=== PATIENT | male | born 1940 | race Caucasian/White ===

== ENCOUNTER 2019-12-30 11:25 | Outpatient (CLI) | payer MEDICARE, SELFPAY ==
--- NOTE | ~2019-12-30 | CT_ITS ---
EXAMINATION: CT abdomen pelvis wo con EXAM DATE: 12/30/2019 12:03 INDICATION: Kidney stone history, hematuria. TECHNIQUE: Spiral CT of the abdomen and pelvis was performed without contrast. Axial, coronal and sag ittal images were reviewed. The dose-length product (DLP) for this examination was 462.93 mGy-cm. T he exposure was tailored according to patient size (auto mA exposure control), and iterative reconstr uction (ASIR) was used as additional dose reduction technique. Comparison is made to prior examinatio n from 11/17/2019. FINDINGS: Interval development of large left renal subcapsular hematoma measuring up to about 3 cm in thickness. There is moderate bilateral caliectasis, hydronephrosis. There are 3 stones which are darron pected to be within the left ureter, 2 in the distal most aspect measuring 3 and 1 mm, another measur ing 2 mm 5 cm proximal to the UVJ. There is lobular fluid density cystic lesion inferior to the left renal pelvis measuring about 3 x 5 cm likely cyst projecting off lower pole of the left kidney. There is nonobstructing 7 mm stone in the dependent aspect of the left renal pelvis. Additional punctate r ight calyceal and 3 mm left calyceal stones. Patient has likely had prostatectomy. Small left inguina l fat-containing hernia. The bladder is unremarkable. The liver, spleen, adrenal glands and pancrea s are unremarkable. Gallbladder is unremarkable. No biliary obstruction. There is no retroperitone al or pelvic lymphadenopathy. There is mild to moderate scattered arteriosclerotic disease. The appendix is normal. The stomach and small bowel are unremarkable. There is mild scattered coloni c diverticulosis. There is no adjacent inflammatory change to suggest diverticulitis. No free intra peritoneal gas. The main, central pulmonary arteries are dilated which can indicate elevated pulmon jaclyn arterial pressure, pulmonary arterial hypertension. Dense coronary artery calcification. Small am ount of left ventricular endocardial fat may indicate prior infarction. Left basilar subsegmental at electasis with elevated left hemidiaphragm. There are no osteoblastic or osteolytic lesions identifi ed. There is chronic bilateral L5 spondylolysis with grade 2 anterolisthesis L5 on S1. There is mode rate to severe lumbar disc disease L2-S1. There are no osteoblastic or osteolytic lesions identified. IMPRESSION: 1. Interval development of 3 small left ureteral stones, T2 at the UVJ and one proximal to this, up to 3 mm in size. 2. Interval development of large left perinephric subcapsular hematoma. 3. Persistent moderate bilateral caliectasis, hydronephrosis. 4. The lateral nephrolithiasis. 5. Scattered colonic diverticulosis. 6. Left basilar segmental atelectasis. 7. 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 8. Pulmonary arterial hypertension. Reviewed, dictated and finalized at location B. 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
== END 2019-12-30 11:26 | disposition home or self-care (01) ==
PROVIDERS: PCP Family Medicine; Visit Provider Urology
DX: N20.2 Calculus of kidney with calculus of ureter (principal); K57.30 Diverticulosis of large intestine without perforation or abscess without bleeding; R91.8 Other nonspecific abnormal finding of lung field; I70.0 Atherosclerosis of aorta
CPT/HCPCS: 74176

== ENCOUNTER 2019-12-31 01:13 | Day surgery (SDC) | payer MEDICARE, SELFPAY ==
[2019-12-30 16:07] VITALS: BMI 31.0
[2019-12-31] VITALS (7 sets, daily range): BP systolic 117–149; BP diastolic 58–88; PULSE 74–88; RESP 11–18; TEMP 36.9–37.1; O2SAT 95–100; BMI 31.3
--- NOTE | ~2019-12-31 | XR_ITS ---
EXAMINATION: XR stent kub - surgery DATE: 12/31/2019 15:04 INDICATION: Left renal balloon dilation and ureteral stent placement. TECHNIQUE: 5 fluoroscopic spot images of the abdomen and pelvis were obtained during procedure perfor med by Dr. Maher. Radiologist was not present for the imaging or procedure. The amount of fluoroscop y time used during this procedure was 0.4 minutes. COMPARISON: None. FINDINGS: Images demonstrate cannulation of the left ureter and placement of a left internal ureteral stent wit h proximal loop formed at the expected location of the interpolar region of the left kidney. Surgical clips in the bilateral pelvis suggesting prior pelvic lymph node dissections. IMPRESSION: 1. Fluoroscopy utilized during left internal ureteral stent placement. See procedure note for further detail. 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 Fluoroscopy utilized during left internal ureteral stent placement. See proc edure note for further detail.
--- NOTE | 2019-12-31 07:23 | WPDHPUPDATE1 ---
History and Physical Update Update Date/Time: 12/31/19 07:23 History and Physical has been reviewed, including an updated exam of the patient. There are NO changes in the patient's condition. Risks, benefits, and alternatives have been discussed and questions answered. Patient agrees to proceed with procedure.
--- NOTE | 2019-12-31 13:09 | ECG_ITS ---
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
--- NOTE | 2019-12-31 13:31 | WPDANESEPPF ---
Anes - Initial Pre Proc Eval Procedure: Operation Date: 12/31/19 14:45 Proposed Procedures p Cystoscopy, Left Ureteroscopy, Left Stone Extraction, Left Stent Placement - Melchor Maher MD Date/Time: 12/31/19 13:31 Surgeon: Melchor Maher MD Pre Op Diagnosis: Left Ureteral Stones Patient Data Age: 79 Gender: M Height: 1.75 m Weight: 95.25 kg Allergies Allergy/AdvReac Type Severity Reaction Status Date / Time ciprofloxacin AdvReac Unknown Insomnia Verified 12/30/19 16:08 Home Medications Medication Instructions Recorded Confirmed Type albuterol sulfate 90 mcg/actuation 1 puff INHALATION Q4H PRN 09/09/19 12/30/19 History aerosol inhaler cholecalciferol (vitamin D3) 50 2,000 unit PO DAILY 09/09/19 12/30/19 History mcg (2,000 unit) capsule diltiazem HCl 360 mg capsule,24 360 mg PO DAILY 09/09/19 12/30/19 History hr,extended release loratadine 10 mg tablet 10 mg PO DAILY 09/09/19 12/30/19 History lorazepam 0.5 mg tablet 0.5 mg PO TID PRN 09/09/19 12/30/19 History losartan 100 mg tablet 100 mg PO DAILY 09/09/19 12/30/19 History mometasone 1 inhalation INHALATION HS each 09/09/19 12/30/19 History montelukast 10 mg tablet 10 mg PO DAILY 09/09/19 12/30/19 History multivitamin 1 tablet PO DAILY 09/09/19 12/30/19 History aspirin 81 mg tablet,delayed 81 mg PO DAILY 11/17/19 12/30/19 History release Patient hx anesthesia problems: none Family hx anesthesia problems: none PMFSH Past Medical History Medical History (Updated 12/31/19 @ 13:33 by Yevgeniy Figueroa MD) Bilateral renal cysts CKD (chronic kidney disease) stage 3, GFR 30-59 ml/min Essential (primary) hypertension H/O prostate cancer Malignant neoplasm of bladder, unspecified Mild persistent asthma without complication Osteoarthritis of shoulders, bilateral Prostate cancer Rotator cuff tear Urinary incontinence Surgical History Surgical History H/O prostatectomy History of bladder surgery History of bunionectomy Social History Social History (Updated 11/17/19 @ 09:30 by Federica Parish) Smoking packs per day: 2.5 Smoking cigarettes per day: 50.0 Years smoked: 35 Smoking pack-years: 87.50 Smoking status: Former smoker Tobacco type: cigarettes Second hand tobacco smoke exposure: No Smoking end date: 11/04/85 Alcohol intake: current Substance use: never Substance use type: does not use Gender identity (if verbalized by the patient): Male Anes - Eval Final PreProcedure Day of Procedure 12/31/19 13:31 Patient weight: obese Heart: regular rate and rhythm Lungs: clear to auscultation and normal air movement Airway: Mallampati scale class II Neurological: alert and oriented Last oral intake: >/= 8 hours ASA classification: III Emergent: no Anesthetic plan: proceed Anesthesia type and monitoring: general LMA Informed Consent: The patient's anesthetic plan and its attendant risks and benefits were discussed with the patient/family/POA. Questions were solicited and answers provided to the satisfaction of the patient/family/POA.
[2019-12-31] MEDS: LACTATED RINGERS 1,000 ML 30 ML IV CONT (13:56)
[2019-12-31] MEDS: ceFAZolin 2 GM/D5W 50 ML 2 GM/50 ML BAG IVPB (14:23)
[2019-12-31] MEDS: LIDOCAINE HCL 2% GEL UROJET 10 ML PKG MUCOUS MEM (14:38)
--- NOTE | 2019-12-31 15:34 | PM.PROC ---
Procedure Note - Detailed Date of procedure: 12/31/19 Pre-op diagnosis: Left Ureteral Stones Post-op diagnosis: other (Left hydronephrosis due to ureteral obstruction) Procedure performed: 1. Cystoscopy, left urteroscopy and left ureteral stent placement. 2. Bladder biopsy. Description of procedure: Patient is brought to the operative suite where he has prepped and draped in routine sterile fashion while in a dorsal lithotomy position. First to the dilated urethra to 24 F with Kobe sounds in order to be able to place a 20 F rigid cystoscope. I then see that he has some unusual tissue overlying his left ureteral orifice that could be either inflammatory/scarring, recurrent bladder or recurrenct local prostate cancer. I advanced a 0.035 in glidewire into the left renal pelvis and dilated the distal ureter with a 10 cm ureteral balloon at 15 atmospheres for 4 minutes. Left ureteroscopy was undertaken both with a semi rigid ureteral scope and a flexible ureteral scope. There are no ureteral stones but a large left renal pelvic stone measuring about 1 cm. The findings of left distal ureteral calculi on recent imaging studies must be from some calcifications in this tissue around his left ureteral orifice. I placed a left double-J ureteral stent and obtained biopsies of this tissue with cold cup forceps. I left an 18 F urethral catheter and for brief period of time postoperatively. Anesthesia: GETA Surgeon: Melchor Maher MD Estimated blood loss (mL): 10 Drains: Yes (6F left ureteral stent) Packing: No Pathology: yes Complications: No immediate complications Condition: stable Disposition: PACU
--- NOTE | 2020-01-05 16:46 | PM.HPGS ---
History of Present Illness History of Present Illness Consent: Risks, benefits, and alternatives have been discussed and questions answered. Patient agrees to proceed with procedure. Chief complaint: Left Ureteral Stones Narrative: Omer Winter is a 79 year old male, well known to me with history of both prostate and bladder cancer, recently evaluated for ongoing painless hematuria. CT-abd/pelvis reveals 2-3 small, obstructing left distal ureteral calculi and a left perinephric hematoma. Review of Systems Cardiovascular: Cardiovascular: Denies chest pain, Denies lightheadedness, Denies palpitations and Denies dyspnea Respiratory: Respiratory: Denies dyspnea Gastrointestinal: Gastrointestinal: Denies diarrhea, Denies nausea and Denies vomiting Genitourinary: Genitourinary: Denies hematuria and Denies dysuria Endocrine: Endocrine: Denies palpitations PMFSH Past Medical History Medical History Bilateral renal cysts CKD (chronic kidney disease) stage 3, GFR 30-59 ml/min Essential (primary) hypertension H/O prostate cancer Malignant neoplasm of bladder, unspecified Mild persistent asthma without complication Osteoarthritis of shoulders, bilateral Prostate cancer Rotator cuff tear Urinary incontinence Surgical History Surgical History H/O prostatectomy History of bladder surgery History of bunionectomy Family History Family History Mother Hypertension Father Family history of malignant neoplasm of brain Social History Social History Smoking packs per day: 2.5 Smoking cigarettes per day: 50.0 Years smoked: 35 Smoking pack-years: 87.50 Smoking status: Former smoker Tobacco type: cigarettes Second hand tobacco smoke exposure: No Smoking end date: 11/04/85 Alcohol intake: current Substance use: never Substance use type: does not use Gender identity (if verbalized by the patient): Male Meds Home Medications and Allergies Home Medications Medication Instructions Recorded Confirmed Type albuterol sulfate 90 mcg/actuation 1 puff INHALATION Q4H PRN 09/09/19 12/31/19 History aerosol inhaler cholecalciferol (vitamin D3) 50 2,000 unit PO DAILY 09/09/19 12/31/19 History mcg (2,000 unit) capsule diltiazem HCl 360 mg capsule,24 360 mg PO DAILY 09/09/19 12/31/19 History hr,extended release loratadine 10 mg tablet 10 mg PO DAILY 09/09/19 12/31/19 History lorazepam 0.5 mg tablet 0.5 mg PO TID PRN 09/09/19 12/31/19 History losartan 100 mg tablet 100 mg PO DAILY 09/09/19 12/31/19 History mometasone 1 inhalation INHALATION HS each 09/09/19 12/31/19 History montelukast 10 mg tablet 10 mg PO DAILY 09/09/19 12/30/19 History multivitamin 1 tablet PO DAILY 09/09/19 12/31/19 History aspirin 81 mg tablet,delayed 81 mg PO DAILY 11/17/19 12/31/19 History release Allergies Allergy/AdvReac Type Severity Reaction Status Date / Time ciprofloxacin AdvReac Unknown Insomnia Verified 12/31/19 13:44 Exam Const: General: healthy appearing, comfortable, no acute distress and well developed; No confusion Nutritional Appearance: well nourished Orientation/consciousness: patient oriented x3 and No confusion HENMT: Head: normocephalic and atraumatic Ears: external ears normal Face and sinus: normal facial exam Mouth: Yes lip normal Teeth and gingiva: dentition normal Eyes: General: appearance normal, both eyes and all related structures Alignment and Position: alignment normal Eyelids: eyelids normal Cornea: corneas normal Pupils: Equal, round and reactive pupils present EOM: EOMs intact bilaterally Neck: Neck: normal visual inspection, full ROM and no JVD Chest: Chest palpation & inspection: normal inspection of the chest Resp: Effort & Inspection: normal re
== END 2019-12-31 16:55 | disposition home or self-care (01) ==
PROVIDERS: PCP Family Medicine; Visit Provider Urology
PROC: (CPT 52352; principal; 2019-12-31 14:45)
DX: C67.6 Malignant neoplasm of ureteric orifice (principal); N13.1 Hydronephrosis with ureteral stricture, not elsewhere classified; N20.0 Calculus of kidney; I12.9 Hypertensive chronic kidney disease with stage 1 through stage 4 chronic kidney disease, or unspecified chronic kidney disease; N18.3 Chronic kidney disease, stage 3 (moderate); J45.30 Mild persistent asthma, uncomplicated; Z85.46 Personal history of malignant neoplasm of prostate; Z79.82 Long term (current) use of aspirin; Z87.891 Personal history of nicotine dependence; E66.9 Obesity, unspecified; Z68.31 Body mass index [BMI] 31.0-31.9, adult
CPT/HCPCS: 52332; 52204; 88305; 88342; 93005; A9270; C1726; C1758; C1769; C1887; C2617; J0690; J1100; J2250; J2405; J2704; J3010; J7120; Q9966

== ENCOUNTER 2020-01-07 05:02 | Emergency (ER) | payer MEDICARE, SELFPAY ==
[2020-01-07 05:15] VITALS: BP 186/89; PULSE 100; RESP 19; TEMP 36.7; O2SAT 98
--- NOTE | 2020-01-07 06:46 | ED.MALEGU ---
HPI - Male Genitourinary General Chief complaint: Urogenital-Male Stated complaint: BLADDER SPASMS Time Seen by Provider: 01/07/20 06:10 Source: patient Mode of arrival: ambulatory Limitations: no limitations History of Present Illness HPI Narrative: Patient is a 79-year-old male who presents to the emergency department with complaint of bladder spasms and urinary retention. Patient has history of prostate and bladder cancer as well as kidney stones. Patient underwent cystoscopy, left ureteroscopy, and left ureteral stent placement on 12/31/2019 for kidney stone. Patient also had a bladder biopsy at that time. Patient was discharged home with a Strickland catheter that was removed in the office 3 days ago. Patient was last able to urinate at approximately 6 or 7 PM last night. Patient was unable to urinate this morning and having severe bladder spasms. Patient tried taking antispasmodic this morning without relief. Staff placed Strickland catheter on arrival to the emergency department and patient has put out over 600 mL of urine. Patient denies any fever and reports his symptoms have completely resolved at this time. MD Complaint: other (Bladder spasm, urinary retention) Onset (ago): hour(s) Duration: constant Relieving factors: none Related Data Home Medications Medication Instructions Recorded Confirmed albuterol sulfate 90 mcg/actuation 1 puff INHALATION Q4H PRN 09/09/19 12/31/19 aerosol inhaler cholecalciferol (vitamin D3) 50 2,000 unit PO DAILY 09/09/19 12/31/19 mcg (2,000 unit) capsule diltiazem HCl 360 mg capsule,24 360 mg PO DAILY 09/09/19 12/31/19 hr,extended release loratadine 10 mg tablet 10 mg PO DAILY 09/09/19 12/31/19 lorazepam 0.5 mg tablet 0.5 mg PO TID PRN 09/09/19 12/31/19 losartan 100 mg tablet 100 mg PO DAILY 09/09/19 12/31/19 mometasone 1 inhalation INHALATION HS each 09/09/19 12/31/19 montelukast 10 mg tablet 10 mg PO DAILY 09/09/19 12/30/19 multivitamin 1 tablet PO DAILY 09/09/19 12/31/19 aspirin 81 mg tablet,delayed 81 mg PO DAILY 11/17/19 12/31/19 release Allergies Allergy/AdvReac Type Severity Reaction Status Date / Time ciprofloxacin AdvReac Unknown Insomnia Verified 01/07/20 05:03 Review of Systems Review of Systems: All systems reviewed & are unremarkable except as noted in HPI and below Constitutional: Constitutional: Denies fever(s) Genitourinary: Genitourinary: Reports other (Urinary retention, bladder spasms) [facility] Social History Social History Smoking packs per day: 2.5 Smoking cigarettes per day: 50.0 Years smoked: 35 Smoking pack-years: 87.50 Smoking status: Former smoker Tobacco type: cigarettes Second hand tobacco smoke exposure: No Smoking end date: 11/04/85 Alcohol intake: current Substance use: never Substance use type: does not use Gender identity (if verbalized by the patient): Male Exam Const: General: cooperative, no acute distress and alert Nutritional Appearance: obese Orientation/consciousness: patient oriented x3 Limitations: no limitations HENMT: Mouth: Yes lip normal and Yes moist mucous membranes Resp: Effort & Inspection: normal respiratory effort Auscultation: clear to auscultation bilaterally Cardio: Rate: regular rate Rhythm: regular rhythm GI: GI Palp: Yes Soft to palpation and No Tenderness to palpation present (GI) Auscultation: normal bowel sounds Skin: General skin exam: normal color Neuro: General: patient oriented x3 Cognition (Neuro): normal cognition Speech: normal speech Extrem: General: normal to inspection, full ROM and no clubbing, cyanosis or edema Psych: Mental Status: mental status grossly normal Affect: normal affect Attitude: cooperative Course Course Emergency Course: Patient and familiar with Strickland catheter care as patient has had catheters at home in the past. Patient advised to follow-up with his urologist for Strickland catheter
[2020-01-07 06:52] VITALS: BP 137/83; PULSE 87; RESP 14; TEMP 36.5; O2SAT 98
[2020-01-07 07:06] VITALS: BP 149/62; PULSE 84; RESP 17; TEMP 36.5; O2SAT 95
== END 2020-01-07 07:00 | disposition home or self-care (01) ==
PROVIDERS: Emergency Provider Emergency Medicine; PCP Family Medicine
DX: R33.9 Retention of urine, unspecified (principal); C67.9 Malignant neoplasm of bladder, unspecified; Z87.891 Personal history of nicotine dependence; Z85.46 Personal history of malignant neoplasm of prostate; Z96.0 Presence of urogenital implants
CPT/HCPCS: 51702; 99283

== ENCOUNTER 2020-01-12 14:26 | Outpatient (CLI) | payer MEDICARE, SELFPAY ==
--- NOTE | ~2020-01-12 | US_ITS ---
EXAMINATION: US venous doppler LE EXAM DATE: 01/12/2020 15:30 INDICATION: Right foot swelling. TECHNIQUE: Multiple grayscale, color flow and Doppler images of the lower extremity deep venous syste ms bilaterally were obtained and reviewed. Comparison is made to prior examination from 01/08/2019. FINDINGS: RIGHT SIDE Common femoral: -------- Normal. Profunda femoral: ------- Normal. Femoral: Normal. Popliteal: Normal. Posterior tibial: --------- Normal. Peroneal: Normal. Gastrocnemius: Not visualized. Soleus: Not visualized. Greater saphenous: -----Thrombosed from ankle to mid calf. Lesser saphenous: ------ Not visualized. There is a Peterson's cyst measuring 4.8 x 1.5 x 2.9 cm LEFT SIDE Common femoral: -------- Normal. Profunda femoral: ------- Normal. Femoral: Normal. Popliteal: Normal. Posterior tibial: --------- Normal. Peroneal: Normal. Gastrocnemius: Not visualized. Soleus: Not visualized. Greater saphenous: ----- Normal. Lesser saphenous: ------ Not visualized. IMPRESSION: 1. Right greater saphenous superficial venous thrombosis. 2. No DVT bilaterally. 3. Moderate right Peterson's cyst. Reviewed, dictated and finalized at location A.
== END 2020-01-12 14:27 | disposition home or self-care (01) ==
PROVIDERS: PCP Family Medicine; Visit Provider Physician Assistant
DX: I82.409 Acute embolism and thrombosis of unspecified deep veins of unspecified lower extremity (principal); R60.9 Edema, unspecified; M71.21 Synovial cyst of popliteal space [Baker], right knee
CPT/HCPCS: 93970

== ENCOUNTER 2020-01-21 01:33 | Day surgery (SDC) | payer MEDICARE, SELFPAY ==
[2020-01-13 14:32] VITALS: BMI 29.9
--- NOTE | 2020-01-15 11:10 | PM.HPGS ---
History of Present Illness History of Present Illness Consent: Risks, benefits, and alternatives have been discussed and questions answered. Patient agrees to proceed with procedure. Chief complaint: bladder tumors Narrative: Omer Winter is a 79 year old male well known to our practice with both a history of prostate cancer and bladder cancer. He is status post radical prostatectomy at [facility] in 2001. He has also had a history of urothelial carcinoma status post 1st bladder tumor resection in April 2014. He is not known to have a recurrence of either until recently when he developed left hydronephrosis. A CT scan was initially read as obstruction due to distal ureteral calculi but under further endoscopic evaluation he was found to have obstruction due to soft tissue at the ureteral orifice. Biopsy revealed urothelial carcinoma and he now presents for formal resection of that area. Review of Systems Cardiovascular: Cardiovascular: Denies chest pain, Denies lightheadedness, Denies palpitations and Denies dyspnea Respiratory: Respiratory: Denies dyspnea Gastrointestinal: Gastrointestinal: Denies diarrhea, Denies nausea and Denies vomiting Genitourinary: Genitourinary: Denies hematuria and Denies dysuria Endocrine: Endocrine: Denies palpitations [facility] Social History Social History Smoking packs per day: 2.5 Smoking cigarettes per day: 50.0 Years smoked: 35 Smoking pack-years: 87.50 Smoking status: Former smoker Tobacco type: cigarettes Second hand tobacco smoke exposure: No Smoking end date: 11/04/85 Alcohol intake: current Substance use: never Substance use type: does not use Gender identity (if verbalized by the patient): Male Meds Home Medications and Allergies Home Medications Medication Instructions Recorded Confirmed Type albuterol sulfate 90 mcg/actuation 1 puff INHALATION Q4H PRN 09/09/19 01/13/20 History aerosol inhaler cholecalciferol (vitamin D3) 50 2,000 unit PO DAILY 09/09/19 01/13/20 History mcg (2,000 unit) capsule diltiazem HCl 360 mg capsule,24 360 mg PO DAILY 09/09/19 01/13/20 History hr,extended release loratadine 10 mg tablet 10 mg PO DAILY 09/09/19 01/13/20 History lorazepam 0.5 mg tablet 0.5 mg PO TID PRN 09/09/19 01/13/20 History losartan 100 mg tablet 100 mg PO DAILY 09/09/19 01/13/20 History mometasone 1 inhalation INHALATION HS each 09/09/19 01/13/20 History montelukast 10 mg tablet 10 mg PO DAILY 09/09/19 01/13/20 History multivitamin 1 tablet PO DAILY 09/09/19 01/13/20 History aspirin 81 mg tablet,delayed 81 mg PO DAILY 11/17/19 01/13/20 History release Allergies Allergy/AdvReac Type Severity Reaction Status Date / Time ciprofloxacin AdvReac Unknown Insomnia Verified 01/13/20 14:31 Exam Const: General: no acute distress Resp: Effort & Inspection: normal respiratory effort GI: Inspection: non-distended GI Palp: No abdominal tenderness and No Guarding due to palpation present (GI) Auscultation: normal bowel sounds Assessment and Plan Assessment and plan (1) Cancer of overlapping sites of bladder: Code(s): C67.8 - Malignant neoplasm of overlapping sites of bladder Status: Acute Assessment and Plan: TURBT of recurrent urothelial cancer overlying the left ureteral orifice. The patient has an indwelling stent currently is aware he will need to keep it postoperatively for a brief period of time. Risks, benefits and alternative treatment options were discussed.
[2020-01-21] VITALS (7 sets, daily range): BP systolic 108–165; BP diastolic 69–86; PULSE 62–77; RESP 12–18; TEMP 36.4–36.7; O2SAT 97–100
--- NOTE | 2020-01-21 06:49 | WPDHPUPDATE1 ---
History and Physical Update Update Date/Time: 01/21/20 06:49 History and Physical has been reviewed, including an updated exam of the patient. There are NO changes in the patient's condition. Risks, benefits, and alternatives have been discussed and questions answered. Patient agrees to proceed with procedure.
--- NOTE | 2020-01-21 06:50 | WPDHPUPDATE1 ---
History and Physical Update Update Date/Time: 01/21/20 06:50 History and Physical has been reviewed, including an updated exam of the patient. There are NO changes in the patient's condition. Risks, benefits, and alternatives have been discussed and questions answered. Patient agrees to proceed with procedure.
[2020-01-21] MEDS: LACTATED RINGERS 1,000 ML 30 ML IV CONT ×2 (13:10→13:15)
--- NOTE | 2020-01-21 13:45 | WPDANESEPPF ---
Anes - Initial Pre Proc Eval Procedure: Operation Date: 01/21/20 14:30 Proposed Procedures p Trans Urethral Resection Bladder Tumor - Melchor Maher MD Date/Time: 01/21/20 13:45 Surgeon: Melchor Maher MD Pre Op Diagnosis: bladder tumors Patient Data Age: 79 Gender: M Height: 5 ft 9 in Weight: 92.2 kg Last Vital Signs Temp 36.4 C 01/21/20 13:07 Pulse 77 01/21/20 13:07 Resp 18 01/21/20 13:07 BP 158/79 H 01/21/20 13:07 Pulse Ox 97 01/21/20 13:07 Allergies Allergy/AdvReac Type Severity Reaction Status Date / Time ciprofloxacin AdvReac Unknown Insomnia Verified 01/21/20 13:31 Home Medications Medication Instructions Recorded Confirmed Type albuterol sulfate 90 mcg/actuation 1 puff INHALATION Q4H PRN 09/09/19 01/21/20 History aerosol inhaler cholecalciferol (vitamin D3) 50 2,000 unit PO DAILY 09/09/19 01/21/20 History mcg (2,000 unit) capsule diltiazem HCl 360 mg capsule,24 360 mg PO DAILY 09/09/19 01/21/20 History hr,extended release loratadine 10 mg tablet 10 mg PO DAILY 09/09/19 01/21/20 History lorazepam 0.5 mg tablet 0.5 mg PO TID PRN 09/09/19 01/21/20 History losartan 100 mg tablet 100 mg PO DAILY 09/09/19 01/21/20 History mometasone 1 inhalation INHALATION HS each 09/09/19 01/21/20 History montelukast 10 mg tablet 10 mg PO DAILY 09/09/19 01/21/20 History multivitamin 1 tablet PO DAILY 09/09/19 01/21/20 History aspirin 81 mg tablet,delayed 81 mg PO DAILY 11/17/19 01/21/20 History release Patient hx anesthesia problems: none Family hx anesthesia problems: none PMFSH Past Medical History Medical History Bilateral renal cysts CKD (chronic kidney disease) stage 3, GFR 30-59 ml/min Essential (primary) hypertension H/O prostate cancer Malignant neoplasm of bladder, unspecified Mild persistent asthma without complication Osteoarthritis of shoulders, bilateral Prostate cancer Rotator cuff tear Urinary incontinence Surgical History Surgical History H/O prostatectomy History of bladder surgery History of bunionectomy Family History Family History Mother Hypertension Father Family history of malignant neoplasm of brain Social History Social History Smoking packs per day: 2.5 Smoking cigarettes per day: 50.0 Years smoked: 35 Smoking pack-years: 87.50 Smoking status: Former smoker Tobacco type: cigarettes Second hand tobacco smoke exposure: No Smoking end date: 11/04/85 Alcohol intake: current Substance use: never Substance use type: does not use Gender identity (if verbalized by the patient): Male Anes - Eval Final PreProcedure Day of Procedure 01/21/20 13:45 Patient weight: obese Heart: regular rate and rhythm Lungs: clear to auscultation Airway: Mallampati scale class II Neurological: alert and oriented Last oral intake: >/= 8 hours ASA classification: III Emergent: no Anesthetic plan: proceed Anesthesia type and monitoring: general LMA and standard monitoring Informed Consent: The patient's anesthetic plan and its attendant risks and benefits were discussed with the patient/family/POA. Questions were solicited and answers provided to the satisfaction of the patient/family/POA.
[2020-01-21] MEDS: ceFAZolin 2 GM/D5W 50 ML 2 GM/50 ML BAG IVPB (14:18)
[2020-01-21] MEDS: LIDOCAINE HCL 2% GEL UROJET 10 ML PKG MUCOUS MEM (14:25)
--- NOTE | 2020-01-21 14:57 | PM.PROC ---
Procedure Note - Detailed Date of procedure: 01/21/20 Pre-op diagnosis: bladder tumors Post-op diagnosis: same Procedure performed: 1. Cysto./urethral dilatation. 2. TURBT (medium, 4-5cm). Description of procedure: The patient was brought to the operative suite where he is prepped and draped in a routine sterile fashion while in the dorsal lithotomy position. This is done after the uneventful administration of a general LMA anesthetic. 2% Xylocaine jelly is introduced intraurethrally and allowed to stand for an appropriate period of time. I 1st dilated the urethra from 18-26 F with Kobe sounds. A 24F resectoscope sheath was placed in the bladder and the bladder is circumferentially inspected carefully. His neoplasm is little difficult to discern grossly but likely represents an area of desmoplastic tissue around the left ureteral orifice. Other than that (which I biopsied recently) his bladder a bladder is endoscopically normal. I aggressively resected the area around his left ureteral orifice extending to the bladder neck. I resected to the point where there was clearly normal bladder mucosa circumferentially. The base and periphery of this resected side is cauterized with a loop electrode. I opted to leave the left ureteral stent in place. The bladder is emptied and the resectoscope was removed. The patient is taken to the recovery room having tolerated this procedure well. Implants: None Anesthesia: GLMA Surgeon: Melchor Maher MD Estimated blood loss (mL): 0 Drains: Yes (18F Strickland) Packing: No Pathology: yes Complications: No immediate complications Condition: stable Disposition: PACU
== END 2020-01-21 16:32 | disposition home or self-care (01) ==
PROVIDERS: PCP Family Medicine; Visit Provider Urology
PROC: 0TBB8ZZ Excision of Bladder, Via Natural or Artificial Opening Endoscopic (ICD-10-PCS; CPT 52235; principal; 2020-01-21 14:30)
DX: C67.8 Malignant neoplasm of overlapping sites of bladder (principal); I12.9 Hypertensive chronic kidney disease with stage 1 through stage 4 chronic kidney disease, or unspecified chronic kidney disease; N18.3 Chronic kidney disease, stage 3 (moderate); J45.30 Mild persistent asthma, uncomplicated; Q61.3 Polycystic kidney, unspecified; Z85.46 Personal history of malignant neoplasm of prostate; Z79.82 Long term (current) use of aspirin; Z87.891 Personal history of nicotine dependence; E66.9 Obesity, unspecified; Z68.30 Body mass index [BMI] 30.0-30.9, adult
CPT/HCPCS: 52235; 88305; 88307; A9270; J0690; J1100; J2405; J2704; J3010; J7120

== ENCOUNTER 2020-03-29 00:03 | Outpatient (CLI) | payer MEDICARE, SELFPAY ==
[2020-03-29 17:31] LABS: SARS-CoV-2 RNA PCR Negative
== END 2020-03-29 00:04 | disposition home or self-care (01) ==
LOC: ANHCOVIDDT 00:03
PROVIDERS: PCP Family Medicine; Visit Provider Urology
DX: Z01.812 Encounter for preprocedural laboratory examination (principal); Z20.828 Contact with and (suspected) exposure to other viral communicable diseases
CPT/HCPCS: 87635; C9803; U0003

== ENCOUNTER 2020-03-31 01:19 | Day surgery (SDC) | payer MEDICARE, SELFPAY ==
[2020-03-18 13:10] VITALS: BMI 31.0
--- NOTE | 2020-03-29 18:48 | PM.HPGS ---
History of Present Illness History of Present Illness Consent: Risks, benefits, and alternatives have been discussed and questions answered. Patient agrees to proceed with procedure. Chief complaint: Bladder Tumor Narrative: Omer Winter is a 80 year old male with a history of both known prostate and bladder cancer. In mid-january TURBT indentified high-grade, T1 (lamina propria invasion) urothelial ca. Presents now for re-resection of bladder tumor in area around right ureteral orifice Review of Systems Cardiovascular: Cardiovascular: Denies chest pain, Denies lightheadedness, Denies palpitations and Denies dyspnea Respiratory: Respiratory: Denies dyspnea Gastrointestinal: Gastrointestinal: Denies diarrhea, Denies nausea and Denies vomiting Genitourinary: Genitourinary: Denies hematuria and Denies dysuria Endocrine: Endocrine: Denies palpitations PMFSH Past Medical History Medical History Bilateral renal cysts CKD (chronic kidney disease) stage 3, GFR 30-59 ml/min Essential (primary) hypertension H/O prostate cancer Malignant neoplasm of bladder, unspecified Mild persistent asthma without complication Osteoarthritis of shoulders, bilateral Prostate cancer Rotator cuff tear Urinary incontinence Surgical History Surgical History H/O prostatectomy History of bladder surgery History of bunionectomy Family History Family History Mother Hypertension Father Family history of malignant neoplasm of brain Social History Social History Smoking packs per day: 2.5 Smoking cigarettes per day: 50.0 Years smoked: 35 Smoking pack-years: 87.50 Smoking status: Former smoker Tobacco type: cigarettes Second hand tobacco smoke exposure: No Smoking end date: 11/04/85 Alcohol intake: current Substance use: never Substance use type: does not use Gender identity (if verbalized by the patient): Male Meds Home Medications and Allergies Home Medications Medication Instructions Recorded Confirmed Type albuterol sulfate 90 mcg/actuation 1 puff INHALATION Q4H PRN 09/09/19 03/18/20 History aerosol inhaler cholecalciferol (vitamin D3) 50 2,000 unit PO DAILY 09/09/19 03/18/20 History mcg (2,000 unit) capsule diltiazem HCl 360 mg capsule,24 360 mg PO DAILY 09/09/19 03/18/20 History hr,extended release loratadine 10 mg tablet 10 mg PO DAILY 09/09/19 03/18/20 History losartan 100 mg tablet 100 mg PO DAILY 09/09/19 03/18/20 History mometasone 1 inhalation INHALATION HS each 09/09/19 03/18/20 History montelukast 10 mg tablet 10 mg PO DAILY 09/09/19 03/18/20 History multivitamin 1 tablet PO DAILY 09/09/19 03/18/20 History aspirin 81 mg tablet,delayed 81 mg PO DAILY 11/17/19 03/18/20 History release lorazepam 0.5 mg tablet 0.5 mg PO TID PRN #30 tablet 01/25/20 03/18/20 Rx zlidhxkw-whegh-pcfho-CF borate 1 tablet PO DAILY 03/18/20 03/18/20 History [[facility]] Allergies Allergy/AdvReac Type Severity Reaction Status Date / Time ciprofloxacin AdvReac Unknown Insomnia Verified 03/18/20 12:53 Exam Const: General: no acute distress Resp: Effort & Inspection: normal respiratory effort GI: Inspection: non-distended GI Palp: No abdominal tenderness and No Guarding due to palpation present (GI) Auscultation: normal bowel sounds Assessment and Plan Assessment and plan (1) Cancer of overlapping sites of bladder: Code(s): C67.8 - Malignant neoplasm of overlapping sites of bladder Status: Acute Assessment and Plan: Repeat resection bladder tumor
[2020-03-31] VITALS (7 sets, daily range): BP systolic 140–161; BP diastolic 63–100; PULSE 66–86; RESP 10–20; TEMP 36.8–37.1; O2SAT 94–96
[2020-03-31] MEDS: LACTATED RINGERS 1,000 ML 30 ML IV CONT (06:30)
--- NOTE | 2020-03-31 06:47 | WPDANESEPPF ---
Anes - Initial Pre Proc Eval Procedure: Operation Date: 03/31/20 07:30 Proposed Procedures p Re-Resection Bladder Tumor Base - Melchor Maher MD Date/Time: 03/31/20 06:47 Surgeon: Melchor Maher MD Pre Op Diagnosis: Bladder Tumor Patient Data Age: 80 Gender: M Height: 1.75 m Weight: 94.5 kg Last Vital Signs Temp 36.8 C 03/31/20 06:15 Pulse 71 03/31/20 06:15 Resp 20 03/31/20 06:15 BP 152/100 H 03/31/20 06:15 Pulse Ox 96 03/31/20 06:15 Allergies Allergy/AdvReac Type Severity Reaction Status Date / Time ciprofloxacin AdvReac Unknown Insomnia Verified 03/31/20 06:30 Home Medications Medication Instructions Recorded Confirmed Type albuterol sulfate 90 mcg/actuation 1 puff INHALATION Q4H PRN 09/09/19 03/31/20 History aerosol inhaler cholecalciferol (vitamin D3) 50 2,000 unit PO DAILY 09/09/19 03/31/20 History mcg (2,000 unit) capsule diltiazem HCl 360 mg capsule,24 360 mg PO DAILY 09/09/19 03/31/20 History hr,extended release loratadine 10 mg tablet 10 mg PO DAILY 09/09/19 03/31/20 History losartan 100 mg tablet 100 mg PO DAILY 09/09/19 03/31/20 History mometasone 1 inhalation INHALATION HS each 09/09/19 03/31/20 History montelukast 10 mg tablet 10 mg PO DAILY 09/09/19 03/31/20 History multivitamin 1 tablet PO DAILY 09/09/19 03/31/20 History aspirin 81 mg tablet,delayed 81 mg PO DAILY 11/17/19 03/31/20 History release lorazepam 0.5 mg tablet 0.5 mg PO TID PRN #30 tablet 01/25/20 03/31/20 Rx byoarrbd-lodhg-mwfho-CF borate 1 tablet PO DAILY 03/18/20 03/31/20 History [[facility]] ECG: Date of Service: 12/31/19 Procedure(s): CA 12 lead EKG Accession Number(s): [id number] cc: ~ Measurements Intervals Thompson Rate: 88 P: 27 ID: 180 QRS: 50 QRSD: 150 T: 42 QT: 369 QTc: 448 Interpretive Statements SINUS RHYTHM ATRIAL PREMATURE COMPLEX RIGHT BUNDLE BRANCH BLOCK MINIMAL Q WAVES- DIFFUSE LEADS ABNORMAL ECG Electronically Signed On 12-31-2019 13:50:49 RN UROLOGY by Todd Melgoza D.O. Patient hx anesthesia problems: none Family hx anesthesia problems: none PMFSH Past Medical History Medical History Bilateral renal cysts CKD (chronic kidney disease) stage 3, GFR 30-59 ml/min Essential (primary) hypertension H/O prostate cancer Malignant neoplasm of bladder, unspecified Mild persistent asthma without complication Osteoarthritis of shoulders, bilateral Prostate cancer Rotator cuff tear Urinary incontinence Surgical History Surgical History H/O prostatectomy History of bladder surgery History of bunionectomy Family History Family History Mother Hypertension Father Family history of malignant neoplasm of brain Social History Social History Smoking packs per day: 2.5 Smoking cigarettes per day: 50.0 Years smoked: 35 Smoking pack-years: 87.50 Smoking status: Former smoker Tobacco type: cigarettes Second hand tobacco smoke exposure: No Smoking end date: 11/04/85 Alcohol intake: current Substance use: never Substance use type: does not use Gender identity (if verbalized by the patient): Male Anes - Eval Final PreProcedure Day of Procedure 03/31/20 06:47 Patient weight: obese Heart: regular rate and rhythm Lungs: clear to auscultation and normal air movement Airway: Mallampati scale class II Neurological: alert and oriented Last oral intake: >/= 8 hours ASA classification: III Emergent: no Anesthetic jo
--- NOTE | 2020-03-31 06:55 | WPDHPUPDATE1 ---
History and Physical Update Update Date/Time: 03/31/20 06:55 History and Physical has been reviewed, including an updated exam of the patient. There are NO changes in the patient's condition. Risks, benefits, and alternatives have been discussed and questions answered. Patient agrees to proceed with procedure.
[2020-03-31] MEDS: ceFAZolin 2 GM/D5W 50 ML 2 GM/50 ML BAG IVPB (07:34)
--- NOTE | 2020-03-31 08:29 | PM.PROC ---
Procedure Note - Detailed Date of procedure: 03/31/20 Pre-op diagnosis: Bladder Tumor Post-op diagnosis: same Procedure performed: 1. Cysto./urethral dilatation. 2. TURBT (small, 2cm). 3. Left ureteral stent removal. Description of procedure: The patient was brought to the operative suite where he is prepped and draped in a routine sterile fashion while in the dorsal lithotomy position. This is done after the uneventful administration of systemic sedation. 2% Xylocaine jelly is introduced intraurethrally and allowed to stand for an appropriate period of time. I 1st had to dilate his urethra from 18-28 F with Kobe sounds. A 24F resectoscope sheath was placed in the bladder and the bladder is circumferentially inspected carefully. He has an area of desmoplastic reaction without gregg neoplasm just medial to the left ureteral orifice. The remainder of the bladder mucosa is normal without hyperemia or gregg neoplasm.. This area is resected in its entirety with an attempt made to include detrusor muscle for pathological evaluation of invasion. The base and periphery of this resected side is cauterized with a loop electrode. I then opted to remove the left ureteral stent. The bladder is emptied and the resectoscope was removed. The patient is taken to the recovery room having tolerated this procedure well. Anesthesia: GLMA Surgeon: Melchor Maher MD Estimated blood loss (mL): 0 Drains: Yes (18F Strickland) Packing: No Pathology: yes Complications: No immediate complications Condition: stable Disposition: PACU
--- NOTE | 2020-03-31 08:38 | SUR.PHASEI ---
0837 - dr. bobby at bedside talking with pt
== END 2020-03-31 09:47 | disposition home or self-care (01) ==
PROVIDERS: PCP Family Medicine; Visit Provider Urology
PROC: 0TBB8ZZ Excision of Bladder, Via Natural or Artificial Opening Endoscopic (ICD-10-PCS; CPT 52234; principal; 2020-03-31 07:30)
DX: C67.1 Malignant neoplasm of dome of bladder (principal); I12.9 Hypertensive chronic kidney disease with stage 1 through stage 4 chronic kidney disease, or unspecified chronic kidney disease; N18.3 Chronic kidney disease, stage 3 (moderate); Z85.46 Personal history of malignant neoplasm of prostate; Z79.82 Long term (current) use of aspirin; Z87.891 Personal history of nicotine dependence; E66.9 Obesity, unspecified; Z68.30 Body mass index [BMI] 30.0-30.9, adult
CPT/HCPCS: 52234; 88108; 88305; 88307; A9270; J0690; J2405; J2704; J3010; J7120

== ENCOUNTER 2020-04-08 07:22 | Outpatient (CLI) | payer MEDICARE, SELFPAY ==
--- NOTE | ~2020-04-08 | CT_ITS ---
EXAMINATION: CT abdomen pelvis wo/w con DATE: 04/08/2020 08:32 INDICATION: Malignant neoplasm of posterior wall of the urinary bladder TECHNIQUE: Computed tomography (CT) of the abdomen and pelvis was performed without and subsequently with 130 cc Omnipaque 350 intravenous contrast. Automated exposure control and iterative reconstructi on technique were employed. Exam dose: 2645.97 mGy-cm total exam DLP. COMPARISON: 12/30/2019 CT abdomen pelvis FINDINGS: Mild discoid scarring, right lower lobe. There is more prominent chronic discoid atelectasi s or scarring in the left lower lobe. Mild discoid atelectasis or scarring at the base of the lingula . Extensive coronary artery calcification. Heart size is within normal limits. No pericardial effusion. No pleural effusion. Elevated left diaphragm. No hepatic space-occupying mass lesion or bile duct dilatation. The gallbladder is present. No perich olecystic fluid or stranding. No bile duct or pancreatic duct dilatation. No pancreatic mass lesion o r calcification. Splenic size is normal. Normal morphology of the adrenal glands. There is considerably diminished subcapsular fluid collection of the kidney. There is prominent asymm etric perinephric stranding. Numerous bilateral renal cysts, the largest on the right measuring up to 11 cm, the largest on the le ft up to 6 cm. Again noted is a cystic collection caudal to the left renal pelvis. 5 mm nonobstructing upper pole left renal calculus Nonobstructing lower pole left renal approximately 10 mm calculus with attenuation of 1425 Hounsfield units. Moderate right hydronephrosis. No right ureteral dilatation. There is moderately severe left hydroureteronephrosis and pelviectasis, with moderate left hydrourete r. Unfortunately there is streak artifact obscuring the very distal left ureter, which interferes wit h evaluation of the cause of the distal left ureteral obstruction. The urinary bladder is relatively evacuated. There is extensive calcification at the lower aspect of the urinary bladder and prostate bed. There is extensive calcification of the abdominal aorta as well as iliac and femoral artery calcifica tions. No abdominal aortic aneurysm. No intraperitoneal or retroperitoneal or pelvic mass lesion or l ymphadenopathy. Diverticulosis of the left colon; no CT evidence of diverticulitis. No bowel obstruction. Normal appe ndix. No intraperitoneal free air. Small fat-containing left inguinal hernia. Diffuse idiopathic skeletal hyperostosis of the thoracic spine. There is severe degenerative disc disease of the lumbosacral spine, most pronounced at L5-S1. There i s associated mild retrolisthesis at L2-3. 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 IMPRESSION: Bilateral hydronephrosis, left greater than right Left ureterectasis; distal left ureteral obstruction of uncertain etiology; streak artifact from surg ical clips prevent optimal evaluation of the distal left ureter. Left nephrolithiasis Bilateral renal cysts Considerably diminished subcapsular fluid collection of left kidney since 12/30/2019 Diverticulosis of the colon; no CT evidence of diverticulitis Reviewed, dictated and finalized at [facility]. Reviewed, dictated and finalized at [facility]. IMPRESSION: Bilateral hydronephrosis, left greater than right Left ureterectasis; distal left ureteral obstruction of uncertain etiology; str eak artifact from surgical clips prevent optimal evaluation of the distal left ureter. Left nephrolithiasis Bilateral renal cysts Considerably diminished subcapsular fluid collection of left kidney since 2019 Diverticulosis of
--- NOTE | ~2020-04-08 | NM_ITS ---
EXAMINATION: NM bone scan whole body DATE: 04/08/2020 11:28 INDICATION: Malignant neoplasm of posterior wall of urinary bladder. TECHNIQUE: 23.1 mCi Tc-99m HDP was administered intravenously. Delayed whole-body scintigrams were o btained. COMPARISON: CT abdomen and pelvis 04/08/2020 FINDINGS: There is bilateral hydronephrosis. There is joint-centered increased activity in the should ers, elbows, hands, knees, and feet without radiographic comparison, likely osteoarthritis. IMPRESSION: 1. No evidence of metastatic disease. 2. Bilateral hydronephrosis. Reviewed, dictated and finalized at [facility].
--- NOTE | ~2020-04-08 | CT_ITS ---
EXAMINATION:CT chest w con DATE: 04/08/2020 08:31 INDICATION: Malignant neoplasm of posterior wall of urinary bladder. TECHNIQUE: Computed tomography (CT) of the chest was performed with 130 mL Omnipaque 350 intravenous contrast. Automated exposure control and iterative reconstruction technique were employed. The dose-l ength product (DLP) was 2645.97 mGy-cm. COMPARISON: CT abdomen and pelvis 12/30/2019 FINDINGS: There is mild emphysema. There is chronic elevation of left hemidiaphragm. There is mild at electasis bilaterally. No pleural effusion. The heart size is normal. There are coronary artery calci fications. The central pulmonary arteries are enlarged, consistent with pulmonary arterial hypertensi on. There are bridging endplate osteophytes at multiple levels in the spine, consistent with diffuse idiopathic skeletal hyperostosis (DISH). IMPRESSION: 1. No evidence of metastatic disease. 2. Mild emphysema. Reviewed, dictated and finalized at [facility].
[2020-04-08 07:52] LABS: Estimated Glomerular Filt Rate 58
== END 2020-04-08 07:23 | disposition home or self-care (01) ==
LOC: ANHIMG 07:23
PROVIDERS: PCP Family Medicine; Visit Provider Urology
DX: C67.4 Malignant neoplasm of posterior wall of bladder (principal); N13.30 Unspecified hydronephrosis; J43.9 Emphysema, unspecified; N13.4 Hydroureter; N20.0 Calculus of kidney; N28.1 Cyst of kidney, acquired; K57.90 Diverticulosis of intestine, part unspecified, without perforation or abscess without bleeding
CPT/HCPCS: 36415; 71260; 74178; 78306; A9561; Q9967

== ENCOUNTER 2020-04-14 13:46 | Outpatient (CLI) | payer MEDICARE, SELFPAY ==
--- NOTE | ~2020-04-14 | US_ITS ---
EXAMINATION: US renal BI DATE: 04/14/2020 14:18 INDICATION: Abnormal kidney function tests. TECHNIQUE: Multiple ultrasound grayscale images of the kidneys were obtained. COMPARISON: CT abdomen and pelvis 12/09/2019 FINDINGS: The right kidney measures 16.9 x 2.3 x 10.2 cm. The left kidney measures 14.8 x 6.6 x 10.8 cm. The ki dneys demonstrate normal parenchymal echogenicity. There are cysts in the kidneys measuring up to 11. 9 cm on the right. There is mild to moderate bilateral hydronephrosis. The bladder is decompressed. IMPRESSION: 1. Mild to moderate bilateral hydronephrosis. Reviewed, dictated and finalized at [facility].
== END 2020-04-14 13:47 | disposition home or self-care (01) ==
PROVIDERS: PCP Family Medicine; Visit Provider Internal Medicine Nephrology
DX: R94.4 Abnormal results of kidney function studies (principal)
CPT/HCPCS: 76775

== ENCOUNTER 2020-04-21 15:39 | Outpatient (CLI) | payer MEDICARE, SELFPAY ==
[2020-04-21 16:46] LABS: Add Urine Microscopic? YES; Appearance Urine Cloudy (Clear); Bacteria Urine 1+ /hpf; Bilirubin Urine Negative (Negative); Blood Urine Negative (Negative); Color Urine Yellow (Yellow); Glucose Urine UA Negative (Negative); Ketones Urine Negative (Negative); Leukocyte Esterase Ur 3+ LEU/UL (Negative); Nitrate Urine Negative (Negative); Protein Urine 1+ mg/dL (Negative); RBC Urine >75 /hpf (0-2); Specific Grav Ur 1.012 (1.001-1.035); Urobilinogen Urine Negative mg/dL (<2.0); WBC Urine >75 /hpf
== END 2020-04-21 15:40 | disposition home or self-care (01) ==
LOC: ANHLAB 15:41
PROVIDERS: PCP Family Medicine; Visit Provider Family Medicine
DX: N39.0 Urinary tract infection, site not specified (principal)
CPT/HCPCS: 81001; 87077; 87086; 87088; 87186

== ENCOUNTER 2020-05-03 00:28 | Outpatient (CLI) | payer MEDICARE, SELFPAY ==
[2020-05-03 19:45] LABS: SARS-CoV-2 RNA PCR Negative
== END 2020-05-03 00:29 | disposition home or self-care (01) ==
LOC: ANHCOVIDDT 00:28
PROVIDERS: PCP Family Medicine; Visit Provider Urology
DX: Z01.818 Encounter for other preprocedural examination (principal); Z11.59 Encounter for screening for other viral diseases
CPT/HCPCS: 87635; C9803; U0003

== ENCOUNTER 2020-05-05 04:08 | Day surgery (SDC) | payer MEDICARE, SELFPAY ==
[2020-05-02 14:11] VITALS: BMI 29.7
--- NOTE | ~2020-05-05 | XR_ITS ---
EXAMINATION: XR retrograde pyelo w/stent LT DATE: 05/05/2020 14:12 INDICATION: Bilateral internal ureteral stent placement TECHNIQUE: Fluoroscopic images from a bilateral internal ureteral stent placement are submitted for renea gonzáles. 25 seconds of fluoroscopy time. 28 images. FINDINGS: There are bilateral double-J internal ureteral stent projecting in expected position, with proximal C ope loop at the level of the renal pelvis and distal loop in the pelvis within the bladder lumen. IMPRESSION: 1. Bilateral internal ureteral stent placement. Please refer to real-time procedural findings for d etails. Reviewed, dictated and finalized at location A. IMPRESSION: 1. Bilateral internal ureteral stent placement. Please refer to real-time pro cedural findings for details.
--- NOTE | 2020-05-05 07:00 | WPDHPUPDATE1 ---
History and Physical Update Update Date/Time: 05/05/20 07:00 History and Physical has been reviewed, including an updated exam of the patient. There are NO changes in the patient's condition. Risks, benefits, and alternatives have been discussed and questions answered. Patient agrees to proceed with procedure.
[2020-05-05] MEDS: LACTATED RINGERS 1,000 ML 30 ML IV CONT (11:05)
[2020-05-05 11:14] VITALS: BP 133/88; PULSE 77; RESP 20; TEMP 36.7; O2SAT 98
--- NOTE | 2020-05-05 11:15 | WPDANESEPPF ---
Anes - Initial Pre Proc Eval Procedure: Operation Date: 05/05/20 12:30 Proposed Procedures p Cystoscopy, Bilateral Ureteral Stent Placement - Melchor Maher MD Date/Time: 05/05/20 11:15 Surgeon: Melchor Maher MD Pre Op Diagnosis: bilateral bladder CA Patient Data Age: 80 Gender: M Height: 5 ft 9 in Weight: 91 kg Allergies Allergy/AdvReac Type Severity Reaction Status Date / Time ciprofloxacin AdvReac Unknown Insomnia Verified 05/05/20 10:58 Home Medications Medication Instructions Recorded Confirmed Type albuterol sulfate 90 mcg/actuation 1 puff INHALATION Q4H PRN 09/09/19 05/05/20 History aerosol inhaler cholecalciferol (vitamin D3) 50 2,000 unit PO DAILY 09/09/19 05/05/20 History mcg (2,000 unit) capsule diltiazem HCl 360 mg capsule,24 360 mg PO DAILY 09/09/19 05/05/20 History hr,extended release loratadine 10 mg tablet 10 mg PO DAILY 09/09/19 05/05/20 History losartan 100 mg tablet 100 mg PO DAILY 09/09/19 05/05/20 History mometasone 1 inhalation INHALATION HS each 09/09/19 05/05/20 History montelukast 10 mg tablet 10 mg PO DAILY 09/09/19 05/05/20 History multivitamin 1 tablet PO DAILY 09/09/19 05/05/20 History aspirin 81 mg tablet,delayed 81 mg PO DAILY 11/17/19 05/05/20 History release lorazepam 0.5 mg tablet 0.5 mg PO TID PRN #30 tablet 01/25/20 05/05/20 Rx [facility] 1 tablet PO DAILY 03/18/20 05/05/20 History Patient hx anesthesia problems: none Family hx anesthesia problems: none PMFSH Social History Social History Smoking packs per day: 1.5 Smoking cigarettes per day: 30.0 Years smoked: 35 Smoking pack-years: 52.50 Smoking status: Former smoker Tobacco type: cigarettes Second hand tobacco smoke exposure: No Smoking end date: 02/06/90 Additional smoking assessment comments: QUIT Alcohol intake: never Substance use: never Substance use type: does not use Gender identity (if verbalized by the patient): Male Spiritual care concerns: No Anes - Eval Final PreProcedure Day of Procedure 05/05/20 11:15 Patient weight: obese Heart: regular rate and rhythm Lungs: clear to auscultation Airway: Mallampati scale class II Neurological: alert and oriented Last oral intake: >/= 8 hours ASA classification: III Emergent: no Anesthetic plan: proceed Anesthesia type and monitoring: general GIVS and standard monitoring Informed Consent: The patient's anesthetic plan and its attendant risks and benefits were discussed with the patient/family/POA. Questions were solicited and answers provided to the satisfaction of the patient/family/POA.
[2020-05-05] MEDS: ceFAZolin 2 GM/D5W 50 ML 2 GM/50 ML BAG IVPB (13:20)
[2020-05-05] MEDS: LIDOCAINE HCL 2% GEL UROJET 10 ML PKG MUCOUS MEM (13:27)
[2020-05-05 14:08] VITALS: BP 97/63; PULSE 69; RESP 20; O2SAT 96
--- NOTE | 2020-05-05 14:14 | PM.PROC ---
Procedure Note - Detailed Date of procedure: 05/05/20 Pre-op diagnosis: bilateral bladder CA Post-op diagnosis: same Procedure performed: 1. TURBT (small, 3cm). 2. Left RPG. 3. Bilateral ureteal stent placement Description of procedure: patient is brought to the operative suite where he has prepped and draped in routine sterile fashion while in a dorsal lithotomy position. 2% xylocaine jelly was introduced intraurethrally and systemic sedation is administered per the anesthesia department. Cystoscopy is undertaken with a 22 F rigid cystoscope. I found the right ureteral orifice with ease and placed a 4.8 F double-J ureteral stent with the proximal coil in the renal pelvis and distal coil in the bladder. Had to do a small resection of his neoplasm overlying left ureteral orifice in order to identify it. I then performed a left retrograde pyelogram to per confirmed proper positioning of a 6 F stent on the left. Scopes and wires removed the patient was taken recovery in good condition Anesthesia: MAC Surgeon: Melchor Maher MD Estimated blood loss (mL): 0 Drains: Yes (Right ureter: 4.8F stent / Left ureter: 6F stent) Packing: No Pathology: yes (Bladder tumor) Complications: No immediate complications Condition: stable Disposition: PACU
[2020-05-05 14:30] VITALS: BP 118/62; PULSE 61; RESP 16
[2020-05-05 15:00] VITALS: BP 128/82; PULSE 61; RESP 14
== END 2020-05-05 15:15 | disposition home or self-care (01) ==
PROVIDERS: PCP Family Medicine; Visit Provider Urology
PROC: 0T7D8ZZ Dilation of Urethra, Via Natural or Artificial Opening Endoscopic (ICD-10-PCS; CPT 52281; principal; 2020-05-05 12:30)
DX: C67.0 Malignant neoplasm of trigone of bladder (principal); Z79.82 Long term (current) use of aspirin; Z87.891 Personal history of nicotine dependence; E66.9 Obesity, unspecified; Z68.29 Body mass index [BMI] 29.0-29.9, adult
CPT/HCPCS: 52235; 74420; 87635; 88305; 88342; A9270; C1769; C1887; C2617; C9803; J0690; J2405; J2704; J3010; J7120; U0003

== ENCOUNTER 2020-05-06 00:07 | Outpatient (CLI) | payer MEDICARE, SELFPAY ==
[2020-05-07 00:18] LABS: SARS-CoV-2 RNA PCR Negative
== END 2020-05-06 00:08 | disposition home or self-care (01) ==
LOC: ANHCOVIDDT 00:07
PROVIDERS: PCP Family Medicine; Visit Provider Surgery
DX: Z01.818 Encounter for other preprocedural examination (principal); Z11.59 Encounter for screening for other viral diseases
CPT/HCPCS: 87635; C9803; U0003

== ENCOUNTER 2020-05-09 02:18 | Day surgery (SDC) | payer MEDICARE, SELFPAY ==
[2020-05-03 13:43] VITALS: BMI 29.7
--- NOTE | ~2020-05-09 | XR_ITS ---
EXAMINATION: XR chest port-a-cath/central DATE: 05/09/2020 10:55 INDICATION: Port catheter insertion TECHNIQUE: frontal view of the chest was obtained. COMPARISON: Chest CT dated 04/08/[address] abdomen and pelvis dated 05/18/2014 FINDINGS: Right internal jugular central venous port catheter with distal tip at the caudal superior vena cava. Unchanged elevation of the left hemidiaphragm with mild left basilar atelectasis/scarring. There is also an unchanged band of discoid atelectasis/scarring in the right lower lobe. No new airspace opaci ties, pulmonary edema, pleural effusion or pneumothorax. The cardiomediastinal silhouette is normal. There are bridging osteophytes at multiple levels in the spine, consistent with diffuse idiopathic sk eletal hyperostosis (DISH). IMPRESSION: 1. No pneumothorax or other acute cardiopulmonary disease post right internal jugular central venous catheter placement which is in expected position. 2. Chronic elevation of the left hemidiaphragm with chronic atelectasis/scarring along the left lung base and in the right lower lobe. Reviewed, dictated and finalized at location A. IMPRESSION: 1. No pneumothorax or other acute cardiopulmonary disease post right internal j ugular central venous catheter placement which is in expected position. 2. Chronic elevation of the left hemidiaphragm with chronic atelectasis/scarrin g along the left lung base and in the right lower lobe.
--- NOTE | ~2020-05-09 | XR_ITS ---
EXAMINATION: XR fl guide central line place DATE: 05/09/2020 10:14 INDICATION: Port placement. TECHNIQUE: 2 intraoperative fluoroscopic views of the chest were obtained. I was not present. Fluoros copy exposure time was 26 seconds. COMPARISON: Chest CT 04/08/2020 FINDINGS: There is a right internal jugular port with tip in right atrium. No pneumothorax. IMPRESSION: 1. Port tip in right atrium. Reviewed, dictated and finalized at location A.
--- NOTE | 2020-05-09 07:48 | PM.HPGS ---
History of Present Illness History of Present Illness Consent: Risks, benefits, and alternatives of placement of a Port-A-Cath have been discussed and questions answered. Patient agrees to proceed with procedure. Chief complaint: bladder CA Narrative: Omer Winter is a 80 year old male has previously had both prostate and bladder cancer. Recently a new area of bladder cancer was found with switches muscular invasive. Because of this the patient will be undergoing chemotherapy and possibly subsequently surgery. I have been asked to place a Port-A-Cath for using chemotherapy. See plan below. Review of Systems Constitutional: Constitutional: Reports no additional constitutional complaints, Reports fatigue and Denies malaise Eyes: Eyes: Denies change in vision and Denies loss of vision ENT: Reports Normal hearing present, Denies change in voice, Denies dizziness, Denies hoarseness and Denies sore throat Cardiovascular: Cardiovascular: Denies chest pain, Denies leg edema and Denies dyspnea Respiratory: Respiratory: Denies cough, Denies dyspnea and Denies wheezing Gastrointestinal: Gastrointestinal: Denies hematochezia, Denies change in bowel habits and Denies heartburn Genitourinary: Genitourinary: Reports hematuria, Denies urinary frequency and Denies urinary incontinence Comments: Recent cystoscope and biopsy showing muscular invasive bladder cancer. Also had kidney stones with some hydronephrosis on the left. History of previous prostatectomy for prostate cancer History of previous noninvasive bladder cancer 2013. Neurologic: Reports Normal hearing present, Denies confusion, Denies dizziness, Denies loss of vision, Denies memory loss and Denies seizure-like activity Psychiatric: Psychiatric: Denies confusion, Denies depression and Denies memory loss Endocrine: Endocrine: Denies cold intolerance and Reports fatigue Hematologic/Lymphatic: Hematologic/Lymphatic: Denies easy bleeding and Denies easy bruising Allergic/Immunologic: Allergic/Immunologic: Denies wheezing PMFSH Social History Social History Smoking packs per day: 1.5 Smoking cigarettes per day: 30.0 Years smoked: 35 Smoking pack-years: 52.50 Smoking status: Former smoker Tobacco type: cigarettes Second hand tobacco smoke exposure: No Smoking end date: 02/06/90 Additional smoking assessment comments: QUIT Alcohol intake: never Substance use: never Substance use type: does not use Gender identity (if verbalized by the patient): Male Spiritual care concerns: No Meds Home Medications and Allergies Home Medications Medication Instructions Recorded Confirmed Type albuterol sulfate 90 mcg/actuation 1 puff INHALATION Q4H PRN 09/09/19 05/05/20 History aerosol inhaler cholecalciferol (vitamin D3) 50 2,000 unit PO DAILY 09/09/19 05/05/20 History mcg (2,000 unit) capsule diltiazem HCl 360 mg capsule,24 360 mg PO DAILY 09/09/19 05/05/20 History hr,extended release loratadine 10 mg tablet 10 mg PO DAILY 09/09/19 05/05/20 History losartan 100 mg tablet 100 mg PO DAILY 09/09/19 05/05/20 History mometasone 1 inhalation INHALATION HS each 09/09/19 05/05/20 History montelukast 10 mg tablet 10 mg PO DAILY 09/09/19 05/05/20 History multivitamin 1 tablet PO DAILY 09/09/19 05/05/20 History aspirin 81 mg tablet,delayed 81 mg PO DAILY 11/17/19 05/05/20 History release lorazepam 0.5 mg tablet 0.5 mg PO TID PRN #30 tablet 01/25/20 05/05/20 Rx [facility] 1 tablet PO DAILY 03/18/20 05/05/20 History cephalexin 500 mg PO Q8H #9 cap 05/05/20 Rx hydrocodone-acetaminophen 1 - 2 tablet PO Q6H PRN #20 tablet 05/05/20 Rx triamcinolone acetonide 1 applic TOPICAL BID PRN #15 gm 05/05/20 Rx Allergies Allergy/AdvReac Type Severity Reaction Status Date / Time ciprofloxacin AdvReac Unknown Insomnia Verified 05/05/20 10:58 Exam Const: General: cooperative
[2020-05-09] MEDS: LACTATED RINGERS 1,000 ML 30 ML IV CONT (08:20)
[2020-05-09 08:36] LABS: INR 1.1; Prothrombin Time 13.5 Seconds (11.1-14.7)
[2020-05-09 08:37] LABS: Partial Thromboplastin Time 34.1 SECONDS (22.3-36.8)
--- NOTE | 2020-05-09 09:04 | WPDANESEPPF ---
Anes - Initial Pre Proc Eval Procedure: Operation Date: 05/09/20 09:00 Proposed Procedures p Insertion Port A Cath - Ady Parish MD Date/Time: 05/09/20 09:04 Surgeon: Ady Parish MD Pre Op Diagnosis: bladder CA Patient Data Age: 80 Gender: M Height: 5 ft 9 in Weight: 91.17 kg Allergies Allergy/AdvReac Type Severity Reaction Status Date / Time ciprofloxacin AdvReac Unknown Insomnia Verified 05/05/20 10:58 Home Medications Medication Instructions Recorded Confirmed Type albuterol sulfate 90 mcg/actuation 1 puff INHALATION Q4H PRN 09/09/19 05/05/20 History aerosol inhaler cholecalciferol (vitamin D3) 50 2,000 unit PO DAILY 09/09/19 05/05/20 History mcg (2,000 unit) capsule diltiazem HCl 360 mg capsule,24 360 mg PO DAILY 09/09/19 05/05/20 History hr,extended release loratadine 10 mg tablet 10 mg PO DAILY 09/09/19 05/05/20 History losartan 100 mg tablet 100 mg PO DAILY 09/09/19 05/05/20 History mometasone 1 inhalation INHALATION HS each 09/09/19 05/05/20 History montelukast 10 mg tablet 10 mg PO DAILY 09/09/19 05/05/20 History multivitamin 1 tablet PO DAILY 09/09/19 05/05/20 History aspirin 81 mg tablet,delayed 81 mg PO DAILY 11/17/19 05/05/20 History release lorazepam 0.5 mg tablet 0.5 mg PO TID PRN #30 tablet 01/25/20 05/05/20 Rx [facility] 1 tablet PO DAILY 03/18/20 05/05/20 History cephalexin 500 mg PO Q8H #9 cap 05/05/20 Rx hydrocodone-acetaminophen 1 - 2 tablet PO Q6H PRN #20 tablet 05/05/20 Rx triamcinolone acetonide 1 applic TOPICAL BID PRN #15 gm 05/05/20 Rx Laboratory Tests 05/09/20 08:03 PT 13.5 Seconds Seconds (11.1-14.7) INR 1.1 APTT 34.1 SECONDS SECONDS (22.3-36.8) Patient hx anesthesia problems: none Family hx anesthesia problems: none PMFSH Past Medical History Medical History Bilateral renal cysts CKD (chronic kidney disease) stage 3, GFR 30-59 ml/min (Unknown) Essential (primary) hypertension H/O prostate cancer (Unknown) Malignant neoplasm of bladder, unspecified Mild persistent asthma without complication Osteoarthritis of shoulders, bilateral Prostate cancer Rotator cuff tear Urinary incontinence Surgical History Surgical History H/O prostatectomy History of bladder surgery History of bunionectomy Family History Family History Mother Hypertension Father Family history of malignant neoplasm of brain Social History Social History Smoking packs per day: 1.5 Smoking cigarettes per day: 30.0 Years smoked: 35 Smoking pack-years: 52.50 Smoking status: Former smoker Tobacco type: cigarettes Second hand tobacco smoke exposure: No Smoking end date: 02/06/90 Additional smoking assessment comments: QUIT Alcohol intake: never Substance use: never Substance use type: does not use Gender identity (if verbalized by the patient): Male Spiritual care concerns: No Anes - Eval Final PreProcedure Day of Procedure 05/09/20 09:04 Patient weight: overweight Heart: regular rate and rhythm Lungs: decreased breath sounds Airway: Mallampati scale class II Neurological: alert and oriented Last oral intake: >/= 8 hours ASA classification: III Emergent: no Anesthetic plan: proceed Anesthesia type and monitoring: general GIVS and standard monitoring Informed Consent: The patient's anesthetic plan and its attendant risks and benefits were discussed with the patient/family/POA. Questions were solicited and answers provided to the satisfaction of the patient/family/POA.
[2020-05-09 09:14] VITALS: BP 123/71; PULSE 86; RESP 14; TEMP 36.7; O2SAT 98
[2020-05-09] MEDS: ceFAZolin 2 GM/D5W 50 ML 2 GM/50 ML BAG IVPB (09:27)
[2020-05-09] MEDS: BUPIVACAINE/EPINEPHRINE 0.5% 30 ML VIAL INFILTRATE (09:52)
[2020-05-09] MEDS: HEPARIN SODIUM 5,000 UNITS/ML VIAL 5000 UNITS IRRIGATION (09:52)
--- NOTE | 2020-05-09 10:29 | PM.PROC ---
Procedure Note - Detailed Date of procedure: 05/09/20 Pre-op diagnosis: bladder CA Post-op diagnosis: same Procedure performed: placement of Port-A-Cath Description of procedure: Patient was seen and marked in the pre-op area prior to coming to the OR. Patient was brought to the operating room. He was placed supine on the operating table and general IV sedation was induced. The nurse in store representative provided oxygen and IV sedation. Patient's head was carefully turned to the left side while in the supine position and the patient's entire neck and anterior chest on both sides was prepped and draped in the usual sterile fashion. Following this the appropriate time-out was completed confirming procedure and patient. We confirmed that all the needed equipment was present in the room. Following this the ultrasound probe was draped into the field and using the probe we carefully identified the carotid artery and jugular vein on the right neck. I marked the skin directly over the Rt. internal jugular vein. Following this, using the continuous ultrasound guidance, a Cook needle was placed through the skin into this vein. I then was able to draw back good dark blood. Once this was completed a guidewire using a J-tip was advanced through the needle and then the needle and the guidewire cover were withdrawn. C-arm fluoroscopy was used to confirm that the guidewire was nicely in the venous system. Once this was confirmed with the C - arm I preceded on by making the pocket for the port on the patient's anterior right chest approximately 3 centimeters below the clavicle overlying the chest wall. Local anesthetic was infiltrated into the skin where there was a transverse incision marked out. Incision was made and we made a pocket inferior to the incision with just a little dissection superior. The Smart port was tried in the pocket and seemed to fit well. Following this the catheter which had been placed on a tunneling device was tunneled from the port site on the anterior right chest up to the right neck where a small incision had been made with an #11 blade knife. Then the catheter was pulled through so that we would have 15 centimeters to put into the central venous system once the dilation took place. Following this we placed the dilator and sheath over the guidewire in the jugular vein and carefully dilated the tract into the central venous system. The guidewire and dilator were then removed, carefully covering the end of the sheath to prevent air embolus. The end of the catheter which had been cut off straight across and the tip checked was then inserted into the sheath and into the neck. I then carefully pulled the 2 arms of the tear-away sheath away as the podiatric assistant held the catheter in position with a DeBakey forceps. Following this we checked the position of the catheter with C-arm fluoroscopy confirming that the tip seemed to be in the distal superior vena cava near the junction with the right atrium. I felt that it was in good position and so the rest of the catheter was pulled down toward the feet into the port site. We then measured to the appropriate position to cut the catheter to attach it to the port stem. Then the connector sealing device for the catheter port was placed onto the catheter and then the catheter cut to the appropriate length and inserted onto the stem of the port. Then the connector was advanced onto the stem over the catheter sealing it to the port. A single 3- 0 Prolene suture was also used during this to suture the connector to the port and to the underlying musculature. Following this at one other site the port was sutured to the underlying musculature with the 3-0 Proline. Both prior to connecting the catheter to the port and then using a straight Grande needle following this connection, the port was aspirated of good dark blood and flushed with heparinized saline to keep the catheter from having any air in it and to confirm that it was st
[2020-05-09 10:39] VITALS: BP 113/51; PULSE 72; RESP 16; O2SAT 93
[2020-05-09 11:10] VITALS: BP 106/54; PULSE 63; O2SAT 93
[2020-05-09 11:40] VITALS: BP 111/55; PULSE 62
== END 2020-05-09 12:05 | disposition home or self-care (01) ==
PROVIDERS: PCP Family Medicine; Visit Provider Surgery
PROC: (CPT 36561; principal; 2020-05-09 09:00)
DX: C67.9 Malignant neoplasm of bladder, unspecified (principal); I12.9 Hypertensive chronic kidney disease with stage 1 through stage 4 chronic kidney disease, or unspecified chronic kidney disease; N18.3 Chronic kidney disease, stage 3 (moderate); J45.30 Mild persistent asthma, uncomplicated; Z87.891 Personal history of nicotine dependence; Z85.46 Personal history of malignant neoplasm of prostate; Z79.82 Long term (current) use of aspirin
CPT/HCPCS: 36561; 36415; 77001; 85610; 85730; 87635; C1788; C9803; J0690; J1100; J1644; J2405; J2704; J3010; J7030; J7120; U0003

== ENCOUNTER 2020-07-13 15:05 | Outpatient (CLI) | payer MEDICARE, SELFPAY ==
--- NOTE | ~2020-07-13 | US_ITS ---
EXAMINATION: US venous doppler [facility] DATE: 07/13/2020 15:44 INDICATION: Left lower limb swelling TECHNIQUE: Pierson scale images without and with compression and Doppler images of the left lower extrem ity veins were obtained. COMPARISON: 01/12/2020 FINDINGS: The left common femoral vein, femoral vein, popliteal vein, peroneal trunk, posterior tibia l veins, and greater saphenous vein are thrombosed. The profunda femoral vein is patent. IMPRESSION: 1. Extensive deep venous thrombosis of the left lower limb as described above. Reviewed, dictated and finalized at location B.
== END 2020-07-13 15:06 | disposition home or self-care (01) ==
LOC: ANHIMG 15:08
PROVIDERS: PCP Family Medicine; Visit Provider Internal Medicine Hematology & Oncology
DX: M79.89 Other specified soft tissue disorders (principal); I82.4Z2 Acute embolism and thrombosis of unspecified deep veins of left distal lower extremity
CPT/HCPCS: 93971

== ENCOUNTER 2020-08-23 11:45 | Outpatient (CLI) | payer MEDICARE, SELFPAY ==
[2020-08-23 13:04] LABS: INR 1.1; Partial Thromboplastin Time 32.9 SECONDS (22.3-36.8); Prothrombin Time 13.8 Seconds (11.1-14.7)
--- NOTE | 2020-08-23 14:18 | PCWOUND ---
wocn note Had patient lay flat, sit up and stand to determine best urostomy placement site to the right abdomen. placed a black marker X at site and covered with a transparent dressing. did basic ostomy education with patient and provided a take home folder of information. plan is to follow patient after surgery.
== END 2020-08-23 11:46 | disposition home or self-care (01) ==
PROVIDERS: PCP Family Medicine; Visit Provider Urology
DX: C67.9 Malignant neoplasm of bladder, unspecified (principal)
CPT/HCPCS: 36415; 85610; 85730; 86850; 86900; 86901; 87077; 87086; 87088; 87186

== ENCOUNTER 2020-08-29 08:57 | Outpatient (CLI) | payer MEDICARE, SELFPAY ==
--- NOTE | ~2020-08-29 | CT_ITS ---
EXAMINATION: CT abdomen pelvis w con DATE: 08/29/2020 09:34 INDICATION: Malignant neoplasm of the urinary bladder TECHNIQUE: Computed tomography (CT) of the abdomen and pelvis was performed with 100 mL Omnipaque-350 intravenous contrast. Automated exposure control and iterative reconstruction technique were employe d. The dose-length product was 975.16 mGy-cm. COMPARISON: 04/08/2020 FINDINGS: Elevation of the left hemidiaphragm with compressive atelectasis in the basilar left lower lobe. Humberto tional mild discoid atelectasis in the lingula and right lower lobe. Heart size is normal. Atheroscle rotic coronary artery calcifications and likely coronary artery stenting. Distal tip of a central myles ous catheter extends through the superior vena cava with distal tip at the superior cavoatrial juncti on. Aortic valve calcification. No pericardial or pleural effusion. Enlargement of the central pulmon jaclyn arteries consistent with pulmonary arterial hypertension. Liver, gallbladder, pancreas and spleen are normal. There are few subcentimeter bilateral adrenal nodules which can be seen dating back to 2 014 consistent with adenomas. Normal appendix and small bowel. There are few scattered clonic diverti cula without adjacent inflammatory change to suggest diverticulitis. Unchanged subtle stranding at th e margins of an epiploic appendage at the distal descending colon consistent with sequela chronic epi ploic appendagitis. No free intraperitoneal gas or fluid. No pathologically enlarged abdominal or pel indra lymphadenopathy. Small fat-containing left inguinal hernia. There is calcified atherosclerosis of the aorta and many of the other arteries. Severe lumbar spondylosis. 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 Bilateral renal parenchymal and parapelvic cysts the largest on the right measuring 10.8 cm and the l argest on the left a parapelvic cyst measuring 8.1 cm. There are couple nonobstructing left renal sto bhavin measuring 4 mm the upper pole and 8 mm at the lower pole. Bilateral internal nephroureteral stent s with loops formed in the bilateral renal pelvises sees and in the bladder. No stones along the uret ers or hydronephrosis. Again seen is asymmetric left perinephric stranding with small amount of fluid the periphery of the left kidney. At the upper pole of the left kidney there is a region of greater than simple fluid attenuation which has relatively well-defined margins where it arises from the kidn ey and with more ill-defined margins where it extends along the superior pararenal fascia suggesting an approximately 2.5 cm indeterminate renal lesion and likely adjacent complex fluid. This at the sit e of a prior 4.1 cm cyst without a corresponding enhancing nodule which suggests a current ruptured, partially decompressed proteinaceous/hemorrhagic cyst with adjacent small amount of hemorrhage. No si gnificant interval change in approximately 4.8 x 3.5 cm multilobulated fluid collection in the perire nal fat along the inferomedial margin of the lower pole of the left kidney most likely a lymphangioma . High attenuation prostatomegaly calcification is at the margins of a central likely prostatectomy d efect. Bladder is unremarkable but partially decompressed which somewhat limits evaluation. Surgical clips along the posterior margin of the bladder and along the bilateral external iliac chains which g iven the provided history suggest prior partial cystectomy and bilateral pelvic lymph node dissection s. IMPRESSION: 1. Approximately 2.5 cm intermediate attenuation lesion at the upper pole of the left kidney at the s ite of a prior larger cyst likely representing a partially collapsed proteinaceous/hemorrhagic cyst w ith small amount of associated perinephric fluid/hemorrhage. Solid neoplasm cannot be excluded althou gh no evident enhancing lesions evident at this location on the re
[2020-08-29 09:27] LABS: Estimated Glomerular Filt Rate 42
== END 2020-08-29 08:58 | disposition home or self-care (01) ==
PROVIDERS: PCP Family Medicine; Visit Provider Internal Medicine Hematology & Oncology
DX: C67.9 Malignant neoplasm of bladder, unspecified (principal); N20.0 Calculus of kidney
CPT/HCPCS: 74177; Q9967

== ENCOUNTER 2020-08-30 01:26 | Outpatient (CLI) | payer MEDICARE, SELFPAY ==
[2020-08-30 19:05] LABS: SARS-CoV-2 RNA PCR Negative
== END 2020-08-30 01:27 | disposition home or self-care (01) ==
LOC: ANHCOVIDDT 01:26
PROVIDERS: PCP Family Medicine; Visit Provider Urology
DX: Z01.812 Encounter for preprocedural laboratory examination (principal); Z20.828 Contact with and (suspected) exposure to other viral communicable diseases
CPT/HCPCS: 87635; C9803; U0003

== ENCOUNTER 2020-09-01 19:13 | Inpatient (IN) | payer MEDICARE, SELFPAY ==
[2020-08-23 12:38] VITALS: BP 122/71; PULSE 99; RESP 16; TEMP 36.7; O2SAT 99; BMI 30.7
--- NOTE | 2020-08-25 07:22 | PM.IMHP ---
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 He also has a history of prostate cancer treated at the [facility] and 2001 with radical prostatectomy followed by adjuvant pelvic radiation. Initially presented to our practice in 2013 with gross hematuria. Upper tract imaging at that time was normal but cystoscopy showed a urothelial carcinoma the bladder. Underwent complete resection at that time but has since had multiple recurrences. In December 2019 he developed left ureteral obstruction which was initially felt to be due to the small stones in the distal ureter. With endoscopic evaluation, however, became apparent that he had a partially calcified neoplasm obstructing left ureteral orifice. Resection at that time revealed evidence of muscle invasion a persistent on re-resection. After discussion of options he has elected for a radical cystectomy with ileal conduit urinary diversion. He is where the risk including, but not limited to, adverse cardiopulmonary events, rectal injury possible colostomy, intraoperative bleeding, need to convert to a open procedure. We have also discussed the possibility that, given his past surgical history, his bladder may be unresectable. Review of Systems Cardiovascular: Cardiovascular: Denies chest pain, Denies lightheadedness, Denies palpitations and Denies dyspnea Respiratory: Respiratory: Denies dyspnea Gastrointestinal: Gastrointestinal: Denies diarrhea, Denies nausea and Denies vomiting Genitourinary: Genitourinary: Denies hematuria and Denies dysuria Endocrine: Endocrine: Denies palpitations [facility], [facility] Past Medical History Medical History Bilateral renal cysts CKD (chronic kidney disease) stage 3, GFR 30-59 ml/min (Unknown) Essential (primary) hypertension H/O prostate cancer (Unknown) Malignant neoplasm of bladder, unspecified Mild persistent asthma without complication Osteoarthritis of shoulders, bilateral Prostate cancer Rotator cuff tear Urinary incontinence Urothelial cancer Surgical History Surgical History H/O prostatectomy History of bladder surgery History of bunionectomy Family History Family History Mother Hypertension Father Family history of malignant neoplasm of brain Social History Social History Smoking packs per day: 1.5 Smoking cigarettes per day: 30.0 Years smoked: 35 Smoking pack-years: 52.50 Smoking status: Former smoker Tobacco type: cigarettes Second hand tobacco smoke exposure: No Smoking end date: 11/04/89 Additional smoking assessment comments: QUIT Alcohol intake: never Substance use: never Substance use type: does not use Gender identity (if verbalized by the patient): Male Spiritual care concerns: No Meds Home Medications and Allergies Home Medications Medication Instructions Recorded Confirmed Type albuterol sulfate 90 mcg/actuation 1 puff INHALATION Q4H PRN 09/09/19 08/23/20 History aerosol inhaler cholecalciferol (vitamin D3) 50 2,000 unit PO DAILY 09/09/19 08/23/20 History mcg (2,000 unit) capsule diltiazem HCl 360 mg capsule,24 360 mg PO DAILY 09/09/19 08/23/20 History hr,extended release loratadine 10 mg tablet 10 mg PO DAILY 09/09/19 08/23/20 History losartan 100 mg tablet 100 mg PO DAILY 09/09/19 08/23/20 History mometasone 1 inhalation INHALATION HS each 09/09/19 08/23/20 History montelukast 10 mg tablet 10 mg PO DAILY 09/09/19 08/23/20 History multivitamin 1 tablet PO DAILY 09/09/19 08/23/20 History aspirin 81 mg tablet,delayed 81 mg PO DAILY 11/17
--- NOTE | 2020-08-25 07:43 | PM.PROC ---
Procedure Note - Detailed Date of procedure: 09/01/20 Pre-op diagnosis: Bladder CA, Prostate CA Procedure performed: Robotic-assisted radical cystectomy with ileal-loop urinary diversion Description of procedure: The patient was brought to the operative suite, where he was prepped and draped in routine sterile fashion while in a dorsal lithotomy, deep Trendelenburg position. A supraumbilical 10 mm trocar was placed after insufflation of the abdomen with a Veress needle. Three robotic ports were then placed under direct vision. Two of these were placed in the right lower quadrant - 10 cm and 20 cm lateral to, and in line with, the umbilicus. A third robotic trocar was placed 10 cm to the left of the umbilicus, and 20 cm to the left of the umbilicus, a 12 mm standard laparoscopic trocar was placed to be used as an television production assistant port. Lastly, a 5 mm trocar was placed in the left upper quadrant midway between the umbilicus and the left robotic trocar. Given the patient's history of pelvic radiation at 1st turned attention to confirmation creation of an ileal conduit would be feasible. Left ureter was identified by reflecting the descending colon medially after incising the white line of Toldt. doctors very friable however. With simple initiation gentle dissection over the iliac vessels the ureter is transected with gentle traction on a vessel. General proximal dissection is undertaken so still the distance satisfactory for transfer behind the sigmoid colon into the right lower quadrant. Dissection is carried down to the ureterovesical junction. Patient is a prior radical prostatectomy and pelvic radiation. Dissection in the pelvis is difficult and I essentially cannot obtain a plane posterior to the bladder. The bladder was dropped by incising lateral to the medial umbilical ligaments. Dissection was carried out anterior bladder to the pubic symphysis. Again dissection around the penis is extremely difficult because of prior radiation. Dissecting the bladder neck posteriorly there is particular induration and is this point that we encourage a rectal injury. Consultations undertaken with Dr. Jhony Quezada who was available to address this rectal injury and perform a Natalee pouch and diverting colostomy. Given the extent of radiation changes in the pelvis and a prior lymphadenectomy I opted not to pursue attention lymphadenectomy. This point I transferred the left ureter into the right hemipelvis by passing it posterior to the sigmoid, through the sigmoid mesocolon. A segment of ileum approximately 15 cm in length was chosen 15 cm proximal to the ileocecal junction. Using the robotic ELLE stapler small bowel was transected at 2 point so as to create the 15 cm ileal conduit. Small bowel anastomosis was undertaken in a [id number] fashion using 2 loads of the ELLE stapler lengthwise followed by closure of the enterotomy with a 3rd ELLE stapling device. Mesentery a small bowels closed with interrupted for all soap. Proximal end of the ileal conduit was oversewn with 2 0 chromic sutures to prevent stone formation. Ureteral ileal anastomosis or undertaken across 90 cm single-J ureteral stent using a combination of interrupted and running 4 0 Vicryl. The left ureteral stent is somewhat difficult to advance but does go a distance of 5-10 cm. I secured it with 2 2 0 chromics. Right ureteral stent feels is advanced this to approximately the level of the kidney in his likewise secured with a single 2 0 chromic. Brennon created a stoma in the right lower quadrant by incising the external oblique fascia in a cruciate formation. Ileum was secured to the external oblique fascia so as to prevent parastomal hernia formation. It has not matured in a zuni like fashion, and patient of interrupted 3 O and 4 0 Vicryl. Blood loss during this portion of procedure was 100-[address] Curry dictate his diverting colostomy procedure separately. Patient was taken recovery room in good conditio
--- NOTE | 2020-08-30 10:59 | WPDANESEPPF ---
Anes - Initial Pre Proc Eval Procedure: Operation Date: 09/01/20 07:30 Proposed Procedures p Robotic Assisted Radical Cystectomy, Bilateral Pelvic Lymphadenectomy, Ileal Conduit Diversion - Melchor Maher MD Date/Time: 08/30/20 10:59 Surgeon: Melchor Maher MD Pre Op Diagnosis: Bladder CA, Prostate CA Patient Data Age: 80 Gender: M Height: 5 ft 9 in Weight: 94.3 kg Last Vital Signs Temp 98.0 F 08/23/20 12:38 Pulse 99 08/23/20 12:38 Resp 16 08/23/20 12:38 BP 122/71 08/23/20 12:38 Pulse Ox 99 08/23/20 12:38 Allergies Allergy/AdvReac Type Severity Reaction Status Date / Time ciprofloxacin AdvReac Unknown Insomnia Verified 08/23/20 12:01 Home Medications Medication Instructions Recorded Confirmed Type albuterol sulfate 90 mcg/actuation 1 puff INHALATION Q4H PRN 09/09/19 08/23/20 History aerosol inhaler cholecalciferol (vitamin D3) 50 2,000 unit PO DAILY 09/09/19 08/23/20 History mcg (2,000 unit) capsule diltiazem HCl 360 mg capsule,24 360 mg PO DAILY 09/09/19 08/23/20 History hr,extended release loratadine 10 mg tablet 10 mg PO DAILY 09/09/19 08/23/20 History losartan 100 mg tablet 100 mg PO DAILY 09/09/19 08/23/20 History mometasone 1 inhalation INHALATION HS each 09/09/19 08/23/20 History montelukast 10 mg tablet 10 mg PO DAILY 09/09/19 08/23/20 History multivitamin 1 tablet PO DAILY 09/09/19 08/23/20 History aspirin 81 mg tablet,delayed 81 mg PO DAILY 11/17/19 08/23/20 History release [employer] [facility] 1 tablet PO DAILY 03/18/20 08/23/20 History diphenhydramine HCl [Benadryl] 25 mg PO PRN PRN 05/11/20 08/23/20 History ferrous sulfate 325 mg PO DAILY 07/01/20 08/23/20 History apixaban [Eliquis] 5 mg PO BID 07/15/20 08/23/20 History lorazepam 0.5 mg tablet 0.5 mg PO TID PRN #30 tablet 08/05/20 08/23/20 Rx acetaminophen [Tylenol Arthritis] 650 mg PO Q8H PRN 08/23/20 08/23/20 History Patient hx anesthesia problems: none Family hx anesthesia problems: none PMFSH Past Medical History Medical History Bilateral renal cysts CKD (chronic kidney disease) stage 3, GFR 30-59 ml/min (Unknown) Essential (primary) hypertension H/O prostate cancer (Unknown) Malignant neoplasm of bladder, unspecified Mild persistent asthma without complication Osteoarthritis of shoulders, bilateral Prostate cancer Rotator cuff tear Urinary incontinence Urothelial cancer Surgical History Surgical History H/O prostatectomy History of bladder surgery History of bunionectomy Family History Family History Mother Hypertension Father Family history of malignant neoplasm of brain Social History Social History Smoking packs per day: 1.5 Smoking cigarettes per day: 30.0 Years smoked: 35 Smoking pack-years: 52.50 Smoking status: Former smoker Tobacco type: cigarettes Second hand tobacco smoke exposure: No Smoking end date: 11/04/89 Additional smoking assessment comments: QUIT Alcohol intake: never Substance use: never Substance use type: does not use Living arrangements: other Gender identity (if verbalized by the patient): Male Spiritual care concerns: No Anes - Eval Final PreProcedure Day of Procedure 08/30/20 10:59 Patient weight: overweight Heart: regular rate and rhythm Lungs: clear to auscultation Airway: Mallampati scale class III Neurological: alert and oriented Last oral intake: >/= 8 hours ASA classification: III Emergent: no Anesthetic plan: proceed Anesthesia type and monitoring: general (full upper caps; anterior; glidescope) ETT and standard monitoring Informed Consent: The patient's anesthetic plan and its attendant risks and benefits were discussed with the patient/family/POA. Questions were solicited and
[2020-09-01] VITALS (13 sets, daily range): BP systolic 93–146; BP diastolic 56–93; PULSE 76–115; RESP 12–20; TEMP 35.4–36.1; O2SAT 93–100; BMI 31.3
--- NOTE | ~2020-09-01 | XR_ITS ---
EXAMINATION: XR chest 1V portable DATE: 09/11/2020 08:53 INDICATION: Crackles in right lung lower lobe status post laparotomy. TECHNIQUE: A single frontal view of the chest was obtained. COMPARISON: Chest 2 views 09/08/2020, CT abdomen and pelvis 09/10/2020 FINDINGS: Again seen is mild elevation of left hemidiaphragm. There is mild atelectasis at left lung base. No pleural effusion or pneumothorax. The heart size is normal. There is a right internal jugula r port with tip at superior cavoatrial junction. IMPRESSION: 1. Mild atelectasis at left lung base. Reviewed, dictated and finalized at location A. ER ENGINEER
--- NOTE | ~2020-09-01 | XR_ITS ---
XR abdomen NG/feed tube insert INDICATION: Evaluate NG tube position. TECHNIQUE: Limited KUB perform for evaluating NG tube . COMPARISON: 09/01/2020 FINDINGS: NG tube tip in the stomach. There are dilated small bowel loops throughout the abdomen, con sistent which may represent postoperative ileus or obstruction..Port catheter tip near the cavoatrial junction. Left basilar atelectasis. IMPRESSION: 1: NG tube tip in the stomach. Reviewed, dictated and finalized at location A. LIANCE ANALYST
--- NOTE | ~2020-09-01 | XR_ITS ---
EXAMINATION: XR abdomen/kub 1V INDICATION: Small bowel obstruction TECHNIQUE: Supine view of the abdomen is obtained. COMPARISON: 09/05/2020 FINDINGS: There are persistently dilated small bowel loops in the midabdomen which do not demonstrate significant interval change. Surgical drain is noted in the pelvis. Smaller catheters coursing off t he right lateral margin of the radiograph likely related to the ileal conduit. IMPRESSION: 1. Unchanged dilated small bowel consistent with ileus versus obstruction. Reviewed, dictated and finalized at location A. OSSER
--- NOTE | ~2020-09-01 | XR_ITS ---
EXAMINATION: XR abdomen/kub 1V INDICATION: Small bowel obstruction TECHNIQUE: Supine view of the abdomen is obtained. COMPARISON: 09/06/2020 FINDINGS: There are persistently dilated loops of small bowel in the midabdomen without significant c hange. A drainage catheter previously identified in the pelvis is no longer evident. Small caliber ca theters coursing off the right lateral margin of the radiograph likely relate to an ileal conduit. IMPRESSION: 1. Unchanged dilated small bowel consistent with ileus versus obstruction. 2. Pelvic drain removal. Reviewed, dictated and finalized at location A. P SUPERVISOR YARD
--- NOTE | ~2020-09-01 | XR_ITS ---
XR abdomen NG/feed tube rechec INDICATION: Evaluate NG tube position. TECHNIQUE: Limited KUB perform for evaluating NG tube . COMPARISON: 09/04/2020 FINDINGS: NG tube tip advanced in the stomach. Visualized bowel gas pattern is nonspecific. IMPRESSION: 1: NG tube tip in the stomach. Reviewed, dictated and finalized at location A. CAL TECHNOLOGIST BLOOD BANK
--- NOTE | ~2020-09-01 | XR_ITS ---
EXAMINATION: XR chest 2V EXAM DATE: 09/08/2020 10:04 INDICATION: shortness of breath, crackles on examination . TECHNIQUE: Frontal and lateral projections of the chest obtained and reviewed. Comparison is made to prior examination from 05/09/2020. FINDINGS: Significantly distended stomach with fluid and gas, adjacent compressive atelectasis. Fany ent does have low lung volume. No pneumothorax or pleural effusion. There is a right-sided portacathe ter. The cardiomediastinal silhouette is prominent but magnified on this AP technique. There are bony degenerative changes. IMPRESSION: 1. Low in volume, with gas-filled distended stomach. 2. Adjacent atelectasis. Reviewed, dictated and finalized at location B. LE WASHER
--- NOTE | ~2020-09-01 | XR_ITS ---
EXAMINATION: XR abdomen/kub 1V INDICATION: Small bowel obstruction TECHNIQUE: Supine views of the abdomen were obtained on three radiographs. COMPARISON: 09/04/2020 FINDINGS: The nasogastric tube has been removed. There is a partially imaged Port-A-Cath ending with its tip in the right atrium. Multiple dilated small bowel loops are present in the mid abdomen. A isadora gical drain coils in the pelvis. There are midline surgical dalton. Pelvic surgical clips are noted. Bilateral nephrolithiasis is present. IMPRESSION: 1. Dilated small bowel, consistent with ileus versus obstruction. Reviewed, dictated and finalized at location A. INSTRUCTOR
--- NOTE | ~2020-09-01 | CT_ITS ---
EXAMINATION: CTA chest PE protocol DATE: 09/09/2020 01:58 INDICATION: Shortness of breath TECHNIQUE: Computed tomography angiography (CTA) of the chest was performed with 100 mL Omnipaque-350 intravenous contrast timed to evaluate the pulmonary arteries. Coronal maximum intensity projection 3D-reconstructions were created by the technologist. The dose-length product (DLP) was 732.07 mGy-cm. Automated exposure control and iterative reconstruction technique were employed. COMPARISON: 04/08/2020 FINDINGS: The pulmonary arteries are well-opacified. There are central emboli in the right main pulmo nary artery extending into the lower lobe pulmonary arterial branches. There is straightening of the interventricular septum. There are airspace opacities of the lower lobes. No pleural effusion or pneu mothorax is identified. There are no pathologically enlarged thoracic lymph nodes. A right internal j ugular Port-A-Cath ends with its tip in the proximal right atrium. The stomach is distended and conta ins enteric contrast material from yesterday's small bowel follow-through. There is moderate thoracic spondylosis. Subcutaneous gas is noted in the right chest wall related to recent surgery. Cysts of t he right kidney measure up to 6.2 cm. IMPRESSION: 1. Central pulmonary emboli in the right main pulmonary artery extending to the lower lobe with some suggestion of right heart strain. These findings were communicated to [facility] at 0218 hours on 09/09/2020 by the [employer] Radiologist. 2. Airspace opacities of the lung bases, consistent with atelectasis versus pneumonia. Reviewed, dictated and finalized at location A. ERIZER OPERATOR IMPRESSION: 1. Central pulmonary emboli in the right main pulmonary artery extending to the lower lobe with some suggestion of right heart strain. These findings were com municated to [facility] at 0218 hours on 09/09/2020 by the [employer] Radiologis t. 2. Airspace opacities of the lung bases, consistent with atelectasis versus pne umonia.
--- NOTE | ~2020-09-01 | XR_ITS ---
XR abdomen/kub 1V 09/01/2020 17:36 Indication: Cystectomy. Procedure: KUB Comparison: CT dated 08/29/2020 Findings: There are surgical changes consistent with recent cystectomy with laparotomy staple line as well as drainage catheters overlying the pelvis. There is soft tissue gas lower pelvis inguinal loca tions consistent with recent surgery. There are catheters overlying the right abdomen, likely uretera l stents. Nonobstructive bowel gas pattern. Impression: 1: Postoperative changes consistent with recent cystectomy with ureteral diversion. Reviewed, dictated and finalized at location A. Impression: 1: Postoperative changes consistent with recent cystectomy with ureteral divers ion.
--- NOTE | ~2020-09-01 | XR_ITS ---
EXAMINATION: XR sm bowel follow through WS DATE: 09/08/2020 14:29 INDICATION: Abdominal distention and nausea, recent cystectomy and ileal conduit formation as well as diverting sigmoid colostomy. TECHNIQUE: Coin Purse Framer radiograph(s) of the abdomen was/were obtained. Water-soluble oral contrast was admi nistered, and sequential radiographs of the abdomen were obtained. Fluoroscopy was not performed. COMPARISON: None. FINDINGS: Coin Purse Framer image demonstrates multiple persistently dilated loops of small bowel in the midabdom en. There is progressive opacification of dilated small bowel after contrast administration. Transit time from the stomach to colostomy was approximately four hours. No free intraperitoneal gas is ident ified. There is soft tissue gas of the lower pelvis, consistent with recent surgery. IMPRESSION: 1. Dilated bowel with slow transit time, consistent with ileus. Reviewed, dictated and finalized at location A. SAND MOLDER
--- NOTE | ~2020-09-01 | CT_ITS ---
EXAMINATION: CT abdomen pelvis wo con DATE: 09/10/2020 12:36 INDICATION: Generalized abdominal pain. TECHNIQUE: Computed tomography (CT) of the abdomen and pelvis was performed without intravenous contr ast. Automated exposure control and iterative reconstruction technique were employed. The dose-length product was 1478.91 mGy-cm. COMPARISON: CT abdomen and pelvis 08/29/2020 FINDINGS: The visualized portions of the lung bases demonstrate mild atelectasis. There is elevation of left hemidiaphragm. No pleural effusion. The heart size is normal. There are coronary artery calci fications. No pericardial effusion. There is enlargement of the main pulmonary artery, consistent wit h pulmonary arterial hypertension. There is a central line tip in right atrium. The liver is normal. The gallbladder is distended, likely secondary to fasting. There is contrast in the gallbladder. The spleen, pancreas, and adrenal glands are normal. There are cysts in the kidneys measuring up to 10.5 cm on the right. There is contrast in the ureters. There is mild bilateral hydronephrosis and hydrour eter. There is a 3 mm stone in right kidney. There are 10 mm and 5 mm stones in left kidney. There is volume loss of left kidney lower pole. There is an ileal conduit. There is a stent in distal right u reter that exits the ileal conduit. There is a second stent in the ileal conduit. There is a 2 mm den sity at the attachment of the left ureter to the ileal conduit. There is gas in the abdominal wall. T he stomach is distended. There are multiple dilated loops of small bowel. There is an end-colostomy o n the left. There is diverticulosis of the colon without evidence of diverticulitis. The appendix is not visualized. There is subcutaneous gas in the anterior pelvis and perineum. There is a small volum e of high attenuation fluid in the perirectal region, consistent with hematoma. There are no patholog ically enlarged lymph nodes. There are chronic bilateral L5 pars defects with 12 mm anterolisthesis o f L5 on S1. There is severe lumbar spondylosis. There are bridging endplate osteophytes at multiple l evels in the thoracic spine, consistent with diffuse idiopathic skeletal hyperostosis (DISH). Anterio r skin dalton are noted. IMPRESSION: 1. Mild bilateral hydronephrosis and hydroureter. The right-sided stent extends to the mid ureter. Th e left-sided stent is retracted into the ileal conduit. A 2 mm density at the attachment of the left ureter to the ileal conduit may be surgical change, but stone cannot be excluded. 2. Nonobstructive bilateral kidney stones. 3. Dilated small bowel, likely adynamic ileus. 4. Subcutaneous gas in the anterior abdomen and pelvis and perineum. 5. Small volume of perirectal hematoma. Reviewed, dictated and finalized at location A. STRIAL/ORGANIZATIONAL PSYCHOLOGIST IMPRESSION: 1. Mild bilateral hydronephrosis and hydroureter. The right-sided stent extends to the mid ureter. The left-sided stent is retracted into the ileal conduit. A 2 mm density at the attachment of the left ureter to the ileal conduit may be surgical change, but stone cannot be excluded. 2. Nonobstructive bilateral kidney stones. 3. Dilated small bowel, likely adynamic ileus. 4. Subcutaneous gas in the anterior abdomen and pelvis and perineum. 5. Small volume of perirectal hematoma.
--- NOTE | ~2020-09-01 | US_ITS ---
EXAMINATION: US venous doppler [facility] DATE: 09/08/2020 16:54 INDICATION: Lower limb edema. TECHNIQUE: Grayscale ultrasound images without and with compression and Doppler ultrasound images of the bilateral lower extremity veins were obtained. COMPARISON: Ultrasound 07/13/2020 FINDINGS: The visualized portions of right common femoral vein, profunda (deep) femoral vein, femoral vein, pop liteal vein, peroneal veins, posterior tibial veins, and greater saphenous vein outflow are patent. T here is a large right-sided Peterson's cyst with loose body. The visualized portions of left common femoral vein, profunda femoral vein, popliteal vein, peroneal veins, and posterior tibial veins are patent. There is thrombus in left femoral vein. IMPRESSION: 1. Deep vein thrombosis involving left femoral vein with interval improvement in distribution. 2. Large right-sided Peterson's cyst with loose body. Reviewed, dictated and finalized at location A. USION ANALYST
--- NOTE | 2020-09-01 06:39 | WPDHPUPDATE1 ---
History and Physical Update Update Date/Time: 09/01/20 06:39 History and Physical has been reviewed, including an updated exam of the patient. There are NO changes in the patient's condition. Risks, benefits, and alternatives have been discussed and questions answered. Patient agrees to proceed with procedure.
[2020-09-01] MEDS: LACTATED RINGERS 1,000 ML 30 ML IV CONT ×2 (06:45→17:17)
[2020-09-01] MEDS: ALVIMOPAN 12 MG CAPSULE PO (06:57)
[2020-09-01] MEDS: ACETAMINOPHEN 500 MG TABLET 1000 MG PO (07:25)
[2020-09-01] MEDS: GABAPENTIN 300 MG CAPSULE PO (07:25)
[2020-09-01] MEDS: HEPARIN SODIUM 5,000 UNITS/ML VIAL 5000 UNITS SUB-Q ×2 (07:25→20:19)
[2020-09-01] MEDS: ERTAPENEM 1 GM/NS 50 ML 1 GM/50 ML BAG IVPB (07:34)
--- NOTE | 2020-09-01 11:16 | SUR.OPER ---
Dr Quezada called for consult to OR [id number].
--- NOTE | 2020-09-01 11:18 | SUR.OPER ---
Dr Quezada in OR for consult [id number].
--- NOTE | 2020-09-01 15:31 | SUR.OPER ---
1504 Dr Quezada Robot to Open Procedure.
[2020-09-01] MEDS: metroNIDAZOLE 1000MG/ISO 200ML 1,000 MG/200 ML BAG 100 MG IVPB (15:44)
--- NOTE | 2020-09-01 16:11 | SUR.OPER ---
Dr Maher in OR.
--- NOTE | 2020-09-01 16:49 | P.OP_ITS ---
Procedure Note - Detailed Date of procedure: 09/01/20 Pre-op diagnosis: Bladder CA, Prostate CA Post-op diagnosis: other ( bladder cancer with noted distal sigmoid perforation) Procedure performed: attempted robotic repair of distal sigmoid perforation, conversion to open Natalee's procedure Description of procedure: The patient underwent robotic assisted radical cystectomy with creation of ileal conduit by Dr. Maher. During this procedure, it was noted that the patient had a perforation of his distal sigmoid colon. Given this, I was consulted for assistance. Upon evaluation, I did try to primarily close this perforation. It was initially noted to be approximately 6 by 2-1/2 a cm. I was able to close this robotically with a 3 0 V lock suture. Upon finishing this area, the patient was noted to have a more proximal area of near transection. This area had a transection of approximately 75%. Given this, decision was made to convert to open and do a Natalee's procedure. Please see Dr. Maher' operative report as he did complete his portion of the case robotically before I opened. I made a lower midline incision and this was carried down into the peritoneal cavity. Upon getting to the area of perforation, it was noted that the tissue was very friable and indurated. The distal sigmoid was noted to be almost completely transected. Given this, I completed the transection by sharply transecting the posterior wall. I then freed up the proximal sigmoid in anticipation of the colostomy. I then closed the upper rectum with a running 1 PDS suture. I did leave a drain the area of the rectal stump coming out through the left lower quadrant. I then excised 1 of the port sites in the left lower quadrant for the colostomy site. This was carried down through the subcutaneous tissue to the area of the fascia. The fascia was then opened and the rectus was split in the direction of its fibers. I then opened the posterior fascia. Was able to get 2 fingerbreadths through the fascial openings. I then was able to bring out the sigmoid colon. I then closed the midline incision with a looped PDS suture. The skin was closed with skin dalton. I then matured the colostomy in the left lower quadrant with i nterrupted 3 0 Vicryl suture. Anesthesia: GETA Surgeon: aSbina Quezada MD Estimated blood loss (mL): 50 Drains: Yes Packing: No Pathology: yes Complications: Other complications Condition: stable Disposition: PACU Findings: distal sigmoid perforation
--- NOTE | 2020-09-01 17:29 | SUR.OPER ---
PACU RADIOLOGY NOTIFIED OF POST OP KUB IN PACU. UROSTOMY/# 7 STENTS NO DRAINAGE AND DR MARTINEZ ASSESSED SITE IN PRE OP AND AWARE.
[2020-09-01 18:01] LABS: Hematocrit 39.9 % (42.0-52.0); Hemoglobin 12.5 g/dL (14.0-18.0)
[2020-09-01 18:13] LABS: Anion Gap 12 mmol/L (8-16); Blood Urea Nitrogen 20 mg/dL (9-20); Calcium 8.8 mg/dL (8.4-10.2); Carbon Dioxide 20 mmol/L (22-30); Chloride 105 mmol/L (98-107); Estimated CRCL calculation 32 ml/min; Estimated Glomerular Filt Rate 34; Glucose 204 mg/dL (75-110); Potassium 4.9 mmol/L (3.4-5.0); Sodium 137 mmol/L (137-145)
--- NOTE | 2020-09-01 18:50 | SUR.PHASEI ---
1735 XRAYS BEING DONE 1740 DR MARTINEZ HERE SEEING PT 1820 DR MARTINEZ HERE TO SEE PT
--- NOTE | 2020-09-01 19:25 | ADMGEN ---
This patient, Omer Winter, was admitted to Medical Room 344-01. Patient/family oriented to hospital policies and general routines including ID bracelet, bed and alarms, visiting hours, pain management, procedures, bathroom and other care routines, personal items, smoking policy, room service/diet, and visiting hours. Information on how to activate the Rapid Response Team has been discussed. Patient/Family are encouraged to report perceived risks to care and to ask questions if they do not understand what they are told or what they should do.
[2020-09-01] MEDS: LACTATED RINGERS 1,000 ML 150 ML IV CONT (20:18)
[2020-09-01 20:27] LABS: Glucose Point of Care 213 (65-105)
[2020-09-02 00:12] VITALS: BP 146/70; PULSE 99; RESP 16; TEMP 36.2; O2SAT 96
[2020-09-02] MEDS: HYDROmorphone HCL INJ (*CRX) 1 MG/ML SYR 0.2 MG IV PUSH (00:28)
[2020-09-02 02:35] LABS: Glucose Point of Care 260 (65-105)
[2020-09-02] MEDS: HYDROmorphone HCL INJ (*CRX) 1 MG/ML SYR IV PUSH ×6 (03:00→20:53)
[2020-09-02] MEDS: LACTATED RINGERS 1,000 ML 150 ML IV CONT ×3 (03:08→16:57)
[2020-09-02 04:42] VITALS: BP 108/71; PULSE 110; RESP 17; TEMP 36.4; O2SAT 96
[2020-09-02 05:52] LABS: Hematocrit 34.3 % (42.0-52.0); Immature Granulocyte Absolute 0.01 K/mm3 (0.00-0.031); Immature Granulocyte Percent A 0.1 % (0-0.5); Lymphocytes Absolute Auto 0.77 K/mm3 (0.9-3.2); Mean Corpuscular HGB Conc 32.1 g/dl (32-36); Mean Corpuscular Hemoglobin 29.3 pg (26-34); Mean Corpuscular Volume 91.5 fl (80-100); Mean Platelet Volume 9.9 fl (7.4-10.4); Monocytes Percent Auto 11.5 % (2.6-8.5); Neutrophils Absolute Auto 6.8 K/mm3 (1.3-6.7); Neutrophils Percent Auto 79.4 % (45.5-73.1); Platelet Count Result 206 k/mm3 (150-375); Red Blood Count 3.75 M/mm3 (4.6-6.20); Red Cell Distribution Width 16.1 % (11.5-14.5); White Blood Count 8.6 K/mm3 (4.5-10.0)
[2020-09-02 05:58] LABS: Anion Gap 10 mmol/L (8-16); Blood Urea Nitrogen 24 mg/dL (9-20); Calcium 8.8 mg/dL (8.4-10.2); Carbon Dioxide 23 mmol/L (22-30); Chloride 103 mmol/L (98-107); Estimated CRCL calculation 30 ml/min; Estimated Glomerular Filt Rate 31; Glucose 225 mg/dL (75-110); Potassium 5.1 mmol/L (3.4-5.0); Sodium 136 mmol/L (137-145)
[2020-09-02 06:21] VITALS: RESP 20; O2SAT 96
--- NOTE | 2020-09-02 07:06 | WPDUROPN2 ---
Progress Note: A&P Assessment and Plan (1) Rectum injury: Code(s): S36.60XA - Unspecified injury of rectum, initial encounter Status: Acute (2) Bladder cancer: Onset Date: ~03/2020 Code(s): C67.9 - Malignant neoplasm of bladder, unspecified Status: Acute Time Spent With Patient Time: S/P robotic radical prostatectomy/ileal-conduit diversion and diverting colostomy 09/01/2020. Uneventful POD #1 - comfortable/good urine output. NG drainage clear. Continue ice chips for now. Dietary mgmt. per Dr. Quezada. Long discussion with pt. this morning about findings at surgery. Subjective Subjective Date/Time Seen: 09/02/20 07:06 Awake, alert - mild abdominal discomfort. Review of Systems Cardiovascular: Cardiovascular: Denies chest pain, Denies lightheadedness, Denies palpitations and Denies dyspnea Respiratory: Respiratory: Denies dyspnea Gastrointestinal: Gastrointestinal: Reports bloating, Denies diarrhea, Denies nausea and Denies vomiting Genitourinary: Genitourinary: Denies hematuria and Denies dysuria Endocrine: Endocrine: Denies palpitations Exam Const: General: no acute distress HENMT: Head: normal to inspection Ears: hearing grossly normal bilaterally Eyes: General: appearance normal, both eyes and all related structures Cornea: corneas normal Pupils: Equal, round and reactive pupils present EOM: EOMs intact bilaterally Chest: Chest palpation & inspection: normal inspection of the chest Resp: Effort & Inspection: normal respiratory effort Auscultation: clear to auscultation bilaterally GI: Inspection: normal to inspection (ileostomy RLQ / colostomy LLQ - pink/viable), non-distended and incision (dressed/dry) GI Palp: No abdominal tenderness and No Guarding due to palpation present (GI) Auscultation: Hypoactive bowel sounds present : Male General Exam: Yes other (serous oozing from urethra) Skin: General skin exam: normal color Neuro: General: patient oriented x3 Extrem: General: normal to inspection and no pedal edema Objective Data Vital Signs Vital Signs: Vital Signs - 24 hr 09/01/20 17:17 09/01/20 17:30 09/01/20 17:45 Temperature 97.0 F L Pulse Rate 76 77 76 Respiratory Rate 13 18 17 Blood Pressure 101/63 117/65 117/68 Pulse Oximetry 96 95 98 09/01/20 18:00 09/01/20 18:15 09/01/20 18:30 Temperature Pulse Rate 77 79 79 Respiratory Rate 16 16 15 Blood Pressure 106/75 109/69 93/67 L Pulse Oximetry 96 93 95 09/01/20 18:45 09/01/20 19:00 09/01/20 19:13 Temperature Pulse Rate 77 79 78 Respiratory Rate 16 19 12 Blood Pressure 96/63 L 106/84 112/56 L Pulse Oximetry 93 93 98 09/01/20 19:28 09/01/20 19:58 09/01/20 20:58 Temperature 96.6 F L 95.8 F L 96.5 F L Pulse Rate 79 78 83 Respiratory Rate 13 12 14 Blood Pressure 131/64 119/63 146/93 H Pulse Oximetry 100 100 100 09/02/20 00:12 09/02/20 04:42 09/02/20 06:21 Temperature 97.2 F L 97.6 F Pulse Rate 99 110 H Respiratory Rate 16 17 20 Blood Pressure 146/70 H 108/71 Pulse Oximetry 96 96 96 Intake/Output Intake/Output: Intake & Output 08/30/20 08/31/20 09/01/20 09/02/20 23:59 23:59 23:59 23:59 Intake Total 1100 1050 Output Total 225 1015 Balance 875 35 Meds/Results Medications: Active Medications Generic Name Dose Route Start Last Admin Trade Name Freq PRN Reason Stop Dose Admin Alvimopan 12 mg 09/02/20 09:00 Alvimopan 12 Mg Capsule PO Q12HR [facility] Heparin Sodium (Porcine) 5,000 units 09/01/20 21:00 09/01/20 20:19 Heparin Sodium 5,000 Units/Ml Vial SUB-Q 5,000 units Q12HR SARA Administration Hydromorphone HCl 1 mg 09/02/20 02:48 09/02/20 03:00 Hydromorphone Hcl Inj (*Crx) 1 Mg/Ml Syr IV PUSH 1 mg Q3H PRN Administration Severe pain rated 7-10 Lactated Ringer's 1,000 mls @ 150 mls/hr 09/01/20 19:13 09/02/20 03:08 Lr - Lactated Ringers Iv IV CONT 150 mls/hr .Q6H40M SARA Administration Ertap
[2020-09-02] MEDS: ALVIMOPAN 12 MG CAPSULE PO ×2 (08:02→20:46)
[2020-09-02] MEDS: HEPARIN SODIUM 5,000 UNITS/ML VIAL 5000 UNITS SUB-Q ×2 (08:02→20:45)
[2020-09-02] MEDS: PHENOL/SOD PHENO SPRAY CHERRY (*BKC) 1 SPRAY MUCOUS MEM (08:03)
[2020-09-02] MEDS: ERTAPENEM 1 GM/NS 50 ML 1 GM/50 ML BAG IVPB (08:08)
[2020-09-02 09:42] VITALS: O2SAT 93
--- NOTE | 2020-09-02 11:17 | PM.PNGS ---
Progress Note: A&P Assessment and Plan (1) Rectum injury: Code(s): S36.60XA - Unspecified injury of rectum, initial encounter Status: Acute Assessment and Plan: s/p Hartmans', await ostomy fxn, cont NG and ice chips for now, OOB/IS, ostomy care, PT/OT (2) Bladder cancer: Onset Date: ~03/2020 Code(s): C67.9 - Malignant neoplasm of bladder, unspecified Status: Acute Assessment and Plan: mgmt per urology Subjective Subjective Date/Time Seen: 09/02/20 11:17 feels pretty good, some soreness Review of Systems Constitutional: Constitutional: Denies chills, Reports fatigue, Denies fever(s), Reports lethargy, Denies malaise and Reports weakness Cardiovascular: Cardiovascular: Reports no additional cardiovascular complaints Respiratory: Respiratory: Reports no additional respiratory complaints Gastrointestinal: Gastrointestinal: Reports abdominal pain, Reports bloating, Reports GI cramping, Denies diarrhea, Denies nausea and Denies vomiting Exam Const: General: cooperative, comfortable and no acute distress Resp: Auscultation: diminished lung sounds Cardio: Rate: regular rate Rhythm: regular rhythm GI: Inspection: normal to inspection GI Palp: Yes Soft to palpation, Yes Tenderness to palpation present (GI), No Guarding due to palpation present (GI) and No Rigid due to palpation Other: soft, mod dist, lex TTP, ostomy c sweat, FANTASMA c dk sang output Objective Data Vital Signs Vital Signs: Vital Signs - 24 hr 09/01/20 17:17 09/01/20 17:30 09/01/20 17:45 Temperature 36.1 C L Pulse Rate 76 77 76 Respiratory Rate 13 18 17 Blood Pressure 101/63 117/65 117/68 Pulse Oximetry 96 95 98 09/01/20 18:00 09/01/20 18:15 09/01/20 18:30 Temperature Pulse Rate 77 79 79 Respiratory Rate 16 16 15 Blood Pressure 106/75 109/69 93/67 L Pulse Oximetry 96 93 95 09/01/20 18:45 09/01/20 19:00 09/01/20 19:13 Temperature Pulse Rate 77 79 78 Respiratory Rate 16 19 12 Blood Pressure 96/63 L 106/84 112/56 L Pulse Oximetry 93 93 98 09/01/20 19:28 09/01/20 19:58 09/01/20 20:58 Temperature 35.9 C L 35.4 C L 35.8 C L Pulse Rate 79 78 83 Respiratory Rate 13 12 14 Blood Pressure 131/64 119/63 146/93 H Pulse Oximetry 100 100 100 09/02/20 00:12 09/02/20 04:42 09/02/20 06:21 Temperature 36.2 C L 36.4 C Pulse Rate 99 110 H Respiratory Rate 16 17 20 Blood Pressure 146/70 H 108/71 Pulse Oximetry 96 96 96 09/02/20 09:42 Temperature Pulse Rate Respiratory Rate Blood Pressure Pulse Oximetry 93 Intake/Output Intake/Output: Intake & Output 08/30/20 08/31/20 09/01/20 09/02/20 23:59 23:59 23:59 23:59 Intake Total 1100 2200 Output Total 225 1075 Balance 875 1125 Meds/Results Medications: Active Medications Generic Name Dose Route Start Last Admin Trade Name Freq PRN Reason Stop Dose Admin Alvimopan 12 mg 09/02/20 09:00 09/02/20 08:02 Alvimopan 12 Mg Capsule PO 12 mg Q12HR [facility] Administration Benzocaine 1 lozenge 09/02/20 07:41 Benzocaine/Menthol (*Bkc) 18 Ea Lozenge PO PRN PRN Sore Throat Heparin Sodium (Porcine) 5,000 units 09/01/20 21:00 09/02/20 08:02 Heparin Sodium 5,000 Units/Ml Vial SUB-Q 5,000 units Q12HR [facility] Administration Hydromorphone HCl 1 mg 09/02/20 02:48 09/02/20 11:13 Hydromorphone Hcl Inj (*Crx) 1 Mg/Ml Syr IV PUSH 1 mg Q3H PRN Administration Severe pain rated 7-10 Lactated Ringer's 1,000 mls @ 150 mls/hr 09/01/20 19:13 09/02/20 09:53 Lr - Lactated Ringers Iv IV CONT 150 mls/hr .Q6H40M [facility] Administration Ertapenem 1 gm in 50 mls @ 100 mls/hr 09/02/20 09:00 09/02/20 08:38 Invanz 1 Gm/Ns 50 Ml IVPB Infused Q24H [facility] Infusion Acetaminophen 1,000 mg in 100 mls @ 400 mls/hr 09/02/20 06:00 09/02/20 07:51 Ofirmev 1,000 Mg Ivpb IVPB 09/05/20 06:01 Infused Q6HR [facility] Infusion Ondansetron HCl 4 mg 09/01/20 19:13 Ondansetron Inj 4 Mg/2 Ml Vial
[2020-09-02 12:24] LABS: Glucose Point of Care 181 (65-105)
[2020-09-02 14:00] VITALS: BP 99/69; PULSE 110; RESP 16; TEMP 36.7; O2SAT 95
--- NOTE | 2020-09-02 14:28 | WPDANESPN ---
Anes - Prog Note Post-Op Date/Time: 09/02/20 14:28 Cardiovascular status: normal Respiratory status: normal Airway patency: baseline Mental status: baseline Post-Op hydration status: normal Vital Signs: Last Vital Signs Temp 97.6 F 09/02/20 04:42 Pulse 110 H 09/02/20 04:42 Resp 20 09/02/20 06:21 BP 108/71 09/02/20 04:42 Pulse Ox 93 09/02/20 09:42 Pain Score (VAS): 10 I/O: Intake & Output 09/01/20 09/02/20 09/02/20 23:59 07:59 15:59 Intake Total 1100 1150 1150 Output Total 225 1015 620 Balance 875 135 530 Laboratory Tests 09/02/20 05:26 09/02/20 05:26 09/01/20 09/01/20 09/01/20 17:55 17:55 20:23 WBC RBC Hgb 12.5 L Hct 39.9 L MCV MCH MCHC RDW Plt Count MPV Immature Gran % (Auto) Neut % (Auto) Lymph % (Auto) Nolan % (Auto) Eos % (Auto) Baso % (Auto) Lymph # (Auto) Nolan # (Auto) Eos # (Auto) Baso # (Auto) Abs Immat Gran (auto) Absolute Neuts (auto) Absolute Nucleated RBC Nucleated RBC % Sodium 137 Potassium 4.9 Chloride 105 Carbon Dioxide 20 L Anion Gap 12 BUN 20 D Creatinine 1.90 H Estim Creat Clear Calc 32 Estimated GFR 34 L Glucose 204 H POC Capillary Glucose 213 H Calcium 8.8 09/02/20 09/02/20 09/02/20 02:33 05:26 05:26 WBC 8.6 RBC 3.75 L Hgb 11.0 L Hct 34.3 L MCV 91.5 MCH 29.3 MCHC 32.1 RDW 16.1 H Plt Count 206 MPV 9.9 Immature Gran % (Auto) 0.1 Neut % (Auto) 79.4 H Lymph % (Auto) 9.0 L Nolan % (Auto) 11.5 H Eos % (Auto) 0.0 Baso % (Auto) 0.0 L Lymph # (Auto) 0.77 L Nolan # (Auto) 1.0 H Eos # (Auto) 0.0 Baso # (Auto) 0.0 Abs Immat Gran (auto) 0.01 Absolute Neuts (auto) 6.8 H Absolute Nucleated RBC 0.0 Nucleated RBC % 0.0 Sodium 136 L Potassium 5.1 H Chloride 103 Carbon Dioxide 23 Anion Gap 10 BUN 24 H Creatinine 2.10 H Estim Creat Clear Calc 30 Estimated GFR 31 L Glucose 225 H POC Capillary Glucose 260 H Calcium 8.8 09/02/20 12:19 WBC RBC Hgb Hct MCV MCH MCHC RDW Plt Count MPV Immature Gran % (Auto) Neut % (Auto) Lymph % (Auto) Nolan % (Auto) Eos % (Auto) Baso % (Auto) Lymph # (Auto) Nolan # (Auto) Eos # (Auto) Baso # (Auto) Abs Immat Gran (auto) Absolute Neuts (auto) Absolute Nucleated RBC Nucleated RBC % Sodium Potassium Chloride Carbon Dioxide Anion Gap BUN Creatinine Estim Creat Clear Calc Estimated GFR Glucose POC Capillary Glucose 181 H Calcium Post-procedural complaints: none Patient Feedback: Patient satisfied with anesthetic care.
--- NOTE | 2020-09-02 14:44 | PCPTNOTE ---
Hold bed mobility and transfer this date per RN and wound care. Michaela Rocha, DPT
[2020-09-02 18:37] LABS: Glucose Point of Care 166 (65-105)
[2020-09-02 20:35] VITALS: BP 135/74; PULSE 105; RESP 17; TEMP 36.4; O2SAT 95
[2020-09-03] MEDS: LACTATED RINGERS 1,000 ML 150 ML IV CONT ×3 (00:10→17:02)
[2020-09-03 00:16] LABS: Glucose Point of Care 144 (65-105)
[2020-09-03 05:47] LABS: Basophils Percent Auto 0.1 % (0.2-1.2); Hematocrit 30.4 % (42.0-52.0); Hemoglobin 9.8 g/dL (14.0-18.0); Immature Granulocyte Absolute 0.04 K/mm3 (0.00-0.031); Immature Granulocyte Percent A 0.4 % (0-0.5); Lymphocytes Absolute Auto 1.42 K/mm3 (0.9-3.2); Lymphocytes Percent Auto 14.1 % (18.3-44.2); Mean Corpuscular HGB Conc 32.2 g/dl (32-36); Mean Corpuscular Hemoglobin 29.8 pg (26-34); Mean Corpuscular Volume 92.4 fl (80-100); Mean Platelet Volume 10.5 fl (7.4-10.4); Monocytes Absolute Auto 1.1 K/mm3 (0.1-0.6); Monocytes Percent Auto 11.3 % (2.6-8.5); Neutrophils Absolute Auto 7.5 K/mm3 (1.3-6.7); Neutrophils Percent Auto 74.1 % (45.5-73.1); Platelet Count Result 169 k/mm3 (150-375); Red Blood Count 3.29 M/mm3 (4.6-6.20); Red Cell Distribution Width 16.2 % (11.5-14.5); White Blood Count 10.1 K/mm3 (4.5-10.0)
[2020-09-03 05:54] VITALS: BP 153/86; PULSE 106; RESP 18; TEMP 36.6; O2SAT 96
[2020-09-03 06:02] LABS: Anion Gap 5 mmol/L (8-16); Blood Urea Nitrogen 33 mg/dL (9-20); Calcium 8.8 mg/dL (8.4-10.2); Carbon Dioxide 30 mmol/L (22-30); Chloride 102 mmol/L (98-107); Estimated CRCL calculation 30 ml/min; Estimated Glomerular Filt Rate 31; Glucose 137 mg/dL (75-110); Potassium 4.2 mmol/L (3.4-5.0); Sodium 137 mmol/L (137-145)
[2020-09-03] MEDS: HYDROmorphone HCL INJ (*CRX) 1 MG/ML SYR IV PUSH ×4 (06:13→21:30)
[2020-09-03 06:16] LABS: Glucose Point of Care 135 (65-105)
[2020-09-03 08:00] VITALS: PULSE 106; RESP 18; O2SAT 93
--- NOTE | 2020-09-03 08:04 | PM.PNGS ---
Progress Note: A&P Assessment and Plan (1) Malignant neoplasm of bladder, unspecified: Code(s): C67.9 - Malignant neoplasm of bladder, unspecified Status: Chronic Assessment and Plan: Status post radical cystectomy with ileal conduit 09/01/2020 (2) Rectum injury: Code(s): S36.60XA - Unspecified injury of rectum, initial encounter Status: Acute Assessment and Plan: No stoma output as yet. Will start dressing changes to abdominal incision today. Continue NG tube another day. Recheck labs tomorrow. Up to chair today. (3) CKD (chronic kidney disease) stage 3, GFR 30-59 ml/min: Onset Date: Unknown Code(s): N18.3 - Chronic kidney disease, stage 3 (moderate) Status: Chronic Subjective Subjective Date/Time Seen: 09/03/20 08:04 Post Op day: 2 Patient reports: no new complaints, pain is less, no flatus, no bowel movement and afebrile Review of Systems Review of Systems: All systems reviewed & are unremarkable except as noted in HPI and below Constitutional: Constitutional: Denies chills, Denies fever(s), Denies headache(s) and Reports weakness Cardiovascular: Cardiovascular: Denies chest pain and Denies dyspnea Respiratory: Respiratory: Denies cough and Denies dyspnea Gastrointestinal: Gastrointestinal: Reports as per HPI, Denies belching, Denies bloating, Denies nausea and Denies vomiting Neurologic: Denies confusion and Denies headache(s) Exam Const: General: comfortable and no acute distress; No confusion Orientation/consciousness: patient oriented x3 and No confusion GI: Inspection: non-distended and incision (Dressing dry and intact) GI Palp: Yes Soft to palpation, Yes Tenderness to palpation present (GI), No Guarding due to palpation present (GI) and No Rebound tenderness present Auscultation: absent bowel sounds Neuro: General: patient oriented x3, no focal motor deficits and No confusion Extrem: General: no calf tenderness and no edema Psych: Affect: normal affect Insight: Good insight present (Psych) Judgement: Good judgement present (Psych) Objective Data Vital Signs Vital Signs: Vital Signs - 24 hr 09/02/20 09:42 09/02/20 14:00 09/02/20 20:35 Temperature 36.7 C 36.4 C Pulse Rate 110 H 105 H Respiratory Rate 16 17 Blood Pressure 99/69 L 135/74 Pulse Oximetry 93 95 95 09/03/20 05:54 Temperature 36.6 C Pulse Rate 106 H Respiratory Rate 18 Blood Pressure 153/86 H Pulse Oximetry 96 Intake/Output Intake/Output: Intake & Output 08/31/20 09/01/20 09/02/20 09/03/20 23:59 23:59 23:59 23:59 Intake Total 1100 4400 1200 Output Total 225 3110 2105 Balance 875 1290 -905 Meds/Results Medications: Active Medications Generic Name Dose Route Start Last Admin Trade Name Freq PRN Reason Stop Dose Admin Alvimopan 12 mg 09/02/20 09:00 09/02/20 20:46 Alvimopan 12 Mg Capsule PO 12 mg Q12HR [facility] Administration Benzocaine 1 lozenge 09/02/20 07:41 Benzocaine/Menthol (*Bkc) 18 Ea Lozenge PO PRN PRN Sore Throat Heparin Sodium (Porcine) 5,000 units 09/01/20 21:00 09/02/20 20:45 Heparin Sodium 5,000 Units/Ml Vial SUB-Q 5,000 units Q12HR [facility] Administration Hydromorphone HCl 1 mg 09/02/20 02:48 09/03/20 06:13 Hydromorphone Hcl Inj (*Crx) 1 Mg/Ml Syr IV PUSH 1 mg Q3H PRN Administration Severe pain rated 7-10 Lactated Ringer's 1,000 mls @ 100 mls/hr 09/01/20 19:13 09/03/20 06:17 Lr - Lactated Ringers Iv IV CONT 150 mls/hr .Q10H [facility] Administration Ertapenem 1 gm in 50 mls @ 100 mls/hr 09/02/20 09:00 09/02/20 08:38 Invanz 1 Gm/Ns 50 Ml IVPB Infused Q24H [facility] Infusion Acetaminophen 1,000 mg in 100 mls @ 400 mls/hr 09/02/20 06:00 09/03/20 07:07 Ofirmev 1,000 Mg Ivpb IVPB 09/05/20 06:01 Infused Q6HR [facility] Infusion Ondansetron HCl 4 mg 09/01/20 19:13 Ondansetron Inj 4 Mg/2 Ml Vial IV PUSH Q6H PRN Nausea And Vomiting Phenol 1 spray 10/3
[2020-09-03] MEDS: ERTAPENEM 1 GM/NS 50 ML 1 GM/50 ML BAG IVPB (08:07)
[2020-09-03 08:09] VITALS: O2SAT 93
[2020-09-03] MEDS: HEPARIN SODIUM 5,000 UNITS/ML VIAL 5000 UNITS SUB-Q ×2 (08:12→20:17)
[2020-09-03 08:36] LABS: Glucose Point of Care 142 (65-105)
[2020-09-03] MEDS: ALVIMOPAN 12 MG CAPSULE PO ×2 (09:28→20:17)
[2020-09-03] MEDS: PANTOPRAZOLE SODIUM IV 40 MG VIAL IV PUSH ×2 (09:35→20:18)
--- NOTE | 2020-09-03 12:30 | WPDUROPN2 ---
Progress Note: A&P Assessment and Plan (1) Bladder cancer: Onset Date: ~03/2020 Code(s): C67.9 - Malignant neoplasm of bladder, unspecified Status: Acute Assessment and Plan: 80M s/p cystectomy 09/01 with rectal injury (history of pelvic radiation) - NPO with ice chips- diet/NGT per gen surg - ambulate as much as able - ertapenem through weekend - continue all drains for now - await bowel function (2) Rectum injury: Code(s): S36.60XA - Unspecified injury of rectum, initial encounter Status: Acute (3) CKD (chronic kidney disease) stage 3, GFR 30-59 ml/min: Onset Date: Unknown Code(s): N18.3 - Chronic kidney disease, stage 3 (moderate) Status: Chronic Subjective Subjective Date/Time Seen: 09/03/20 12:30 Interval history: Doing okay. 2L NGT output. No flatus in bag yet. Adequate UOP. Creat stable from yesterday. Walking. No N/V. Review of Systems Review of Systems: All systems reviewed & are unremarkable except as noted in HPI and below Exam Narrative: Exam Narrative: A&O, was sleeping when I entered room-- alert, cooperative, pleasant Abd mildly distended, both stomas pink, stents in place, JPs with minimal output; incision still covered Objective Data Vital Signs Vital Signs: Vital Signs - 24 hr 09/02/20 14:00 09/02/20 20:35 09/03/20 05:54 Temperature 36.7 C 36.4 C 36.6 C Pulse Rate 110 H 105 H 106 H Respiratory Rate 16 17 18 Blood Pressure 99/69 L 135/74 153/86 H Pulse Oximetry 95 95 96 09/03/20 08:00 09/03/20 08:09 Temperature Pulse Rate 106 H Respiratory Rate 18 Blood Pressure Pulse Oximetry 93 93 Intake/Output Intake/Output: Intake & Output 08/31/20 09/01/20 09/02/20 09/03/20 23:59 23:59 23:59 23:59 Intake Total 1100 4400 1250 Output Total 225 3110 2485 Balance 875 1290 -1235 Meds/Results Medications: Active Medications Generic Name Dose Route Start Last Admin Trade Name Freq PRN Reason Stop Dose Admin Alvimopan 12 mg 09/02/20 09:00 09/03/20 09:28 Alvimopan 12 Mg Capsule PO 12 mg Q12HR [facility] Administration Benzocaine 1 lozenge 09/02/20 07:41 Benzocaine/Menthol (*Bkc) 18 Ea Lozenge PO PRN PRN Sore Throat Heparin Sodium (Porcine) 5,000 units 09/01/20 21:00 09/03/20 08:12 Heparin Sodium 5,000 Units/Ml Vial SUB-Q 5,000 units Q12HR [facility] Administration Hydromorphone HCl 1 mg 09/02/20 02:48 09/03/20 09:43 Hydromorphone Hcl Inj (*Crx) 1 Mg/Ml Syr IV PUSH 1 mg Q3H PRN Administration Severe pain rated 7-10 Lactated Ringer's 1,000 mls @ 100 mls/hr 09/01/20 19:13 09/03/20 06:17 Lr - Lactated Ringers Iv IV CONT 150 mls/hr .Q10H [facility] Administration Ertapenem 1 gm in 50 mls @ 100 mls/hr 09/02/20 09:00 09/03/20 08:37 Invanz 1 Gm/Ns 50 Ml IVPB Infused Q24H [facility] Infusion Acetaminophen 1,000 mg in 100 mls @ 400 mls/hr 09/02/20 06:00 09/03/20 11:51 Ofirmev 1,000 Mg Ivpb IVPB 09/05/20 06:01 400 mls/hr Q6HR [facility] Administration Ondansetron HCl 4 mg 09/01/20 19:13 Ondansetron Inj 4 Mg/2 Ml Vial IV PUSH Q6H PRN Nausea And Vomiting Pantoprazole Sodium 40 mg 09/03/20 09:00 09/03/20 09:35 Pantoprazole Sodium Iv 40 Mg Vial IV PUSH 40 mg Q12HR [facility] Administration Phenol 1 spray 09/02/20 07:41 09/02/20 08:03 Phenol/Sod Pheno [place] Lucio (*Bkc) MUCOUS MEM 1 spray PRN PRN Administration Sore Throat Radiology Results: ITS Impressions Abdomen X-Ray 09/01/20 17:39 Impression: 1: Postoperative changes consistent with recent cystectomy with ureteral diversion. Labs Labs: Laboratory Results - last 24 hr 10/09/03/20 09/03/20 18:27 00:13 05:22 WBC 10.1 H RBC 3.29 L Hgb 9.8 L Hct 30.4 L MCV 92.4 MCH 29.8 MCHC 32.2 RDW 16.2 H Plt Count 169 MPV 10.5 H Immature Gran % (Auto) 0.4 Neut % (Auto) 74.1 H Lymph % (Auto) 14.1 L [place] % (Auto) 11.3
[2020-09-03 12:39] LABS: Glucose Point of Care 143 (65-105)
[2020-09-03 14:00] VITALS: BP 128/82; PULSE 104; RESP 14; TEMP 37; O2SAT 93
--- NOTE | 2020-09-03 17:24 | PC.NURSE ---
intake is from ice chips
[2020-09-03 19:31] VITALS: BP 147/87; PULSE 106; RESP 16; TEMP 36.6; O2SAT 98
[2020-09-03] MEDS: diphenhydrAMINE HCl CAP 25 MG CAPSULE PO (20:17)
[2020-09-03] MEDS: MELATONIN 5 MG TABLET PO (20:17)
[2020-09-03 23:54] LABS: Glucose Point of Care 134 (65-105)
[2020-09-04] MEDS: LACTATED RINGERS 1,000 ML 100 ML IV CONT ×3 (00:43→22:58)
--- NOTE | 2020-09-04 01:30 | PC.NURSE ---
Daylight Savings Time For Daylight Savings Time Ending in the Fall - Clocks are moved back. For Daylight Savings Time Beginning in the Spring - Clocks are moved ahead. For [facility], the time of change occurs at 0200 hrs. Time is taken from the sediment remediation consultant. This entry on the patient's chart recognizes the change in time reflected during documentation. Example: 2 entries for vital signs may be charted for 0200 hrs.
[2020-09-04] MEDS: HYDROmorphone HCL INJ (*CRX) 1 MG/ML SYR IV PUSH ×2 (02:22→07:46)
[2020-09-04 05:04] VITALS: BP 147/84; PULSE 106; RESP 16; TEMP 36.3; O2SAT 94
[2020-09-04 05:52] LABS: Basophils Percent Auto 0.1 % (0.2-1.2); Hematocrit 31.6 % (42.0-52.0); Hemoglobin 10.1 g/dL (14.0-18.0); Immature Granulocyte Absolute 0.05 K/mm3 (0.00-0.031); Immature Granulocyte Percent A 0.5 % (0-0.5); Lymphocytes Absolute Auto 1.42 K/mm3 (0.9-3.2); Lymphocytes Percent Auto 12.8 % (18.3-44.2); Mean Corpuscular Hemoglobin 29.4 pg (26-34); Mean Corpuscular Volume 91.9 fl (80-100); Mean Platelet Volume 10.4 fl (7.4-10.4); Monocytes Absolute Auto 1.1 K/mm3 (0.1-0.6); Monocytes Percent Auto 9.9 % (2.6-8.5); Neutrophils Absolute Auto 8.5 K/mm3 (1.3-6.7); Neutrophils Percent Auto 76.7 % (45.5-73.1); Platelet Count Result 173 k/mm3 (150-375); Red Blood Count 3.44 M/mm3 (4.6-6.20); White Blood Count 11.1 K/mm3 (4.5-10.0)
[2020-09-04 06:18] LABS: Anion Gap 5 mmol/L (8-16); Blood Urea Nitrogen 30 mg/dL (9-20); Carbon Dioxide 30 mmol/L (22-30); Chloride 104 mmol/L (98-107); Estimated CRCL calculation 51 ml/min; Estimated Glomerular Filt Rate 58; Glucose 137 mg/dL (75-110); Potassium 4.1 mmol/L (3.4-5.0); Sodium 139 mmol/L (137-145)
[2020-09-04 06:43] LABS: Glucose Point of Care 144 (65-105)
[2020-09-04 08:00] VITALS: PULSE 106; RESP 16; O2SAT 94
[2020-09-04] MEDS: ERTAPENEM 1 GM/NS 50 ML 1 GM/50 ML BAG IVPB (08:54)
[2020-09-04] MEDS: ALVIMOPAN 12 MG CAPSULE PO ×2 (09:28→21:07)
[2020-09-04] MEDS: PANTOPRAZOLE SODIUM IV 40 MG VIAL IV PUSH ×2 (09:29→21:07)
[2020-09-04] MEDS: HEPARIN SODIUM 5,000 UNITS/ML VIAL 5000 UNITS SUB-Q ×2 (09:29→21:07)
--- NOTE | 2020-09-04 11:39 | WPDUROPN2 ---
Progress Note: A&P Assessment and Plan (1) Bladder cancer: Onset Date: ~03/2020 Code(s): C67.9 - Malignant neoplasm of bladder, unspecified Status: Acute Assessment and Plan: 80M s/p cystectomy, ileal conduit, rectal injury, colostomy - await return of bowel function - limit narcotics as much as possible given delirium overnight - will hold off on replacing NGT unless he has N/V - continue ertapanem, all drains through weekend - gauze on left abdominal incision okay (2) Rectum injury: Code(s): S36.60XA - Unspecified injury of rectum, initial encounter Status: Acute Subjective Subjective Date/Time Seen: 09/04/20 11:39 Interval history: had some delirium last night and pulled his NGT out no flatus or stool yet hgb stable; creat down to 1.2 from 2.1 good UOP up in chair an hour today so far left incision started leaking some serous fluid overnight Review of Systems Review of Systems: All systems reviewed & are unremarkable except as noted in HPI and below Exam Narrative: Exam Narrative: a&o, pleasant abd stomas healthy; stents in place, FANTASMA minimal output; no flatus yet; left sided small incision with serous drainage, no purulence Objective Data Vital Signs Vital Signs: Vital Signs - 24 hr 09/03/20 14:00 09/03/20 19:31 09/04/20 05:04 Temperature 37.0 C 36.6 C 36.3 C L Pulse Rate 104 H 106 H 106 H Respiratory Rate 14 16 16 Blood Pressure 128/82 147/87 H 147/84 H Pulse Oximetry 93 98 94 09/04/20 08:00 Temperature Pulse Rate 106 H Respiratory Rate 16 Blood Pressure Pulse Oximetry 94 Intake/Output Intake/Output: Intake & Output 09/01/20 09/02/20 09/03/20 09/04/20 23:59 23:59 23:59 22:59 Intake Total 1100 4400 2700 2600 Output Total 225 3110 4233 945 Balance 875 1290 -1533 1655 Meds/Results Medications: Active Medications Generic Name Dose Route Start Last Admin Trade Name Freq PRN Reason Stop Dose Admin Alvimopan 12 mg 09/02/20 09:00 09/04/20 09:28 Alvimopan 12 Mg Capsule PO 12 mg Q12HR [facility] Administration Benzocaine 1 lozenge 09/02/20 07:41 Benzocaine/Menthol (*Bkc) 18 Ea Lozenge PO PRN PRN Sore Throat Diphenhydramine HCl 25 mg 09/03/20 21:00 09/03/20 20:17 Diphenhydramine Hcl Cap 25 Mg Capsule PO 25 mg HS SARA Administration Heparin Sodium (Porcine) 5,000 units 09/01/20 21:00 09/04/20 09:29 Heparin Sodium 5,000 Units/Ml Vial SUB-Q 5,000 units Q12HR [facility] Administration Hydromorphone HCl 1 mg 09/02/20 02:48 09/04/20 07:46 Hydromorphone Hcl Inj (*Crx) 1 Mg/Ml Syr IV PUSH 1 mg Q3H PRN Administration Severe pain rated 7-10 Lactated Ringer's 1,000 mls @ 100 mls/hr 09/01/20 19:13 09/04/20 11:12 Lr - Lactated Ringers Iv IV CONT 100 mls/hr .Q10H SARA Administration Ertapenem 1 gm in 50 mls @ 100 mls/hr 09/02/20 09:00 09/04/20 09:24 Invanz 1 Gm/Ns 50 Ml IVPB Infused Q24H [facility] Infusion Acetaminophen 1,000 mg in 100 mls @ 400 mls/hr 09/02/20 06:00 09/04/20 11:13 Ofirmev 1,000 Mg Ivpb IVPB 09/05/20 06:01 400 mls/hr Q6HR SARA Administration Melatonin 5 mg 09/03/20 21:00 09/03/20 20:17 Melatonin 5 Mg Tablet PO 5 mg HS SARA Administration Ondansetron HCl 4 mg 09/01/20 19:13 Ondansetron Inj 4 Mg/2 Ml Vial IV PUSH Q6H PRN Nausea And Vomiting Pantoprazole Sodium 40 mg 09/03/20 09:00 09/04/20 09:29 Pantoprazole Sodium Iv 40 Mg Vial IV PUSH 40 mg Q12HR SARA Administration Phenol 1 spray 09/02/20 07:41 09/02/20 08:03 Phenol/Sod Pheno [place] Lucio (*Bkc) MUCOUS MEM 1 spray PRN PRN Administration Sore Throat Radiology Results: ITS Impressions Abdomen X-Ray 09/01/20 17:39 Impression: 1: Postoperative changes consistent with recent cystectomy with ureteral diversion. Labs Labs: Laboratory Results - last 24 hr 09/03/20 09/03/20 09/04/20 12:37 23:39 05:18 WBC 11.1 H RBC 3.44 L Hgb 10.
[2020-09-04 14:00] VITALS: BP 130/86; PULSE 102; RESP 16; TEMP 36.7; O2SAT 97
--- NOTE | 2020-09-04 14:45 | PM.PNGS ---
Progress Note: A&P Assessment and Plan (1) Malignant neoplasm of bladder, unspecified: Code(s): C67.9 - Malignant neoplasm of bladder, unspecified Status: Chronic Assessment and Plan: bowel function not yet returning and patient appears to have ileus. Will need to replace NG tube. Explained this to the patient. He is agreeable. (2) Rectum injury: Code(s): S36.60XA - Unspecified injury of rectum, initial encounter Status: Acute Assessment and Plan: No colostomy output as yet. NG tube to be replaced as above. (3) CKD (chronic kidney disease) stage 3, GFR 30-59 ml/min: Onset Date: Unknown Code(s): N18.3 - Chronic kidney disease, stage 3 (moderate) Status: Chronic Assessment and Plan: Creatinine down to 1.2 today. Was 2.1 yesterday and the day before. Subjective Subjective Date/Time Seen: 09/04/20 14:45 Post Op day: 3 Patient reports: no flatus, no bowel movement and nausea Interval history: patient pulled out his NG tube last night. we left it out. However this afternoon he feels distended nauseated and is having a lot of belching. No fever or shortness of breath Review of Systems Review of Systems: All systems reviewed & are unremarkable except as noted in HPI and below Constitutional: Constitutional: Denies body ache(s), Denies chills, Denies fever(s), Denies headache(s) and Reports poor appetite Cardiovascular: Cardiovascular: Denies chest pain and Denies dyspnea Respiratory: Respiratory: Denies cough and Denies dyspnea Gastrointestinal: Gastrointestinal: Reports as per HPI, Reports belching and Reports nausea Psychiatric: Psychiatric: Reports confusion ( was a little confused last night when he pulled out NG) Exam Const: General: comfortable and no acute distress; No confusion Orientation/consciousness: patient oriented x3 and No confusion GI: Inspection: distended and incision ( midline incision healing well both stomas look good, no colostomy output) GI Palp: Yes Firmness to palpation present (GI) ( distended), Yes Tenderness to palpation present (GI) ( mostly lower quadrants), No Guarding due to palpation present (GI) and No Rebound tenderness present Percussion: Yes tympanic to percussion Auscultation: absent bowel sounds Neuro: General: patient oriented x3, no focal motor deficits and No confusion Extrem: General: no calf tenderness and no edema Psych: Affect: normal affect Insight: Good insight present (Psych) Judgement: Good judgement present (Psych) Objective Data Vital Signs Vital Signs: Vital Signs - 24 hr 09/03/20 19:31 09/04/20 05:04 09/04/20 08:00 Temperature 36.6 C 36.3 C L Pulse Rate 106 H 106 H 106 H Respiratory Rate 16 16 16 Blood Pressure 147/87 H 147/84 H Pulse Oximetry 98 94 94 Intake/Output Intake/Output: Intake & Output 09/01/20 09/02/20 09/03/20 09/04/20 23:59 23:59 23:59 22:59 Intake Total 1100 4400 2700 2700 Output Total 225 3110 4233 945 Balance 875 1290 -1533 1755 Meds/Results Medications: Active Medications Generic Name Dose Route Start Last Admin Trade Name Freq PRN Reason Stop Dose Admin Alvimopan 12 mg 09/02/20 09:00 09/04/20 09:28 Alvimopan 12 Mg Capsule PO 12 mg Q12HR SARA Administration Benzocaine 1 lozenge 09/02/20 07:41 Benzocaine/Menthol (*Bkc) 18 Ea Lozenge PO PRN PRN Sore Throat Heparin Sodium (Porcine) 5,000 units 09/01/20 21:00 09/04/20 09:29 Heparin Sodium 5,000 Units/Ml Vial SUB-Q 5,000 units Q12HR SARA Administration Hydromorphone HCl 1 mg 09/02/20 02:48 09/04/20 07:46 Hydromorphone Hcl Inj (*Crx) 1 Mg/Ml Syr IV PUSH 1 mg Q3H PRN Administration Severe pain rated 7-10 Lactated Ringer's 1,000 mls @ 100 mls/hr 09/01/20 19:13 09/04/20 11:12 Lr - Lactated Ringers Iv IV CONT 100 mls/hr .Q10H SARA Administration Ertapenem 1 gm in 50 mls @ 100 mls/hr 09/02/20 09:00 09/04/20 09:24 Invanz 1 Gm/Ns 50
--- NOTE | 2020-09-04 15:10 | PC.NURSE ---
1500 Placed 16 fr [place] sump to right nare. Verified placement per auscultation. To have KUB for placement verification.
[2020-09-04] MEDS: KETOROLAC 15 MG/ML VIAL (*BKC) IV PUSH ×2 (15:53→22:58)
[2020-09-04 16:10] VITALS: O2SAT 93
[2020-09-04 18:46] LABS: Glucose Point of Care 143 (65-105)
[2020-09-04] MEDS: MELATONIN 5 MG TABLET PO (21:07)
[2020-09-04 21:08] VITALS: BP 148/90; PULSE 119; RESP 16; TEMP 36.7; O2SAT 96
[2020-09-04 23:53] LABS: Glucose Point of Care 119 (65-105)
[2020-09-05 05:41] VITALS: BP 162/78; PULSE 74; RESP 14; TEMP 36.8; O2SAT 98
[2020-09-05 06:02] LABS: Glucose Point of Care 102 (65-105)
[2020-09-05 06:10] LABS: Eosinophils Percent Auto 0.1 % (0-4.4); Hematocrit 29.2 % (42.0-52.0); Hemoglobin 8.9 g/dL (14.0-18.0); Immature Granulocyte Absolute 0.03 K/mm3 (0.00-0.031); Immature Granulocyte Percent A 0.4 % (0-0.5); Lymphocytes Absolute Auto 0.93 K/mm3 (0.9-3.2); Lymphocytes Percent Auto 13.3 % (18.3-44.2); Mean Corpuscular HGB Conc 30.5 g/dl (32-36); Mean Corpuscular Hemoglobin 28.3 pg (26-34); Monocytes Absolute Auto 0.9 K/mm3 (0.1-0.6); Neutrophils Absolute Auto 5.1 K/mm3 (1.3-6.7); Neutrophils Percent Auto 73.2 % (45.5-73.1); Platelet Count Result 168 k/mm3 (150-375); Red Blood Count 3.14 M/mm3 (4.6-6.20); Red Cell Distribution Width 15.8 % (11.5-14.5)
[2020-09-05 06:23] LABS: Anion Gap 2 mmol/L (8-16); Blood Urea Nitrogen 38 mg/dL (9-20); Calcium 8.8 mg/dL (8.4-10.2); Carbon Dioxide 33 mmol/L (22-30); Chloride 104 mmol/L (98-107); Estimated CRCL calculation 47 ml/min; Estimated Glomerular Filt Rate 53; Glucose 110 mg/dL (75-110); Potassium 3.5 mmol/L (3.4-5.0); Sodium 139 mmol/L (137-145)
--- NOTE | 2020-09-05 06:47 | WPDUROPN2 ---
Progress Note: A&P Assessment and Plan (1) Bladder cancer: Onset Date: ~03/2020 Code(s): C67.9 - Malignant neoplasm of bladder, unspecified Status: Acute Assessment and Plan: 80M s/p cystectomy, ileal conduit, rectal injury, colostomy - await return of bowel function - limit narcotics as much as possible given delirium overnight - will hold off on replacing NGT unless he has N/V - continue ertapanem, all drains through weekend - gauze on left abdominal incision okay (2) Rectum injury: Code(s): S36.60XA - Unspecified injury of rectum, initial encounter Status: Acute Assessment and Plan: Less confusion today / pain well controlled without narcotics NG tube could not be replaced yesterday - bowel sounds quite active this morning. Minimal incisional drainage LLQ Diet progression per Dr. Quezada. Creat: 1.3 / stable. Subjective Subjective Date/Time Seen: 09/05/20 06:47 Oriented this morning, minimal abd. discomfort Review of Systems Cardiovascular: Cardiovascular: Denies chest pain, Denies lightheadedness, Denies palpitations and Denies dyspnea Respiratory: Respiratory: Denies dyspnea Gastrointestinal: Gastrointestinal: Denies diarrhea, Denies nausea and Denies vomiting Genitourinary: Genitourinary: Denies hematuria and Denies dysuria Endocrine: Endocrine: Denies palpitations Exam Narrative: Exam Narrative: a&o, pleasant abd stomas healthy; stents in place, FANTASMA minimal output; no flatus yet; left sided small incision with serous drainage, no purulence Const: General: no acute distress Orientation/consciousness: patient oriented x3 HENMT: Head: normal to inspection Ears: hearing grossly normal bilaterally Eyes: General: appearance normal, both eyes and all related structures Cornea: corneas normal Pupils: Equal, round and reactive pupils present EOM: EOMs intact bilaterally Chest: Chest palpation & inspection: normal inspection of the chest Resp: Effort & Inspection: normal respiratory effort Auscultation: clear to auscultation bilaterally GI: Inspection: normal to inspection (ileostomy RLQ / colostomy LLQ - pink/viable), non-distended and incision (clean/dry) Auscultation: normal bowel sounds : Male General Exam: Yes other (serous oozing from urethra) Skin: General skin exam: normal color Neuro: General: patient oriented x3 Cranial nerves: Yes Equal, round and reactive pupils present Extrem: General: normal to inspection and no pedal edema Objective Data Vital Signs Vital Signs: Vital Signs - 24 hr 09/04/20 08:00 09/04/20 14:00 09/04/20 16:10 Temperature 98.0 F Pulse Rate 106 H 102 H Respiratory Rate 16 16 Blood Pressure 130/86 Pulse Oximetry 94 97 93 09/04/20 21:08 09/05/20 05:41 Temperature 98.1 F 98.2 F Pulse Rate 119 H 74 Respiratory Rate 16 14 Blood Pressure 148/90 H 162/78 H Pulse Oximetry 96 98 Intake/Output Intake/Output: Intake & Output 09/03/20 09/04/20 09/04/20 09/05/20 00:59 00:59 23:59 23:59 Intake Total 250 Output Total 1060 Balance -810 Meds/Results Medications: Active Medications Generic Name Dose Route Start Last Admin Trade Name Freq PRN Reason Stop Dose Admin Alvimopan 12 mg 09/02/20 09:00 09/04/20 21:07 Alvimopan 12 Mg Capsule PO 12 mg Q12HR SARA Administration Benzocaine 1 lozenge 09/02/20 07:41 Benzocaine/Menthol (*Bkc) 18 Ea Lozenge PO PRN PRN Sore Throat Heparin Sodium (Porcine) 5,000 units 09/01/20 21:00 09/04/20 21:07 Heparin Sodium 5,000 Units/Ml Vial SUB-Q 5,000 units Q12HR SARA Administration Hydromorphone HCl 1 mg 09/02/20 02:48 09/04/20 07:46 Hydromorphone Hcl Inj (*Crx) 1 Mg/Ml Syr IV PUSH 1 mg Q3H PRN Administration Severe pain rated 7-10 Lactated Ringer's 1,000 mls @ 100 mls/hr 09/01/20 19:13 09/04/20 22:58 Lr - Lactated Ringers Iv IV CONT 100 mls/hr .Q10H SARA Administration Ertapenem 1 gm in 50 m
[2020-09-05] MEDS: LACTATED RINGERS 1,000 ML 100 ML IV CONT ×2 (09:43→21:02)
[2020-09-05] MEDS: HEPARIN SODIUM 5,000 UNITS/ML VIAL 5000 UNITS SUB-Q ×2 (09:43→21:02)
[2020-09-05] MEDS: ALVIMOPAN 12 MG CAPSULE PO ×2 (09:44→21:01)
[2020-09-05] MEDS: PANTOPRAZOLE SODIUM IV 40 MG VIAL IV PUSH ×2 (09:47→21:01)
[2020-09-05] MEDS: ERTAPENEM 1 GM/NS 50 ML 1 GM/50 ML BAG IVPB (09:47)
--- NOTE | 2020-09-05 09:55 | PM.PNGS ---
Progress Note: A&P Assessment and Plan (1) Rectum injury: Code(s): S36.60XA - Unspecified injury of rectum, initial encounter Status: Acute Assessment and Plan: doing well, await bowel fxn, clears for now, PT/OT Subjective Subjective Date/Time Seen: 09/05/20 09:55 feels ok this am, some delirium/confusion overnight Review of Systems Constitutional: Constitutional: Denies chills, Reports difficulty sleeping, Reports fatigue, Denies fever(s) and Reports weakness Cardiovascular: Cardiovascular: Reports no additional cardiovascular complaints Respiratory: Respiratory: Reports no additional respiratory complaints Gastrointestinal: Gastrointestinal: Reports abdominal pain, Denies bloating, Denies nausea and Denies vomiting Exam Const: General: cooperative, comfortable, no acute distress, alert, awake and Physically active Resp: Effort & Inspection: normal respiratory effort Auscultation: clear to auscultation bilaterally Cardio: Rate: regular rate Rhythm: regular rhythm GI: Inspection: normal to inspection, distended and incision GI Palp: Yes abdominal tenderness, Yes Soft to palpation, Yes Tenderness to palpation present (GI), No Guarding due to palpation present (GI) and No Rigid due to palpation Other: soft, sl dist, lex TTP, incision C/D/I, ostomy c sm amount liquid stool Objective Data Vital Signs Vital Signs: Vital Signs - 24 hr 09/04/20 14:00 09/04/20 16:10 09/04/20 21:08 Temperature 36.7 C 36.7 C Pulse Rate 102 H 119 H Respiratory Rate 16 16 Blood Pressure 130/86 148/90 H Pulse Oximetry 97 93 96 09/05/20 05:41 Temperature 36.8 C Pulse Rate 74 Respiratory Rate 14 Blood Pressure 162/78 H Pulse Oximetry 98 Intake/Output Intake/Output: Intake & Output 09/03/20 09/04/20 09/04/20 09/05/20 00:59 00:59 23:59 23:59 Intake Total 1486 Output Total 1335 Balance 151 Meds/Results Medications: Active Medications Generic Name Dose Route Start Last Admin Trade Name Freq PRN Reason Stop Dose Admin Alvimopan 12 mg 09/02/20 09:00 09/05/20 09:44 Alvimopan 12 Mg Capsule PO 12 mg Q12HR SARA Administration Benzocaine 1 lozenge 09/02/20 07:41 Benzocaine/Menthol (*Bkc) 18 Ea Lozenge PO PRN PRN Sore Throat Heparin Sodium (Porcine) 5,000 units 09/01/20 21:00 09/05/20 09:43 Heparin Sodium 5,000 Units/Ml Vial SUB-Q 5,000 units Q12HR SARA Administration Hydromorphone HCl 1 mg 09/02/20 02:48 09/04/20 07:46 Hydromorphone Hcl Inj (*Crx) 1 Mg/Ml Syr IV PUSH 1 mg Q3H PRN Administration Severe pain rated 7-10 Lactated Ringer's 1,000 mls @ 100 mls/hr 09/01/20 19:13 09/05/20 09:43 Lr - Lactated Ringers Iv IV CONT 100 mls/hr .Q10H SARA Administration Ertapenem 1 gm in 50 mls @ 100 mls/hr 09/02/20 09:00 09/05/20 09:47 Invanz 1 Gm/Ns 50 Ml IVPB 100 mls/hr Q24H SARA Administration Ketorolac Tromethamine 15 mg 09/04/20 11:45 09/04/20 22:58 Ketorolac 15 Mg/Ml Vial (*Bkc) IV PUSH 15 mg Q6H PRN Administration Pain Rated 4-6 Melatonin 5 mg 09/03/20 21:00 09/04/20 21:07 Melatonin 5 Mg Tablet PO 5 mg HS SARA Administration Ondansetron HCl 4 mg 09/01/20 19:13 Ondansetron Inj 4 Mg/2 Ml Vial IV PUSH Q6H PRN Nausea And Vomiting Pantoprazole Sodium 40 mg 09/03/20 09:00 09/05/20 09:47 Pantoprazole Sodium Iv 40 Mg Vial IV PUSH 40 mg Q12HR SARA Administration Phenol 1 spray 09/02/20 07:41 09/02/20 08:03 Phenol/Sod Pheno [place] Lucio (*Bkc) MUCOUS MEM 1 spray PRN PRN Administration Sore Throat Radiology Results: ITS Impressions Abdomen X-Ray 09/05/20 06:38 IMPRESSION: 1. Dilated small bowel, consistent with ileus versus obstruction. Labs Labs: Laboratory Results - last 24 hr 09/04/20 09/04/20 09/05/20 17:45 23:50 05:54 WBC 7.0 RBC 3.14 L Hgb 8.9 L Hct 29.2 L MCV 93.0 MCH 28.3 MCHC 30.5 L RDW 15.8 H
[2020-09-05 11:57] LABS: Glucose Point of Care 115 (65-105)
[2020-09-05 14:22] VITALS: BMI 31.3
[2020-09-05 16:08] VITALS: BP 154/92; PULSE 113; RESP 18; TEMP 36.9; O2SAT 95
[2020-09-05 17:46] LABS: Glucose Point of Care 109 (65-105)
[2020-09-05 20:09] LABS: Glucose Point of Care 116 (65-105)
[2020-09-05 20:46] VITALS: BP 162/108; PULSE 119; RESP 14; TEMP 37.4; O2SAT 95
[2020-09-05] MEDS: MELATONIN 5 MG TABLET PO (21:01)
[2020-09-06 06:00] VITALS: BP 144/79; PULSE 111; RESP 14; TEMP 37; O2SAT 96
[2020-09-06 06:10] LABS: Glucose Point of Care 110 (65-105)
[2020-09-06] MEDS: LACTATED RINGERS 1,000 ML 100 ML IV CONT ×2 (07:25→17:11)
--- NOTE | 2020-09-06 08:04 | WPDUROPN2 ---
Progress Note: A&P Assessment and Plan (1) Bladder cancer: Onset Date: ~03/2020 Code(s): C67.9 - Malignant neoplasm of bladder, unspecified Status: Acute (2) Rectum injury: Code(s): S36.60XA - Unspecified injury of rectum, initial encounter Status: Acute Assessment and Plan: Tolerating clear liquids. Passing flatus. Minimal drainage - will remove RLQ drain. Stop Invanz and Entered (if OK with Dr. Quezada). Encouraged ambulation. Subjective Subjective Date/Time Seen: 09/06/20 08:04 Mild nausea overnight, better this morning. Passing flatus / scant liquid stool. Review of Systems Cardiovascular: Cardiovascular: Denies chest pain, Denies lightheadedness, Denies palpitations and Denies dyspnea Respiratory: Respiratory: Denies dyspnea Gastrointestinal: Gastrointestinal: Denies diarrhea, Denies nausea and Denies vomiting Genitourinary: Genitourinary: Denies hematuria and Denies dysuria Endocrine: Endocrine: Denies palpitations Exam Const: General: no acute distress Resp: Effort & Inspection: normal respiratory effort GI: Inspection: non-distended GI Palp: No abdominal tenderness and No Guarding due to palpation present (GI) Auscultation: normal bowel sounds Objective Data Vital Signs Vital Signs: Vital Signs - 24 hr 09/05/20 16:08 09/05/20 20:46 09/06/20 06:00 Temperature 98.5 F 99.3 F 98.6 F Pulse Rate 113 H 119 H 111 H Respiratory Rate 18 14 14 Blood Pressure 154/92 H 162/108 H 144/79 H Pulse Oximetry 95 95 96 Intake/Output Intake/Output: Intake & Output 09/04/20 09/04/20 09/05/20 09/06/20 00:59 23:59 23:59 23:59 Intake Total 3326 1150 Output Total 2610 250 Balance 716 900 Meds/Results Medications: Active Medications Generic Name Dose Route Start Last Admin Trade Name Freq PRN Reason Stop Dose Admin Albuterol 1 puff 09/05/20 18:19 Albuterol Sulfate (*Sp) Aerosol 1 Puff INHALATION Q4H PRN Shortness Of Breath Benzocaine 1 lozenge 09/02/20 07:41 Benzocaine/Menthol (*Bkc) 18 Ea Lozenge PO PRN PRN Sore Throat Diltiazem HCl 360 mg 09/06/20 09:00 Diltiazem Hcl Cd 180 Mg Cap.Er.24h PO QAM SARA Fluticasone Propionate 2 puff 09/05/20 20:00 Fluticasone Prop 220 Mcg Inhaler 1 Puff INHALATION Q12HRT SARA Heparin Sodium (Porcine) 5,000 units 09/01/20 21:00 09/05/20 21:02 Heparin Sodium 5,000 Units/Ml Vial SUB-Q 5,000 units Q12HR SARA Administration Hydromorphone HCl 1 mg 09/02/20 02:48 09/04/20 07:46 Hydromorphone Hcl Inj (*Crx) 1 Mg/Ml Syr IV PUSH 1 mg Q3H PRN Administration Severe pain rated 7-10 Lactated Ringer's 1,000 mls @ 100 mls/hr 09/01/20 19:13 09/06/20 07:25 Lr - Lactated Ringers Iv IV CONT 100 mls/hr .Q10H SARA Administration Acetaminophen 1,000 mg in 100 mls @ 400 mls/hr 09/05/20 13:48 09/05/20 14:45 Ofirmev 1,000 Mg Ivpb IVPB 09/06/20 13:49 Infused Q6H PRN Infusion Pain Rated 1-3 Ketorolac Tromethamine 15 mg 09/04/20 11:45 09/04/20 22:58 Ketorolac 15 Mg/Ml Vial (*Bkc) IV PUSH 15 mg Q6H PRN Administration Pain Rated 4-6 Losartan Potassium 100 mg 09/06/20 09:00 Losartan Potassium 100 Mg Tablet PO DAILY SARA Melatonin 5 mg 09/03/20 21:00 09/05/20 21:01 Melatonin 5 Mg Tablet PO 5 mg HS SARA Administration Montelukast Sodium 10 mg 09/06/20 09:00 Montelukast Sodium 10 Mg Tablet PO DAILY SARA Ondansetron HCl 4 mg 09/01/20 19:13 Ondansetron Inj 4 Mg/2 Ml Vial IV PUSH Q6H PRN Nausea And Vomiting Pantoprazole Sodium 40 mg 09/03/20 09:00 09/05/20 21:01 Pantoprazole Sodium Iv 40 Mg Vial IV PUSH 40 mg Q12HR SARA Administration Phenol 1 spray 09/02/20 07:41 09/02/20 08:03 Phenol/Sod Pheno [place] Lucio (*Bkc) MUCOUS MEM 1 spray PRN PRN Administration Sore Throat Radiology Results: ITS Impressions Abdomen X-Ray 09/06/20 07:21 IMP
[2020-09-06] MEDS: PANTOPRAZOLE SODIUM IV 40 MG VIAL IV PUSH ×2 (09:10→20:07)
[2020-09-06] MEDS: MONTELUKAST SODIUM 10 MG TABLET PO (09:10)
[2020-09-06] MEDS: LOSARTAN POTASSIUM 100 MG TABLET PO (09:10)
[2020-09-06] MEDS: dilTIAZem HCL CD 180 MG CAP.ER.24H 360 MG PO (09:11)
[2020-09-06] MEDS: HEPARIN SODIUM 5,000 UNITS/ML VIAL 5000 UNITS SUB-Q ×2 (09:11→20:07)
[2020-09-06 12:12] LABS: Glucose Point of Care 143 (65-105)
[2020-09-06 14:00] VITALS: BP 100/85; PULSE 106; RESP 16; TEMP 36.2; O2SAT 98
[2020-09-06] MEDS: CALCIUM CARBONATE (TUMS) 500 MG (200 MG ELEMENTAL) PO (14:34)
--- NOTE | 2020-09-06 15:17 | PM.PNGS ---
Subjective Subjective Date/Time Seen: 09/06/20 15:17 feeling more bloated today, +flatus, small amount of liquid stool Review of Systems Constitutional: Constitutional: Reports fatigue, Denies fever(s), Denies headache(s), Reports lethargy, Denies malaise, Reports poor appetite and Reports weakness Cardiovascular: Cardiovascular: Reports no additional cardiovascular complaints Respiratory: Respiratory: Reports no additional respiratory complaints Gastrointestinal: Gastrointestinal: Reports abdominal pain, Reports belching, Reports bloating, Reports constipation, Denies GI cramping, Reports nausea and Denies vomiting Exam Const: General: cooperative, healthy appearing and acute distress mild Resp: Effort & Inspection: normal respiratory effort Auscultation: clear to auscultation bilaterally Cardio: Rate: regular rate Rhythm: regular rhythm GI: Inspection: normal to inspection, distended and incision GI Palp: Yes Soft to palpation, No Firmness to palpation present (GI), No Tenderness to palpation present (GI), No Guarding due to palpation present (GI) and No Rigid due to palpation Other: soft, mod dist, lex TTP, ostomy c small amount of liquid stool Objective Data Vital Signs Vital Signs: Vital Signs - 24 hr 09/05/20 16:08 09/05/20 20:46 09/06/20 06:00 Temperature 36.9 C 37.4 C 37.0 C Pulse Rate 113 H 119 H 111 H Respiratory Rate 18 14 14 Blood Pressure 154/92 H 162/108 H 144/79 H Pulse Oximetry 95 95 96 09/06/20 14:00 Temperature 36.2 C L Pulse Rate 106 H Respiratory Rate 16 Blood Pressure 100/85 Pulse Oximetry 98 Intake/Output Intake/Output: Intake & Output 09/04/20 09/04/20 09/05/20 09/06/20 00:59 23:59 23:59 23:59 Intake Total 3326 1690 Output Total 2610 515 Balance 716 1175 Meds/Results Medications: Active Medications Generic Name Dose Route Start Last Admin Trade Name Freq PRN Reason Stop Dose Admin Albuterol 1 puff 09/05/20 18:19 Albuterol Sulfate (*Sp) Aerosol 1 Puff INHALATION Q4H PRN Shortness Of Breath Benzocaine 1 lozenge 09/02/20 07:41 Benzocaine/Menthol (*Bkc) 18 Ea Lozenge PO PRN PRN Sore Throat Calcium Carbonate 200 mg 09/06/20 14:16 09/06/20 14:34 Calcium Carbonate (Tums) 500 Mg (200 Mg Elemental) PO 200 mg Q6H PRN Administration Indigestion Diltiazem HCl 360 mg 09/06/20 09:00 09/06/20 09:11 Diltiazem Hcl Cd 180 Mg Cap.Er.24h PO 360 mg QAM SARA Administration Fluticasone Propionate 2 puff 09/05/20 20:00 09/06/20 10:31 Fluticasone Prop 220 Mcg Inhaler 1 Puff INHALATION 2 puff Q12HRT SARA Administration Heparin Sodium (Porcine) 5,000 units 09/01/20 21:00 09/06/20 09:11 Heparin Sodium 5,000 Units/Ml Vial SUB-Q 5,000 units Q12HR SARA Administration Hydromorphone HCl 1 mg 09/02/20 02:48 09/04/20 07:46 Hydromorphone Hcl Inj (*Crx) 1 Mg/Ml Syr IV PUSH 1 mg Q3H PRN Administration Severe pain rated 7-10 Lactated Ringer's 1,000 mls @ 100 mls/hr 09/01/20 19:13 09/06/20 07:25 Lr - Lactated Ringers Iv IV CONT 100 mls/hr .Q10H SARA Administration Ketorolac Tromethamine 15 mg 09/04/20 11:45 09/04/20 22:58 Ketorolac 15 Mg/Ml Vial (*Bkc) IV PUSH 15 mg Q6H PRN Administration Pain Rated 4-6 Losartan Potassium 100 mg 09/06/20 09:00 09/06/20 09:10 Losartan Potassium 100 Mg Tablet PO 100 mg DAILY SARA Administration Melatonin 5 mg 09/03/20 21:00 09/05/20 21:01 Melatonin 5 Mg Tablet PO 5 mg HS SARA Administration Montelukast Sodium 10 mg 09/06/20 09:00 09/06/20 09:10 Montelukast Sodium 10 Mg Tablet PO 10 mg DAILY SARA Administration Ondansetron HCl 4 mg 09/01/20 19:13 Ondansetron Inj 4 Mg/2 Ml Vial IV PUSH Q6H PRN Nausea And Vomiting Pantoprazole Sodium 40 mg 09/03/20 09:00 09/06/20 09:10 Pantoprazole Sodium Iv 40 Mg Vial IV PUSH 40 mg Q12HR SARA Administration Phenol 1 spray 09/02/20 07:41 09/02/20
[2020-09-06 16:29] LABS: Glucose Point of Care 131 (65-105)
[2020-09-06] MEDS: METOCLOPRAMIDE HCL INJ 10 MG/2 ML VIAL IV PUSH ×2 (17:12→23:13)
[2020-09-06] MEDS: ALBUTEROL SULFATE (*SP) AEROSOL 1 PUFF INHALATION (19:54)
[2020-09-06 20:01] VITALS: PULSE 88; O2SAT 94
[2020-09-06] MEDS: MELATONIN 5 MG TABLET PO (20:09)
[2020-09-06 20:10] VITALS: BP 134/64; PULSE 86; RESP 18; TEMP 36.3; O2SAT 95
[2020-09-06] MEDS: ONDANSETRON INJ 4 MG/2 ML VIAL IV PUSH (20:49)
[2020-09-07 00:39] LABS: Glucose Point of Care 122 (65-105)
[2020-09-07] MEDS: ONDANSETRON INJ 4 MG/2 ML VIAL IV PUSH ×2 (02:51→09:16)
[2020-09-07] MEDS: LACTATED RINGERS 1,000 ML 100 ML IV CONT ×3 (02:54→22:47)
[2020-09-07] MEDS: METOCLOPRAMIDE HCL INJ 10 MG/2 ML VIAL IV PUSH ×3 (05:26→17:10)
[2020-09-07 05:33] VITALS: BP 107/55; PULSE 84; RESP 16; TEMP 36.4; O2SAT 94
[2020-09-07 05:52] LABS: Hematocrit 31.5 % (42.0-52.0); Hemoglobin 10.3 g/dL (14.0-18.0); Mean Corpuscular HGB Conc 32.7 g/dl (32-36); Mean Corpuscular Hemoglobin 30.7 pg (26-34); Mean Platelet Volume 10.3 fl (7.4-10.4); Platelet Count Result 207 k/mm3 (150-375); Red Blood Count 3.35 M/mm3 (4.6-6.20); Red Cell Distribution Width 15.8 % (11.5-14.5); White Blood Count 7.5 K/mm3 (4.5-10.0)
[2020-09-07 06:07] LABS: Anion Gap 6 mmol/L (8-16); Blood Urea Nitrogen 26 mg/dL (9-20); Calcium 9.3 mg/dL (8.4-10.2); Carbon Dioxide 33 mmol/L (22-30); Chloride 104 mmol/L (98-107); Estimated CRCL calculation 55 ml/min; Estimated Glomerular Filt Rate > 60; Glucose 130 mg/dL (75-110); Potassium 3.3 mmol/L (3.4-5.0); Sodium 143 mmol/L (137-145)
[2020-09-07 06:18] LABS: Glucose Point of Care 135 (65-105)
[2020-09-07 07:52] VITALS: PULSE 84; RESP 18; O2SAT 95
[2020-09-07 08:13] VITALS: BP 129/76
[2020-09-07] MEDS: dilTIAZem HCL CD 180 MG CAP.ER.24H 360 MG PO (08:14)
[2020-09-07] MEDS: LOSARTAN POTASSIUM 100 MG TABLET PO (08:14)
[2020-09-07] MEDS: HEPARIN SODIUM 5,000 UNITS/ML VIAL 5000 UNITS SUB-Q ×2 (08:15→21:45)
[2020-09-07] MEDS: MONTELUKAST SODIUM 10 MG TABLET PO (08:15)
[2020-09-07] MEDS: PANTOPRAZOLE SODIUM IV 40 MG VIAL IV PUSH ×2 (08:15→21:39)
--- NOTE | 2020-09-07 09:28 | PM.PNGS ---
Progress Note: A&P Assessment and Plan (1) Rectum injury: Code(s): S36.60XA - Unspecified injury of rectum, initial encounter Status: Acute Assessment and Plan: ostomy working, will advance to soft diet, encourage OOB, PT/OT Subjective Subjective Date/Time Seen: 09/07/20 09:28 still c some nausea and emesis this am, pt feels bloated but ostomy output increased, would like to try some solid food Review of Systems Constitutional: Constitutional: Reports fatigue, Denies fever(s), Denies lethargy, Denies malaise, Denies poor appetite and Reports weakness Cardiovascular: Cardiovascular: Reports no additional cardiovascular complaints Respiratory: Respiratory: Reports no additional respiratory complaints Gastrointestinal: Gastrointestinal: Reports bloating, Reports early satiety, Reports nausea and Reports vomiting Exam Const: General: cooperative, alert, awake, Physically active and acute distress mild Resp: Auscultation: clear to auscultation bilaterally Cardio: Rate: regular rate Rhythm: regular rhythm GI: Other: s, mod dist, lex TTP, incision C/D/I, ostomy c increased liquid stool and gas Objective Data Vital Signs Vital Signs: Vital Signs - 24 hr 09/06/20 14:00 09/06/20 20:01 09/06/20 20:10 Temperature 36.2 C L 36.3 C L Pulse Rate 106 H 88 86 Respiratory Rate 16 18 Blood Pressure 100/85 134/64 Pulse Oximetry 98 94 95 09/07/20 05:33 09/07/20 07:52 09/07/20 08:13 Temperature 36.4 C L Pulse Rate 84 84 Respiratory Rate 16 18 Blood Pressure 107/55 L 129/76 Pulse Oximetry 94 95 Intake/Output Intake/Output: Intake & Output 09/04/20 09/05/20 09/06/20 09/07/20 23:59 23:59 23:59 23:59 Intake Total 3326 3050 2060 Output Total 2610 1340 875 Balance 716 1710 1185 Meds/Results Medications: Active Medications Generic Name Dose Route Start Last Admin Trade Name Freq PRN Reason Stop Dose Admin Albuterol 1 puff 09/05/20 18:19 09/06/20 19:54 Albuterol Sulfate (*Sp) Aerosol 1 Puff INHALATION 1 puff Q4H PRN Administration Shortness Of Breath Benzocaine 1 lozenge 09/02/20 07:41 Benzocaine/Menthol (*Bkc) 18 Ea Lozenge PO PRN PRN Sore Throat Calcium Carbonate 200 mg 09/06/20 14:16 09/06/20 14:34 Calcium Carbonate (Tums) 500 Mg (200 Mg Elemental) PO 200 mg Q6H PRN Administration Indigestion Diltiazem HCl 360 mg 09/06/20 09:00 09/07/20 08:14 Diltiazem Hcl Cd 180 Mg Cap.Er.24h PO 360 mg QAM SARA Administration Fluticasone Propionate 2 puff 09/05/20 20:00 09/07/20 07:51 Fluticasone Prop 220 Mcg Inhaler 1 Puff INHALATION 2 puff Q12HRT SARA Administration Heparin Sodium (Porcine) 5,000 units 09/01/20 21:00 09/07/20 08:15 Heparin Sodium 5,000 Units/Ml Vial SUB-Q 5,000 units Q12HR SARA Administration Hydromorphone HCl 1 mg 09/02/20 02:48 09/04/20 07:46 Hydromorphone Hcl Inj (*Crx) 1 Mg/Ml Syr IV PUSH 1 mg Q3H PRN Administration Severe pain rated 7-10 Lactated Ringer's 1,000 mls @ 100 mls/hr 09/01/20 19:13 09/07/20 06:35 Lr - Lactated Ringers Iv IV CONT 100 mls/hr .Q10H SARA Infusion Ketorolac Tromethamine 15 mg 09/04/20 11:45 09/04/20 22:58 Ketorolac 15 Mg/Ml Vial (*Bkc) IV PUSH 15 mg Q6H PRN Administration Pain Rated 4-6 Losartan Potassium 100 mg 09/06/20 09:00 09/07/20 08:14 Losartan Potassium 100 Mg Tablet PO 100 mg DAILY SARA Administration Melatonin 5 mg 09/03/20 21:00 09/06/20 20:09 Melatonin 5 Mg Tablet PO 5 mg HS SARA Administration Metoclopramide HCl 10 mg 09/06/20 18:00 09/07/20 05:26 Metoclopramide Hcl Inj 10 Mg/2 Ml Vial IV PUSH 10 mg Q6HR SARA Administration Montelukast Sodium 10 mg 09/06/20 09:00 09/07/20 08:15 Montelukast Sodium 10 Mg Tablet PO 10 mg DAILY SARA Administration Ondansetron HCl 4 mg 09/01/20 19:13 09/07/20 09:16 Ondansetron Inj 4 Mg/2 Ml Vial IV PUSH 4 mg Q6H PRN Administr
[2020-09-07 11:42] LABS: Glucose Point of Care 136 (65-105)
[2020-09-07 14:00] VITALS: BP 138/72; PULSE 78; RESP 16; TEMP 36.5; O2SAT 94
--- NOTE | 2020-09-07 15:13 | WPDUROPN2 ---
Progress Note: A&P Assessment and Plan (1) Bladder cancer: Onset Date: ~03/2020 Code(s): C67.9 - Malignant neoplasm of bladder, unspecified Status: Acute Assessment and Plan: Patient is tolerating food, but is feeling a bit nauseated. He is up in the chair today and seems to tolerate the pain well. (2) Cancer of overlapping sites of bladder: Code(s): C67.8 - Malignant neoplasm of overlapping sites of bladder Status: Acute Subjective Subjective Date/Time Seen: 09/07/20 15:13 POD #6 Robotic-assisted radical cystectomy with ileal-loop urinary diversion with Dr. Maher and an attempted robotic repair of distal sigmoid perforation, conversion to open Natalee's procedure by General Surgeon Dr. Quezada for bladder cancer with distal sigmoid perforation. Review of Systems Cardiovascular: Cardiovascular: Denies chest pain Respiratory: Respiratory: Reports no additional respiratory complaints Gastrointestinal: Gastrointestinal: Denies abdominal pain, Reports nausea and Denies vomiting Genitourinary: Genitourinary: Denies hematuria, Denies genital pain and Reports other (minor bloody urine output from urethral meatus) Exam Resp: Effort & Inspection: normal respiratory effort Cardio: Rate: regular rate GI: Inspection: incision (colostomy are pink and draining well. ) Urinary Catheter: Urinary Catheter: patent and draining and urine clear Extrem: General: no edema Objective Data Vital Signs Vital Signs: Vital Signs - 24 hr 09/06/20 20:01 09/06/20 20:10 09/07/20 05:33 Temperature 97.3 F L 97.5 F L Pulse Rate 88 86 84 Respiratory Rate 18 16 Blood Pressure 134/64 107/55 L Pulse Oximetry 94 95 94 09/07/20 07:52 09/07/20 08:13 09/07/20 14:00 Temperature 97.7 F Pulse Rate 84 78 Respiratory Rate 18 16 Blood Pressure 129/76 138/72 Pulse Oximetry 95 94 Intake/Output Intake/Output: Intake & Output 09/04/20 09/05/20 09/06/20 09/07/20 23:59 23:59 23:59 23:59 Intake Total 3326 3050 2820 Output Total 2610 1340 875 Balance 716 1710 1945 Meds/Results Medications: Active Medications Generic Name Dose Route Start Last Admin Trade Name Freq PRN Reason Stop Dose Admin Albuterol 1 puff 09/05/20 18:19 09/06/20 19:54 Albuterol Sulfate (*Sp) Aerosol 1 Puff INHALATION 1 puff Q4H PRN Administration Shortness Of Breath Benzocaine 1 lozenge 09/02/20 07:41 Benzocaine/Menthol (*Bkc) 18 Ea Lozenge PO PRN PRN Sore Throat Calcium Carbonate 200 mg 09/06/20 14:16 09/06/20 14:34 Calcium Carbonate (Tums) 500 Mg (200 Mg Elemental) PO 200 mg Q6H PRN Administration Indigestion Diltiazem HCl 360 mg 09/06/20 09:00 09/07/20 08:14 Diltiazem Hcl Cd 180 Mg Cap.Er.24h PO 360 mg QAM SARA Administration Fluticasone Propionate 2 puff 09/05/20 20:00 09/07/20 07:51 Fluticasone Prop 220 Mcg Inhaler 1 Puff INHALATION 2 puff Q12HRT SARA Administration Heparin Sodium (Porcine) 5,000 units 09/01/20 21:00 09/07/20 08:15 Heparin Sodium 5,000 Units/Ml Vial SUB-Q 5,000 units Q12HR SARA Administration Hydromorphone HCl 1 mg 09/02/20 02:48 09/04/20 07:46 Hydromorphone Hcl Inj (*Crx) 1 Mg/Ml Syr IV PUSH 1 mg Q3H PRN Administration Severe pain rated 7-10 Lactated Ringer's 1,000 mls @ 100 mls/hr 09/01/20 19:13 09/07/20 12:35 Lr - Lactated Ringers Iv IV CONT 100 mls/hr .Q10H SARA Administration Ketorolac Tromethamine 15 mg 09/04/20 11:45 09/04/20 22:58 Ketorolac 15 Mg/Ml Vial (*Bkc) IV PUSH 15 mg Q6H PRN Administration Pain Rated 4-6 Losartan Potassium 100 mg 09/06/20 09:00 09/07/20 08:14 Losartan Potassium 100 Mg Tablet PO 100 mg DAILY SARA Administration Melatonin 5 mg 09/03/20 21:00 09/06/20 20:09 Melatonin 5 Mg Tablet PO 5 mg HS SARA Administration Metoclopramide HCl 10 mg 09/06/20 18:00 09/07/20 12:28 Metoclopramide Hcl Inj 10 Mg/2 Ml Vial IV PUS
[2020-09-07] MEDS: KETOROLAC 15 MG/ML VIAL (*BKC) IV PUSH (18:35)
[2020-09-07 19:52] VITALS: BP 123/64; PULSE 82; RESP 20; TEMP 36.4; O2SAT 94
[2020-09-07] MEDS: MELATONIN 5 MG TABLET PO (21:39)
[2020-09-08] VITALS (9 sets, daily range): BP systolic 98–146; BP diastolic 66–78; PULSE 81–106; RESP 18–20; TEMP 36.1–36.3; O2SAT 89–95
[2020-09-08] MEDS: METOCLOPRAMIDE HCL INJ 10 MG/2 ML VIAL IV PUSH ×4 (00:21→18:19)
[2020-09-08] MEDS: ONDANSETRON INJ 4 MG/2 ML VIAL IV PUSH (05:03)
[2020-09-08 06:25] LABS: Hematocrit 31.3 % (42.0-52.0); Hemoglobin 9.6 g/dL (14.0-18.0); Mean Corpuscular HGB Conc 30.7 g/dl (32-36); Mean Corpuscular Volume 94.6 fl (80-100); Mean Platelet Volume 10.7 fl (7.4-10.4); Platelet Count Result 236 k/mm3 (150-375); Red Blood Count 3.31 M/mm3 (4.6-6.20); Red Cell Distribution Width 15.8 % (11.5-14.5); White Blood Count 9.1 K/mm3 (4.5-10.0)
[2020-09-08 06:40] LABS: Anion Gap 6 mmol/L (8-16); Blood Urea Nitrogen 28 mg/dL (9-20); Calcium 9.2 mg/dL (8.4-10.2); Carbon Dioxide 30 mmol/L (22-30); Chloride 105 mmol/L (98-107); Estimated CRCL calculation 55 ml/min; Estimated Glomerular Filt Rate > 60; Glucose 114 mg/dL (75-110); Potassium 3.2 mmol/L (3.4-5.0); Sodium 141 mmol/L (137-145)
--- NOTE | 2020-09-08 06:52 | WPDUROPN2 ---
Progress Note: A&P Assessment and Plan (1) Bladder cancer: Onset Date: ~03/2020 Code(s): C67.9 - Malignant neoplasm of bladder, unspecified Status: Acute Assessment and Plan: Patient is tolerating food, but is feeling a bit nauseated. He is up in the chair today and seems to tolerate the pain well. (2) Cancer of overlapping sites of bladder: Code(s): C67.8 - Malignant neoplasm of overlapping sites of bladder Status: Acute Assessment and Plan: Tolerating soft diet but still distended with hypoactive bowel sounds and small amount of output in colostomy. Will continue IV fluids, for now. I've encourage ambulation/sitting in chair. Subjective Subjective Date/Time Seen: 09/08/20 06:52 Tolerating soft diet but still with mild nausea Review of Systems Cardiovascular: Cardiovascular: Denies chest pain, Denies lightheadedness, Denies palpitations and Denies dyspnea Respiratory: Respiratory: Denies dyspnea Gastrointestinal: Gastrointestinal: Denies abdominal pain, Reports belching, Reports bloating, Denies diarrhea, Reports nausea and Denies vomiting Genitourinary: Genitourinary: Denies hematuria and Denies dysuria Endocrine: Endocrine: Denies palpitations Exam Const: General: no acute distress Resp: Effort & Inspection: normal respiratory effort GI: Inspection: distended GI Palp: No abdominal tenderness and No Guarding due to palpation present (GI) Auscultation: Hypoactive bowel sounds present Objective Data Vital Signs Vital Signs: Vital Signs - 24 hr 09/07/20 07:52 09/07/20 08:13 09/07/20 14:00 Temperature 97.7 F Pulse Rate 84 78 Respiratory Rate 18 16 Blood Pressure 129/76 138/72 Pulse Oximetry 95 94 09/07/20 19:52 09/08/20 05:05 Temperature 97.5 F L 97.4 F L Pulse Rate 82 88 Respiratory Rate 20 18 Blood Pressure 123/64 146/78 H Pulse Oximetry 94 92 Intake/Output Intake/Output: Intake & Output 09/05/20 09/06/20 09/07/20 09/08/20 23:59 23:59 23:59 23:59 Intake Total 3326 3050 4540 1214 Output Total 2610 1340 1375 400 Balance 716 1710 3165 814 Meds/Results Medications: Active Medications Generic Name Dose Route Start Last Admin Trade Name Freq PRN Reason Stop Dose Admin Albuterol 1 puff 09/05/20 18:19 09/06/20 19:54 Albuterol Sulfate (*Sp) Aerosol 1 Puff INHALATION 1 puff Q4H PRN Administration Shortness Of Breath Benzocaine 1 lozenge 09/02/20 07:41 Benzocaine/Menthol (*Bkc) 18 Ea Lozenge PO PRN PRN Sore Throat Calcium Carbonate 200 mg 09/06/20 14:16 09/06/20 14:34 Calcium Carbonate (Tums) 500 Mg (200 Mg Elemental) PO 200 mg Q6H PRN Administration Indigestion Diltiazem HCl 360 mg 09/06/20 09:00 09/07/20 08:14 Diltiazem Hcl Cd 180 Mg Cap.Er.24h PO 360 mg QAM SARA Administration Fluticasone Propionate 2 puff 09/05/20 20:00 09/07/20 21:23 Fluticasone Prop 220 Mcg Inhaler 1 Puff INHALATION 2 puff Q12HRT SARA Administration Heparin Sodium (Porcine) 5,000 units 09/01/20 21:00 09/07/20 21:45 Heparin Sodium 5,000 Units/Ml Vial SUB-Q 5,000 units Q12HR SARA Administration Hydromorphone HCl 1 mg 09/02/20 02:48 09/04/20 07:46 Hydromorphone Hcl Inj (*Crx) 1 Mg/Ml Syr IV PUSH 1 mg Q3H PRN Administration Severe pain rated 7-10 Lactated Ringer's 1,000 mls @ 100 mls/hr 09/01/20 19:13 09/08/20 06:29 Lr - Lactated Ringers Iv IV CONT 100 mls/hr .Q10H SARA Infusion Ketorolac Tromethamine 15 mg 09/04/20 11:45 09/07/20 18:35 Ketorolac 15 Mg/Ml Vial (*Bkc) IV PUSH 15 mg Q6H PRN Administration Pain Rated 4-6 Losartan Potassium 100 mg 09/06/20 09:00 09/07/20 08:14 Losartan Potassium 100 Mg Tablet PO 100 mg DAILY SARA Administration Melatonin 5 mg 09/03/20 21:00 09/07/20 21:39 Melatonin 5 Mg Tablet PO 5 mg HS SARA Administration Metoclopramide HCl 10 mg 09/06/20 18:00 09/08/20 05:45 Metoclopramide
[2020-09-08] MEDS: PANTOPRAZOLE SODIUM IV 40 MG VIAL IV PUSH ×2 (08:42→20:08)
[2020-09-08] MEDS: MONTELUKAST SODIUM 10 MG TABLET PO (08:42)
[2020-09-08] MEDS: LACTATED RINGERS 1,000 ML 100 ML IV CONT ×3 (08:42→20:17)
[2020-09-08] MEDS: HEPARIN SODIUM 5,000 UNITS/ML VIAL 5000 UNITS SUB-Q ×2 (08:42→20:08)
[2020-09-08] MEDS: LOSARTAN POTASSIUM 100 MG TABLET PO (08:42)
[2020-09-08] MEDS: dilTIAZem HCL CD 180 MG CAP.ER.24H 360 MG PO (08:42)
--- NOTE | 2020-09-08 09:59 | PM.PNGS ---
Progress Note: A&P Assessment and Plan (1) Rectum injury: Code(s): S36.60XA - Unspecified injury of rectum, initial encounter Status: Acute Assessment and Plan: more dist today, +ostomy output but only small amount, will get SBS today, NPO Subjective Subjective Date/Time Seen: 09/08/20 09:59 still distended, uncomfortable, +gas, +liquid stool Review of Systems Constitutional: Constitutional: Denies chills, Reports fatigue, Denies fever(s) and Reports weakness Cardiovascular: Cardiovascular: Reports no additional cardiovascular complaints Respiratory: Respiratory: Reports dyspnea Gastrointestinal: Gastrointestinal: Reports abdominal pain, Reports bloating, Reports GI cramping, Reports early satiety, Reports dyspepsia, Reports nausea and Reports vomiting Exam Const: General: acute distress mild Resp: Auscultation: diminished lung sounds Cardio: Rate: regular rate Rhythm: regular rhythm GI: Inspection: distended and incision GI Palp: Yes abdominal tenderness, Yes Soft to palpation, No Firmness to palpation present (GI), Yes Tenderness to palpation present (GI) and No Guarding due to palpation present (GI) Other: more dist Objective Data Vital Signs Vital Signs: Vital Signs - 24 hr 09/07/20 14:00 09/07/20 19:52 09/08/20 05:05 Temperature 36.5 C 36.4 C L 36.3 C L Pulse Rate 78 82 88 Respiratory Rate 16 20 18 Blood Pressure 138/72 123/64 146/78 H Pulse Oximetry 94 94 92 09/08/20 08:05 Temperature Pulse Rate 81 Respiratory Rate 18 Blood Pressure Pulse Oximetry 95 Intake/Output Intake/Output: Intake & Output 09/05/20 09/06/20 09/07/20 09/08/20 23:59 23:59 23:59 23:59 Intake Total 3326 3050 4540 1810 Output Total 2610 1340 1375 550 Balance 716 1710 3165 1260 Meds/Results Medications: Active Medications Generic Name Dose Route Start Last Admin Trade Name Freq PRN Reason Stop Dose Admin Albuterol 1 puff 09/05/20 18:19 09/06/20 19:54 Albuterol Sulfate (*Sp) Aerosol 1 Puff INHALATION 1 puff Q4H PRN Administration Shortness Of Breath Benzocaine 1 lozenge 09/02/20 07:41 Benzocaine/Menthol (*Bkc) 18 Ea Lozenge PO PRN PRN Sore Throat Calcium Carbonate 200 mg 09/06/20 14:16 09/06/20 14:34 Calcium Carbonate (Tums) 500 Mg (200 Mg Elemental) PO 200 mg Q6H PRN Administration Indigestion Diltiazem HCl 360 mg 09/06/20 09:00 09/08/20 08:42 Diltiazem Hcl Cd 180 Mg Cap.Er.24h PO 360 mg QAM SARA Administration Fluticasone Propionate 2 puff 09/05/20 20:00 09/08/20 08:02 Fluticasone Prop 220 Mcg Inhaler 1 Puff INHALATION 2 puff Q12HRT SARA Administration Heparin Sodium (Porcine) 5,000 units 09/01/20 21:00 09/08/20 08:42 Heparin Sodium 5,000 Units/Ml Vial SUB-Q 5,000 units Q12HR SARA Administration Hydromorphone HCl 1 mg 09/02/20 02:48 09/04/20 07:46 Hydromorphone Hcl Inj (*Crx) 1 Mg/Ml Syr IV PUSH 1 mg Q3H PRN Administration Severe pain rated 7-10 Lactated Ringer's 1,000 mls @ 100 mls/hr 09/01/20 19:13 09/08/20 08:42 Lr - Lactated Ringers Iv IV CONT 100 mls/hr .Q10H SARA Administration Ketorolac Tromethamine 15 mg 09/04/20 11:45 09/07/20 18:35 Ketorolac 15 Mg/Ml Vial (*Bkc) IV PUSH 15 mg Q6H PRN Administration Pain Rated 4-6 Losartan Potassium 100 mg 09/06/20 09:00 09/08/20 08:42 Losartan Potassium 100 Mg Tablet PO 100 mg DAILY SARA Administration Melatonin 5 mg 09/03/20 21:00 09/07/20 21:39 Melatonin 5 Mg Tablet PO 5 mg HS SARA Administration Metoclopramide HCl 10 mg 09/06/20 18:00 09/08/20 05:45 Metoclopramide Hcl Inj 10 Mg/2 Ml Vial IV PUSH 10 mg Q6HR SARA Administration Montelukast Sodium 10 mg 09/06/20 09:00 09/08/20 08:42 Montelukast Sodium 10 Mg Tablet PO 10 mg DAILY SARA Administration Ondansetron HCl 4 mg 09/01/20 19:13 09/08/20 05:03 Ondansetron Inj 4 Mg/2 Ml Vial IV PUSH 4 mg Q6H PRN Administratio
--- NOTE | 2020-09-08 10:03 | PCOTNOTE ---
Attempted to see patient this am, however patient off floor for testing/procedure at this time.
--- NOTE | 2020-09-08 13:34 | PCPTNOTE ---
PT was not completed today due to patient having multiple tests and colon prep. Will continue per Plan of Care frequency and duration.
--- NOTE | 2020-09-08 14:41 | PM.IMCN ---
Assessment and Plan Assessment and plan (1) Hypoxic: Code(s): R09.02 - Hypoxemia Status: Acute Assessment and Plan: the patient currently is on oxygen at 1 L per nasal cannula. The patient has been using his inhalers. He has a rescue inhaler and a routine inhaler. I made his rescue inhalers around the clock. Patient does have some wheezing. I also considered steroids however I did not want to slow down the healing process. However I feel that the patient may benefit from some steroids. I will try low-dose dose steroids as the patient has a history of asthma. Chest x-ray shows that there could be some atelectasis. The patient has a large amount of gas in his stomach. May consider simethicone. However the patient appears to have an ileus as well. Have encouraged the patient to get up and move around he stated that he wishes 2 tired today. I have also encouraged the patient to use his incentive spirometer. Continue to monitor for any signs and symptoms of pneumonia such as fever elevated white count. However the white count could become elevated with the steroids. At this time he is afebrile and there are no signs and symptoms of pneumonia at this time. patient is currently on subcu heparin but may also consider possibility of a Pe as well. Check ABGs. (2) Rectum injury: Code(s): S36.60XA - Unspecified injury of rectum, initial encounter Status: Acute Assessment and Plan: as per surgery. (3) Asthma: Code(s): J45.909 - Unspecified asthma, uncomplicated Status: Chronic Assessment and Plan: Continue with Asmanex and unchanged his rescue inhaler to around the clock. I also ordered low dose steroids as well. (4) CKD (chronic kidney disease) stage 3, GFR 30-59 ml/min: Onset Date: Unknown Code(s): N18.3 - Chronic kidney disease, stage 3 (moderate) Status: Chronic Assessment and Plan: Patient's GFR is greater than 60 at this time. (5) Anxiety: Code(s): F41.9 - Anxiety disorder, unspecified Status: Chronic Assessment and Plan: According to the the patient becomes anxious at times and was requesting his Ativan. I explained that he had some confusion in the room probably holding off on his Ativan because the confusion. However the patient may have his Ativan if he becomes too restless. (6) Essential (primary) hypertension: Code(s): I10 - Essential (primary) hypertension Status: Chronic Assessment and Plan: Patient is taking diltiazem and losartan (7) Bladder cancer: Onset Date: ~03/2020 Code(s): C67.9 - Malignant neoplasm of bladder, unspecified Status: Acute Assessment and Plan: Care as per Urology. HPI Data of Consult Consult date: 09/08/20 Requesting Physician: Melchor Maher MD Primary Care Provider: Carlos Childs MD Consult Narrative Narrative: Omer Winter is a 80 year old male Who has a history of having asthma and has been using his inhalers. The patient was having some wheezes and coughing and low oxygen level today. He had chest x-ray was performed of Today which was read as low in volume with gas filled distended stomach. Adjunct atelectasis. patient stated that he has been using his incentive spirometer. He was also sitting up in the chair when I saw him. His abdomen appears to be very distended. From what I gather from the is at the patient had NG tube placed x2 and that the patient kept pulling out his NG tube. The patient also had a small-bowel follow-through series today as well. According to the the patient has been quite anxious and confused for couple days. She said today was better than some of his other days. The patient has a history of bladder cancer malignant neoplasm bladder his. The patient was tolerating food yesterday but is now NPO for testing today. Patient is postop day 7 robotic assisted radical cystectomy wi
[2020-09-08] MEDS: ALBUTEROL SULFATE (*SP) AEROSOL 1 PUFF INHALATION ×2 (15:13→21:11)
[2020-09-08 16:36] LABS: Base Excess ABG -1.4 mEq/l (+/-2.0); Fractional Inspired Oxygen 24 %; HCO3 ABG 22.7 mEq/l (22.0-26.0); Oxygen Content ABG 13.9 %vol (16.0-22.0); Oxygen Saturation ABG 90.7 % (95.0-100.0); Oxyhemoglobin 88.7 % THb (90.0-100.0); PCO2 ABG 36.2 mmHg (35.0-45.0); PO2 FiO2 Ratio Arterial Blood 2.42 %; Total Hemoglobin 11.1 g/dL (12.0-18.0); pH ABG 7.416 (7.350-7.450)
[2020-09-08 16:37] LABS: Device NASAL CANNULA; Modified Allen's Test Pass; Site Drawn RIGHT RADIAL
[2020-09-08] MEDS: methylPREDNISolone SOD SUCC 40 MG VIAL IV PUSH ×2 (16:52→21:43)
[2020-09-08] MEDS: MELATONIN 5 MG TABLET PO (20:07)
--- NOTE | 2020-09-09 | ECHO_ITS ---
Patient Info Name: Omer Winter Age: 80 years : 1940 Gender: Male Ht: 69 in Wt: 212 lbs BSA: 2.19 m2 HR: 89 bpm BP: 128 / 58 mmHg Technical Quality: Fair Exam Date: 09/09/2020 11:19 AM Exam Location: [facility] Patient Status: Inpatient Admit Date: 09/01/2020 Staff Ordering Physician: Servando Martinez MD Financial Service Rep: La Velasquez RDCS Attending Provider: Melchor Maher MD Referring Physician: Michelle TANNER; Exam Type: CA echo doppler color flow Study Info Indications - PE Complete two-dimensional, color flow and Doppler transthoracic echocardiogram is performed. Summary 1. Complete two-dimensional, color flow and Doppler transthoracic echocardiogram is performed. 2. Left ventricular chamber dimension is normal. 3. Left ventricular systolic function is normal, estimated at 65-70%. 4. The left ventricular diastolic function is grade I diastolic dysfunction. 5. E/e' 11 is mildly elevated. 6. Left atrial chamber dimension is mildly enlarged. 7. There is mild aortic valve sclerosis. 8. There is trace tricuspid valve regurgitation. 9. Moderate pulmonary hypertension, estimated pulmonary arterial systolic pressure is 50 mmHg. 10. The aortic root size at the sinus of Valsalva is borderline dilated at 4.0 cm. Left Ventricle E/e' 11 is mildly elevated. Left ventricular chamber dimension is normal. Left ventricular systolic function is normal, estimated at 65-70%. The left ventricular diastolic function is grade I diastolic dysfunction. Right Ventricle Right ventricular chamber dimension is normal. Right ventricular systolic function is normal. Left Atria Left atrial chamber dimension is mildly enlarged. Right Atria Right atrial chamber dimension is normal. Aortic Valve The aortic valve is trileaflet. There is mild aortic valve sclerosis. There is no aortic valve stenosis. There is no aortic valve regurgitation. Pulmonic Valve There is no pulmonic regurgitation. Mitral Valve There is no mitral valve stenosis. There is no mitral valve regurgitation. Tricuspid Valve There is trace tricuspid valve regurgitation. Moderate pulmonary hypertension, estimated pulmonary arterial systolic pressure is 50 mmHg. Pericardium/Pleural There is no pericardial effusion. Inferior Vena Cava Normal inferior vena cava with >50% collapse upon inspiration consistent with normal right atrial pressure, 5 mmHg. Aorta The aortic root size at the sinus of Valsalva is borderline dilated at 4.0 cm. Left Ventricular Outflow Tract Name Value Normal LVOT 2D LVOT Diameter 2.1 cm LVOT Doppler LVOT Peak Gradient 6 mmHg LVOT Mean Gradient 4 mmHg LVOT VTI 23 cm LVOT VTI/AV VTI Ratio 0.8 LVOT Stroke Volume 80 ml LVOT CO 19.2 l/min LVOT CI 8.8 l/min/m2 Pulmonic Valve Name
[2020-09-09] MEDS: METOCLOPRAMIDE HCL INJ 10 MG/2 ML VIAL IV PUSH ×5 (00:27→23:41)
[2020-09-09] MEDS: ALBUTEROL SULFATE (*SP) AEROSOL 1 PUFF INHALATION ×4 (02:56→20:46)
[2020-09-09] MEDS: methylPREDNISolone SOD SUCC 40 MG VIAL IV PUSH ×3 (04:14→17:10)
[2020-09-09 05:05] VITALS: BP 128/58; PULSE 87; RESP 16; TEMP 36.2; O2SAT 92
[2020-09-09 06:10] LABS: Hemoglobin 9.8 g/dL (14.0-18.0); Mean Corpuscular HGB Conc 30.6 g/dl (32-36); Mean Corpuscular Hemoglobin 29.3 pg (26-34); Mean Corpuscular Volume 95.8 fl (80-100); Mean Platelet Volume 10.5 fl (7.4-10.4); Platelet Count Result 233 k/mm3 (150-375); Red Blood Count 3.34 M/mm3 (4.6-6.20); Red Cell Distribution Width 15.9 % (11.5-14.5); White Blood Count 14.8 K/mm3 (4.5-10.0)
[2020-09-09 06:28] LABS: Anion Gap 6 mmol/L (8-16); Blood Urea Nitrogen 33 mg/dL (9-20); Calcium 9.4 mg/dL (8.4-10.2); Carbon Dioxide 29 mmol/L (22-30); Chloride 107 mmol/L (98-107); Estimated CRCL calculation 47 ml/min; Estimated Glomerular Filt Rate 53; Glucose 171 mg/dL (75-110); Potassium 3.9 mmol/L (3.4-5.0); Sodium 142 mmol/L (137-145)
--- NOTE | 2020-09-09 07:23 | WPDUROPN2 ---
Progress Note: A&P Assessment and Plan (1) Bladder cancer: Onset Date: ~03/2020 Code(s): C67.9 - Malignant neoplasm of bladder, unspecified Status: Acute Assessment and Plan: Patient is tolerating food, but is feeling a bit nauseated. He is up in the chair today and seems to tolerate the pain well. (2) Cancer of overlapping sites of bladder: Code(s): C67.8 - Malignant neoplasm of overlapping sites of bladder Status: Acute Assessment and Plan: SBFT study c/w adynamic ileus. Colostomy output (gas and stool) improved yesterday but seems to have dropped-off some this morning. Bowel sounds present but hypoactive. Pt. anxious to try soft diet again - will check with Dr. Quezada but, OK with me to try. I encouraged him to chew gum. DVT LLE is chronic - flow improved compared to last LE doppler. Subjective Subjective Date/Time Seen: 09/09/20 07:23 Abd. distension slightly improved but persists. No c/o shortness of breath today. Review of Systems Cardiovascular: Cardiovascular: Denies chest pain, Denies lightheadedness, Denies palpitations and Denies dyspnea Respiratory: Respiratory: Denies dyspnea Gastrointestinal: Gastrointestinal: Denies diarrhea, Denies nausea and Denies vomiting Genitourinary: Genitourinary: Denies hematuria and Denies dysuria Endocrine: Endocrine: Denies palpitations Exam Const: General: no acute distress Resp: Effort & Inspection: normal respiratory effort GI: Inspection: non-distended GI Palp: No abdominal tenderness and No Guarding due to palpation present (GI) Auscultation: normal bowel sounds Objective Data Vital Signs Vital Signs: Vital Signs - 24 hr 09/08/20 08:00 09/08/20 08:05 09/08/20 11:12 Temperature Pulse Rate 81 97 Respiratory Rate 18 20 Blood Pressure 141/78 H Pulse Oximetry 89 L 95 89 L 09/08/20 14:00 09/08/20 15:14 09/08/20 20:00 Temperature 96.9 F L Pulse Rate 106 H 99 Respiratory Rate 18 20 Blood Pressure 98/66 L Pulse Oximetry 95 93 09/08/20 20:55 09/08/20 21:10 09/09/20 05:05 Temperature 97.4 F L 97.2 F L Pulse Rate 91 87 Respiratory Rate 20 16 Blood Pressure 118/66 128/58 L Pulse Oximetry 92 92 92 Intake/Output Intake/Output: Intake & Output 09/06/20 09/07/20 09/08/20 09/09/20 23:59 23:59 23:59 23:59 Intake Total 3050 4540 3810 250 Output Total 1340 1375 2275 1000 Balance 1710 3165 1535 -750 Meds/Results Medications: Active Medications Generic Name Dose Route Start Last Admin Trade Name Freq PRN Reason Stop Dose Admin Albuterol 1 puff 09/08/20 20:00 09/09/20 02:56 Albuterol Sulfate (*Sp) Aerosol 1 Puff INHALATION 1 puff Q6HRT SARA Administration Benzocaine 1 lozenge 09/02/20 07:41 Benzocaine/Menthol (*Bkc) 18 Ea Lozenge PO PRN PRN Sore Throat Calcium Carbonate 200 mg 09/06/20 14:16 09/06/20 14:34 Calcium Carbonate (Tums) 500 Mg (200 Mg Elemental) PO 200 mg Q6H PRN Administration Indigestion Diltiazem HCl 360 mg 09/06/20 09:00 09/08/20 08:42 Diltiazem Hcl Cd 180 Mg Cap.Er.24h PO 360 mg QAM SARA Administration Fluticasone Propionate 2 puff 09/05/20 20:00 09/08/20 21:11 Fluticasone Prop 220 Mcg Inhaler 1 Puff INHALATION 2 puff Q12HRT SARA Administration Heparin Sodium (Porcine) 5,000 units 09/01/20 21:00 09/08/20 20:08 Heparin Sodium 5,000 Units/Ml Vial SUB-Q 5,000 units Q12HR SARA Administration Hydromorphone HCl 1 mg 09/02/20 02:48 09/04/20 07:46 Hydromorphone Hcl Inj (*Crx) 1 Mg/Ml Syr IV PUSH 1 mg Q3H PRN Administration Severe pain rated 7-10 Lactated Ringer's 1,000 mls @ 100 mls/hr 09/01/20 19:13 09/09/20 02:30 Lr - Lactated Ringers Iv IV CONT 100 mls/hr .Q10H SARA Infusion Ketorolac Tromethamine 15 mg 09/04/20 11:45 09/07/20 18:35 Ketorolac 15 Mg/Ml Vial (*Bkc) IV PUSH 15 mg Q6H PRN Administration Pain Rated 4-6 Lorazepam 0.5 mg 09/08
[2020-09-09 07:25] VITALS: O2SAT 90
[2020-09-09] MEDS: LACTATED RINGERS 1,000 ML 100 ML IV CONT ×2 (09:13→19:12)
[2020-09-09] MEDS: MONTELUKAST SODIUM 10 MG TABLET PO (09:15)
[2020-09-09] MEDS: PANTOPRAZOLE SODIUM IV 40 MG VIAL IV PUSH ×2 (09:15→20:17)
[2020-09-09] MEDS: LOSARTAN POTASSIUM 100 MG TABLET PO (09:15)
[2020-09-09] MEDS: dilTIAZem HCL CD 180 MG CAP.ER.24H 360 MG PO (09:15)
[2020-09-09] MEDS: HEPARIN SODIUM 5,000 UNITS/ML VIAL 5000 UNITS SUB-Q (09:15)
[2020-09-09 09:28] VITALS: O2SAT 90
--- NOTE | 2020-09-09 09:30 | PM.PNGS ---
Progress Note: A&P Assessment and Plan (1) Rectum injury: Code(s): S36.60XA - Unspecified injury of rectum, initial encounter Status: Acute Assessment and Plan: ileus seems to be slowly resolving, will start soft diet, encourage OOB/IS Subjective Subjective Date/Time Seen: 09/09/20 09:30 pt feels better today, less dist, hungry Review of Systems Constitutional: Constitutional: Denies chills, Reports fatigue, Denies fever(s), Reports increased appetite and Reports weakness Cardiovascular: Cardiovascular: Reports no additional cardiovascular complaints Respiratory: Respiratory: Reports no additional respiratory complaints Gastrointestinal: Gastrointestinal: Denies abdominal pain, Reports bloating, Denies nausea and Denies vomiting Exam Const: General: comfortable and no acute distress Resp: Effort & Inspection: normal respiratory effort Auscultation: diminished lung sounds Cardio: Jugular venous distension: no JVD Rate: regular rate Rhythm: regular rhythm GI: Inspection: normal to inspection, distended and incision GI Palp: Yes Soft to palpation, No Tenderness to palpation present (GI), No Guarding due to palpation present (GI) and No Rigid due to palpation Other: soft, decreased dist, lex TTP, ostomy c moderate output Objective Data Vital Signs Vital Signs: Vital Signs - 24 hr 09/08/20 11:12 09/08/20 14:00 09/08/20 15:14 Temperature 36.1 C L Pulse Rate 97 106 H 99 Respiratory Rate 20 18 20 Blood Pressure 141/78 H 98/66 L Pulse Oximetry 89 L 95 09/08/20 20:00 09/08/20 20:55 09/08/20 21:10 Temperature 36.3 C L Pulse Rate 91 Respiratory Rate 20 Blood Pressure 118/66 Pulse Oximetry 93 92 92 09/09/20 05:05 09/09/20 07:25 Temperature 36.2 C L Pulse Rate 87 Respiratory Rate 16 Blood Pressure 128/58 L Pulse Oximetry 92 90 Intake/Output Intake/Output: Intake & Output 09/06/20 09/07/20 09/08/20 09/09/20 23:59 23:59 23:59 23:59 Intake Total 3050 4540 3810 1250 Output Total 1340 1375 2275 1000 Balance 1710 3165 1535 250 Meds/Results Medications: Active Medications Generic Name Dose Route Start Last Admin Trade Name Freq PRN Reason Stop Dose Admin Albuterol 1 puff 09/08/20 20:00 09/09/20 07:24 Albuterol Sulfate (*Sp) Aerosol 1 Puff INHALATION 1 puff Q6HRT SARA Administration Benzocaine 1 lozenge 09/02/20 07:41 Benzocaine/Menthol (*Bkc) 18 Ea Lozenge PO PRN PRN Sore Throat Calcium Carbonate 200 mg 09/06/20 14:16 09/06/20 14:34 Calcium Carbonate (Tums) 500 Mg (200 Mg Elemental) PO 200 mg Q6H PRN Administration Indigestion Diltiazem HCl 360 mg 09/06/20 09:00 09/09/20 09:15 Diltiazem Hcl Cd 180 Mg Cap.Er.24h PO 360 mg QAM SARA Administration Fluticasone Propionate 2 puff 09/05/20 20:00 09/09/20 08:51 Fluticasone Prop 220 Mcg Inhaler 1 Puff INHALATION Not Given Q12HRT SARA Heparin Sodium (Porcine) 5,000 units 09/01/20 21:00 09/09/20 09:15 Heparin Sodium 5,000 Units/Ml Vial SUB-Q 5,000 units Q12HR SARA Administration Hydromorphone HCl 1 mg 09/02/20 02:48 09/04/20 07:46 Hydromorphone Hcl Inj (*Crx) 1 Mg/Ml Syr IV PUSH 1 mg Q3H PRN Administration Severe pain rated 7-10 Lactated Ringer's 1,000 mls @ 100 mls/hr 09/01/20 19:13 09/09/20 09:13 Lr - Lactated Ringers Iv IV CONT 100 mls/hr .Q10H SARA Administration Ketorolac Tromethamine 15 mg 09/04/20 11:45 09/07/20 18:35 Ketorolac 15 Mg/Ml Vial (*Bkc) IV PUSH 15 mg Q6H PRN Administration Pain Rated 4-6 Lorazepam 0.5 mg 09/08/20 14:40 Lorazepam Inj (*Crx) 2 Mg/Ml Vial IV PUSH Q6H PRN Anxiety Losartan Potassium 100 mg 09/06/20 09:00 09/09/20 09:15 Losartan Potassium 100 Mg Tablet PO 100 mg DAILY SARA Administration Melatonin 5 mg 09/03/20 21:00 09/08/20 20:07 Melatonin 5 Mg Tablet PO 5 mg HS SARA Administration Methylprednisolone Sodium Succinate 40 mg
--- NOTE | 2020-09-09 11:54 | PCNFU ---
Nutrition Follow-Up Complete: Inadequate oral intake r/t NPO day five as evidence by intake records Goal: Diet advancement to solid diet with PO intake of 75% or greater of meals to meet needs Progressing towards goal. We will continue current goal. Pt current nutrition is Soft and Bite Sized, Level 6. Nutrition recommendation: Agree Last recorded weight is 96.2 kg. Bowel Motility: output from colostomy Labs Reviewed:GFR 53,Glu 171 Meds Noted:Cardizem,LR at 100 ml/hr,Solu-Medrol,Reglan Additional Notes: Nutrition follow up today. Patient has started on diet. MD reporting Ileus is slowing resolving. Oral intake today greater than 75% of meal. Up with therapy today. Monitoring: PO intake, labs, weight every five days
[2020-09-09] MEDS: ENOXAPARIN 100 MG/ML SYRINGE 95 MG SUB-Q ×2 (12:13→20:16)
[2020-09-09 14:00] VITALS: BP 139/62; PULSE 84; RESP 18; TEMP 35.8; O2SAT 95
[2020-09-09] MEDS: CALCIUM CARBONATE (TUMS) 500 MG (200 MG ELEMENTAL) PO ×2 (17:11→23:14)
--- NOTE | 2020-09-09 18:06 | PM.IMPN ---
Progress Note: A&P Assessment and Plan (1) Hypoxic: Code(s): R09.02 - Hypoxemia Status: Acute Assessment and Plan: the patient currently is on oxygen at 1 L per nasal cannula. The patient has been using his inhalers. He has a rescue inhaler and a routine inhaler. and made rescue inhalers around the clock. Chest x-ray shows that there could be some atelectasis. The patient has a large amount of gas in his stomach Have encouraged the patient to get up and move around he stated that he wishes 2 tired today. I have also encouraged the patient to use his incentive spirometer. Continue to monitor for any signs and symptoms of pneumonia . CTA revealed no infiltrates but did reveal right pulmonary artery emboli. Discussed with urology and full anticoagulation resumed with Lovenox mg per kg Q 12 patient had been on Eliquis preoperatively and will resume that when stable check echocardiogram since there was question of right ventricular strain with CT scan (2) Rectum injury: Code(s): S36.60XA - Unspecified injury of rectum, initial encounter Status: Acute Assessment and Plan: as per surgery. colostomy (3) Asthma: Code(s): J45.909 - Unspecified asthma, uncomplicated Status: Chronic Assessment and Plan: Continue with Asmanex and unchanged his rescue inhaler to around the clock. low dose steroids more orders initially but will discontinue with subsiding of wheezing and PE found on CT (4) CKD (chronic kidney disease) stage 3, GFR 30-59 ml/min: Onset Date: Unknown Code(s): N18.3 - Chronic kidney disease, stage 3 (moderate) Status: Chronic Assessment and Plan: Patient's GFR is greater than 60 at this time. creatinine 1.3 (5) Anxiety: Code(s): F41.9 - Anxiety disorder, unspecified Status: Chronic Assessment and Plan: According to the the patient becomes anxious at times and was requesting his Ativan. I explained that he had some confusion in the room probably holding off on his Ativan because the confusion. However the patient may have his Ativan if he becomes too restless. (6) Essential (primary) hypertension: Code(s): I10 - Essential (primary) hypertension Status: Chronic Assessment and Plan: Patient is taking diltiazem and losartan blood pressure well controlled (7) Bladder cancer: Onset Date: ~03/2020 Code(s): C67.9 - Malignant neoplasm of bladder, unspecified Status: Acute Assessment and Plan: Care as per Urology. status post radical cystectomy with ileal conduit Subjective Date/time seen: 09/09/20 18:06 Interval history: date of visit 09/09. 80-year-old hypertensive male with previous history of DVT underwent radical cystectomy and colostomy for perforated sigmoid developed increasing shortness breath and mild hypoxia the last 2 days. Has history of asthma and had had ileus it was thought this could be the etiology. CT a though revealed right pulmonary artery PE with possible right heart strain. We are consult for his hypoxia. Exam Narrative: Exam Narrative: Blood pressure 138/62 pulse is 84 and regular saturating 95% on 1 L nasal cannula respirations 20 per minute and afebrile lungs clear CV regular rate rhythm no murmurs abdomen soft nontender ileo conduit and colostomy in place. bowel sounds are present O decreased extremities some edema right slightly more than left neuro alert pleasant cooperative Objective Data Vital Signs Vital Signs: Vital Signs - 24 hr 09/08/20 20:00 09/08/20 20:55 09/08/20 21:10 Temperature 36.3 C L Pulse Rate 91 Respiratory Rate 20 Blood Pressure 118/66 Pulse Oximetry 93 92 92 09/09/20 05:05 09/09/20 07:25 09/09/20 09:28 Temperature 36.2 C L Pulse Rate 87 Respiratory Rate 16 Blood Pressure 128/58 L Pulse Oximetry 92 90 90 09/09/20 14:00 Temperature 35.8 C L Pulse Rate 84 Respiratory
[2020-09-09] MEDS: MELATONIN 5 MG TABLET PO (20:17)
[2020-09-09 20:47] VITALS: O2SAT 93
[2020-09-09 21:21] VITALS: BP 154/65; PULSE 88; RESP 16; TEMP 36.9; O2SAT 93
[2020-09-10] VITALS (7 sets, daily range): BP systolic 132–148; BP diastolic 60–68; PULSE 81–93; RESP 16–20; TEMP 36.2–36.9; O2SAT 92–100
[2020-09-10] MEDS: LACTATED RINGERS 1,000 ML 100 ML IV CONT ×3 (04:49→23:37)
[2020-09-10] MEDS: METOCLOPRAMIDE HCL INJ 10 MG/2 ML VIAL IV PUSH ×4 (05:04→23:34)
[2020-09-10 06:50] LABS: Basophils Percent Auto 0.1 % (0.2-1.2); Hematocrit 30.8 % (42.0-52.0); Hemoglobin 9.3 g/dL (14.0-18.0); Immature Granulocyte Absolute 0.22 K/mm3 (0.00-0.031); Immature Granulocyte Percent A 1.2 % (0-0.5); Lymphocytes Absolute Auto 0.87 K/mm3 (0.9-3.2); Lymphocytes Percent Auto 4.8 % (18.3-44.2); Mean Corpuscular HGB Conc 30.2 g/dl (32-36); Mean Corpuscular Hemoglobin 28.7 pg (26-34); Mean Corpuscular Volume 95.1 fl (80-100); Mean Platelet Volume 10.7 fl (7.4-10.4); Monocytes Absolute Auto 0.8 K/mm3 (0.1-0.6); Monocytes Percent Auto 4.5 % (2.6-8.5); Neutrophils Absolute Auto 16.2 K/mm3 (1.3-6.7); Neutrophils Percent Auto 89.4 % (45.5-73.1); Nucleated Red Blood Cells Perc 0.1 % (0.0-0.2); Platelet Count Result 280 k/mm3 (150-375); Red Blood Count 3.24 M/mm3 (4.6-6.20); Red Cell Distribution Width 15.9 % (11.5-14.5); White Blood Count 18.2 K/mm3 (4.5-10.0)
[2020-09-10 07:07] LABS: Anion Gap 8 mmol/L (8-16); Blood Urea Nitrogen 33 mg/dL (9-20); Calcium 9.5 mg/dL (8.4-10.2); Carbon Dioxide 24 mmol/L (22-30); Chloride 112 mmol/L (98-107); Estimated CRCL calculation 47 ml/min; Estimated Glomerular Filt Rate 53; Glucose 164 mg/dL (75-110); Potassium 3.3 mmol/L (3.4-5.0); Sodium 144 mmol/L (137-145)
[2020-09-10] MEDS: ALBUTEROL SULFATE (*SP) AEROSOL 1 PUFF INHALATION (07:50)
--- NOTE | 2020-09-10 08:06 | WPDUROPN2 ---
Progress Note: A&P Assessment and Plan (1) Bladder cancer: Onset Date: ~03/2020 Code(s): C67.9 - Malignant neoplasm of bladder, unspecified Status: Acute Assessment and Plan: Patient is tolerating food, but is feeling a bit nauseated. He is up in the chair today and seems to tolerate the pain well. (2) Cancer of overlapping sites of bladder: Code(s): C67.8 - Malignant neoplasm of overlapping sites of bladder Status: Acute Assessment and Plan: SBFT study c/w adynamic ileus. Colostomy output (gas and stool) improved yesterday but seems to have dropped-off some this morning. Bowel sounds present but hypoactive. Pt. anxious to try soft diet again - will check with Dr. Quezada but, OK with me to try. I encouraged him to chew gum. DVT LLE is chronic - flow improved compared to last LE doppler. 09/10/2020 Noticeably better today - less SOB, abd. less distended and increased colostomy output. Lovenox for DVT/PE - mgmt. per Dr. Martinez. Diet advancement per Dr. Quezada. Creat. stable @ 1.3. Subjective Subjective Date/Time Seen: 09/10/20 08:07 Less SOB today, less abdominal distension Review of Systems Cardiovascular: Cardiovascular: Denies chest pain, Denies lightheadedness, Denies palpitations and Denies dyspnea Respiratory: Respiratory: Denies dyspnea Gastrointestinal: Gastrointestinal: Denies diarrhea, Denies nausea and Denies vomiting Genitourinary: Genitourinary: Denies hematuria and Denies dysuria Endocrine: Endocrine: Denies palpitations Exam Const: General: no acute distress Resp: Effort & Inspection: normal respiratory effort GI: Inspection: non-distended GI Palp: No abdominal tenderness and No Guarding due to palpation present (GI) Auscultation: normal bowel sounds Objective Data Vital Signs Vital Signs: Vital Signs - 24 hr 09/09/20 09:28 09/09/20 14:00 09/09/20 20:47 Temperature 96.5 F L Pulse Rate 84 Respiratory Rate 18 Blood Pressure 139/62 Pulse Oximetry 90 95 93 09/09/20 21:21 09/10/20 05:02 Temperature 98.4 F 97.3 F L Pulse Rate 88 90 Respiratory Rate 16 18 Blood Pressure 154/65 H 144/66 H Pulse Oximetry 93 95 Intake/Output Intake/Output: Intake & Output 09/07/20 09/08/20 09/09/20 09/10/20 23:59 23:59 23:59 23:59 Intake Total 4540 3810 2970 1000 Output Total 1375 2275 3275 750 Balance 3165 1535 -305 250 Meds/Results Medications: Active Medications Generic Name Dose Route Start Last Admin Trade Name Freq PRN Reason Stop Dose Admin Albuterol 1 puff 09/08/20 20:00 09/10/20 07:50 Albuterol Sulfate (*Sp) Aerosol 1 Puff INHALATION 1 puff Q6HRT SARA Administration Benzocaine 1 lozenge 09/02/20 07:41 Benzocaine/Menthol (*Bkc) 18 Ea Lozenge PO PRN PRN Sore Throat Calcium Carbonate 200 mg 09/06/20 14:16 09/09/20 23:14 Calcium Carbonate (Tums) 500 Mg (200 Mg Elemental) PO 200 mg Q6H PRN Administration Indigestion Diltiazem HCl 360 mg 09/06/20 09:00 09/09/20 09:15 Diltiazem Hcl Cd 180 Mg Cap.Er.24h PO 360 mg QAM SARA Administration Enoxaparin Sodium 95 mg 09/09/20 11:50 09/09/20 20:16 Enoxaparin 100 Mg/Ml Syringe SUB-Q 95 mg Q12HR SARA Administration Fluticasone Propionate 2 puff 09/05/20 20:00 09/10/20 07:50 Fluticasone Prop 220 Mcg Inhaler 1 Puff INHALATION 2 puff Q12HRT SARA Administration Hydromorphone HCl 1 mg 09/02/20 02:48 09/04/20 07:46 Hydromorphone Hcl Inj (*Crx) 1 Mg/Ml Syr IV PUSH 1 mg Q3H PRN Administration Severe pain rated 7-10 Lactated Ringer's 1,000 mls @ 100 mls/hr 09/01/20 19:13 09/10/20 04:49 Lr - Lactated Ringers Iv IV CONT 100 mls/hr .Q10H SARA Administration Lorazepam 0.5 mg 09/08/20 14:40 Lorazepam Inj (*Crx) 2 Mg/Ml Vial IV PUSH Q6H PRN Anxiety Losartan Potassium 100 mg 09/06/20 09:00 09/09/20 09:15 Losartan Potassium 100 Mg Tablet PO 100 mg DAILY SARA Adm
[2020-09-10] MEDS: MONTELUKAST SODIUM 10 MG TABLET PO (08:54)
[2020-09-10] MEDS: dilTIAZem HCL CD 180 MG CAP.ER.24H 360 MG PO (08:54)
[2020-09-10] MEDS: POTASSIUM CHLORIDE 20 MEQ TABLET 40 MEQ PO (08:54)
[2020-09-10] MEDS: LOSARTAN POTASSIUM 100 MG TABLET PO (08:55)
[2020-09-10] MEDS: ENOXAPARIN 100 MG/ML SYRINGE 95 MG SUB-Q ×2 (08:55→20:18)
[2020-09-10] MEDS: PANTOPRAZOLE SODIUM IV 40 MG VIAL IV PUSH ×2 (08:55→20:16)
--- NOTE | 2020-09-10 09:53 | PM.PNGS ---
Progress Note: A&P Assessment and Plan (1) Rectum injury: Code(s): S36.60XA - Unspecified injury of rectum, initial encounter Status: Acute Assessment and Plan: ostomy working, james diet, exam benign (2) Pulmonary emboli: Code(s): I26.99 - Other pulmonary embolism without acute cor pulmonale Status: Acute Assessment and Plan: anticoagulation (3) Leukocytosis: Code(s): D72.829 - Elevated white blood cell count, unspecified Status: Acute Assessment and Plan: ? source, will get CT abd for further investigation Subjective Subjective Date/Time Seen: 09/10/20 09:53 feels ok, increased colostomy output Review of Systems Constitutional: Constitutional: Denies chills, Reports fatigue, Denies fever(s) and Reports weakness Cardiovascular: Cardiovascular: Reports no additional cardiovascular complaints Respiratory: Respiratory: Reports cough and Reports dyspnea Gastrointestinal: Gastrointestinal: Reports abdominal pain, Reports bloating, Reports GI cramping, Reports early satiety, Reports nausea and Denies vomiting Exam Const: General: cooperative Orientation/consciousness: patient oriented x3 Resp: Effort & Inspection: normal respiratory effort Auscultation: diminished lung sounds Cardio: Rate: regular rate Rhythm: regular rhythm GI: Inspection: normal to inspection, distended and incision GI Palp: Yes abdominal tenderness, Yes Soft to palpation and No Guarding due to palpation present (GI) Objective Data Vital Signs Vital Signs: Vital Signs - 24 hr 09/09/20 14:00 09/09/20 20:47 09/09/20 21:21 Temperature 35.8 C L 36.9 C Pulse Rate 84 88 Respiratory Rate 18 16 Blood Pressure 139/62 154/65 H Pulse Oximetry 95 93 93 09/10/20 05:02 Temperature 36.3 C L Pulse Rate 90 Respiratory Rate 18 Blood Pressure 144/66 H Pulse Oximetry 95 Intake/Output Intake/Output: Intake & Output 09/07/20 09/08/20 09/09/20 09/10/20 23:59 23:59 23:59 23:59 Intake Total 4540 3810 2970 1480 Output Total 1375 2275 3275 750 Balance 3165 1535 -305 730 Meds/Results Medications: Active Medications Generic Name Dose Route Start Last Admin Trade Name Freq PRN Reason Stop Dose Admin Albuterol 1 puff 09/08/20 20:00 09/10/20 07:50 Albuterol Sulfate (*Sp) Aerosol 1 Puff INHALATION 1 puff Q6HRT SARA Administration Benzocaine 1 lozenge 09/02/20 07:41 Benzocaine/Menthol (*Bkc) 18 Ea Lozenge PO PRN PRN Sore Throat Calcium Carbonate 200 mg 09/10/20 08:53 Calcium Carbonate (Tums) 500 Mg (200 Mg Elemental) PO Q4HR PRN Indigestion Diltiazem HCl 360 mg 09/06/20 09:00 09/10/20 08:54 Diltiazem Hcl Cd 180 Mg Cap.Er.24h PO 360 mg QAM SARA Administration Enoxaparin Sodium 95 mg 09/09/20 11:50 09/10/20 08:55 Enoxaparin 100 Mg/Ml Syringe SUB-Q 95 mg Q12HR SARA Administration Fluticasone Propionate 2 puff 09/05/20 20:00 09/10/20 07:50 Fluticasone Prop 220 Mcg Inhaler 1 Puff INHALATION 2 puff Q12HRT SARA Administration Hydromorphone HCl 1 mg 09/02/20 02:48 09/04/20 07:46 Hydromorphone Hcl Inj (*Crx) 1 Mg/Ml Syr IV PUSH 1 mg Q3H PRN Administration Severe pain rated 7-10 Lactated Ringer's 1,000 mls @ 100 mls/hr 09/01/20 19:13 09/10/20 04:49 Lr - Lactated Ringers Iv IV CONT 100 mls/hr .Q10H SARA Administration Lorazepam 0.5 mg 09/08/20 14:40 Lorazepam Inj (*Crx) 2 Mg/Ml Vial IV PUSH Q6H PRN Anxiety Losartan Potassium 100 mg 09/06/20 09:00 09/10/20 08:55 Losartan Potassium 100 Mg Tablet PO 100 mg DAILY SARA Administration Melatonin 5 mg 09/03/20 21:00 09/09/20 20:17 Melatonin 5 Mg Tablet PO 5 mg HS SARA Administration Metoclopramide HCl 10 mg 09/06/20 18:00 09/10/20 05:04 Metoclopramide Hcl Inj 10 Mg/2 Ml Vial IV PUSH 10 mg Q6HR SARA Administration Montelukast Sodium 10 mg 09/06/20 09:00 09/10/20 08:54 Montelukast Sodium 10 Mg
--- NOTE | 2020-09-10 16:06 | PM.IMPN ---
Progress Note: A&P Assessment and Plan (1) Hypoxic: Code(s): R09.02 - Hypoxemia Status: Acute Assessment and Plan: the patient currently is on oxygen at 1 L per nasal cannula. The patient has been using his inhalers. encouraged the patient to use his incentive spirometer. Continue to monitor for any signs and symptoms of pneumonia . CTA revealed no infiltrates but did reveal right pulmonary artery emboli. Discussed with urology and full anticoagulation resumed with Lovenox mg per kg Q 12 09/09. patient had been on Eliquis preoperatively and will resume that when stable echocardiogram moderate pulmonary hypertension estimated at 50 but normal size and function of right ventricle suggesting no strain (2) Rectum injury: Code(s): S36.60XA - Unspecified injury of rectum, initial encounter Status: Acute Assessment and Plan: as per surgery. colostomy (3) Asthma: Code(s): J45.909 - Unspecified asthma, uncomplicated Status: Chronic Assessment and Plan: Continue with Asmanex and unchanged his rescue inhaler to around the clock. low dose steroids initially but discontinued with subsiding of wheezing and PE found on CT (4) CKD (chronic kidney disease) stage 3, GFR 30-59 ml/min: Onset Date: Unknown Code(s): N18.3 - Chronic kidney disease, stage 3 (moderate) Status: Chronic Assessment and Plan: Patient's GFR is greater than 60 at this time. creatinine 1.3 stable (5) Anxiety: Code(s): F41.9 - Anxiety disorder, unspecified Status: Chronic Assessment and Plan: According to the the patient becomes anxious at times and was requesting his Ativan. I explained that he had some confusion in the room probably holding off on his Ativan because the confusion. However the patient may have his Ativan if he becomes too restless. (6) Essential (primary) hypertension: Code(s): I10 - Essential (primary) hypertension Status: Chronic Assessment and Plan: Patient is taking diltiazem and losartan blood pressure well controlled (7) Bladder cancer: Onset Date: ~03/2020 Code(s): C67.9 - Malignant neoplasm of bladder, unspecified Status: Acute Assessment and Plan: Care as per Urology. status post radical cystectomy with ileal conduit Subjective Date/time seen: 09/10/20 16:06 Interval history: date of visit 09/10. 80-year-old hypertensive male with previous history of DVT underwent radical cystectomy and colostomy for perforated sigmoid developed increasing shortness breath and mild hypoxia . Has history of asthma and had had ileus it was thought this could be the etiology. CTA though revealed right pulmonary artery PE with possible right heart strain. Still some sob but better Exam Narrative: Exam Narrative: NARD sitting in chair Blood pressure 132/68 pulse is 92 and regular saturating 94% on 1 L nasal cannula respirations 20 per minute and afebrile lungs faint crackle R post base CV regular rate rhythm no murmurs abdomen soft nontender ileo conduit and colostomy in place. bowel sounds are present and colostomy functioning extremities some edema right slightly more than left neuro alert pleasant cooperative Objective Data Vital Signs Vital Signs: Vital Signs - 24 hr 09/09/20 20:47 09/09/20 21:21 09/10/20 05:02 Temperature 36.9 C 36.3 C L Pulse Rate 88 90 Respiratory Rate 16 18 Blood Pressure 154/65 H 144/66 H Pulse Oximetry 93 93 95 09/10/20 07:45 09/10/20 08:50 09/10/20 13:54 Temperature 36.9 C Pulse Rate 86 93 Respiratory Rate 20 16 Blood Pressure 132/68 Pulse Oximetry 93 92 94 Intake/Output Intake/Output: Intake & Output 09/07/20 09/08/20 09/09/20 09/10/20 23:59 23:59 23:59 23:59 Intake Total 4540 3810 2970 3200 Output Total 1375 2275 3275 1050 Balance 3165 1535 -305 2150 Meds/Results Medications: Active Medications Generic Name
[2020-09-10] MEDS: CALCIUM CARBONATE (TUMS) 500 MG (200 MG ELEMENTAL) PO (20:17)
[2020-09-10] MEDS: MELATONIN 5 MG TABLET PO (20:17)
[2020-09-11] VITALS (7 sets, daily range): BP systolic 139–156; BP diastolic 68–75; PULSE 86–91; RESP 14–20; TEMP 36.5–36.9; O2SAT 92–96
[2020-09-11] MEDS: CALCIUM CARBONATE (TUMS) 500 MG (200 MG ELEMENTAL) PO ×2 (00:50→11:46)
[2020-09-11] MEDS: METOCLOPRAMIDE HCL INJ 10 MG/2 ML VIAL IV PUSH ×3 (05:10→17:10)
[2020-09-11 06:18] LABS: Basophils Percent Auto 0.1 % (0.2-1.2); Hematocrit 29.2 % (42.0-52.0); Immature Granulocyte Absolute 0.13 K/mm3 (0.00-0.031); Immature Granulocyte Percent A 0.8 % (0-0.5); Lymphocytes Absolute Auto 1.45 K/mm3 (0.9-3.2); Lymphocytes Percent Auto 9.4 % (18.3-44.2); Mean Corpuscular HGB Conc 30.8 g/dl (32-36); Mean Corpuscular Hemoglobin 28.6 pg (26-34); Mean Corpuscular Volume 92.7 fl (80-100); Mean Platelet Volume 10.7 fl (7.4-10.4); Monocytes Absolute Auto 1.2 K/mm3 (0.1-0.6); Monocytes Percent Auto 7.6 % (2.6-8.5); Neutrophils Absolute Auto 12.6 K/mm3 (1.3-6.7); Neutrophils Percent Auto 82.1 % (45.5-73.1); Nucleated Red Blood Cells Perc 0.2 % (0.0-0.2); Platelet Count Result 243 k/mm3 (150-375); Red Blood Count 3.15 M/mm3 (4.6-6.20); Red Cell Distribution Width 15.7 % (11.5-14.5); White Blood Count 15.4 K/mm3 (4.5-10.0)
[2020-09-11 06:32] LABS: Anion Gap 6 mmol/L (8-16); Blood Urea Nitrogen 30 mg/dL (9-20); Calcium 9.1 mg/dL (8.4-10.2); Carbon Dioxide 26 mmol/L (22-30); Chloride 111 mmol/L (98-107); Estimated CRCL calculation 55 ml/min; Estimated Glomerular Filt Rate > 60; Glucose 111 mg/dL (75-110); Potassium 3.1 mmol/L (3.4-5.0); Sodium 143 mmol/L (137-145)
[2020-09-11] MEDS: PANTOPRAZOLE SODIUM IV 40 MG VIAL IV PUSH ×2 (08:57→20:56)
[2020-09-11] MEDS: dilTIAZem HCL CD 180 MG CAP.ER.24H 360 MG PO (08:57)
[2020-09-11] MEDS: LOSARTAN POTASSIUM 100 MG TABLET PO (08:57)
[2020-09-11] MEDS: FUROSEMIDE INJ 40 MG/4 ML VIAL 20 MG IV PUSH (08:57)
[2020-09-11] MEDS: ENOXAPARIN 100 MG/ML SYRINGE 95 MG SUB-Q ×2 (08:57→20:57)
[2020-09-11] MEDS: POTASSIUM CHLORIDE 20 MEQ TABLET 40 MEQ PO ×2 (08:57→17:09)
[2020-09-11] MEDS: MONTELUKAST SODIUM 10 MG TABLET PO (08:57)
[2020-09-11] MEDS: LACTATED RINGERS 1,000 ML 100 ML IV CONT (09:08)
[2020-09-11] MEDS: ALBUTEROL SULFATE (*SP) AEROSOL 1 PUFF INHALATION ×3 (10:10→20:20)
--- NOTE | 2020-09-11 11:50 | PM.PNGS ---
Progress Note: A&P Assessment and Plan (1) Rectum injury: Code(s): S36.60XA - Unspecified injury of rectum, initial encounter Status: Acute Assessment and Plan: doing better, ileus largely resolved, james diet, good ostomy fxn, anticipate dc tomorrow (2) Leukocytosis: Code(s): D72.829 - Elevated white blood cell count, unspecified Status: Acute Assessment and Plan: trending down, CT yest largely unremarkable Subjective Subjective Date/Time Seen: 09/11/20 11:50 feels good today, wants to go home soon Review of Systems Review of Systems: All systems reviewed & are unremarkable except as noted in HPI and below Exam Const: General: cooperative, comfortable and no acute distress Resp: Effort & Inspection: normal respiratory effort Auscultation: diminished lung sounds Cardio: Jugular venous distension: no JVD Rate: regular rate Rhythm: regular rhythm GI: Inspection: normal to inspection, non-distended and incision GI Palp: No abdominal tenderness, Yes Soft to palpation, No Firmness to palpation present (GI), No Tenderness to palpation present (GI), No Guarding due to palpation present (GI) and No Rigid due to palpation Other: ostomy c good output Objective Data Vital Signs Vital Signs: Vital Signs - 24 hr 09/10/20 13:54 09/10/20 19:03 09/10/20 20:00 Temperature 36.9 C Pulse Rate 93 83 Respiratory Rate 16 20 Blood Pressure 132/68 Pulse Oximetry 94 93 100 09/10/20 20:03 09/11/20 05:35 09/11/20 08:06 Temperature 36.2 C L 36.5 C Pulse Rate 81 86 Respiratory Rate 16 18 Blood Pressure 148/60 H 156/75 H Pulse Oximetry 97 95 92 09/11/20 08:43 Temperature Pulse Rate Respiratory Rate Blood Pressure Pulse Oximetry 95 Intake/Output Intake/Output: Intake & Output 09/08/20 09/09/20 09/10/20 09/11/20 23:59 23:59 23:59 23:59 Intake Total 3810 2970 5140 2409 Output Total 0748 2605 3245 2075 Balance 1535 -305 1895 334 Meds/Results Medications: Active Medications Generic Name Dose Route Start Last Admin Trade Name Freq PRN Reason Stop Dose Admin Albuterol 1 puff 09/11/20 08:00 09/11/20 10:10 Albuterol Sulfate (*Sp) Aerosol 1 Puff INHALATION 1 puff Q6HRT SARA Administration Benzocaine 1 lozenge 09/02/20 07:41 Benzocaine/Menthol (*Bkc) 18 Ea Lozenge PO PRN PRN Sore Throat Calcium Carbonate 200 mg 09/10/20 08:53 09/11/20 11:46 Calcium Carbonate (Tums) 500 Mg (200 Mg Elemental) PO 200 mg Q4HR PRN Administration Indigestion Diltiazem HCl 360 mg 09/06/20 09:00 09/11/20 08:57 Diltiazem Hcl Cd 180 Mg Cap.Er.24h PO 360 mg QAM SARA Administration Enoxaparin Sodium 95 mg 09/09/20 11:50 09/11/20 08:57 Enoxaparin 100 Mg/Ml Syringe SUB-Q 95 mg Q12HR SARA Administration Fluticasone Propionate 2 puff 09/05/20 20:00 09/11/20 10:10 Fluticasone Prop 220 Mcg Inhaler 1 Puff INHALATION 2 puff Q12HRT SARA Administration Hydromorphone HCl 1 mg 09/02/20 02:48 09/04/20 07:46 Hydromorphone Hcl Inj (*Crx) 1 Mg/Ml Syr IV PUSH 1 mg Q3H PRN Administration Severe pain rated 7-10 Lorazepam 0.5 mg 09/08/20 14:40 Lorazepam Inj (*Crx) 2 Mg/Ml Vial IV PUSH Q6H PRN Anxiety Losartan Potassium 100 mg 09/06/20 09:00 09/11/20 08:57 Losartan Potassium 100 Mg Tablet PO 100 mg DAILY SARA Administration Melatonin 5 mg 09/03/20 21:00 09/10/20 20:17 Melatonin 5 Mg Tablet PO 5 mg HS SARA Administration Metoclopramide HCl 10 mg 09/06/20 18:00 09/11/20 11:46 Metoclopramide Hcl Inj 10 Mg/2 Ml Vial IV PUSH 10 mg Q6HR SARA Administration Montelukast Sodium 10 mg 09/06/20 09:00 09/11/20 08:57 Montelukast Sodium 10 Mg Tablet PO 10 mg DAILY SARA Administration Ondansetron HCl 4 mg 09/01/20 19:13 09/08/20 05:03 Ondansetron Inj 4 Mg/2 Ml Vial IV PUSH 4 mg Q6H PRN Administration Nausea And Vomiting Pantoprazole Sodium 40 mg
--- NOTE | 2020-09-11 14:11 | WPDUROPN2 ---
Progress Note: A&P Assessment and Plan (1) Cancer of overlapping sites of bladder: Code(s): C67.8 - Malignant neoplasm of overlapping sites of bladder Status: Acute Assessment and Plan: - reg diet - ambulate - anticoagulation for PE per hospitalist - Cr improved to 1.[address] improved to 15.4. CT yesterday shows mild B hydro with migration of R stent and expulsion of L stent. Will check with [facility] tomorrow about timing of stent removal. - anticipate discharge tomorrow (2) Rectum injury: Code(s): S36.60XA - Unspecified injury of rectum, initial encounter Status: Acute Assessment and Plan: tolerating reg diet with good colostomy output gen surgery is following Subjective Subjective Date/Time Seen: 09/11/20 14:11 Doing well. Tolerating reg diet. Good colostomy output. Ambulating well. Review of Systems Constitutional: Constitutional: Reports as per HPI Respiratory: Respiratory: Reports no additional respiratory complaints Gastrointestinal: Gastrointestinal: Reports no additional gastrointestinal complaints Genitourinary: Genitourinary: Reports no additional male genitourinary complaints Exam Const: General: cooperative, healthy appearing and comfortable Resp: Effort & Inspection: normal respiratory effort GI: GI Palp: No abdominal tenderness and Yes Soft to palpation Other: main incision is intact with no erythema; there is minimal serosanginous drainage from the inferior aspect but no evidence of infection. Other incision sites are c/d/i other than drainage from prior drain site. Colostomy and ileoconduit stomas are pink and patent. 2 stents seen in ileoconduit. Clear yellow urine. +stool in colostomy bag Objective Data Vital Signs Vital Signs: Vital Signs - 24 hr 09/10/20 19:03 09/10/20 20:00 09/10/20 20:03 Temperature 36.2 C L Pulse Rate 83 81 Respiratory Rate 20 16 Blood Pressure 148/60 H Pulse Oximetry 93 100 97 09/11/20 05:35 09/11/20 08:06 09/11/20 08:43 Temperature 36.5 C Pulse Rate 86 Respiratory Rate 18 Blood Pressure 156/75 H Pulse Oximetry 95 92 95 Intake/Output Intake/Output: Intake & Output 09/08/20 09/09/20 09/10/20 09/11/20 23:59 23:59 23:59 23:59 Intake Total 3810 2970 5140 2649 Output Total 0865 6185 8284 3187 Balance 1535 -305 1895 574 Meds/Results Medications: Active Medications Generic Name Dose Route Start Last Admin Trade Name Freq PRN Reason Stop Dose Admin Albuterol 1 puff 09/11/20 08:00 09/11/20 13:56 Albuterol Sulfate (*Sp) Aerosol 1 Puff INHALATION 1 puff Q6HRT SARA Administration Benzocaine 1 lozenge 09/02/20 07:41 Benzocaine/Menthol (*Bkc) 18 Ea Lozenge PO PRN PRN Sore Throat Calcium Carbonate 200 mg 09/10/20 08:53 09/11/20 11:46 Calcium Carbonate (Tums) 500 Mg (200 Mg Elemental) PO 200 mg Q4HR PRN Administration Indigestion Diltiazem HCl 360 mg 09/06/20 09:00 09/11/20 08:57 Diltiazem Hcl Cd 180 Mg Cap.Er.24h PO 360 mg QAM SARA Administration Enoxaparin Sodium 95 mg 09/09/20 11:50 09/11/20 08:57 Enoxaparin 100 Mg/Ml Syringe SUB-Q 95 mg Q12HR SARA Administration Fluticasone Propionate 2 puff 09/05/20 20:00 09/11/20 10:10 Fluticasone Prop 220 Mcg Inhaler 1 Puff INHALATION 2 puff Q12HRT SARA Administration Hydromorphone HCl 1 mg 09/02/20 02:48 09/04/20 07:46 Hydromorphone Hcl Inj (*Crx) 1 Mg/Ml Syr IV PUSH 1 mg Q3H PRN Administration Severe pain rated 7-10 Lorazepam 0.5 mg 09/08/20 14:40 Lorazepam Inj (*Crx) 2 Mg/Ml Vial IV PUSH Q6H PRN Anxiety Losartan Potassium 100 mg 09/06/20 09:00 09/11/20 08:57 Losartan Potassium 100 Mg Tablet PO 100 mg DAILY SARA Administration Melatonin 5 mg 09/03/20 21:00 09/10/20 20:17 Melatonin 5 Mg Tablet PO 5 mg HS SARA Administration Metoclopramide HCl 10 mg 09/06/20 18:00 09/11/20 11:46 Metoclopramide Hcl Inj 10 Mg/2 Ml Vi
--- NOTE | 2020-09-11 15:47 | PM.IMPN ---
Progress Note: A&P Assessment and Plan (1) Hypoxic: Code(s): R09.02 - Hypoxemia Status: Acute Assessment and Plan: the patient currently is on RA and saturating well. The patient has been using his inhalers. encouraged the patient to use his incentive spirometer. Continue to monitor for any signs and symptoms of pneumonia . CTA revealed no infiltrates but did reveal right pulmonary artery emboli. Discussed with urology and full anticoagulation resumed with Lovenox mg per kg Q 12 09/09. patient had been on Eliquis preoperatively and will resume that 09/12 echocardiogram moderate pulmonary hypertension estimated at 50 but normal size and function of right ventricle suggesting no strain (2) Rectum injury: Code(s): S36.60XA - Unspecified injury of rectum, initial encounter Status: Acute Assessment and Plan: as per surgery. colostomy (3) Asthma: Code(s): J45.909 - Unspecified asthma, uncomplicated Status: Chronic Assessment and Plan: Continue with Asmanex and unchanged his rescue inhaler to around the clock. low dose steroids initially but discontinued with subsiding of wheezing and PE found on CT (4) CKD (chronic kidney disease) stage 3, GFR 30-59 ml/min: Onset Date: Unknown Code(s): N18.3 - Chronic kidney disease, stage 3 (moderate) Status: Chronic Assessment and Plan: Patient's GFR is greater than 60 at this time. creatinine 1.3 stable (5) Anxiety: Code(s): F41.9 - Anxiety disorder, unspecified Status: Chronic Assessment and Plan: According to the the patient becomes anxious at times and was requesting his Ativan. I explained that he had some confusion in the room probably holding off on his Ativan because the confusion. However the patient may have his Ativan if he becomes too restless. (6) Essential (primary) hypertension: Code(s): I10 - Essential (primary) hypertension Status: Chronic Assessment and Plan: Patient is taking diltiazem and losartan blood pressure well controlled (7) Bladder cancer: Onset Date: ~03/2020 Code(s): C67.9 - Malignant neoplasm of bladder, unspecified Status: Acute Assessment and Plan: Care as per Urology. status post radical cystectomy with ileal conduit Subjective Date/time seen: 09/11/20 15:47 Interval history: date of visit 09/11. 80-year-old hypertensive male with previous history of DVT underwent radical cystectomy and colostomy for perforated sigmoid developed increasing shortness breath and mild hypoxia . Has history of asthma and had had ileus, it was thought this could be the etiology. CTA though revealed right pulmonary artery PE with possible right heart strain. Still some sob but better. Up sitting in chair Exam Narrative: Exam Narrative: NARD sitting in chair Blood pressure 140/72 pulse is 86 and regular saturating 96% on RA respirations 20 per minute and afebrile lungs faint crackle R post base CV regular rate rhythm no murmurs abdomen soft nontender ileo conduit and colostomy in place. bowel sounds are present and colostomy functioning extremities some edema edema both legs neuro alert pleasant cooperative Objective Data Vital Signs Vital Signs: Vital Signs - 24 hr 09/10/20 19:03 09/10/20 20:00 09/10/20 20:03 Temperature 36.2 C L Pulse Rate 83 81 Respiratory Rate 20 16 Blood Pressure 148/60 H Pulse Oximetry 93 100 97 09/11/20 05:35 09/11/20 08:06 09/11/20 08:43 Temperature 36.5 C Pulse Rate 86 Respiratory Rate 18 Blood Pressure 156/75 H Pulse Oximetry 95 92 95 09/11/20 14:00 Temperature 36.7 C Pulse Rate 88 Respiratory Rate 20 Blood Pressure 140/72 Pulse Oximetry 96 Intake/Output Intake/Output: Intake & Output 09/08/20 09/09/20 09/10/20 09/11/20 23:59 23:59 23:59 23:59 Intake Total 3810 2970 5140 2649 Output Total 5752 8783 1255 2072 Balance 1535
[2020-09-11] MEDS: MELATONIN 5 MG TABLET PO (20:56)
[2020-09-12] MEDS: METOCLOPRAMIDE HCL INJ 10 MG/2 ML VIAL IV PUSH ×2 (00:32→06:14)
[2020-09-12] MEDS: ALBUTEROL SULFATE (*SP) AEROSOL 1 PUFF INHALATION ×2 (02:25→10:29)
[2020-09-12 02:27] VITALS: PULSE 92; RESP 20; O2SAT 92
[2020-09-12 05:42] VITALS: BP 118/64; PULSE 96; RESP 14; TEMP 36; O2SAT 96
[2020-09-12 06:24] LABS: Basophils Percent Auto 0.1 % (0.2-1.2); Eosinophils Percent Auto 0.1 % (0-4.4); Hematocrit 31.1 % (42.0-52.0); Hemoglobin 9.7 g/dL (14.0-18.0); Immature Granulocyte Absolute 0.09 K/mm3 (0.00-0.031); Immature Granulocyte Percent A 0.6 % (0-0.5); Lymphocytes Absolute Auto 1.74 K/mm3 (0.9-3.2); Lymphocytes Percent Auto 12.5 % (18.3-44.2); Mean Corpuscular HGB Conc 31.2 g/dl (32-36); Mean Corpuscular Hemoglobin 28.4 pg (26-34); Mean Corpuscular Volume 91.2 fl (80-100); Mean Platelet Volume 10.6 fl (7.4-10.4); Monocytes Absolute Auto 1.1 K/mm3 (0.1-0.6); Monocytes Percent Auto 7.9 % (2.6-8.5); Neutrophils Percent Auto 78.8 % (45.5-73.1); Nucleated Red Blood Cells Perc 0.2 % (0.0-0.2); Platelet Count Result 254 k/mm3 (150-375); Red Blood Count 3.41 M/mm3 (4.6-6.20); Red Cell Distribution Width 15.7 % (11.5-14.5); White Blood Count 13.9 K/mm3 (4.5-10.0)
[2020-09-12 06:35] LABS: Anion Gap 6 mmol/L (8-16); Blood Urea Nitrogen 23 mg/dL (9-20); Carbon Dioxide 24 mmol/L (22-30); Chloride 110 mmol/L (98-107); Estimated CRCL calculation 61 ml/min; Estimated Glomerular Filt Rate > 60; Glucose 130 mg/dL (75-110); Potassium 3.6 mmol/L (3.4-5.0); Sodium 140 mmol/L (137-145)
--- NOTE | 2020-09-12 06:50 | WPDUROPN2 ---
Progress Note: A&P Assessment and Plan (1) Cancer of overlapping sites of bladder: Code(s): C67.8 - Malignant neoplasm of overlapping sites of bladder Status: Acute (2) Rectum injury: Code(s): S36.60XA - Unspecified injury of rectum, initial encounter Status: Acute Assessment and Plan: Tolerating diet and good colostomy output. Ileal-conduit stents still attached at fascia with Chromic - will wait for them to detach/fall out spontaneously. Serum WBC improving since anticoag. for PE. Serum creat. 1.0 today. Pt. anxious for discharge - I'm comfortable with that with f/u in 1-week. Subjective Subjective Date/Time Seen: 09/12/20 06:50 Comfortable, tolerating diet, denies SOB. Anxious for discharge. Review of Systems Cardiovascular: Cardiovascular: Denies chest pain, Denies lightheadedness, Denies palpitations and Denies dyspnea Respiratory: Respiratory: Denies dyspnea Gastrointestinal: Gastrointestinal: Denies diarrhea, Denies nausea and Denies vomiting Genitourinary: Genitourinary: Denies hematuria and Denies dysuria Endocrine: Endocrine: Denies palpitations Exam Narrative: Exam Narrative: a&o, pleasant abd stomas healthy; stents in place, FANTASMA minimal output; no flatus yet; left sided small incision with serous drainage, no purulence Const: General: cooperative, healthy appearing, comfortable and no acute distress Orientation/consciousness: patient oriented x3 HENMT: Head: normal to inspection Ears: hearing grossly normal bilaterally Eyes: General: appearance normal, both eyes and all related structures Cornea: corneas normal Pupils: Equal, round and reactive pupils present EOM: EOMs intact bilaterally Chest: Chest palpation & inspection: normal inspection of the chest Resp: Effort & Inspection: normal respiratory effort Auscultation: clear to auscultation bilaterally Cardio: Rate: regular rate GI: Inspection: normal to inspection (ileostomy RLQ / colostomy LLQ - pink/viable), non-distended and incision (colostomy are pink and draining well. ) Auscultation: normal bowel sounds and Hypoactive bowel sounds present Other: main incision is intact with no erythema; there is minimal serosanginous drainage from the inferior aspect but no evidence of infection. Other incision sites are c/d/i other than drainage from prior drain site. Colostomy and ileoconduit stomas are pink and patent. 2 stents seen in ileoconduit. Clear yellow urine. +stool in colostomy bag : Male General Exam: Yes other (serous oozing from urethra) Urinary Catheter: Urinary Catheter: patent and draining and urine clear Skin: General skin exam: normal color Neuro: General: patient oriented x3 Cranial nerves: Yes Equal, round and reactive pupils present Extrem: General: normal to inspection, no edema and no pedal edema Objective Data Vital Signs Vital Signs: Vital Signs - 24 hr 09/11/20 08:06 09/11/20 08:43 09/11/20 14:00 Temperature 98.1 F Pulse Rate 88 Respiratory Rate 20 Blood Pressure 140/72 Pulse Oximetry 92 95 96 09/11/20 20:21 09/11/20 20:22 09/11/20 20:27 Temperature 98.5 F Pulse Rate 91 89 Respiratory Rate 20 14 Blood Pressure 139/68 Pulse Oximetry 92 95 09/12/20 02:27 09/12/20 05:42 Temperature 96.8 F L Pulse Rate 92 96 Respiratory Rate 20 14 Blood Pressure 118/64 Pulse Oximetry 92 96 Intake/Output Intake/Output: Intake & Output 09/09/20 09/10/20 09/11/20 09/12/20 23:59 23:59 23:59 23:59 Intake Total 2970 5140 3679 400 Output Total 3275 3245 4875 600 Balance -305 1895 -1196 -200 Meds/Results Medications: Active Medications Generic Name Dose Route Start Last Admin Trade Name Freq PRN Reason Stop Dose Admin Albuterol 1 puff 09/11/20 08:00 09/12/20 02:25 Albuterol Sulfate (*Sp) Aerosol 1 Puff INHALATION 1 puff Q6HRT SARA Administration Benzocaine 1 lozenge 09/02/20 07:41 Benzocaine/Menthol (*Bkc) 18 Ea Lozen
[2020-09-12] MEDS: ENOXAPARIN 100 MG/ML SYRINGE 95 MG SUB-Q (09:11)
[2020-09-12] MEDS: PANTOPRAZOLE SODIUM IV 40 MG VIAL IV PUSH (09:12)
[2020-09-12] MEDS: LOSARTAN POTASSIUM 100 MG TABLET PO (09:12)
[2020-09-12] MEDS: MONTELUKAST SODIUM 10 MG TABLET PO (09:12)
[2020-09-12] MEDS: dilTIAZem HCL CD 180 MG CAP.ER.24H 360 MG PO (09:12)
--- NOTE | 2020-09-12 09:40 | PM.PNGS ---
Progress Note: A&P Assessment and Plan (1) Rectum injury: Code(s): S36.60XA - Unspecified injury of rectum, initial encounter Status: Acute Assessment and Plan: Continues to improve. Ileus resolved, tolerating diet with good ostomy output. Okay to discharge from surgical standpoint. Follow-up with Dr. Quezada in the office in 1 week. Discussed discharge and wound instructions. Patient and have received ostomy teaching twice now with no further questions. (2) Leukocytosis: Code(s): D72.829 - Elevated white blood cell count, unspecified Status: Acute Assessment and Plan: Continues to trend down, afebrile. (3) Pulmonary emboli: Code(s): I26.99 - Other pulmonary embolism without acute cor pulmonale Status: Acute Assessment and Plan: Anticoagulated on therapeutic-dosed Lovenox. Management per Hospitalist. Additional Plan Discussed plan of care with Dr. Quezada. Subjective Subjective Date/Time Seen: 09/12/20 09:40 Post Op day: 11 Interval history: Patient feeling better today. Denies abdominal pain, just mild tenderness with activity. Tolerating his diet without nausea, vomiting, or bloating. +colostomy output. No other complaints at this time. Review of Systems Review of Systems: All systems reviewed & are unremarkable except as noted in HPI and below Constitutional: Constitutional: Denies chills, Denies fever(s) and Denies headache(s) Cardiovascular: Cardiovascular: Denies chest pain, Denies pedal edema and Denies leg edema Respiratory: Respiratory: Denies cough, Denies dyspnea and Denies wheezing Gastrointestinal: Gastrointestinal: Reports as per HPI and Reports no additional gastrointestinal complaints Exam Const: General: comfortable, no acute distress, alert and awake Orientation/consciousness: patient oriented x3 GI: Inspection: non-distended GI Palp: Yes Soft to palpation, No Tenderness to palpation present (GI), No Guarding due to palpation present (GI) and No Hernia present Auscultation: normal bowel sounds Other: RLQ ileostomy with clear yellow urine. LLQ colostomy with pink/moist stoma and +stool output in bag. Midline incision with minimal cloudy drainage at the base, no erythema or warmth, dalton intact. LLQ trochar incision with serous drainage, no signs of infection. Neuro: General: patient oriented x3 and moves all extremities Cranial nerves: Yes CN's II-XII intact bilaterally Speech: normal speech Extrem: General: no calf tenderness and no edema Psych: Mental Status: mental status grossly normal Attitude: cooperative Thought process: Normal thought process present Thought content: Yes Normal thought content present Objective Data Vital Signs Vital Signs: Vital Signs - 24 hr 09/11/20 14:00 09/11/20 20:21 09/11/20 20:22 Temperature 98.1 F Pulse Rate 88 91 Respiratory Rate 20 20 Blood Pressure 140/72 Pulse Oximetry 96 92 09/11/20 20:27 09/12/20 02:27 09/12/20 05:42 Temperature 98.5 F 96.8 F L Pulse Rate 89 92 96 Respiratory Rate 14 20 14 Blood Pressure 139/68 118/64 Pulse Oximetry 95 92 96 Intake/Output Intake/Output: Intake & Output 09/09/20 09/10/20 09/11/20 09/12/20 23:59 23:59 23:59 23:59 Intake Total 2970 5140 3679 640 Output Total 3275 3245 4875 600 Balance -305 1895 -1196 40 Meds/Results Medications: Active Medications Generic Name Dose Route Start Last Admin Trade Name Freq PRN Reason Stop Dose Admin Albuterol 1 puff 09/11/20 08:00 09/12/20 02:25 Albuterol Sulfate (*Sp) Aerosol 1 Puff INHALATION 1 puff Q6HRT SARA Administration Benzocaine 1 lozenge 09/02/20 07:41 Benzocaine/Menthol (*Bkc) 18 Ea Lozenge PO PRN PRN Sore Throat Calcium Carbonate 200 mg 09/10/20 08:53 09/11/20 11:46 Calcium Carbonate (Tums) 500 Mg (200 Mg Elemental) PO 200 mg Q4HR PRN Administration Indigestion Diltiazem HCl 360 mg 09/06/20 09:00 09/12/20 09:12 Diltiazem H
--- NOTE | 2020-09-12 10:15 | PM.PNGS ---
Subjective Subjective Date/Time Seen: 09/12/20 10:15 feels bett Objective Data Vital Signs Vital Signs: Vital Signs - 24 hr 09/11/20 14:00 09/11/20 20:21 09/11/20 20:22 Temperature 36.7 C Pulse Rate 88 91 Respiratory Rate 20 20 Blood Pressure 140/72 Pulse Oximetry 96 92 09/11/20 20:27 09/12/20 02:27 09/12/20 05:42 Temperature 36.9 C 36.0 C L Pulse Rate 89 92 96 Respiratory Rate 14 20 14 Blood Pressure 139/68 118/64 Pulse Oximetry 95 92 96 Intake/Output Intake/Output: Intake & Output 09/09/20 09/10/20 09/11/20 09/12/20 23:59 23:59 23:59 23:59 Intake Total 2970 5140 3679 640 Output Total 3275 3245 4875 800 Balance -305 9505 -1196 -160 Meds/Results Medications: Active Medications Generic Name Dose Route Start Last Admin Trade Name Freq PRN Reason Stop Dose Admin Albuterol 1 puff 09/11/20 08:00 09/12/20 02:25 Albuterol Sulfate (*Sp) Aerosol 1 Puff INHALATION 1 puff Q6HRT SARA Administration Benzocaine 1 lozenge 09/02/20 07:41 Benzocaine/Menthol (*Bkc) 18 Ea Lozenge PO PRN PRN Sore Throat Calcium Carbonate 200 mg 09/10/20 08:53 09/11/20 11:46 Calcium Carbonate (Tums) 500 Mg (200 Mg Elemental) PO 200 mg Q4HR PRN Administration Indigestion Diltiazem HCl 360 mg 09/06/20 09:00 09/12/20 09:12 Diltiazem Hcl Cd 180 Mg Cap.Er.24h PO 360 mg QAM SARA Administration Enoxaparin Sodium 95 mg 09/09/20 11:50 09/12/20 09:11 Enoxaparin 100 Mg/Ml Syringe SUB-Q 95 mg Q12HR SARA Administration Fluticasone Propionate 2 puff 09/05/20 20:00 09/11/20 20:20 Fluticasone Prop 220 Mcg Inhaler 1 Puff INHALATION 2 puff Q12HRT SARA Administration Lorazepam 0.5 mg 09/08/20 14:40 Lorazepam Inj (*Crx) 2 Mg/Ml Vial IV PUSH Q6H PRN Anxiety Losartan Potassium 100 mg 09/06/20 09:00 09/12/20 09:12 Losartan Potassium 100 Mg Tablet PO 100 mg DAILY SARA Administration Melatonin 5 mg 09/03/20 21:00 09/11/20 20:56 Melatonin 5 Mg Tablet PO 5 mg HS SARA Administration Metoclopramide HCl 10 mg 09/06/20 18:00 09/12/20 06:14 Metoclopramide Hcl Inj 10 Mg/2 Ml Vial IV PUSH 10 mg Q6HR SARA Administration Montelukast Sodium 10 mg 09/06/20 09:00 09/12/20 09:12 Montelukast Sodium 10 Mg Tablet PO 10 mg DAILY SARA Administration Ondansetron HCl 4 mg 09/01/20 19:13 09/08/20 05:03 Ondansetron Inj 4 Mg/2 Ml Vial IV PUSH 4 mg Q6H PRN Administration Nausea And Vomiting Pantoprazole Sodium 40 mg 09/03/20 09:00 09/12/20 09:12 Pantoprazole Sodium Iv 40 Mg Vial IV PUSH 40 mg Q12HR SARA Administration Phenol 1 spray 09/02/20 07:41 09/02/20 08:03 Phenol/Sod Pheno [facility] [place] (*Bkc) MUCOUS MEM 1 spray PRN PRN Administration Sore Throat Radiology Results: ITS Impressions Abdomen X-Ray 09/07/20 07:26 IMPRESSION: 1. Unchanged dilated small bowel consistent with ileus versus obstruction. 2. Pelvic drain removal. Small Bowel X-Ray 09/08/20 14:33 IMPRESSION: 1. Dilated bowel with slow transit time, consistent with ileus. Venous Doppler Study 09/08/20 17:06 IMPRESSION: 1. Deep vein thrombosis involving left femoral vein with interval improvement in distribution. 2. Large right-sided Peterson's cyst with loose body. Chest CTA 09/09/20 08:02 IMPRESSION: 1. Central pulmonary emboli in the right main pulmonary artery extending to the lower lobe with some suggestion of right heart strain. These findings were communicated to [facility] at 0218 hours on 09/09/2020 by the [employer] Radiologist. 2. Airspace opacities of the lung bases, consistent with atelectasis versus pneumonia. Abdomen/Pelvis CT 09/10/20 15:27 IMPRESSION: 1. Mild bilateral hydronephrosis and hydroureter. The right-sided stent extends to the mid ureter. The left-sided stent is retracted into the ileal conduit. A 2 mm density at the attachment of the left ureter to the ileal conduit may be
--- NOTE | 2020-09-12 17:54 | PM.DS ---
DS: Admitting Diagnosis Admitting Diagnosis Admitting Diagnosis: Bladder CA, Prostate CA DS: Discharge Diagnosis Discharge Diagnosis (1) Rectum injury: Code(s): S36.60XA - Unspecified injury of rectum, initial encounter Status: Acute (2) Cancer of overlapping sites of bladder: Code(s): C67.8 - Malignant neoplasm of overlapping sites of bladder Status: Acute (3) CKD (chronic kidney disease) stage 3, GFR 30-59 ml/min: Onset Date: Unknown Code(s): N18.3 - Chronic kidney disease, stage 3 (moderate) Status: Chronic (4) Pulmonary emboli: Code(s): I26.99 - Other pulmonary embolism without acute cor pulmonale Status: Acute DS: Summary Time Spent with Patient Time attestation: Total time spent providing and/or coordinating discharge services: 30min This patient had undergone a outpatient bowel prep and was admitted on the morning of his anticipated radical cystectomy. He He had previously undergone a radical prostatectomy by adjuvant pelvic radiation and, in part as a result, this cholecystectomy was complicated by a intraoperative rectal injury that was managed with a diverting colostomy by Dr. Quezada. his postoperative course was most notable for a very prolonged adynamic ileus. He had both a CT scan and pelvis and small bowel follow-through studies that showed no evidence of a bowel obstruction. Ultimately he did respond to conservative management at the time of discharge was tolerating a regular diet and having regular stool output. Additionally, during the course of neoadjuvant chemotherapy and developed a lower extremity DVT approximately 6 months prior. During the course of this admission he developed some shortness of breath and a CT of the chest demonstrated a small embolus and right pulmonary artery. This was managed with Lovenox followed by initiation of Eliquis. Time of discharge he was not demonstrated any a significant shortness of breath or hypoxia and was tolerating a regular diet. A cardiac echocardiogram and demonstrated normal cardiac function without significant strain. Was discharged with home health care to assist with his ostomies. His indwelling ureteral stents were in place at the time of discharge. Exam Const: General: no acute distress Resp: Effort & Inspection: normal respiratory effort GI: Inspection: non-distended GI Palp: No abdominal tenderness and No Guarding due to palpation present (GI) Auscultation: normal bowel sounds DS: Data Data Completed and Pending Completed studies during hospitalization: Pending at discharge 09/01/20 09:01 Surgical [PTH] Routine Labs on day of discharge: Labs from last 24 hours 09/12/20 09/12/20 05:38 05:38 WBC 13.9 H RBC 3.41 L Hgb 9.7 L Hct 31.1 L MCV 91.2 MCH 28.4 MCHC 31.2 L RDW 15.7 H Plt Count 254 MPV 10.6 H Immature Gran % (Auto) 0.6 H Neut % (Auto) 78.8 H Lymph % (Auto) 12.5 L [place] % (Auto) 7.9 Eos % (Auto) 0.1 Baso % (Auto) 0.1 L Lymph # (Auto) 1.74 [place] # (Auto) 1.1 H Eos # (Auto) 0.0 Baso # (Auto) 0.0 Abs Immat Gran (auto) 0.09 H Absolute Neuts (auto) 11.0 H Absolute Nucleated RBC 0.0 Nucleated RBC % 0.2 Sodium 140 Potassium 3.6 Chloride 110 H Carbon Dioxide 24 Anion Gap 6 L BUN 23 H Creatinine 1.00 Estim Creat Clear Calc 61 Estimated GFR > 60 Glucose 130 H Calcium 9.0 Discharge Plan Discharge Attending physician on discharge: Melchor Maher Consulting providers: Vargas Marquez Discharging Clinician: Melchor Maher Anticipated Discharge Date/Time: 09/12/20 12:05 Patient Disposition: Home Health Service Activity: march shower Diet: as tolerated Wound Care Instructions: incision open to air Discharge Instructions: 1. Per Care Coordination, patient to discharge with [facility] ( [phone]) for nursing and ostomy management and teaching. 2. [place]
--- NOTE | 2020-09-12 18:13 | PM.IMPN ---
Progress Note: A&P Assessment and Plan (1) Hypoxic: Code(s): R09.02 - Hypoxemia Status: Acute Assessment and Plan: the patient currently is on RA and saturating well. The patient has been using his inhalers. encouraged the patient to use his incentive spirometer. . CTA revealed no infiltrates but did reveal right pulmonary artery emboli. Discussed with urology and full anticoagulation resumed with Lovenox mg per kg Q 12 09/09. patient had been on Eliquis preoperatively and will resume today 09/12 at d/c with 10 bid for 7 days then 5 bid echocardiogram moderate pulmonary hypertension estimated at 50 but normal size and function of right ventricle suggesting no strain stable to be discharged home (2) Rectum injury: Code(s): S36.60XA - Unspecified injury of rectum, initial encounter Status: Acute Assessment and Plan: as per surgery. colostomy (3) Asthma: Code(s): J45.909 - Unspecified asthma, uncomplicated Status: Chronic Assessment and Plan: Continue with Asmanex and unchanged his rescue inhaler to around the clock. low dose steroids initially but discontinued with subsiding of wheezing and PE found on CT (4) CKD (chronic kidney disease) stage 3, GFR 30-59 ml/min: Onset Date: Unknown Code(s): N18.3 - Chronic kidney disease, stage 3 (moderate) Status: Chronic Assessment and Plan: Patient's GFR is greater than 60 at this time. creatinine 1.0 at d/c (5) Anxiety: Code(s): F41.9 - Anxiety disorder, unspecified Status: Chronic Assessment and Plan: continue p.r.n. lorazepam (6) Essential (primary) hypertension: Code(s): I10 - Essential (primary) hypertension Status: Chronic Assessment and Plan: Patient is taking diltiazem and losartan blood pressure well controlled (7) Bladder cancer: Onset Date: ~03/2020 Code(s): C67.9 - Malignant neoplasm of bladder, unspecified Status: Acute Assessment and Plan: Care as per Urology. status post radical cystectomy with ileal conduit Subjective Date/time seen: 09/12/20 18:13 Interval history: date of visit 09/12 80-year-old hypertensive male with previous history of DVT underwent radical cystectomy and colostomy for perforated sigmoid developed increasing shortness breath and mild hypoxia . Has history of asthma and had had ileus, it was thought this could be the etiology. CTA though revealed right pulmonary artery PE with possible right heart strain. SOB improved Up sitting in chair Exam Narrative: Exam Narrative: NARD sitting in chair Blood pressure 118/64 pulse is 92 and regular saturating 96% on RA respirations 16 per minute and afebrile lungs clear today CV regular rate rhythm no murmurs abdomen soft nontender ileo conduit and colostomy in place. bowel sounds are present and colostomy functioning extremities some edema edema both legs though decreased neuro alert pleasant cooperative Objective Data Vital Signs Vital Signs: Vital Signs - 24 hr 09/11/20 20:21 09/11/20 20:22 09/11/20 20:27 Temperature 36.9 C Pulse Rate 91 89 Respiratory Rate 20 14 Blood Pressure 139/68 Pulse Oximetry 92 95 09/12/20 02:27 09/12/20 05:42 Temperature 36.0 C L Pulse Rate 92 96 Respiratory Rate 20 14 Blood Pressure 118/64 Pulse Oximetry 92 96 Intake/Output Intake/Output: Intake & Output 09/09/20 09/10/20 09/11/20 09/12/20 23:59 23:59 23:59 23:59 Intake Total 2970 5140 3679 640 Output Total 3275 3245 4875 800 Balance -305 6005 -0716 160 Meds/Results Radiology Results: ITS Impressions Abdomen X-Ray 09/07/20 07:26 IMPRESSION: 1. Unchanged dilated small bowel consistent with ileus versus obstruction. 2. Pelvic drain removal. Small Bowel X-Ray 09/08/20 14:33 IMPRESSION: 1. Dilated bowel with slow transit time, consistent with ileus. Venous Doppler Study 09/08/20 17:06
== END 2020-09-12 12:27 | disposition home health service (06) | DRG 653 ==
LOC: ANH3MED 09-02 04:19
PROVIDERS: Nurse Practitioner; Admitting Provider Urology; PCP Family Medicine; Visit Provider Internal Medicine
PROC: 0TTB4ZZ Resection of Bladder, Percutaneous Endoscopic Approach (ICD-10-PCS; CPT 51590; principal; 2020-09-01 07:30)
DX: C67.8 Malignant neoplasm of overlapping sites of bladder (principal); I26.99 Other pulmonary embolism without acute cor pulmonale; J98.11 Atelectasis; K91.89 Other postprocedural complications and disorders of digestive system; K56.7 Ileus, unspecified; S36.533A Laceration of sigmoid colon, initial encounter; K91.81 Other intraoperative complications of digestive system; Z85.46 Personal history of malignant neoplasm of prostate; Y83.8 Other surgical procedures as the cause of abnormal reaction of the patient, or of later complication, without mention of misadventure at the time of the procedure; Y92.230 Patient room in hospital as the place of occurrence of the external cause; Y93.9 Activity, unspecified; Y99.9 Unspecified external cause status; Z86.718 Personal history of other venous thrombosis and embolism; R41.0 Disorientation, unspecified; I51.9 Heart disease, unspecified; N28.1 Cyst of kidney, acquired; I12.9 Hypertensive chronic kidney disease with stage 1 through stage 4 chronic kidney disease, or unspecified chronic kidney disease; N18.30 Chronic kidney disease, stage 3 unspecified; J45.30 Mild persistent asthma, uncomplicated; M19.011 Primary osteoarthritis, right shoulder; R32 Unspecified urinary incontinence; M19.012 Primary osteoarthritis, left shoulder; Z80.8 Family history of malignant neoplasm of other organs or systems; Z87.891 Personal history of nicotine dependence; Z79.82 Long term (current) use of aspirin; Z92.3 Personal history of irradiation
CPT/HCPCS: 36415; 36600; 71045; 71046; 71275; 74018; 74176; 74177; 74250; 80048; 82805; 85014; 85018; 85025; 85027; 87040; 87635; 88305; 88307; 88309; 88331; 93306; 93970; 94640; 97110; 97116; 97161; 97165; 97530; 97535; A9270; C2617; C9113; C9803; J0131; J1100; J1170; J1335; J1644; J1650; J1885; J1940; J2370; J2405; J2704; J2710; J2765; J2920; J3010; J7030; J7120; Q9967; Q9968; U0003

== ENCOUNTER 2020-11-21 07:52 | Outpatient (RCR) | payer MEDICARE, SELFPAY ==
[2020-09-23 15:49] VITALS: BMI 29.5
--- NOTE | 2020-10-24 14:57 | WPDWOUNDNOTE ---
Wound Care Note Date/Time: 10/24/20 14:57 Pt doing very well, reports wound seems to be healing well. Pt reports good ostomy fxn. Pt c some mucus discharge from rectum. Assessment and Plan Assessment and plan (1) Abdominal wound dehiscence: Code(s): T81.30XA - Disruption of wound, unspecified, initial encounter Status: Acute Assessment and Plan: healing well, cont local wound care, cont to encourage po intake, supplementation, f/u 1mo Review of Systems Review of Systems: All systems reviewed & are unremarkable except as noted in HPI and below Exam Const: General: cooperative, comfortable and no acute distress Resp: Effort & Inspection: normal respiratory effort Auscultation: clear to auscultation bilaterally Cardio: Rate: regular rate Rhythm: regular rhythm GI: Inspection: incision GI Palp: Yes Soft to palpation, No Tenderness to palpation present (GI) and No Guarding due to palpation present (GI) Other: 2.3x1x2 cm inferior portion of incision, no tunnels, good granulation
--- NOTE | 2020-11-21 15:18 | P.PNWOUND_ITS ---
Wound Care Note Date/Time: 11/21/20 15:18 Pt seen and examined. Reports wound has completely healed at this point. Pt denies any other issues, reports good urostomy and colostomy function. Pt is james diet and gaining wt and energy. Assessment and Plan Assessment and plan (1) Abdominal wound dehiscence: Code(s): T81.30XA - Disruption of wound, unspecified, initial encounter Status: Acute Assessment and Plan: well healed, discontinue wound care at this point (2) Rectum injury: Code(s): S36.60XA - Unspecified injury of rectum, initial encounter Status: Acute Assessment and Plan: will get gastrograffin enema thru rectal stump, plan for reversal (3) Bladder cancer: Onset Date: ~03/2020 Code(s): C67.9 - Malignant neoplasm of bladder, unspecified Status: Acute Assessment and Plan: s/p cystectomy, urostomy c good fxn Review of Systems Review of Systems: All systems reviewed & are unremarkable except as noted in HPI and below Exam Const: General: cooperative, comfortable and no acute distress Resp: Effort & Inspection: normal respiratory effort Auscultation: clear to auscultation bilaterally Cardio: Rate: regular rate Rhythm: regular rhythm GI: Inspection: normal to inspection and non-distended GI Palp: No abdominal tenderness, Yes Soft to palpation and No Tenderness to palpation prese nt (GI) Other: incision well healed, colostomy and urostomy +fxn
== END 2020-12-14 12:42 | disposition home or self-care (01) ==
LOC: ANHWOC 07:52
PROVIDERS: PCP Family Medicine; Visit Provider Surgery
DX: T81.31XD Disruption of external operation (surgical) wound, not elsewhere classified, subsequent encounter (principal); Z93.3 Colostomy status
CPT/HCPCS: 99212; A9270; G0463

== ENCOUNTER 2020-11-24 10:37 | Outpatient (CLI) | payer MEDICARE, SELFPAY ==
--- NOTE | ~2020-11-24 | XR_ITS ---
EXAMINATION: XR enema water soluble EXAM DATE: 11/24/2020 11:42 INDICATION: S36.60XA - Unspecified injury of rectum, initial encounter . Colostomy, Natalee's pouch. TECHNIQUE: Water-soluble enema was performed through ostomy tube. Dose reduction digital pulsed fluo roscopy was used at 4 frames per second with DAP 23 Gycm2. There is no prior study for comparison. FINDINGS: There is left lower quadrant colostomy. Mild descending and sigmoid colonic diverticulosis . There is no contrast extravasation or focal colonic stricture. Contrast did reach the cecum. Large left nephrolithiasis on the cma or lpn. IMPRESSION: Mild descending, sigmoid colonic diverticulosis. Reviewed, dictated and finalized at location A. ING ACTIVITIES SUPERVISOR
== END 2020-11-24 10:38 | disposition home or self-care (01) ==
PROVIDERS: PCP Family Medicine; Visit Provider Surgery
DX: S36.60XA Unspecified injury of rectum, initial encounter (principal); K57.30 Diverticulosis of large intestine without perforation or abscess without bleeding
CPT/HCPCS: 74270

== ENCOUNTER 2020-12-05 10:59 | Outpatient (CLI) | payer MEDICARE, SELFPAY ==
--- NOTE | ~2020-12-05 | XR_ITS ---
EXAMINATION: XR enema water soluble DATE: 12/05/2020 11:21 INDICATION: Sigmoid colon injury status post colostomy. TECHNIQUE: A hydraulic dredge operator radiograph was obtained. A catheter was inserted into the patient's rectum. Contra st was infused by gravity. Fluoroscopic spot images were obtained. Fluoroscopy exposure time was 0.1 minutes minutes. The total number of images was 8. COMPARISON: CT abdomen and pelvis 09/10/2020 FINDINGS: Contrast injected into the rectum immediately passes into the prostatic urethra. IMPRESSION: 1. 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 I called this result to Ms. Henderson in the of fice of Dr. Quezada on 12/05/20 at 11:30 AM. Reviewed, dictated and finalized at location A. CONDUCTOR DIES LOADER IMPRESSION: 1. 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 I called this result to Ms Christine Henderson in the office of Dr. Quezada on 12/05/20 at 11:30 AM.
== END 2020-12-05 11:00 | disposition home or self-care (01) ==
PROVIDERS: PCP Family Medicine; Visit Provider Surgery
DX: S36.60XA Unspecified injury of rectum, initial encounter (principal)
CPT/HCPCS: 99199

== ENCOUNTER 2021-04-14 12:58 | Outpatient (NON) | payer MEDICARE, SELFPAY ==
[2021-04-14 13:58] LABS: Add Urine Microscopic? YES; Appearance Urine Cloudy (Clear); Bacteria Urine 1+ /hpf; Bilirubin Urine Negative (Negative); Blood Urine 3+ (Negative); Color Urine Yellow (Yellow); Glucose Urine UA Negative (Negative); Ketones Urine Negative (Negative); Leukocyte Esterase Ur 3+ LEU/UL (NEGATIVE); Nitrate Urine Positive (Negative); Protein Urine 1+ mg/dL (Negative); RBC Urine 21-50 /hpf (0-2); Specific Grav Ur 1.009 (1.001-1.035); Urobilinogen Urine Negative mg/dL (<2.0); WBC Clumps Urine Present /HPF; WBC Urine >75 /hpf (0-3)
== END 2021-04-14 12:59 | disposition home or self-care (01) ==
PROVIDERS: PCP Family Medicine; Visit Provider Urology
DX: C61 Malignant neoplasm of prostate (principal); C67.8 Malignant neoplasm of overlapping sites of bladder; Z43.2 Encounter for attention to ileostomy; Z48.815 Encounter for surgical aftercare following surgery on the digestive system; N39.0 Urinary tract infection, site not specified
CPT/HCPCS: 81001; 87086; 87088

== ENCOUNTER 2021-05-02 10:15 | Outpatient (CLI) | payer MEDICARE, SELFPAY ==
[2021-05-02 10:47] LABS: Add Urine Microscopic? YES; Appearance Urine Cloudy (Clear); Bacteria Urine Trace /hpf; Bilirubin Urine Negative (Negative); Blood Urine 2+ (Negative); Color Urine Yellow (Yellow); Glucose Urine UA Negative (Negative); Ketones Urine Negative (Negative); Leukocyte Esterase Ur 3+ LEU/UL (Negative); Mucus Urine Rare /lpf; Nitrate Urine Positive (Negative); Protein Urine 1+ mg/dL (Negative); Specific Grav Ur 1.012 (1.001-1.035); Squamous Epithelial Cell Urine Rare /hpf (Few); Urobilinogen Urine Negative mg/dL (<2.0); WBC Urine >75 /hpf
== END 2021-05-02 10:16 | disposition home or self-care (01) ==
PROVIDERS: PCP Family Medicine; Visit Provider Family Medicine
DX: N39.0 Urinary tract infection, site not specified (principal)
CPT/HCPCS: 81001; 87086; 87088

== ENCOUNTER 2021-05-10 13:35 | Outpatient (CLI) | payer MEDICARE, SELFPAY ==
[2021-05-10 14:29] LABS: Add Urine Microscopic? YES; Appearance Urine Cloudy (Clear); Bacteria Urine Trace /hpf; Bilirubin Urine Negative (Negative); Blood Urine Negative (Negative); Budding Yeast Urine Present /hpf; Color Urine Yellow (Yellow); Glucose Urine UA Negative (Negative); Ketones Urine Negative (Negative); Leukocyte Esterase Ur 3+ LEU/UL (NEGATIVE); Mucus Urine Rare /lpf; Nitrate Urine Negative (Negative); Protein Urine 1+ mg/dL (Negative); Specific Grav Ur 1.011 (1.001-1.035); Squamous Epithelial Cell Urine Rare /hpf (Few); Urobilinogen Urine Negative mg/dL (<2.0); WBC Urine >75 /hpf (0-3)
== END 2021-05-10 13:36 | disposition home or self-care (01) ==
LOC: ANHLAB 13:40
PROVIDERS: PCP Family Medicine; Visit Provider Nurse Practitioner Family
DX: N39.0 Urinary tract infection, site not specified (principal)
CPT/HCPCS: 81001; 87086; 87088

== ENCOUNTER 2021-05-16 10:16 | Outpatient (CLI) | payer MEDICARE, SELFPAY ==
--- NOTE | ~2021-05-16 | CT_ITS ---
EXAMINATION: CT abdomen pelvis w con DATE: 05/16/2021 11:13 INDICATION: Malignant neoplasm of the urinary bladder TECHNIQUE: Computed tomography (CT) of the abdomen and pelvis was performed with 100 cc Omnipaque 350 intravenous contrast. Automated exposure control and iterative reconstruction technique were employe d. Exam dose: 782.44 mGy-cm total exam DLP. COMPARISON: 09/10/2020 CT abdomen pelvis FINDINGS: Moderate right pleural effusion. There is associated compressive atelectasis at the right l ower lobe. There is discoid atelectasis in the lower lobes and to a lesser extent lingula. Heart size is within normal range. Coronary artery atherosclerosis. Calcification of the descending t horacic and abdominal aorta. Prominent calcification at the origins of the renal arteries. Calcificat ions of the iliac and femoral arteries. No hepatic space-occupying mass lesion is evident. The gallbladder and bile ducts and pancreatic duct are unremarkable. No pancreatic mass lesion or calcification is evident. Normal splenic size. 1 cm left adrenal mass. 7.4 mm right adrenal mass. Differential diagnosis includes adrenal metastases or adenomas. There is surgical closure of the prior anterior right lower quadrant ileal conduit and left end colos eric since 09/10/2020, and interval ileostomy situated superomedial to the prior ileal conduit. The io dinated intravenously administered contrast material is noted in the cecum and passing into the ascen ding, transverse and descending colon. Status post cystectomy. There is a 10.5 mm calculus at the left ureteropelvic junction calculus with left hydronephrosis. The re is a nonobstructing 4 mm upper pole left renal calculus. No right urinary tract calculus. There are numerous bilateral renal cysts, measuring up to 9.5 cm on the right. There is subcutaneous fat stranding in the periumbilical area extending into the left anteromedial ab dominal wall. Diffuse idiopathic skeletal hyperostosis thoracic spine. There is severe degenerative disc disease of lumbar spine with associated mild retrolisthesis at L2-3. There is minimal grade 1 anterolisthesis a t L3-4 due to degenerative change at the apophyseal joints. There is grade 2 anterolisthesis secondar y to bilateral L5 pars interarticularis defects. IMPRESSION: Interval closure of right ileal conduit and left end colostomy and new ileostomy since 11/10/2019 Subcutaneous fat stranding of the left anterior abdominal wall which may represent infection or infla mmatory change; no drainable abscess detected 10 mm obstructing calculus at the left ureteropelvic junction with left hydronephrosis Small nonobstructing upper pole left renal calculus Multiple bilateral renal cysts Moderate right pleural effusion Reviewed, dictated and finalized at Location A. Reviewed, dictated and finalized at location B. IMPRESSION: Interval closure of right ileal conduit and left end colostomy and new ileostomy since 09/10/2020 Subcutaneous fat stranding of the left anterior abdominal wall which may repres ent infection or inflammatory change; no drainable abscess detected 10 mm obstructing calculus at the left ureteropelvic junction with left hydrone phrosis Small nonobstructing upper pole left renal calculus Multiple bilateral renal cysts Moderate right pleural effusion
[2021-05-16 11:08] LABS: Estimated Glomerular Filt Rate 36
== END 2021-05-16 10:17 | disposition home or self-care (01) ==
PROVIDERS: PCP Family Medicine; Visit Provider Internal Medicine Hematology & Oncology
DX: C67.9 Malignant neoplasm of bladder, unspecified (principal); N20.0 Calculus of kidney; J90 Pleural effusion, not elsewhere classified; N28.1 Cyst of kidney, acquired
CPT/HCPCS: 74177; Q9967

== ENCOUNTER 2021-05-23 10:44 | Outpatient (CLI) | payer MEDICARE, SELFPAY ==
--- NOTE | ~2021-05-23 | XR_ITS ---
EXAMINATION: XR abdomen/kub 1V INDICATION: Malignant neoplasm of the posterior wall of the urinary bladder TECHNIQUE: Supine views of the abdomen were obtained on 2 radiographs. COMPARISON: CT, 05/16/2021 FINDINGS: A 13 mm stone is seen at the expected location of the left ureteropelvic junction, projecti ng between the left L3 and L4 transverse processes. No additional urolithiasis is identified. Known s tones of the left kidney upper pole are obscured by bowel contents. There appears to be a small amoun t of enteric contrast material in the cecum and ascending colon. Severe lumbar spondylosis is noted. There are surgical changes of the pelvis. IMPRESSION: 1. 13 mm stone at the expected location of the left ureterovesicular junction. Reviewed, dictated and finalized at location B.
== END 2021-05-23 10:45 | disposition home or self-care (01) ==
LOC: ANHIMG 10:47
PROVIDERS: PCP Family Medicine; Visit Provider Urology
DX: C67.4 Malignant neoplasm of posterior wall of bladder (principal); N20.1 Calculus of ureter
CPT/HCPCS: 74018

== ENCOUNTER 2021-07-06 07:55 | Outpatient (CLI) | payer MEDICARE, SELFPAY ==
--- NOTE | 2021-07-06 08:00 | ECG_ITS ---
Measurements Intervals [place] Rate: 93 P: 51 [place]: 174 QRS: 33 QRSD: 144 T: 27 QT: 366 QTc: 456 Interpretive Statements SINUS RHYTHM RIGHT BUNDLE BRANCH BLOCK BASELINE ARTIFACT- I, II, III, AVR, AVL, V5-V6 ABNORMAL ECG Electronically Signed On 07-06-2021 8:16:13 CDT by Todd Melgoza D.O.
[2021-07-06 08:31] LABS: INR 1.1; Prothrombin Time 14.4 Seconds (11.1-14.7)
[2021-07-06 08:32] LABS: Partial Thromboplastin Time 42.2 SECONDS (22.3-36.8)
== END 2021-07-06 07:56 | disposition home or self-care (01) ==
LOC: ANHSURGERY 07:58
PROVIDERS: PCP Family Medicine; Visit Provider Urology
DX: Z01.818 Encounter for other preprocedural examination (principal); N20.0 Calculus of kidney; I10 Essential (primary) hypertension; I45.10 Unspecified right bundle-branch block; Z51.81 Encounter for therapeutic drug level monitoring; Z79.899 Other long term (current) drug therapy
CPT/HCPCS: 36415; 85610; 85730; 87077; 87086; 87088; 87186; 93005

== ENCOUNTER 2021-07-14 00:53 | Day surgery (SDC) | payer MEDICARE, SELFPAY ==
[2021-07-04 14:25] VITALS: BMI 28.8
--- NOTE | 2021-07-07 07:59 | PM.HPGS ---
History of Present Illness History of Present Illness Consent: Risks, benefits, and alternatives have been discussed and questions answered. Patient agrees to proceed with procedure. Chief complaint: Left Renal Pelvic Stones Narrative: Omer Winter is a 81 year old male very well known to me with a history of both prostate cancer and muscle invasive bladder cancer. During evaluation for a recent colostomy closure CT imaging demonstrated a 1 cm stone in his left kidney. Perioperative Antony that obstructed, prompting placement of a left percutaneous nephrostomy tube. He now presents for antegrade stent placement and left ESWL. He is aware the risks including but not limited to, persistent stone fragments, perinephric hematoma, hematuria. Review of Systems Cardiovascular: Cardiovascular: Denies chest pain, Denies lightheadedness, Denies palpitations and Denies dyspnea Respiratory: Respiratory: Denies dyspnea Gastrointestinal: Gastrointestinal: Denies diarrhea, Denies nausea and Denies vomiting Genitourinary: Genitourinary: Denies hematuria and Denies dysuria Endocrine: Endocrine: Denies palpitations PMFSH Past Medical History Medical History Asthma Bilateral renal cysts CKD (chronic kidney disease) stage 3, GFR 30-59 ml/min (Unknown) Essential (primary) hypertension H/O prostate cancer (Unknown) History of deep vein thrombosis Malignant neoplasm of bladder, unspecified Mild persistent asthma without complication Osteoarthritis of shoulders, bilateral Port-A-Cath in place right upper chest Prostate cancer Rotator cuff tear Urinary incontinence Urothelial cancer Surgical History Surgical History H/O prostatectomy History of bladder surgery History of bunionectomy S/P ileal conduit Family History Family History Mother Hypertension Father Family history of malignant neoplasm of brain Daughter COVID-19 at the age of 47 due to complications of COVID-19 Social History Social History Social History: 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 He lives with his arvind who is the durable power criminal attorney for healthcare. The patient is a full code. The patient had 2 biological children and 1 daughter recently due to covid 19 complications. Patient is a former smoker. He quit smoking in the 90s. No alcohol marijuana or illicit drugs. Smoking packs per day: 1.5 Smoking cigarettes per day: 30.0 Years smoked: 35 Smoking pack-years: 52.50 Smoking status: Former smoker Tobacco type: cigarettes Second hand tobacco smoke exposure: No Smoking end date: 11/04/79 Additional smoking assessment comments: QUIT Alcohol intake: never Alcohol use details: once a month maybe Substance use: never Substance use type: does not use Gender identity (if verbalized by the patient): Male Spiritual care concerns: No Meds Home Medications and Allergies Home Medications Medication Instructions Recorded Confirmed Type albuterol sulfate 90 mcg/actuation 1 puff INHALATION Q4H PRN 09/09/19 07/04/21 History aerosol inhaler cholecalciferol (vitamin D3) 50 2,000 unit PO DAILY 09/09/19 07/04/21 History mcg (2,000 unit) capsule diltiazem HCl 360 mg capsule,24 360 mg PO DAILY 09/09/19 07/04/21 History hr,extended release loratadine 10 mg tablet 10 mg PO DAILY 09/09/19 07/04/21 History mometasone 1 inhalation INHALATION HS each 09/09/19 07/04/21 History montelukast 10 mg tablet 10 mg PO DAILY 09/09/19 07/04/21 History multivitamin 1 tablet PO DAILY 09/09/19 07/04/21 History aspirin 81 mg tablet,delayed 81 mg PO DAILY 11/17/19 07/04/21 History release Move Free Joint Health 1 tablet PO DAILY 03/18/20 07/04/21 His
--- NOTE | 2021-07-13 10:46 | WPDANESEPPF ---
Anes - Initial Pre Proc Eval Procedure: Operation Date: 07/14/21 07:30 Proposed Procedures p Left Extracorporeal Shock Wave Lithotripsy - Melchor Maher MD s Looposcopy with Internalization, Left Ureteral Stent, Possible Left Ureteroscopy With Left Stent Placement - Melchor Maher MD Date/Time: 07/13/21 10:46 Surgeon: Melchor Maher MD Pre Op Diagnosis: Left Renal Pelvic Stones Patient Data Age: 81 Gender: M Height: 1.75 m Weight: 88.45 kg Allergies Allergy/AdvReac Type Severity Reaction Status Date / Time ciprofloxacin AdvReac Unknown Insomnia Verified 07/14/21 06:35 Dilaudid Allergy Unknown hallucinati Uncoded 07/14/21 06:35 ons Home Medications Medication Instructions Recorded Confirmed Type albuterol sulfate 90 mcg/actuation 1 puff INHALATION Q4H PRN 09/09/19 07/14/21 History aerosol inhaler cholecalciferol (vitamin D3) 50 2,000 unit PO DAILY 09/09/19 07/04/21 History mcg (2,000 unit) capsule diltiazem HCl 360 mg capsule,24 360 mg PO DAILY 09/09/19 07/14/21 History hr,extended release loratadine 10 mg tablet 10 mg PO DAILY 09/09/19 07/04/21 History mometasone 1 inhalation INHALATION HS each 09/09/19 07/04/21 History montelukast 10 mg tablet 10 mg PO DAILY 09/09/19 07/04/21 History multivitamin 1 tablet PO DAILY 09/09/19 07/04/21 History aspirin 81 mg tablet,delayed 81 mg PO DAILY 11/17/19 07/14/21 History release Move Free Joint Health 1 tablet PO DAILY 03/18/20 07/04/21 History diphenhydramine HCl [Benadryl] 25 mg PO PRN PRN 05/11/20 07/04/21 History acetaminophen 650 mg PO Q8H PRN 08/23/20 07/14/21 History Glucosamine Chondroitin See Rx Instructions .ROUTE .COMPLEX 09/01/20 07/04/21 History cyclobenzaprine 10 mg tablet 10 mg PO TID PRN #30 tablet 09/15/20 07/04/21 Rx tramadol 50 mg tablet 50 mg PO Q6H PRN #30 tablet 09/15/20 07/04/21 Rx lorazepam 0.5 mg tablet 0.5 mg PO TID PRN #30 tablet 09/21/20 07/04/21 Rx apixaban 5 mg tablet 5 mg PO BID 12/27/20 07/04/21 History losartan 25 mg tablet 25 mg PO DAILY #30 tablet 04/13/21 07/04/21 Rx sertraline 50 mg tablet 50 mg PO DAILY #30 tablet 05/31/21 07/14/21 Rx ferrous sulfate 325 mg PO DAILY 07/04/21 07/04/21 History Patient hx anesthesia problems: none Family hx anesthesia problems: none [facility] Past Medical History Medical History (Updated 07/13/21 @ 10:47 by Kamran Patel DO) Anticoagulant long-term use Asthma Bilateral renal cysts CKD (chronic kidney disease) stage 3, GFR 30-59 ml/min (Unknown) DVT (deep venous thrombosis) several Essential (primary) hypertension H/O prostate cancer (Unknown) History of deep vein thrombosis Malignant neoplasm of bladder, unspecified Mild persistent asthma without complication Osteoarthritis of shoulders, bilateral Port-A-Cath in place right upper chest Prostate cancer Rotator cuff tear Urinary incontinence Urothelial cancer Surgical History Surgical History H/O prostatectomy History of bladder surgery History of bunionectomy S/P ileal conduit Family History Family History Mother Hypertension Father Family history of malignant neoplasm of brain Daughter COVID-19 at the age of 47 due to complications of COVID-19 Social History Social History Social History: 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 He lives with his arvind who is the durable power mallet cutter for healthcare. The patient is a full code. The patient had 2 biological children and 1 daughter recently due to covid 19 complications. Patient is a former smoker. He quit smoking in the 90s. No alcohol marijuana or illicit drugs. Smoking packs per day: 1.5 Smoking cigarettes per day: 30.0 Years smoked: 35 Smoking pack-years: 52.50 Smoking status: Former smoker Tobacco type:
[2021-07-14] VITALS (9 sets, daily range): BP systolic 101–126; BP diastolic 46–68; PULSE 67–113; RESP 20; TEMP 36.3; O2SAT 90–99
--- NOTE | ~2021-07-14 | XR_ITS ---
EXAMINATION: XR abdomen/kub 1V DATE: 07/14/2021 06:29 INDICATION: Left ureteral stone. TECHNIQUE: A supine view of the abdomen was obtained. COMPARISON: CT abdomen and pelvis 05/16/2021 FINDINGS: There are no dilated loops of bowel. There are surgical clips in the pelvis. A left-sided p ercutaneous nephrostomy tube is noted. There is a 10 mm stone in proximal left ureter. IMPRESSION: 1. 10 mm stone in proximal left ureter. 2. Left nephrostomy tube in expected position. Reviewed, dictated and finalized at location A.
[2021-07-14] MEDS: LACTATED RINGERS 1,000 ML 30 ML IV CONT (07:02)
--- NOTE | 2021-07-14 07:07 | WPDHPUPDATE1 ---
History and Physical Update Update Date/Time: 07/14/21 07:07 History and Physical has been reviewed, including an updated exam of the patient. There are NO changes in the patient's condition. Risks, benefits, and alternatives have been discussed and questions answered. Patient agrees to proceed with procedure.
[2021-07-14] MEDS: ceFAZolin 2 GM/D5W 50 ML 2 GM/50 ML BAG IVPB (07:32)
--- NOTE | 2021-07-14 08:42 | W.PM.PROC2 ---
Procedure Note - Detailed Date of Procedure 07/14/21 Pre-op Diagnosis Left Ureteral Stones Post-op Diagnosis same Procedure Performed left antegrade pyelogram, looposcopy with left ureteral stent placement, left ESWL Surgeon Melchor Maher MD Anesthesia general Indications 10mm left ureteral stone Description of Procedure Patient brought to the operative suite urea is prepped draped in routine sterile fashion while in a supine position. First attempted Luvox copy with a 16 F flexible cystoscope to see if I could identify the left ureteral orifice, without success. The right ureteral orifice was easily identified. I therefore performed a left antegrade pyelogram and advanced a wire through the left nephrostomy tube in into the ileal conduit. Repeat looposcopy then identified the wire which was brought through the ostomy site in a 4.8 F variable length stent was positioned with the proximal coil in the renal pelvis. I coiled the distal coil in the ileal conduit. Focal point of the Lithotripter was then placed is 10 mm left proximal ureteral stone. A total of 3000 shocks were delivered at a power setting up to 4. Estimated Blood Loss 0 Drains Yes Packing No Pathology none sent Complications No immediate complications Condition stable Disposition PACU
== END 2021-07-14 11:18 | disposition home or self-care (01) ==
PROVIDERS: PCP Family Medicine; Visit Provider Urology
PROC: (CPT 50590; principal; 2021-07-14 07:30)
PROC: (CPT 52352; 2021-07-14 07:30)
DX: N20.1 Calculus of ureter (principal); C67.9 Malignant neoplasm of bladder, unspecified; Z93.6 Other artificial openings of urinary tract status; I12.9 Hypertensive chronic kidney disease with stage 1 through stage 4 chronic kidney disease, or unspecified chronic kidney disease; N18.30 Chronic kidney disease, stage 3 unspecified; Z86.718 Personal history of other venous thrombosis and embolism; J45.30 Mild persistent asthma, uncomplicated; Z85.46 Personal history of malignant neoplasm of prostate; Z90.49 Acquired absence of other specified parts of digestive tract; Z87.891 Personal history of nicotine dependence; Z79.51 Long term (current) use of inhaled steroids; Z79.82 Long term (current) use of aspirin; Z79.01 Long term (current) use of anticoagulants
CPT/HCPCS: 52332; 50590; 36415; 74018; 85610; 85730; 87077; 87086; 87088; 87186; 93005; A9270; C1769; C1887; C2617; J0690; J3010; J7030; J7120; Q9966

== ENCOUNTER 2021-07-16 11:31 | Emergency (ER) | payer MEDICARE, SELFPAY ==
--- NOTE | ~2021-07-16 | XR_ITS ---
EXAMINATION: XR abdomen NG/feed tube insert EXAM DATE: 07/16/2021 14:11 INDICATION: POST NG Insertion. Small bowel ileus versus obstruction. TECHNIQUE: Frontal projection(s) of the abdomen for interpretation. Comparison is made to prior exami nation from 07/14/2021. FINDINGS: Feeding tube tip and side-port project over gastric bubble, adequate. Several loops of dist ended air-filled small bowel, ileus versus obstruction. Contrast within dilated right renal collectin g system. Right pleural effusion, adjacent atelectasis. IMPRESSION: 1. Tube in position. 2. Severe right hydronephrosis. Reviewed, dictated and finalized at location A.
--- NOTE | ~2021-07-16 | CT_ITS ---
EXAMINATION: CT abdomen pelvis w con EXAM DATE: 07/16/2021 13:05 INDICATION: Abdominal pain. Prostate and bladder cancer. TECHNIQUE: Spiral CT of the abdomen and pelvis was performed following intravenous injection of 100 m L Omnipaque 350. Axial, coronal and sagittal images of the abdomen and pelvis were reviewed. The do se-length product (DLP) for this examination was 878.95 mGy-cm. The exposure was tailored according to patient size (auto mA exposure control), and iterative reconstruction (ASIR) was used as additiona l dose reduction technique. Comparison is made to prior examination from 05/16/2021. FINDINGS: There is moderate to large right-sided pleural effusion with nearly completely collapsed ri ght lower lobe and right middle lobe. There is both diffuse pleural thickening with small focal regio ns of nodularity identified along the pleural surface. Both of these findings have progressed compare d to previous examination, could indicate malignant pleural effusion. Consider diagnostic thoracentes is. Catheter in the SVC. Left lower lobe subsegmental atelectasis. Heart normal in size. Vague slightly low density lesion in the liver dome measuring 1.7 cm, 2 other small vague regions in the liver indicated on images 39 and 81. These could indicate early metastatic disease. Mild bilatera l adrenal nodularity is unchanged. Pancreas, spleen are unremarkable. Gallbladder is unremarkable. No biliary obstruction. Complex cystic masslike regions in the upper pole of the left kidney measuring about 4 cm, and anothe r in the lower pole of the left kidney slightly smaller. Diffusely ill-defined soft tissue density al vu the lower pole of the left renal collecting system. These are in locations of previously seen mul ticystic renal lesions which appear to have deflated. Transitional cell cancer not excludable. There is a left-sided percutaneous nephrostomy tube and also a ureteral stent. Probable Ileal conduit/pouch . Left renal pelvic stones. Bladder has been resected. Chronic presacral inflammation. There is no r etroperitoneal or pelvic lymphadenopathy. Multiple loops of moderate to severely distended small bowel up to 5.6 cm, with feculent appearing sm all bowel contents within the distal segments indicating some component of stasis. The distal most as pect of the small bowel is undistended. Small bowel obstruction versus ileus. No free intraperitoneal gas. There are no osteoblastic or osteolytic lesions identified. Chronic bilateral L5 spondylolysis with grade 2 anterolisthesis L5 on S1. Compared to previous examination, liver hypodensities are new, the pleural effusion and atelectasis h ave progressed and pleural nodularity developed. The dilated small bowel has developed. On prior stud y there were several large cystic regions in the left kidney which appear to have deflated. IMPRESSION: 1. Moderate to severely dilated small bowel, obstruction versus ileus. 2. Interval development of several vague liver hypodensity suspicious for metastatic disease. 3. Enlarging right pleural effusion with pleural nodularity, could be malignant. Adjacent right midd le lobe, lower lobe atelectasis. 4. Surgical changes from bladder resection, ileal pouch, left ureteral stent and percutaneous nephro stomy. 5. Complex cystic left renal lesions, could be sequela from deflated cysts and few interventions. Tr ansitional cell cancer not excludable. 6. Left nephrolithiasis. Reviewed, dictated and finalized at location A. IMPRESSION: 1. Moderate to severely dilated small bowel, obstruction versus ileus. 2. Interval development of several vague liver hypodensity suspicious for meta static disease. 3. Enlarging right pleural effusion with pleural nodularity, coul
[2021-07-16 11:34] VITALS: BP 104/58; PULSE 105; RESP 20; TEMP 36.8; O2SAT 98
[2021-07-16 12:10] LABS: Basophils Percent Auto 0.2 % (0.2-1.2); Hematocrit 37.1 % (42.0-52.0); Immature Granulocyte Absolute 0.08 K/mm3 (0.00-0.031); Immature Granulocyte Percent A 0.7 % (0-0.5); Lymphocytes Absolute Auto 1.77 K/mm3 (0.9-3.2); Lymphocytes Percent Auto 16.1 % (18.3-44.2); Mean Corpuscular HGB Conc 29.6 g/dl (32-36); Mean Corpuscular Hemoglobin 22.6 pg (26-34); Mean Corpuscular Volume 76.2 fl (80-100); Mean Platelet Volume 9.9 fl (7.4-10.4); Monocytes Absolute Auto 1.1 K/mm3 (0.1-0.6); Monocytes Percent Auto 9.8 % (2.6-8.5); Neutrophils Percent Auto 73.2 % (45.5-73.1); Platelet Count Result 424 k/mm3 (150-375); Red Blood Count 4.87 M/mm3 (4.6-6.20)
--- NOTE | 2021-07-16 12:11 | ED.ABDPAIN ---
HPI - Abdominal Pain General Chief Complaint: Abdominal Pain Stated Complaint: constipation/vomiting Time Seen by Provider: 07/16/21 11:52 Source: patient and family Mode of arrival: ambulatory Limitations: no limitations History of Present Illness HPI narrative: 9 years old white male presented to the ED with abdominal distention associated with nausea, no bowel movement for the last 3 to 4 days. Patient denies any vomiting, fever, chills. History of multiple abdominal surgery, history of colostomy, reversed June 08, 2021 currently have urostomy. Related Data Home Medications Medication Instructions Recorded Confirmed albuterol sulfate 90 mcg/actuation 1 puff INHALATION Q4H PRN 09/09/19 07/14/21 aerosol inhaler cholecalciferol (vitamin D3) 50 2,000 unit PO DAILY 09/09/19 07/04/21 mcg (2,000 unit) capsule diltiazem HCl 360 mg capsule,24 360 mg PO DAILY 09/09/19 07/14/21 hr,extended release loratadine 10 mg tablet 10 mg PO DAILY 09/09/19 07/04/21 mometasone 1 inhalation INHALATION HS each 09/09/19 07/04/21 montelukast 10 mg tablet 10 mg PO DAILY 09/09/19 07/04/21 multivitamin 1 tablet PO DAILY 09/09/19 07/04/21 aspirin 81 mg tablet,delayed 81 mg PO DAILY 11/17/19 07/14/21 release Move Free [facility] 1 tablet PO DAILY 03/18/20 07/04/21 diphenhydramine HCl [Benadryl] 25 mg PO PRN PRN 05/11/20 07/04/21 acetaminophen 650 mg PO Q8H PRN 08/23/20 07/14/21 Glucosamine Chondroitin See Rx Instructions .ROUTE .COMPLEX 09/01/20 07/04/21 apixaban 5 mg tablet 5 mg PO BID 12/27/20 07/04/21 ferrous sulfate 325 mg PO DAILY 07/04/21 07/04/21 Allergies Allergy/AdvReac Type Severity Reaction Status Date / Time ciprofloxacin AdvReac Unknown Insomnia Verified 07/14/21 06:35 Dilaudid Allergy Unknown hallucinati Uncoded 07/14/21 06:35 ons Review of Systems Review of Systems: CONSTITUTIONAL: Denies fever, chills, or sweats. EYES: Denies visual changes, redness, or discharge. ENT: Denies rhinorrhea, congestion, sore throat, or otalgia. CARDIOVASCULAR: Denies chest pain, palpitations, or edema. RESPIRATORY: Denies cough or dyspnea. GASTROINTESTINAL: Diffuse abdominal pain and distention GENITOURINARY: Denies dysuria or hematuria. SKIN: Denies rash or itching. MUSCULOSKELETAL: Denies back pain, joint pain, or myalgia. NEUROLOGIC: Denies headache, numbness, or weakness. PSYCHIATRIC: Denies anxiety or depression. [facility] Past Medical History Medical History Anticoagulant long-term use Asthma Bilateral renal cysts CKD (chronic kidney disease) stage 3, GFR 30-59 ml/min (Unknown) DVT (deep venous thrombosis) several Essential (primary) hypertension H/O prostate cancer (Unknown) History of deep vein thrombosis Malignant neoplasm of bladder, unspecified Mild persistent asthma without complication Osteoarthritis of shoulders, bilateral Port-A-Cath in place right upper chest Prostate cancer Rotator cuff tear Urinary incontinence Urothelial cancer Surgical History Surgical History H/O prostatectomy History of bladder surgery History of bunionectomy S/P ileal conduit Family History Family History Mother Hypertension Father Family history of malignant neoplasm of brain Daughter KAMILLEID-Promise at the age of 47 due to complications of COVID-19 Social History Social History Social History: 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 He lives with his arvind who is the durable power civil rights attorney for healthcare. The patient is a full code. The patient had 2 biological children and 1 daughter recently due to covid 19 complications. Patient is a former smoker. He quit smoking in the 90s. No alcohol marijuana or illicit drugs. Smoking packs per day: 1.5 Smoking cigarettes per
[2021-07-16 12:20] LABS: Add Urine Microscopic? YES; Appearance Urine Cloudy (Clear); Bacteria Urine Trace /hpf; Bilirubin Urine Negative (Negative); Blood Urine Negative (Negative); Calcium Oxalate Crystals Urine Present /hpf; Color Urine Yellow (Yellow); Glucose Urine UA Negative (Negative); Ketones Urine Trace mg/dL (Negative); Leukocyte Esterase Ur 3+ LEU/UL (Negative); Mucus Urine Rare /lpf; Nitrate Urine Negative (Negative); Protein Urine 2+ mg/dL (Negative); Specific Grav Ur 1.015 (1.001-1.035); Squamous Epithelial Cell Urine Rare /hpf (Few); Urobilinogen Urine Negative mg/dL (<2.0); WBC Urine >75 /hpf
[2021-07-16 12:34] LABS: Alanine Aminotransferase 18 U/L (4-50); Alkaline Phosphatase 94 U/L (38-126); Anion Gap 13 mmol/L (8-16); Aspartate Amino Transferase 25 U/L (17-59); Bilirubin,Total 0.6 mg/dL (0.2-1.3); Blood Urea Nitrogen 14 mg/dL (9-20); Carbon Dioxide 23 mmol/L (22-30); Chloride 100 mmol/L (98-107); Estimated CRCL calculation 48 ml/min; Estimated Glomerular Filt Rate > 60; Glucose 163 mg/dL (65-110); Lipase 24 U/L (23-300); Potassium 4.2 mmol/L (3.4-5.0); Sodium 136 mmol/L (137-145)
[2021-07-16] MEDS: ONDANSETRON INJ 4 MG/2 ML VIAL IV PUSH (12:39)
[2021-07-16] MEDS: SODIUM CHLORIDE 0.9% IV 1,000 ML 999 ML IV CONT (12:39)
[2021-07-16 15:22] VITALS: BP 116/69; PULSE 87; RESP 20; O2SAT 94
--- NOTE | 2021-07-16 17:29 | PC.NURSE ---
made contact with bjorn to transfer pt to [facility] [id number] bed a. truck has been dispatched and on their way
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
[2021-07-16 18:56] VITALS: BP 137/76; PULSE 81; RESP 20; O2SAT 92
== END 2021-07-16 19:20 | disposition short-term general hospital (02) ==
PROVIDERS: Emergency Provider Emergency Medicine; PCP Family Medicine
DX: K56.609 Unspecified intestinal obstruction, unspecified as to partial versus complete obstruction (principal); I12.9 Hypertensive chronic kidney disease with stage 1 through stage 4 chronic kidney disease, or unspecified chronic kidney disease; N18.30 Chronic kidney disease, stage 3 unspecified; Z86.718 Personal history of other venous thrombosis and embolism; Z86.711 Personal history of pulmonary embolism; Z85.46 Personal history of malignant neoplasm of prostate; Z85.51 Personal history of malignant neoplasm of bladder; Z87.891 Personal history of nicotine dependence; Z79.82 Long term (current) use of aspirin; Z79.899 Other long term (current) drug therapy
CPT/HCPCS: 36415; 74177; 80053; 81001; 83690; 85025; 87086; 87088; 96361; 96374; 99285; J2405; J7030; Q9967

== ENCOUNTER 2021-08-08 08:26 | Outpatient (CLI) | payer MEDICARE, SELFPAY ==
--- NOTE | ~2021-08-08 | CT_ITS ---
EXAMINATION: CT abdomen pelvis w con DATE: 08/08/2021 08:54 INDICATION: Malignant neoplasm of urinary bladder. TECHNIQUE: Computed tomography (CT) of the abdomen and pelvis was performed with 100 mL Omnipaque 350 intravenous contrast. Automated exposure control and iterative reconstruction technique were employe d. The dose-length product was 774.57 mGy-cm. COMPARISON: CT abdomen and pelvis 07/16/2021, 05/16/21, 05/18/14 FINDINGS: The visualized portions of the lung bases demonstrate mild atelectasis on the left. There i s a small right pleural effusion containing foci of gas with thick enhancing pleura. There is periphe ral rounded atelectasis in right middle lobe and right lower lobe. The heart size is normal. There ar e coronary artery calcifications. No pericardial effusion. There is a catheter tip at superior cavoat rial junction. There are approximately 9 low-attenuation masses in the liver measuring up to 1.8 cm. The gallbladder, spleen, pancreas, and adrenal glands are normal. There are cysts in the kidneys estrella uring up to 9.4 cm on the right. There is mild right hydronephrosis. There is a 3.2 x 2.4 cm hyperden se mass involving left kidney upper pole, likely enhancing. There is a 4.1 x 2.7 cm mass measuring so ft tissue attenuation involving left kidney lower pole. There is a chronic 2.1 x 3.8 cm fluid collect ion in the left perinephric space, likely a lymphangioma. There is mild left hydronephrosis and hydro ureter with urothelial enhancement. An ileal conduit is noted. There is a left inguinal hernia contai gagandeep fat. There are changes of cystectomy. There are no dilated loops of bowel. There are small fluid collections in the pelvis with thick enhancing garcia measuring up to 5.3 x 2.9 x 1.4 cm. There are s urgical changes of anterior abdominal wall. There is fat stranding in the greater omentum. There are no pathologically enlarged lymph nodes. There are chronic bilateral L5 pars defects. There is 14 mm a nterolisthesis of L5 on S1. There is severe lumbar spondylosis. IMPRESSION: 1. Liver masses, new from 05/16/2021, consistent with metastatic disease. 2. Small right pleural effusion with pleural thickening, likely metastatic disease. The new foci of g as in the pleural effusion are likely from interval thoracentesis. 3. Fat stranding in the greater omentum, which may be peritoneal carcinomatosis or inflammation/edema . 4. Enhancing mass in left kidney upper pole, consistent with metastatic disease. A mass in left kidne y lower pole may be a subacute hematoma from the nephrostomy tube seen on the prior CT. 5. Mild right hydronephrosis. Mild left hydronephrosis and hydroureter. Left-sided urothelial thicken ing and enhancement suggests inflammation/infection. 6. Small rim-enhancing fluid collections in the pelvis with interval worsening. The differential diag nosis includes abscesses, subacute hematomas, and peroneal inclusion cysts. Reviewed, dictated and finalized at location A. IMPRESSION: 1. Liver masses, new from 05/16/2021, consistent with metastatic disease. 2. Small right pleural effusion with pleural thickening, likely metastatic dise ase. The new foci of gas in the pleural effusion are likely from interval thora centesis. 3. Fat stranding in the greater omentum, which may be peritoneal carcinomatosis or inflammation/edema. 4. Enhancing mass in left kidney upper pole, consistent with metastatic disease . A mass in left kidney lower pole may be a subacute hematoma from the nephrost diony tube seen on the prior CT. 5. Mild right hydronephrosis. Mild left hydronephrosis and hydroureter. Left-si ded urothelial thickening and enhancement suggests inflammation/infection. 6. Small rim-enhancing fluid collections in the pelvis with interval worsening. The differential diagnos
== END 2021-08-08 08:27 | disposition home or self-care (01) ==
LOC: ANHIMG 08:29
PROVIDERS: PCP Family Medicine; Visit Provider Internal Medicine Hematology & Oncology
DX: C67.9 Malignant neoplasm of bladder, unspecified (principal); R16.0 Hepatomegaly, not elsewhere classified; J90 Pleural effusion, not elsewhere classified; N28.89 Other specified disorders of kidney and ureter; N13.30 Unspecified hydronephrosis
CPT/HCPCS: 74177; Q9967

== ENCOUNTER 2021-08-10 08:41 | Outpatient (CLI) | payer MEDICARE, SELFPAY ==
--- NOTE | ~2021-08-10 | CT_ITS ---
EXAMINATION:CT diagnostic chest w con DATE: 08/10/2021 09:06 INDICATION: Malignant neoplasm of urinary bladder. TECHNIQUE: Computed tomography (CT) of the chest was performed with 75 mL Omnipaque 350 intravenous c ontrast. Automated exposure control and iterative reconstruction technique were employed. The dose-le ngth product (DLP) was 244.93 mGy-cm. COMPARISON: Chest CT 09/09/2020, CT abdomen and pelvis 08/08/2021 FINDINGS: There is mild atelectasis in left lower lobe and lingula. There is a small right hydropneum othorax with pleural thickening. There is mild peripheral atelectasis in right upper lobe and right m iddle lobe. There are peripheral airspace opacities in right lower lobe, likely atelectasis. There is volume loss of right hemithorax. The heart size is normal. There are coronary artery calcifications. No pericardial effusion. The central pulmonary arteries are enlarged, consistent with pulmonary tori rial hypertension. There are calcifications of the aortic valve. Partially visualized are cysts in th e kidneys measuring up to 8.1 cm on the right. There is a 3.4 cm mass of left kidney. A right hilar n ode measures 15 x 19 mm. There is a right internal jugular port with tip in right atrium. There are m ultiple low-attenuation masses in the liver measuring up to 17 mm. There are bridging endplate osteop hytes at multiple levels in the spine, consistent with diffuse idiopathic skeletal hyperostosis (DISH ). IMPRESSION: 1. Small right hydropneumothorax with pleural thickening, likely metastatic disease. The foci of gas are likely from recent thoracentesis. 2. Liver masses, left kidney mass, and mildly enlarged right hilar lymph node, consistent metastatic disease. Reviewed, dictated and finalized at location A. IMPRESSION: 1. Small right hydropneumothorax with pleural thickening, likely metastatic dis ease. The foci of gas are likely from recent thoracentesis. 2. Liver masses, left kidney mass, and mildly enlarged right hilar lymph node, consistent metastatic disease.
== END 2021-08-10 08:42 | disposition home or self-care (01) ==
LOC: ANHIMG 08:44
PROVIDERS: PCP Family Medicine; Visit Provider Internal Medicine Hematology & Oncology
DX: C67.9 Malignant neoplasm of bladder, unspecified (principal)
CPT/HCPCS: 71260; Q9967

== ENCOUNTER 2021-09-07 11:08 | Emergency (ER) | payer MEDICARE, SELFPAY ==
[2021-09-07 11:24] VITALS: BP 96/56; PULSE 113; RESP 14; TEMP 36.3; O2SAT 95
[2021-09-07 12:02] VITALS: BP 130/74; PULSE 95; RESP 18; O2SAT 99
--- NOTE | 2021-09-07 12:25 | ED.GENADULT ---
HPI - General Adult General Chief complaint: Allergic Reaction Stated complaint: allergic reaction Time Seen by Provider: 09/07/21 11:31 History of Present Illness HPI narrative: Patient is an 81-year-old male who presents ER with rash to his right face. Ongoing for 2 days. Itching and weeping. No involvement in the eye. No change in vision, no eye pain. Patient has metastatic bladder cancer and is undergoing chemotherapy and radiation therapy. Patient is concerned that is an allergic reaction. He was started on methylprednisolone yesterday by his oncologist. Related Data Home Medications Medication Instructions Recorded Confirmed albuterol sulfate 90 mcg/actuation 1 puff INHALATION Q4H PRN 09/09/19 08/29/21 aerosol inhaler cholecalciferol (vitamin D3) 50 2,000 unit PO DAILY 09/09/19 08/29/21 mcg (2,000 unit) capsule diltiazem HCl 360 mg capsule,24 360 mg PO DAILY 09/09/19 08/29/21 hr,extended release loratadine 10 mg tablet 10 mg PO DAILY 09/09/19 08/29/21 mometasone 1 inhalation INHALATION HS each 09/09/19 08/29/21 montelukast 10 mg tablet 10 mg PO DAILY 09/09/19 08/29/21 multivitamin 1 tablet PO DAILY 09/09/19 08/29/21 aspirin 81 mg tablet,delayed 81 mg PO DAILY 11/17/19 08/29/21 release Move Free [facility] 1 tablet PO DAILY 03/18/20 08/29/21 diphenhydramine HCl [Benadryl] 25 mg PO PRN PRN 05/11/20 08/29/21 acetaminophen 650 mg PO Q8H PRN 08/23/20 08/29/21 Glucosamine Chondroitin See Rx Instructions .ROUTE .COMPLEX 09/01/20 08/29/21 apixaban 5 mg tablet 5 mg PO BID 12/27/20 08/29/21 ferrous sulfate 325 mg PO DAILY 07/04/21 08/29/21 Allergies Allergy/AdvReac Type Severity Reaction Status Date / Time Dilaudid Allergy Unknown hallucinati Uncoded 09/07/21 11:30 ons Review of Systems Review of Systems: All systems reviewed & are unremarkable except as noted in HPI and below Constitutional: Constitutional: Denies chills, Denies fever(s) and Denies weakness Eyes: Eyes: Denies change in vision and Denies photophobia Integumentary/Breasts: Skin/Breast: Reports pruritus, Reports erythema and Reports rash PMF Past Medical History Medical History Anticoagulant long-term use Asthma Bilateral renal cysts CKD (chronic kidney disease) stage 3, GFR 30-59 ml/min (Unknown) DVT (deep venous thrombosis) several Essential (primary) hypertension H/O prostate cancer (Unknown) History of deep vein thrombosis Malignant neoplasm of bladder, unspecified Mild persistent asthma without complication Osteoarthritis of shoulders, bilateral Port-A-Cath in place right upper chest Prostate cancer Rotator cuff tear Urinary incontinence Urothelial cancer Surgical History Surgical History H/O prostatectomy History of bladder surgery History of bunionectomy S/P ileal conduit Family History Family History Mother Hypertension Father Family history of malignant neoplasm of brain Daughter COVID-19 at the age of 47 due to complications of COVID-19 Social History Social History Social History: 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 He lives with his arvind who is the durable power contract attorney for healthcare. The patient is a full code. The patient had 2 biological children and 1 daughter recently due to covid 19 complications. Patient is a former smoker. He quit smoking in the . No alcohol marijuana or illicit drugs. Smoking packs per day: 1.5 Smoking cigarettes per day: 30.0 Years smoked: 35 Smoking pack-years: 52.50 Smoking status: Former smoker Tobacco type: cigarettes Second hand tobacco smoke exposure: No Smoking end date: 11/04/89 Additional smoking assessment comments: QUIT Alcohol intake: never Alcohol
[2021-09-07 13:03] VITALS: BP 128/68; PULSE 95; RESP 20; O2SAT 98
== END 2021-09-07 13:05 | disposition home or self-care (01) ==
PROVIDERS: Emergency Provider Emergency Medicine; PCP Family Medicine
DX: B02.9 Zoster without complications (principal); J45.909 Unspecified asthma, uncomplicated; I12.9 Hypertensive chronic kidney disease with stage 1 through stage 4 chronic kidney disease, or unspecified chronic kidney disease; N18.30 Chronic kidney disease, stage 3 unspecified; J45.30 Mild persistent asthma, uncomplicated; M19.012 Primary osteoarthritis, left shoulder; M19.011 Primary osteoarthritis, right shoulder; Z85.46 Personal history of malignant neoplasm of prostate; Z90.79 Acquired absence of other genital organ(s); Z85.51 Personal history of malignant neoplasm of bladder; Z86.718 Personal history of other venous thrombosis and embolism; Z87.891 Personal history of nicotine dependence
CPT/HCPCS: 99283; A9270

== ENCOUNTER 2021-09-08 11:26 | Observation (INO) | payer MEDICARE, SELFPAY ==
[2021-09-08 11:31] VITALS: BP 139/89; PULSE 97; RESP 18; TEMP 37; O2SAT 97
[2021-09-08 12:28] LABS: Basophils Percent Auto 0.3 % (0.2-1.2); Eosinophils Absolute Auto 0.2 K/mm3 (0-0.3); Eosinophils Percent Auto 1.9 % (0-4.4); Hematocrit 36.9 % (42.0-52.0); Hemoglobin 10.5 g/dL (14.0-18.0); Immature Granulocyte Absolute 0.19 K/mm3 (0.00-0.031); Immature Granulocyte Percent A 1.5 % (0-0.5); Lymphocytes Absolute Auto 3.79 K/mm3 (0.9-3.2); Lymphocytes Percent Auto 30.3 % (18.3-44.2); Mean Corpuscular HGB Conc 28.5 g/dl (32-36); Mean Corpuscular Hemoglobin 20.9 pg (26-34); Mean Corpuscular Volume 73.4 fl (80-100); Mean Platelet Volume 10.5 fl (7.4-10.4); Monocytes Absolute Auto 1.5 K/mm3 (0.1-0.6); Monocytes Percent Auto 11.7 % (2.6-8.5); Neutrophils Absolute Auto 6.8 K/mm3 (1.3-6.7); Neutrophils Percent Auto 54.3 % (45.5-73.1); Nucleated Red Blood Cells Perc 0.2 % (0.0-0.2); Platelet Count Result 471 k/mm3 (150-375); Red Blood Count 5.03 M/mm3 (4.6-6.20); Red Cell Distribution Width 18.3 % (11.5-14.5); White Blood Count 12.5 K/mm3 (4.5-10.0)
[2021-09-08 12:39] LABS: INR 1.3; Prothrombin Time 15.6 Seconds (11.1-14.7)
[2021-09-08 12:40] LABS: Alanine Aminotransferase 24 U/L (4-50); Albumin Level 3.7 g/dL (3.5-5.1); Alkaline Phosphatase 114 U/L (38-126); Anion Gap 10 mmol/L (8-16); Aspartate Amino Transferase 30 U/L (17-59); Bilirubin,Total 0.3 mg/dL (0.2-1.3); Blood Urea Nitrogen 19 mg/dL (9-20); Calcium 9.9 mg/dL (8.4-10.2); Carbon Dioxide 27 mmol/L (22-30); Chloride 100 mmol/L (98-107); Estimated CRCL calculation 57 ml/min; Estimated Glomerular Filt Rate > 60; Glucose 93 mg/dL (65-110); Partial Thromboplastin Time 37.7 SECONDS (22.3-36.8); Potassium 4.5 mmol/L (3.4-5.0); Sodium 137 mmol/L (137-145)
--- NOTE | 2021-09-08 13:03 | ED.GENADULT ---
HPI - General Adult General Chief complaint: Unspecified Stated complaint: shingles, eye swelling Time Seen by Provider: 09/08/21 12:06 Source: patient, RN notes reviewed and old records reviewed Mode of arrival: ambulatory Limitations: no limitations History of Present Illness HPI narrative: This is an 81 year old male with history of hypertension, DVT, bladder CA who presents for evaluation of worsening facial swelling. Patient was evaluated in ED yesterday and he was diagnosed with herpes zoster to his right forehead and eyelid. He was discharged with pain medication and Valtrex 1 g q 8 hours. He has been taking his medication as prescribed. He returned to ER today because he has developed worsening edema to his who face. He describes his lesion as itching and uncomfortable. He denies blurred vision, eye pain. He reports some eye watering. He also denies nausea, vomiting, dizziness or fever. Related Data Home Medications Medication Instructions Recorded Confirmed diltiazem HCl 360 mg capsule,24 360 mg PO DAILY 09/09/19 09/08/21 hr,extended release loratadine 10 mg tablet 10 mg PO DAILY 09/09/19 09/08/21 mometasone 1 inhalation INHALATION HS each 09/09/19 09/08/21 multivitamin 1 tablet PO DAILY 09/09/19 09/08/21 diphenhydramine HCl [Benadryl] 25 mg PO PRN PRN 05/11/20 09/08/21 Glucosamine Chondroitin See Rx Instructions .ROUTE .COMPLEX 09/01/20 09/08/21 apixaban 5 mg tablet 5 mg PO BID 12/27/20 09/08/21 sertraline [Zoloft] 25 mg PO DAILY 09/08/21 09/08/21 Allergies Allergy/AdvReac Type Severity Reaction Status Date / Time Dilaudid Allergy Unknown hallucinati Uncoded 09/08/21 11:46 ons Review of Systems Review of Systems: All systems reviewed & are unremarkable except as noted in HPI and below [facility] Past Medical History Medical History (Updated 09/08/21 @ 23:12 by Helen Abdalla MD) Anticoagulant long-term use Asthma Bilateral renal cysts Bladder cancer (~03/2020) CKD (chronic kidney disease) stage 3, GFR 30-59 ml/min (Unknown) Depression with anxiety DVT (deep venous thrombosis) several Essential (primary) hypertension H/O prostate cancer (Unknown) History of deep vein thrombosis Malignant neoplasm of bladder, unspecified Mild persistent asthma without complication Osteoarthritis of shoulders, bilateral Port-A-Cath in place right upper chest Prostate cancer Rotator cuff tear Urinary incontinence Urothelial cancer Surgical History Surgical History (Updated 09/08/21 @ 15:54 by Paola Duarte NP) H/O prostatectomy History of bladder surgery History of bunionectomy History of urostomy S/P ileal conduit Family History Family History Mother Hypertension Father Family history of malignant neoplasm of brain Daughter COVID-19 at the age of 47 due to complications of COVID-19 Social History Social History (Updated 09/08/21 @ 15:55 by Paola Duarte NP) Social History: 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 He lives with his arvind who is the durable power research attorney for healthcare. The patient had 2 biological children and 1 daughter recently due to covid 19 complications. Patient is a former smoker. He quit smoking in the s. No alcohol marijuana or illicit drugs. Code status full code Smoking packs per day: 2 Smoking cigarettes per day: 40.0 Years smoked: 35 Smoking pack-years: 70.00 Smoking status: Former smoker Tobacco type: cigarettes Second hand tobacco smoke exposure: No Smoking end date: 11/04/89 Additional smoking assessment comments: QUIT Alcohol intake: never Alcohol use details: once a month maybe Substance use: never Substance use type: does not use Gender identity (if verbalized by the patient): Male Spiritual care concerns: No Exam Const: General: cooperative, alert and awake N
[2021-09-08] MEDS: ACYCLOVIR SODIUM IVPB 800 MG in DEXTROSE 5% IN WATER 250 ML 266 MG IVPB ×2 (14:28→21:56)
[2021-09-08 14:29] VITALS: BP 106/69; PULSE 76; RESP 18; O2SAT 99
--- NOTE | 2021-09-08 15:26 | PM.IMHP ---
H&P: HPI History of Present Illness Date/Time: 09/08/21 15:26 this is an 81-year-old male patient who has a history of bladder cancer and receiving Keytruda and he sees Dr. skinner. The patient was seen in the emergency room yesterday with a rash to the right side of his face. That had been going on for 2 days. It Hg and weeping. No involvement in the eye. He had no visual changes and no right eye pain. The patient was started on methylprednisone by his oncologist. Patient was started on p.o. acyclovir yesterday. Today the patient woke up in the right eyelid was more swollen than yesterday. The encouraged the patient to come in and be checked out by the emergency room today. The patient had taken his pain medication in yesterday and the Valtrex without any relief. The physician who saw the patient yesterday evaluated the patient as well and noted that the right eye lid is more swollen and that the area of the rash has extended down to the right cheek and the tip of the nose. Today the ER doctor Rm talked with a medical laboratory technicians at [facility] Dr. Ramirez who stated that the patient could go to [facility] or follow-up Saturday or early next week. It was stated if the patient has any changes in vision, flashes of light, new floater he will need to be seen immediately. The patient has none of those complaints at this time. The patient was started on IV acyclovir. The was given the phone number from the ER physician to make an appointment to be seen in the office on Saturday. Patient is being admitted to observation on the date of service of 09/08/2021 Chief Complaint: Rash over his head Review of Systems Review of Systems: All systems reviewed & are unremarkable except as noted in HPI and below Constitutional: Constitutional: Reports as per HPI and Reports no additional constitutional complaints Eyes: Eyes: Reports as per HPI and Reports no additional eye complaints ENT: Reports system reviewed and no additional complaints, except as documented and Reports Normal hearing present Cardiovascular: Cardiovascular: Reports no additional cardiovascular complaints Respiratory: Respiratory: Reports no additional respiratory complaints and Reports no additional respiratory complaints Gastrointestinal: Gastrointestinal: Reports as per HPI and Reports no additional gastrointestinal complaints Musculoskeletal: Musculoskeletal: Reports no additional musculoskeletal complaints Integumentary/Breasts: Skin/Breast: Reports system reviewed and no additional complaints, except as docu and Reports as per HPI Neurologic: Reports system reviewed and no additional complaints, except as documented, Reports as per HPI and Reports Normal hearing present Psychiatric: Psychiatric: Reports no additional psychiatric complaints and Reports as per HPI Endocrine: Endocrine: Reports no additional endocrine complaints Hematologic/Lymphatic: Hematologic/Lymphatic: Reports no additional hematologic/lymphatic complaints Allergic/Immunologic: Allergic/Immunologic: Reports no additional allergic/immunologic complaints FOR[facility]LY [facility] Past Medical History Medical History (Updated 09/08/21 @ 16:17 by Paola Duarte NP) Anticoagulant long-term use Asthma Bilateral renal cysts Bladder cancer (~03/2020) CKD (chronic kidney disease) stage 3, GFR 30-59 ml/min (Unknown) Depression with anxiety DVT (deep venous thrombosis) several Essential (primary) hypertension H/O prostate cancer (Unknown) History of deep vein thrombosis Malignant neoplasm of bladder, unspecified Mild persistent asthma without complication Osteoarthritis of shoulders, bilateral Port-A-Cath in place right upper chest Prostate cancer Rotator cuff tear Urinary incontinence Urothelial cancer Surgical History Surgical History (Updated 09/08/21 @ 15:54 by Paola Duarte NP) H/O prostatectomy History of bladder surgery History of bunionectomy History of urostomy S/P il
[2021-09-08 17:25] VITALS: BMI 25.8
[2021-09-08 18:16] VITALS: BP 129/56; PULSE 100; RESP 16; TEMP 36.8; O2SAT 96
--- NOTE | 2021-09-08 18:19 | ADMGEN ---
This patient, Omer Winter, was admitted to Medical Room 347-. Patient/family oriented to hospital policies and general routines including ID bracelet, bed and alarms, visiting hours, pain management, procedures, bathroom and other care routines, personal items, smoking policy, room service/diet, and visiting hours. Information on how to activate the Rapid Response Team has been discussed. Patient/Family are encouraged to report perceived risks to care and to ask questions if they do not understand what they are told or what they should do.
[2021-09-08 21:04] VITALS: PULSE 96; RESP 16; O2SAT 97
[2021-09-08 21:32] VITALS: BP 135/64; PULSE 95; RESP 16; TEMP 36.8; O2SAT 97
[2021-09-08] MEDS: APIXABAN 5 MG TABLET PO (21:37)
[2021-09-08] MEDS: traZODone HCL 50 MG TABLET PO (21:55)
[2021-09-08] MEDS: LORazepam (*CRX) 0.5 MG TABLET PO (21:56)
[2021-09-08] MEDS: diphenhydrAMINE HCl CAP 25 MG CAPSULE PO (21:56)
[2021-09-09 05:24] VITALS: BP 136/71; PULSE 106; RESP 16; TEMP 37.1; O2SAT 96
[2021-09-09] MEDS: ACYCLOVIR SODIUM IVPB 800 MG in DEXTROSE 5% IN WATER 250 ML 266 MG IVPB ×3 (05:25→21:24)
[2021-09-09 06:03] LABS: Basophils Percent Auto 0.5 % (0.2-1.2); Eosinophils Absolute Auto 0.1 K/mm3 (0-0.3); Eosinophils Percent Auto 1.5 % (0-4.4); Hemoglobin 9.6 g/dL (14.0-18.0); Immature Granulocyte Absolute 0.14 K/mm3 (0.00-0.031); Immature Granulocyte Percent A 1.7 % (0-0.5); Lymphocytes Absolute Auto 1.49 K/mm3 (0.9-3.2); Lymphocytes Percent Auto 18.5 % (18.3-44.2); Mean Corpuscular HGB Conc 29.1 g/dl (32-36); Mean Corpuscular Hemoglobin 20.9 pg (26-34); Mean Corpuscular Volume 71.9 fl (80-100); Monocytes Percent Auto 12.3 % (2.6-8.5); Neutrophils Absolute Auto 5.3 K/mm3 (1.3-6.7); Neutrophils Percent Auto 65.5 % (45.5-73.1); Platelet Count Result 367 k/mm3 (150-375); Red Blood Count 4.59 M/mm3 (4.6-6.20); Red Cell Distribution Width 18.4 % (11.5-14.5); White Blood Count 8.1 K/mm3 (4.5-10.0)
[2021-09-09 06:13] LABS: Lactic Acid Reflex 1.6 mmol/L (0.7-2.1)
[2021-09-09 06:15] LABS: Alanine Aminotransferase 19 U/L (4-50); Albumin Level 3.3 g/dL (3.5-5.1); Alkaline Phosphatase 99 U/L (38-126); Anion Gap 4 mmol/L (8-16); Aspartate Amino Transferase 24 U/L (17-59); Bilirubin,Total 0.3 mg/dL (0.2-1.3); Blood Urea Nitrogen 19 mg/dL (9-20); Calcium 9.6 mg/dL (8.4-10.2); Carbon Dioxide 31 mmol/L (22-30); Chloride 100 mmol/L (98-107); Estimated CRCL calculation 57 ml/min; Estimated Glomerular Filt Rate > 60; Glucose 109 mg/dL (65-110); Magnesium 1.9 mg/dL (1.6-2.3); Potassium 3.9 mmol/L (3.4-5.0); Sodium 135 mmol/L (137-145)
[2021-09-09 07:57] LABS: Platelet Estimate Adequate (Adequate)
[2021-09-09 07:58] LABS: Ovalocytes 1+ (NORMAL); Stomatocytes 1+ (NORMAL)
[2021-09-09 07:59] LABS: Anisocytosis 1+ (NORMAL)
[2021-09-09] MEDS: LORATADINE 10 MG TABLET PO (08:51)
[2021-09-09] MEDS: LOSARTAN POTASSIUM 25 MG TABLET PO (08:51)
[2021-09-09] MEDS: MULTIVITAMINS THERAPEUTIC TAB (*BKC) 1 TABLET PO (08:51)
[2021-09-09] MEDS: SERTRALINE HCL 25 MG TABLET PO (08:51)
[2021-09-09] MEDS: dilTIAZem HCL CD 180 MG CAP.ER.24H 360 MG PO (08:51)
[2021-09-09] MEDS: APIXABAN 5 MG TABLET PO ×2 (08:51→17:43)
--- NOTE | 2021-09-09 10:05 | PM.IMPN ---
Progress Note: A&P Assessment and Plan (1) Shingles: Code(s): B02.9 - Zoster without complications Status: Acute Assessment and Plan: Dr. Witt started pt on methypredinisone earlier this week Was on seen in ED yesterday a put on Valtrex 1 gm q 8 hr Presented with worsening edema Dr. Ramirez (fuel system maintenance worker at [facility] contacted yesterday; recommended transfer if symptoms worsen) Continue IV acyclovir Continue with steroid taper Continue with Benadryl (2) Depression with anxiety: Code(s): F41.8 - Other specified anxiety disorders Status: Chronic Assessment and Plan: Stable Continue trazodone, Zoloft and lorazepam (3) Bladder cancer: Code(s): C67.9 - Malignant neoplasm of bladder, unspecified Status: Acute Assessment and Plan: Currently being treated with Keytruda per Dr. Witt (4) Pulmonary emboli: Code(s): I26.99 - Other pulmonary embolism without acute cor pulmonale Status: Acute Assessment and Plan: Continue Eliquis (5) CKD (chronic kidney disease) stage 3, GFR 30-59 ml/min: Onset Date: Unknown Code(s): N18.3 - Chronic kidney disease, stage 3 (moderate) Status: Chronic Assessment and Plan: Stable BUN and creatinine within normal Monitor (6) Mild persistent asthma without complication: Code(s): J45.30 - Mild persistent asthma, uncomplicated Status: Acute Assessment and Plan: No acute exabercerbation Continue singular (7) Essential (primary) hypertension: Code(s): I10 - Essential (primary) hypertension Status: Chronic Assessment and Plan: Stable Continue losartan Monitor Additional Plan #call out to [facility] for transfer for opthalmalogist Subjective Date/time seen: 09/09/21 10:05 Interval history: pt seen and evaluated; pain about the same; eyelid swollen shut Review of Systems Review of Systems: All systems reviewed & are unremarkable except as noted in HPI and below Exam Const: General: no acute distress, alert and awake Orientation/consciousness: patient oriented x3 HENMT: Head: normocephalic and other (zoster to right scalp, forehead to upper eyelid, does not cross midline) Ears: hearing grossly normal bilaterally Mouth: Yes Normal oral and palatal mucosa present Eyes: Alignment and Position: other Neck: Neck: full ROM and trachea midline Resp: Effort & Inspection: normal respiratory effort Auscultation: clear to auscultation bilaterally Cardio: Rate: regular rate Rhythm: regular rhythm Heart sounds: S1 normal heart sound present and S2 normal heart sound present GI: GI Palp: Yes Soft to palpation Auscultation: normal bowel sounds : General: Yes no CVA tenderness Skin: General skin exam: normal color Rashes: no rashes Neuro: General: patient oriented x3 Speech: normal speech Psych: Appearance: grossly normal Affect: normal affect Judgement: Good judgement present (Psych) Objective Data Vital Signs Vital Signs: Vital Signs - 24 hr 09/08/21 11:31 09/08/21 14:29 09/08/21 18:16 Temperature 37.0 C 36.8 C Pulse Rate 97 76 100 Respiratory Rate 18 18 16 Blood Pressure 139/89 106/69 129/56 L Pulse Oximetry 97 99 96 09/08/21 21:04 09/08/21 21:32 09/09/21 05:24 Temperature 36.8 C 37.1 C Pulse Rate 96 95 106 H Respiratory Rate 16 16 16 Blood Pressure 135/64 136/71 Pulse Oximetry 97 97 96 Intake/Output Intake/Output: Intake & Output 09/06/21 09/07/21 09/08/21 09/09/21 23:59 23:59 23:59 23:59 Intake Total 532 Output Total 650 1150 Balance -118 -1150 Meds/Results Medications: Active Medications Generic Name Dose Route Start Last Admin Trade Name Freq PRN Reason Stop Dose Admin Apixaban 5 mg 09/08/21 20:25 09/09/21 08:51 Apixaban 5 Mg Tablet PO 5 mg BID SARA Administration Diltiazem HCl 360 mg 09/09/21 09:00 09/09/21 08:51 Diltiazem Hcl Cd 180 Mg Cap.Er.24h PO 360 mg DAILY SARA
[2021-09-09] MEDS: ACETAMINOPHEN 325 MG TABLET 650 MG PO (11:39)
[2021-09-09 13:42] VITALS: BP 101/61; PULSE 96; RESP 16; TEMP 37; O2SAT 95
--- NOTE | 2021-09-09 20:07 | PM.EVENT ---
Event Note Event Note Event Note: I evaluated the patient around 530 pm and his eyes were both wide open. The patient was able read with right eye when the left eye was covered. The patient stated that he is feeling better. The edema to right eyelid is less swollen. I spoke with my nocturist collaborative about steroids. the patient had been on a steroid taper at home but it was not listed on his home medications. My collaborative suggested that we place the patient on prednisone.
[2021-09-09 20:18] VITALS: BP 138/73; PULSE 110; RESP 18; TEMP 36; O2SAT 100
[2021-09-09] MEDS: predniSONE 20 MG TABLET 40 MG PO (21:38)
[2021-09-09 21:54] LABS: EDCOVIDSCREEN Negative (Negative)
[2021-09-09] MEDS: traZODone HCL 50 MG TABLET PO (23:05)
[2021-09-09] MEDS: diphenhydrAMINE HCl CAP 25 MG CAPSULE PO (23:05)
[2021-09-09] MEDS: LORazepam (*CRX) 0.5 MG TABLET PO (23:05)
--- NOTE | 2021-09-10 00:30 | PCRCNOTE ---
Window of time for administration has passed. See next scheduled administration.
--- NOTE | 2021-09-10 01:17 | PC.NURSE ---
Daylight Savings Time For Daylight Savings Time Ending in the Fall - Clocks are moved back. For Daylight Savings Time Beginning in the Spring - Clocks are moved ahead. For [facility], the time of change occurs at 0200 hrs. Time is taken from the dietary server. This entry on the patient's chart recognizes the change in time reflected during documentation. Example: 2 entries for vital signs may be charted for 0200 hrs.
[2021-09-10 04:08] VITALS: BP 134/74; PULSE 102; RESP 18; TEMP 36.6; O2SAT 97
[2021-09-10] MEDS: ACYCLOVIR SODIUM IVPB 800 MG in DEXTROSE 5% IN WATER 250 ML 266 MG IVPB ×3 (05:07→21:32)
[2021-09-10] MEDS: predniSONE 20 MG TABLET 40 MG PO (07:31)
[2021-09-10] MEDS: LORATADINE 10 MG TABLET PO (07:32)
[2021-09-10] MEDS: SERTRALINE HCL 25 MG TABLET PO (07:32)
[2021-09-10] MEDS: LOSARTAN POTASSIUM 25 MG TABLET PO (07:32)
[2021-09-10] MEDS: APIXABAN 5 MG TABLET PO ×2 (07:32→16:29)
[2021-09-10] MEDS: MULTIVITAMINS THERAPEUTIC TAB (*BKC) 1 TABLET PO (07:32)
[2021-09-10] MEDS: dilTIAZem HCL CD 180 MG CAP.ER.24H 360 MG PO (07:32)
[2021-09-10 08:05] VITALS: PULSE 96; RESP 16; O2SAT 95
[2021-09-10 09:08] LABS: Hematocrit 33.1 % (42.0-52.0); Hemoglobin 9.9 g/dL (14.0-18.0); Mean Corpuscular HGB Conc 29.9 g/dl (32-36); Mean Corpuscular Hemoglobin 21.1 pg (26-34); Mean Corpuscular Volume 70.4 fl (80-100); Mean Platelet Volume 10.2 fl (7.4-10.4); Platelet Count Result 352 k/mm3 (150-375); Red Cell Distribution Width 18.3 % (11.5-14.5); White Blood Count 8.3 K/mm3 (4.5-10.0)
[2021-09-10 09:15] LABS: Anion Gap 10 mmol/L (8-16); Blood Urea Nitrogen 17 mg/dL (9-20); Calcium 9.5 mg/dL (8.4-10.2); Carbon Dioxide 26 mmol/L (22-30); Chloride 98 mmol/L (98-107); Estimated CRCL calculation 64 ml/min; Estimated Glomerular Filt Rate > 60; Glucose 190 mg/dL (65-110); Potassium 3.7 mmol/L (3.4-5.0); Sodium 134 mmol/L (137-145)
[2021-09-10 14:41] VITALS: BP 132/60; PULSE 108; RESP 18; TEMP 36.3; O2SAT 95
--- NOTE | 2021-09-10 15:28 | PM.IMPN ---
Progress Note: A&P Assessment and Plan (1) Shingles: Code(s): B02.9 - Zoster without complications Status: Acute Assessment and Plan: Patient appropriately started on Valtrex in the ED on 09/08/2021. Dr. Ramirez (associate professor of library media at [facility] contacted yesterday; recommended transfer if symptoms worsen) Continue IV acyclovir Continue with steroid taper Continue with Benadryl as needed for itching. (2) Depression with anxiety: Code(s): F41.8 - Other specified anxiety disorders Status: Chronic Assessment and Plan: Stable Continue trazodone, Zoloft and lorazepam (3) Bladder cancer: Code(s): C67.9 - Malignant neoplasm of bladder, unspecified Status: Acute Assessment and Plan: Status post cystectomy. Currently being treated with Keytruda per Dr. Witt (4) Pulmonary emboli: Code(s): I26.99 - Other pulmonary embolism without acute cor pulmonale Status: Acute Assessment and Plan: Continue Eliquis (5) CKD (chronic kidney disease) stage 3, GFR 30-59 ml/min: Onset Date: Unknown Code(s): N18.3 - Chronic kidney disease, stage 3 (moderate) Status: Chronic Assessment and Plan: Status post cystectomy Stable BUN and creatinine within normal Monitor (6) Mild persistent asthma without complication: Code(s): J45.30 - Mild persistent asthma, uncomplicated Status: Acute Assessment and Plan: No acute exabercerbation Continue singular (7) Essential (primary) hypertension: Code(s): I10 - Essential (primary) hypertension Status: Chronic Assessment and Plan: Stable Continue losartan Monitor Additional Plan #call out to [facility] for transfer for opthalmalogist Subjective Date/time seen: 09/10/21 15:28 S: Patient was examined at the bedside. He denies any major complaints. Tingling of the right side of the face is improving. Vision is preserved. Patient denies any blurry vision. Mild itching persists. The lesions in different stages of healing. Review of Systems Review of Systems: All systems reviewed & are unremarkable except as noted in HPI and below Constitutional: Constitutional: Reports no additional constitutional complaints Eyes: Eyes: Reports no additional eye complaints, Denies blurry vision, Denies diplopia, Denies eye discharge, Denies itchy eyes, Denies loss of vision, Denies other visual disturbances and Denies eye pain Comments: Swelling redness of the right upper eyelid lead. No pain or loss of vision. No other visual disturbances. ENT: Reports system reviewed and no additional complaints, except as documented and Reports as per HPI Cardiovascular: Cardiovascular: Reports no additional cardiovascular complaints Respiratory: Respiratory: Reports no additional respiratory complaints Gastrointestinal: Gastrointestinal: Reports no additional gastrointestinal complaints Genitourinary: Genitourinary: Reports no additional male genitourinary complaints Musculoskeletal: Musculoskeletal: Reports no additional musculoskeletal complaints Integumentary/Breasts: Skin/Breast: Reports change in pigmentation, Reports pruritus, Reports lesions, Reports erythema, Reports rash and Reports skin pain Neurologic: Reports system reviewed and no additional complaints, except as documented Psychiatric: Psychiatric: Reports no additional psychiatric complaints Endocrine: Endocrine: Reports no additional endocrine complaints Hematologic/Lymphatic: Hematologic/Lymphatic: Reports no additional hematologic/lymphatic complaints Allergic/Immunologic: Allergic/Immunologic: Reports no additional allergic/immunologic complaints Exam Const: General: cooperative, healthy appearing, comfortable, no acute distress, well developed, alert, awake and Physically active Nutritional Appearance: average body habitus and overweight Orientation/consciousness: oriented to person, oriented to place, oriented to
[2021-09-10 21:31] VITALS: BP 143/78; PULSE 102; RESP 16; TEMP 36.3; O2SAT 95
[2021-09-10] MEDS: LORazepam (*CRX) 0.5 MG TABLET PO (21:40)
[2021-09-10] MEDS: diphenhydrAMINE HCl CAP 25 MG CAPSULE PO (21:40)
[2021-09-10] MEDS: traZODone HCL 50 MG TABLET PO (21:40)
[2021-09-10 22:38] VITALS: O2SAT 94
[2021-09-11 06:00] VITALS: BP 137/79; PULSE 100; RESP 16; TEMP 36.1; O2SAT 96
[2021-09-11] MEDS: ACYCLOVIR SODIUM IVPB 800 MG in DEXTROSE 5% IN WATER 250 ML 250 MG IVPB ×2 (06:07→14:10)
--- NOTE | 2021-09-11 06:50 | PM.IMPN ---
Progress Note: A&P Assessment and Plan (1) Shingles: Code(s): B02.9 - Zoster without complications Status: Acute Assessment and Plan: Patient appropriately started on Valtrex in the ED on 09/08/2021. Dr. Ramirez (novelty twister tender at [facility] contacted yesterday; recommended transfer if symptoms worsen) Continue IV acyclovir then discharge on a 10 day course of valacyclovir. Continue with steroid. Continue with Benadryl as needed for itching. (2) Depression with anxiety: Code(s): F41.8 - Other specified anxiety disorders Status: Chronic Assessment and Plan: Stable Continue trazodone, Zoloft and lorazepam (3) Bladder cancer: Code(s): C67.9 - Malignant neoplasm of bladder, unspecified Status: Acute Assessment and Plan: Status post cystectomy. Currently being treated with Keytruda per Dr. Witt (4) Pulmonary emboli: Code(s): I26.99 - Other pulmonary embolism without acute cor pulmonale Status: Acute Assessment and Plan: Continue Eliquis (5) CKD (chronic kidney disease) stage 3, GFR 30-59 ml/min: Onset Date: Unknown Code(s): N18.3 - Chronic kidney disease, stage 3 (moderate) Status: Chronic Assessment and Plan: Status post cystectomy Stable BUN and creatinine are stableand within a normal range. Monitor (6) Mild persistent asthma without complication: Code(s): J45.30 - Mild persistent asthma, uncomplicated Status: Acute Assessment and Plan: No acute exabercerbation Continue singular (7) Essential (primary) hypertension: Code(s): I10 - Essential (primary) hypertension Status: Chronic Assessment and Plan: Stable Continue losartan Monitor Additional Plan Patient has been educated about the risk including loss of vision. He was referred to ophthalmology in [facility]. He was instructed to seek medical care for any new symptoms including vision loss, eye pain or worsening rash. Subjective Date/time seen: 09/11/21 06:50 S: Patient is examined at the bedside. He denies eye pain or blurry vision. The lesions are crusted. Review of Systems Review of Systems: All systems reviewed & are unremarkable except as noted in HPI and below Eyes: Eyes: Denies blurry vision, Denies change in vision, Denies decreased night vision, Denies diplopia, Denies eye discharge, Denies itchy eyes, Denies loss of peripheral vision, Denies loss of vision, Denies other visual disturbances, Denies eye pain and Denies photophobia Integumentary/Breasts: Skin/Breast: Reports as per HPI, Reports erythema, Reports rash and Reports skin swelling Neurologic: Reports system reviewed and no additional complaints, except as documented, Denies loss of vision and Denies Other visual disturbances Psychiatric: Psychiatric: Reports no additional psychiatric complaints Endocrine: Endocrine: Reports no additional endocrine complaints Hematologic/Lymphatic: Hematologic/Lymphatic: Reports no additional hematologic/lymphatic complaints Allergic/Immunologic: Allergic/Immunologic: Reports no additional allergic/immunologic complaints Exam Const: General: cooperative, healthy appearing, comfortable, no acute distress, well developed, alert, awake and Physically active Nutritional Appearance: average body habitus and overweight Orientation/consciousness: oriented to person, oriented to place, oriented to time and patient oriented x3 Limitations: no limitations HENMT: Head: No palpable skull fracture present, normocephalic and other (zoster to right scalp, forehead to upper eyelid, does not cross midline) Ears: hearing grossly normal bilaterally General nose exam: Other nasal findings present (Shingles noted to right side of his nose and the tip of his nose) Face and sinus: face symmetric and edema on the right (Eyelid) periorbital and forehead Mouth: Yes Normal oral and palatal mucosa present Eyes: Alignment and Position: ali
[2021-09-11] MEDS: LORATADINE 10 MG TABLET PO (09:09)
[2021-09-11] MEDS: dilTIAZem HCL CD 180 MG CAP.ER.24H 360 MG PO (09:09)
[2021-09-11] MEDS: APIXABAN 5 MG TABLET PO ×2 (09:09→17:43)
[2021-09-11] MEDS: SERTRALINE HCL 25 MG TABLET PO (09:09)
[2021-09-11] MEDS: predniSONE 20 MG TABLET 40 MG PO (09:09)
[2021-09-11] MEDS: MULTIVITAMINS THERAPEUTIC TAB (*BKC) 1 TABLET PO (09:09)
[2021-09-11] MEDS: LOSARTAN POTASSIUM 25 MG TABLET PO (09:09)
[2021-09-11 15:56] VITALS: BP 139/68; PULSE 95; RESP 18; TEMP 37; O2SAT 95
--- NOTE | 2021-09-11 18:18 | PM.DS ---
DS: Admitting Diagnosis Discharge Date 09/12/2021 Admitting Diagnosis Zoster without complications DS: Discharge Diagnosis Discharge Diagnosis (1) Shingles: Code(s): B02.9 - Zoster without complications Status: Acute Assessment and Plan: Patient appropriately started on Valtrex in the ED on 09/08/2021. Dr. Ramirez (nurse auditor at [facility] contacted yesterday; recommended transfer if symptoms worsen) Continue IV acyclovir then discharge on a 10 day course of valacyclovir. Continue with steroid. Continue with Benadryl as needed for itching. (2) Depression with anxiety: Code(s): F41.8 - Other specified anxiety disorders Status: Chronic Assessment and Plan: Stable Continue trazodone, Zoloft and lorazepam (3) Bladder cancer: Code(s): C67.9 - Malignant neoplasm of bladder, unspecified Status: Acute Assessment and Plan: Status post cystectomy. Currently being treated with Keytruda per Dr. Witt (4) Pulmonary emboli: Code(s): I26.99 - Other pulmonary embolism without acute cor pulmonale Status: Acute Assessment and Plan: Continue Eliquis (5) CKD (chronic kidney disease) stage 3, GFR 30-59 ml/min: Onset Date: Unknown Code(s): N18.3 - Chronic kidney disease, stage 3 (moderate) Status: Chronic Assessment and Plan: Status post cystectomy Stable BUN and creatinine are stableand within a normal range. Monitor (6) Mild persistent asthma without complication: Code(s): J45.30 - Mild persistent asthma, uncomplicated Status: Acute Assessment and Plan: No acute exabercerbation Continue singular (7) Essential (primary) hypertension: Code(s): I10 - Essential (primary) hypertension Status: Chronic Assessment and Plan: Stable Continue losartan Monitor DS: Summary Hospital Course Reason for hospitalization: Facial rash. Hospital Course: Please refer to admission H&P. Briefly,this is an 81-year-old male patient who has a history of bladder cancer and receiving Keytruda and he sees Dr. Witt. The patient was seen in the emergency room on 09/07 with a rash to the right side of his face that had been going on for 2 days. It is red, moist and weeping. To right upper eyelid lesion he is involved but there is no involvement in the eye. He had no visual changes and no right eye pain. The patient was started on methylprednisone by his oncologist. Patient was started on p.o. acyclovir on the day prior to presentation. On the day of admission, the patient woke up with the right eyelid more swollen than day before. The encouraged the patient to come in and be checked out by the emergency room today. The patient had taken his pain medication in yesterday and the Valtrex without any relief. The physician who saw the patient yesterday evaluated the patient as well and noted that the right eye lid is more swollen and that the area of the rash has extended down to the right cheek and the tip of the nose. Today the ER physician doctor Abdalla talked with a nurse auditor at [facility] Dr. Ramirez who stated that the patient could go to [facility] or follow-up Saturday or early next week. It was stated if the patient has any changes in vision, flashes of light, new floater he will need to be seen immediately. The patient has none of those complaints at this time. The patient was appropriately started on IV acyclovir. The was given the phone number from the ER physician to make an appointment to be seen in the office on Saturday. Patient is being admitted to observation on the date of service of 09/08/2021. Patient was appropriately treated with IV acyclovir feed and prednisone. He did not experience any visual complaints throughout the admissions. I evaluated the patient on 09/11/2021. The superficial skin lesions were requesting. The patient was extensively educated about the risk of no
== END 2021-09-11 18:20 | disposition home or self-care (01) ==
LOC: ANHED 12:06 → ANH3MED 23:12
PROVIDERS: Nurse Practitioner; Nurse Practitioner Adult Health; Admitting Provider Hospitalist; Emergency Provider General Practice; PCP Family Medicine; Visit Provider Internal Medicine
DX: B02.9 Zoster without complications (principal); C67.9 Malignant neoplasm of bladder, unspecified; I12.9 Hypertensive chronic kidney disease with stage 1 through stage 4 chronic kidney disease, or unspecified chronic kidney disease; N18.30 Chronic kidney disease, stage 3 unspecified; F41.8 Other specified anxiety disorders; Z20.822 Contact with and (suspected) exposure to COVID-19; Z87.891 Personal history of nicotine dependence; Z79.01 Long term (current) use of anticoagulants; Z86.711 Personal history of pulmonary embolism
CPT/HCPCS: 36415; 80048; 80053; 83605; 83735; 85025; 85027; 85610; 85730; 87426; 94640; 96365; 96366; 99285; A9270; C9803; G0378; J0133; J7060; J7512

== ENCOUNTER 2021-09-25 05:50 | Inpatient (IN) | payer MEDICARE, SELFPAY ==
[2021-09-25] VITALS (35 sets, daily range): BP systolic 92–140; BP diastolic 64–88; PULSE 86–154; RESP 18–43; TEMP 36.2–36.5; O2SAT 91–99; BMI 25.2
--- NOTE | ~2021-09-25 | US_ITS ---
EXAMINATION: US thoracentesis DATE: 09/26/2021 10:33 INDICATION: Right pleural effusion TECHNIQUE: The procedure and its risks and benefits were discussed with the patient. Potential risks discussed included bleeding, infection, and pneumothorax. The patient understood the risks and agreed to proceed. The skin was prepped and draped in sterile fashion. 1% lidocaine was used for local anes thesia. Under ultrasound guidance, a 5 Fr catheter with trochar was advanced into the small right ple ural effusion. Fluid was aspirated. The catheter was removed, and a dressing was applied. There were no immediate complications. FINDINGS: Ultrasound images demonstrate a small complex multiloculated right pleural effusion and the catheter within the fluid. IMPRESSION: 1. Successful ultrasound-guided thoracentesis yielding 275 mL of reddish fluid. Reviewed, dictated and finalized at location A. T ASSISTANT IMPRESSION: 1. Successful ultrasound-guided thoracentesis yielding 275 mL of reddish fluid .
--- NOTE | ~2021-09-25 | XR_ITS ---
EXAMINATION: [id number] DATE: 09/26/2021 10:52 INDICATION: Pleural effusion postthoracentesis TECHNIQUE: frontal and lateral views of the chest were obtained. COMPARISON: Chest radiograph dated 09/08/2020 FINDINGS: Opacities in the right mid and lower lung zone which includes a residual small right pleural effusion . No pneumothorax. Curvilinear discoid atelectasis/scarring at the left lung base. The cardiomediasti nal silhouette is within normal limits for AP technique. IMPRESSION: 1. Small residual right pleural effusion post thoracentesis with no pneumothorax. 2. Opacities in the right mid and lower lung zone which could be due to atelectasis, pneumonia, malig kaya or some combination thereof. Reviewed, dictated and finalized at location A. ACTOR LOADER AND UNLOADER IMPRESSION: 1. Small residual right pleural effusion post thoracentesis with no pneumothora x. 2. Opacities in the right mid and lower lung zone which could be due to atelect asis, pneumonia, malignancy or some combination thereof.
--- NOTE | ~2021-09-25 | XR_ITS ---
EXAMINATION: XR chest 1V portable EXAM DATE: 09/25/2021 06:16 INDICATION: Shortness of breath worsening last night. Bladder cancer. TECHNIQUE: Portable AP frontal chest x-ray was obtained. Comparison is made to prior examination from 09/11/2020. FINDINGS: There is a right-sided portacatheter in position. Compared to prior examination, developmen t of moderate amount of right-sided atelectasis, pneumonia or edema. There is also small to moderate right pleural effusion which was not present on prior study. Again there is elevated left hemidiaphra gm with adjacent atelectasis. There is aortic arteriosclerosis. There are mild bony degenerative awad ges. IMPRESSION: Development of moderate right-sided pneumonia, atelectasis or edema, small to moderate r ight pleural effusion. Reviewed, dictated and finalized at location A. NG SHEAR OPERATOR IMPRESSION: Development of moderate right-sided pneumonia, atelectasis or cinda a, small to moderate right pleural effusion.
--- NOTE | ~2021-09-25 | CT_ITS ---
EXAMINATION: CTA chest PE protocol EXAM DATE: 09/25/2021 06:51 INDICATION: Dyspnea, hx of malignancy. Bladder cancer, liver metastases. TECHNIQUE: Spiral CTA of the chest (pulmonary arteries) was performed with 100 cc Omnipaque 350 intr avenous contrast injection. Images were acquired during the pulmonary arterial phase. Coronal maxi mum intensity projection 3D-reconstructions were created by the technologist on dedicated workstation . Axial, coronal and sagittal reformatted images were reviewed. The dose-length product (DLP) for t his examination was 649.00 mGy-cm. The exposure was tailored according to patient size (auto mA exp osure control), and iterative reconstruction (ASIR) was used as additional dose reduction technique. Comparison is made to prior examination from 08/10/2021. FINDINGS: The main, central pulmonary arteries are dilated which can indicate elevated pulmonary tori rial pressure, pulmonary arterial hypertension. Pulmonary arteries are well opacified and without in traluminal filling defects. No thoracic aortic dissection. There is small to moderate right-sided chronic pleural effusion, with diffuse pleural thickening and multiple loculations identified. Previously seen small amount of gas within this pleural cavity has r esolved. There is adjacent multisegmental right lower lobe atelectasis unchanged. Subsegmental right middle lobe and right upper lobe atelectasis. There is small left pleural effusion. The left lung is clear. Tracheobronchial tree is patent. Mild right hilar lymphadenopathy. There is no pneumothorax . Mild cardiomegaly. Mild bilateral adrenal nodularity. Small amount of ascites. Development of ill-defined omental nodula rity, possible carcinomatosis. Several ill-defined liver hypodensities which could be metastatic dise ase up to 2 cm in size. Mass at superior pole left kidney measuring about 3 cm. No osteoblastic or os teolytic lesions identified. IMPRESSION: 1. Dilated pulmonary arteries without filling defects. No acute cardiopulmonary findings. 2. Chronic small to moderate right pleural effusion with adjacent multisegmental atelectasis, unchan ged. 3. Small left pleural effusion. 4. Development of omental nodularity, possible carcinomatosis. 5. Liver, adrenal masses. Right hilar lymphadenopathy. Reviewed, dictated and finalized at location A. ON GLUING MACHINE OPERATOR IMPRESSION: 1. Dilated pulmonary arteries without filling defects. No acute cardiopulmonar y findings. 2. Chronic small to moderate right pleural effusion with adjacent multisegment al atelectasis, unchanged. 3. Small left pleural effusion. 4. Development of omental nodularity, possible carcinomatosis. 5. Liver, adrenal masses. Right hilar lymphadenopathy.
--- NOTE | 2021-09-25 06:05 | ECG_ITS ---
Measurements Intervals [place] Rate: 116 P: 42 MI: 155 QRS: 69 QRSD: 114 T: 48 QT: 323 QTc: 449 Interpretive Statements SINUS TACHYCARDIA ATRIAL COUPLET AND ATRIAL PREMATURE COMPLEX INCOMPLETE RIGHT BUNDLE BRANCH BLOCK BASELINE ARTIFACT- I, II, III, AVR, AVL, AVF ABNORMAL ECG Electronically Signed On 09-25-2021 6:34:37 [employer] by Todd Melgoza D.O.
[2021-09-25] MEDS: SODIUM CHLORIDE 0.9% IV 500 ML 999 ML IV CONT (06:18)
--- NOTE | 2021-09-25 06:18 | ED.SOB ---
HPI - SOB/Dyspnea General Chief Complaint: Shortness of Breath/Dyspnea <Cody Cheney MD - Last Filed: 09/25/21 07:16> Stated Complaint: shortness of breath/back pain <Cody Cheney MD - Last Filed: 09/25/21 07:16> Time Seen by Provider: 09/25/21 05:55 <Cody Cheney MD - Last Filed: 09/25/21 07:16> Source: patient <Cody Cheney MD - Last Filed: 09/25/21 07:16> History of Present Illness HPI Narrative: Patient with a history of metastatic bladder cancer pleural pleural effusion status post pleurodesis and prior thrombus presents with shortness of breath and back pain. Reports symptoms started yesterday he took his home inhalers which did provide some relief however shortness of breath persisted so he came to the ER for evaluation. He also reports left shoulder blade pain. Pain is constant, sharp, no clear aggravating or alleviating factors, no radiation. He denies anterior chest pain denies any nausea vomiting or abdominal pain. <Cody Cheney MD - Last Filed: 09/25/21 07:16> Related Data Home Medications: Home Medications Medication Instructions Recorded Confirmed diltiazem HCl 360 mg capsule,24 360 mg PO DAILY 09/09/19 09/20/21 hr,extended release loratadine 10 mg tablet 10 mg PO DAILY 09/09/19 09/20/21 mometasone 1 inhalation INHALATION HS each 09/09/19 09/20/21 multivitamin 1 tablet PO DAILY 09/09/19 09/20/21 diphenhydramine HCl [Benadryl] 25 mg PO PRN PRN 05/11/20 09/20/21 Glucosamine Chondroitin PLUS 1 tab-cap PO DAILY #0 09/01/20 09/20/21 apixaban 5 mg tablet 5 mg PO BID 12/27/20 09/20/21 beclomethasone dipropionate [Qvar] 80 mcg INHALATION DAILY 09/25/21 cholecalciferol (vitamin D3) 50 mcg PO DAILY 09/25/21 [Vitamin D3] ferrous sulfate [iron] 325 mg PO DAILY 09/25/21 psyllium [Metamucil] 1 packet PO BID 09/25/21 sertraline 25 mg PO DAILY 09/25/21 trazodone 50 mg PO HS PRN 09/25/21 <Cody Cheney MD - Last Filed: 09/25/21 07:16> Allergies/Adverse Reactions: Allergies Allergy/AdvReac Type Severity Reaction Status Date / Time hydromorphone [From Dilaudid] AdvReac Unknown Hallucinati Verified 09/25/21 08:12 ng <Cody Cheney MD - Last Filed: 09/25/21 07:16> Review of Systems Review of Systems: CONSTITUTIONAL: Denies fever, chills, or sweats. EYES: Denies visual changes, redness, or discharge. ENT: Denies rhinorrhea, congestion, sore throat, or otalgia. CARDIOVASCULAR: Denies chest pain, palpitations, or edema. RESPIRATORY: Reports shortness of breath and cough GASTROINTESTINAL: Denies abdominal pain, nausea, vomiting, or diarrhea. GENITOURINARY: Denies dysuria or hematuria. SKIN: Denies rash or itching. MUSCULOSKELETAL: Denies joint pain, or myalgia. NEUROLOGIC: Denies headache, numbness, dizziness, or weakness. PSYCHIATRIC: Denies anxiety or depression. <Cody Cheney MD - Last Filed: 09/25/21 07:16> All systems reviewed & are unremarkable except as noted in HPI and below <Cody Cheeny MD - Last Filed: 09/25/21 07:16> PMFSH Past Medical History Medical History: Medical History Anticoagulant long-term use Asthma Bilateral renal cysts Bladder cancer (~03/2020) CKD (chronic kidney disease) stage 3, GFR 30-59 ml/min (Unknown) Depression with anxiety DVT (deep venous thrombosis) several Essential (primary) hypertension H/O prostate cancer (Unknown) History of deep vein thrombosis Insomnia Malignant neoplasm of bladder, unspecified Mild persistent asthma without complication Osteoarthritis of shoulders, bilateral Port-A-Cath in place right upper chest Prostate cancer Rotator cuff tear Urinary incontinence Urothelial cancer <Cody Cheney MD - Last Filed: 09/25/21 07:16> Surgical History Surgical History: Surgical History H/O prostatectomy History of bladder surgery History of buni
[2021-09-25 06:25] LABS: Basophils Percent Auto 0.3 % (0.2-1.2); Eosinophils Absolute Auto 0.1 K/mm3 (0-0.3); Eosinophils Percent Auto 0.6 % (0-4.4); Hematocrit 33.3 % (42.0-52.0); Hemoglobin 9.7 g/dL (14.0-18.0); Immature Granulocyte Absolute 0.34 K/mm3 (0.00-0.031); Immature Granulocyte Percent A 2.6 % (0-0.5); Immature Platelet Fraction Pct 3.6 % (0.9-11.2); Lymphocytes Percent Auto 18.2 % (18.3-44.2); Mean Corpuscular HGB Conc 29.1 g/dl (32-36); Mean Corpuscular Hemoglobin 20.9 pg (26-34); Mean Corpuscular Volume 71.6 fl (80-100); Mean Platelet Volume 11.1 fl (7.4-10.4); Monocytes Absolute Auto 1.3 K/mm3 (0.1-0.6); Monocytes Percent Auto 10.2 % (2.6-8.5); Neutrophils Percent Auto 68.1 % (45.5-73.1); Nucleated Red Blood Cells Absolute Auto 0.1 K/mm3 (0.0-0.012); Nucleated Red Blood Cells Perc 0.7 % (0.0-0.2); Platelet Count Result 380 k/mm3 (150-375); Red Blood Count 4.65 M/mm3 (4.6-6.20); Red Cell Distribution Width 21.5 % (11.5-14.5); White Blood Count 13.2 K/mm3 (4.5-10.0)
--- NOTE | 2021-09-25 06:27 | ECG_ITS ---
Measurements Intervals [place] Rate: 153 P: 189 [place]: 86 QRS: 86 QRSD: 142 T: 8 QT: 306 QTc: 489 Interpretive Statements ATRIAL FLUTTER/TACHYCARDIA WITH RAPID VENTRICULAR RESPONSE RIGHT BUNDLE BRANCH BLOCK ABNORMAL ECG Electronically Signed On 09-25-2021 6:35:27 LEAD CASE MANAGER by Todd Melgoza D.O.
--- NOTE | 2021-09-25 06:31 | PC.NURSE ---
Pt HR on monitor noted to be 155, ED MD Cheney notified and order placed for repeat EKG. Pt denies new symptoms or complaints. Denies any changes. EKG done and shown to ED MD. Pt's reports he does medication infusions every 3 weeks for his cancer. will continue to monitor.
[2021-09-25 06:34] LABS: Alanine Aminotransferase 24 U/L (4-50); Albumin Level 3.9 g/dL (3.5-5.1); Alkaline Phosphatase 147 U/L (38-126); Anion Gap 5 mmol/L (8-16); Aspartate Amino Transferase 30 U/L (17-59); Bilirubin,Total 0.6 mg/dL (0.2-1.3); Blood Urea Nitrogen 13 mg/dL (9-20); Calcium 9.4 mg/dL (8.4-10.2); Carbon Dioxide 33 mmol/L (22-30); Chloride 96 mmol/L (98-107); Estimated CRCL calculation 64 ml/min; Estimated Glomerular Filt Rate > 60; Glucose 133 mg/dL (65-110); Potassium 3.9 mmol/L (3.4-5.0); Sodium 134 mmol/L (137-145)
[2021-09-25 06:57] LABS: Ovalocytes 1+ (NORMAL); Platelet Estimate Adequate (Adequate)
[2021-09-25 06:58] LABS: Anisocytosis 1+ (NORMAL)
[2021-09-25 06:59] LABS: Polychromasia 1+ (NORMAL)
--- NOTE | 2021-09-25 07:01 | PC.NURSE ---
Med rec done with list provided by pt's . Pt currently in CT scan.
[2021-09-25 07:07] LABS: Magnesium 1.6 mg/dL (1.6-2.3); Phosphorus 2.4 mg/dL (2.5-4.5)
[2021-09-25 07:17] LABS: NT Pro B Type Natriuretic Pept 3300 pg/mL (5-100)
[2021-09-25 07:47] LABS: Lactic Acid Reflex 2.6 mmol/L (0.7-2.1)
[2021-09-25 08:01] LABS: INR 1.5; Prothrombin Time 17.8 Seconds (11.1-14.7)
[2021-09-25 08:02] LABS: Partial Thromboplastin Time 43.8 SECONDS (22.3-36.8)
[2021-09-25 08:09] LABS: Add Urine Microscopic? YES; Appearance Urine Cloudy (Clear); Bacteria Urine Trace /hpf; Bilirubin Urine Negative (Negative); Blood Urine Negative (Negative); Color Urine Yellow (Yellow); Glucose Urine UA Negative (Negative); Ketones Urine Negative (Negative); Leukocyte Esterase Ur 3+ LEU/UL (Negative); Nitrate Urine Negative (Negative); Protein Urine Negative (Negative); Specific Grav Ur 1.015 (1.001-1.035); Urobilinogen Urine Negative mg/dL (<2.0); WBC Clumps Urine Present /HPF; WBC Urine >75 /hpf
[2021-09-25] MEDS: LORazepam (*CRX) 0.5 MG TABLET PO ×2 (08:15→20:41)
[2021-09-25] MEDS: APIXABAN 5 MG TABLET PO (08:35)
[2021-09-25] MEDS: LOSARTAN POTASSIUM 25 MG TABLET PO (08:35)
[2021-09-25] MEDS: dilTIAZem HCL CD 180 MG CAP.ER.24H 360 MG PO (08:35)
[2021-09-25] MEDS: ASPIRIN 81 MG CHEWABLE TABLET 324 MG PO (09:12)
--- NOTE | 2021-09-25 09:33 | PC.NURSE ---
room tray order was placed at [id number]
--- NOTE | 2021-09-25 10:14 | PM.IMPN ---
Subjective Date/time seen: Narrative: 09/25/21 09:14 S: Objective Data Vital Signs Vital Signs: Vital Signs - 24 hr 09/25/21 05:57 09/25/21 06:03 09/25/21 06:06 Temperature 97.7 F Pulse Rate 118 H 118 H 120 H Respiratory Rate 20 22 H Blood Pressure 140/88 Pulse Oximetry 97 97 09/25/21 06:15 09/25/21 06:17 09/25/21 06:30 Temperature Pulse Rate 153 H Respiratory Rate 32 H Blood Pressure 92/77 L Pulse Oximetry 99 96 98 09/25/21 06:50 09/25/21 07:04 09/25/21 07:15 Temperature Pulse Rate 115 H Respiratory Rate 31 H Blood Pressure Pulse Oximetry 96 98 09/25/21 07:30 09/25/21 07:57 09/25/21 07:58 Temperature Pulse Rate 120 H 117 H 107 H Respiratory Rate 28 H 21 H 18 Blood Pressure 133/77 Pulse Oximetry 96 94 95 09/25/21 08:01 09/25/21 08:19 09/25/21 08:30 Temperature Pulse Rate 113 H 112 H 111 H Respiratory Rate 26 H 22 H 22 H Blood Pressure Pulse Oximetry 95 94 96 09/25/21 08:32 09/25/21 08:45 09/25/21 08:46 Temperature Pulse Rate 144 H 154 H 113 H Respiratory Rate 21 H 19 20 Blood Pressure 123/71 135/80 Pulse Oximetry 98 09/25/21 09:10 09/25/21 09:15 09/25/21 09:17 Temperature Pulse Rate 112 H 108 H 110 H Respiratory Rate 24 H 19 18 Blood Pressure 137/71 Pulse Oximetry 97 94 96 09/25/21 09:34 09/25/21 09:45 09/25/21 09:47 Temperature Pulse Rate 111 H 118 H 115 H Respiratory Rate 28 H 43 H 31 H Blood Pressure 125/75 Pulse Oximetry 97 98 95 09/25/21 10:00 09/25/21 10:02 Temperature Pulse Rate 112 H 111 H Respiratory Rate 22 H 25 H Blood Pressure 122/69 Pulse Oximetry 94 91 Intake/Output Intake/Output: Intake & Output 09/22/21 09/23/21 09/24/21 09/25/21 23:59 23:59 23:59 23:59 Intake Total 850 Balance 850 Meds/Results Medications: Active Medications Generic Name Dose Route Start Last Admin Trade Name Freq PRN Reason Stop Dose Admin Piperacillin Sod/Tazobactam Sod 4.5 gm in 100 mls @ 200 mls/hr 09/25/21 12:00 Zosyn 4.5 Gm/D5w 100 Ml IVPB Q6HR SARA Vancomycin HCl 1,250 mg in 250 mls @ 200 mls/hr 09/26/21 02:00 Vancomycin 1,250 Mg/D5w 250 Ml IVPB Q18H [facility] Radiology Results: ITS Impressions Chest X-Ray 09/25/21 06:29 IMPRESSION: Development of moderate right-sided pneumonia, atelectasis or edema, small to moderate right pleural effusion. Chest CTA 09/25/21 07:03 IMPRESSION: 1. Dilated pulmonary arteries without filling defects. No acute cardiopulmonary findings. 2. Chronic small to moderate right pleural effusion with adjacent multisegmental atelectasis, unchanged. 3. Small left pleural effusion. 4. Development of omental nodularity, possible carcinomatosis. 5. Liver, adrenal masses. Right hilar lymphadenopathy. Labs Labs: Laboratory Results - last 24 hr 09/25/21 09/25/21 09/25/21 06:12 06:12 06:12 WBC 13.2 H RBC 4.65 Hgb 9.7 L Hct 33.3 L MCV 71.6 L MCH 20.9 L MCHC 29.1 L RDW 21.5 H Plt Count 380 H MPV 11.1 H Immature Gran % (Auto) 2.6 H Neut % (Auto) 68.1 Lymph % (Auto) 18.2 L [place] % (Auto) 10.2 H Eos % (Auto) 0.6 Baso % (Auto) 0.3 Lymph # (Auto) 2.40 [place] # (Auto) 1.3 H Eos # (Auto) 0.1 Baso # (Auto) 0.0 Abs Immat Gran (auto) 0.34 H Absolute Neuts (auto) 9.0 H Absolute Nucleated RBC 0.1 H Nucleated RBC % 0.7 H Platelet Estimate Adequate % Immature Plt Fraction 3.6 Polychromasia 1+ Anisocytosis 1+ Ovalocytes 1+ PT INR APTT Sodium 134 L Potassium 3.9 Chloride 96 L Carbon Dioxide 33 H Anion Gap 5 L BUN 13 Creatinine 0.80 Estim Creat Clear Calc 64 Estimated GFR > 60 Glucose 133 H Lactic Acid Calcium 9.4 Phosphorus 2.4 L Magnesium 1.6 Total Bilirubin 0.6 AST 30 ALT 24 Alkaline Phosphatase 147 H Troponin I 0.060 H* NT-Pro-B Natriuret Pep 3300
--- NOTE | 2021-09-25 10:20 | ADMGEN ---
This patient, Omer Winter, was admitted to IMU Room 204-01 at 1015. Patient/family oriented to hospital policies and general routines including ID bracelet, bed and alarms, visiting hours, pain management, procedures, bathroom and other care routines, personal items, smoking policy, room service/diet, and visiting hours. Information on how to activate the Rapid Response Team has been discussed. Patient/Family are encouraged to report perceived risks to care and to ask questions if they do not understand what they are told or what they should do.
[2021-09-25 10:36] LABS: Reflex Lactic Acid Yes or No Add Lactic
[2021-09-25 11:08] LABS: Lactic Acid 4.1 mmol/L (0.7-2.1)
[2021-09-25 13:20] LABS: Troponin I 0.069 ng/mL (0.000-0.034)
--- NOTE | 2021-09-25 14:13 | PM.IMHP ---
H&P: HPI History of Present Illness Date/Time: 09/25/21 14:13 this is a 81-year-old male patient who was recently at our hospital for shingles to the right side of his face. The patient since then has been evaluated by Ophthalmology for herpes zoster dermatitis of eyelids, right side of the face, forehead and eyelid. His lesions have healed. The patient still has some mild discomfort. The patient has been on oral prednisone and Valtrex. His fundus exam was normal. The patient also has a history of metastatic bladder cancer and takes Keytruda for treatment. He stated he gets a treatment every 3 weeks and his last 1 was approximately 3 weeks ago. He stated that he is due for treatment this week but will not be able to have a performed. The patient started to become more short of breath and having some back pain that started yesterday. The patient used his inhalers from home which provided some relief but patient still was short of breath. He also is complaining some left shoulder blade pain that is been constant and sharp. No radiation. No nausea vomiting or diarrhea. Patient's troponin 0.060 and 0.069 respectively. BNP is 3300. Lactic acid is 2.6 and 4.1. Glucose 133. H&H 9.7 and 33.3. White count 13.2. Urine leukocyte esterase 3+ wbc's greater than 75. COVID-19 pending. CTA was read as a following 1. Dilated pulmonary arteries without filling defects. No acute cardiopulmonary findings. 2. Chronic small to moderate right pleural effusion with adjacent multisegmental atelectasis, unchanged. 3. Small left pleural effusion. 4. Development of omental nodularity, possible carcinomatosis. 5. Liver, adrenal masses. Right hilar lymphadenopathy. Chest x-ray development of moderate right-sided pneumonia, atelectasis or edema, small to moderate right pleural effusion. Chest x-ray development of moderate right-sided pneumonia, atelectasis or edema, small to moderate right pleural effusion. Patient was started on Zosyn and vancomycin. He was given IV fluids Eliquis Cardizem lorazepam losartan Zosyn and vancomycin. He was given aspirin for elevated troponin. Patient's EKG was found to be atrial flutter/tachycardia with rapid ventricular response. Right bundle branch block. Abnormal EKG. Patient had an exercise stress test on 02/02/2021. He had no diagnostic ST changes. Patient is being admitted to observation status on 09/25/2021 Chief Complaint: Shortness of breath Review of Systems Review of Systems: All systems reviewed & are unremarkable except as noted in HPI and below Constitutional: Constitutional: Reports as per HPI and Reports no additional constitutional complaints Eyes: Eyes: Reports as per HPI and Reports no additional eye complaints ENT: Reports system reviewed and no additional complaints, except as documented and Reports Normal hearing present Cardiovascular: Cardiovascular: Reports no additional cardiovascular complaints Respiratory: Respiratory: Reports no additional respiratory complaints and Reports no additional respiratory complaints Gastrointestinal: Gastrointestinal: Reports as per HPI and Reports no additional gastrointestinal complaints Musculoskeletal: Musculoskeletal: Reports no additional musculoskeletal complaints Integumentary/Breasts: Skin/Breast: Reports system reviewed and no additional complaints, except as docu and Reports as per HPI Neurologic: Reports system reviewed and no additional complaints, except as documented, Reports as per HPI and Reports Normal hearing present Psychiatric: Psychiatric: Reports no additional psychiatric complaints and Reports as per HPI Endocrine: Endocrine: Reports no additional endocrine complaints Hematologic/Lymphatic: Hematologic/Lymphatic: Reports no additional hematologic/lymphatic complaints Allergic/Immunologic: Allergic/Immunologic: Reports no additional allergic/immunologic complaints [facility] Past Medical History Medical History (Reviewed 09/25/21 @ 14:30 by
--- NOTE | 2021-09-25 14:36 | ECG_ITS ---
Measurements Intervals [place] Rate: 89 P: 30 [place]: 155 QRS: 46 QRSD: 120 T: 45 QT: 397 QTc: 484 Interpretive Statements SINUS RHYTHM ATRIAL PREMATURE COMPLEXES RIGHT BUNDLE BRANCH BLOCK ABNORMAL ECG Electronically Signed On 09-25-2021 17:03:50 GRINDER SET UP OPERATOR THREAD by Todd Melgoza D.O.
[2021-09-25 15:53] LABS: Lactic Acid Reflex 3.5 mmol/L (0.7-2.1)
[2021-09-25 16:11] LABS: Troponin I 0.065 ng/mL (0.000-0.034)
--- NOTE | 2021-09-25 18:15 | PDONCCN ---
HPI - Date of Consult Date/Time: 09/25/21 18:15 Requesting Physician: Adenike Smith MD Primary Care Provider: Carlos Childs MD - Consult Narrative Reason for consult: Metastatic bladder cancer Narrative: Omer Winter is a 81 year old male with metastatic bladder cancer. He started immunotherapy with Keytruda on August 29. He was also diagnosed with shingles involving the right side of the face. He completed IV acyclovir and then oral acyclovir for another 10 days duration. He now came into the hospital with increasing shortness of breath without any chest pain. CT scan chest was done that showed no evidence of PE but evidence of chronic small to moderate right-sided pleural effusion. There was development of omental nodularity likely carcinomatosis. There was liver adrenal masses and right hilar lymphadenopathy. Chest x-ray showed moderate right-sided pneumonia. Patient was started on IV antibiotic. He remains quite short of breath. His complaining of back pain as well. Review of Systems - Review of Systems All systems reviewed & are unremarkable except as noted in HPI and bel - Neurologic Reports system reviewed and no additional complaints, except as documented, Reports hearing normal [facility] Medical History: Medical History (Last Reviewed 09/25/21 @ 14:30 by Paola Duarte NP) Anticoagulant long-term use Asthma Bilateral renal cysts Bladder cancer Onset Date: ~03/2020 CKD (chronic kidney disease) stage 3, GFR 30-59 ml/min Onset Date: Unknown Depression with anxiety DVT (deep venous thrombosis) several Essential (primary) hypertension H/O prostate cancer Onset Date: Unknown History of deep vein thrombosis Insomnia Malignant neoplasm of bladder, unspecified Mild persistent asthma without complication Osteoarthritis of shoulders, bilateral Port-A-Cath in place right upper chest Prostate cancer Rotator cuff tear Urinary incontinence Urothelial cancer Surgical History: Surgical History (Last Reviewed 09/25/21 @ 14:30 by Paola Duarte NP) H/O prostatectomy History of bladder surgery History of bunionectomy History of urostomy S/P ileal conduit Family History: Family History (Last Reviewed 09/25/21 @ 15:03 by DIANA Kaplan) Mother Hypertension Father Family history of malignant neoplasm of brain Daughter COVID-19 at the age of 47 due to complications of COVID-19 - Social History Social History: Social History (Last Reviewed 09/25/21 @ 14:31 by Paola Duarte NP) Gender Identity: Gender identity (if verbalized by the patient): Male Alcohol Use: Alcohol intake: never Alcohol use details: once a month maybe Substance Use: Substance use: never Substance use type: does not use Others: Spiritual care concerns: No Smoking Status: Smoking status: Former smoker Tobacco type: cigarettes Second hand tobacco smoke exposure: No Smoking end date: 11/04/89 Smoking Pack-years: Smoking packs per day: 2.5 Smoking cigarettes per day: 50.0 Years smoked: 35 Smoking pack-years: 87.50 Comments: Additional smoking assessment comments: QUIT Meds Home Medications Medication Instructions Recorded Confirmed Type diltiazem HCl 360 mg capsule,24 360 mg PO DAILY 09/09/19 09/25/21 History hr,extended release loratadine 10 mg tablet 10 mg PO DAILY 09/09/19 09/25/21 History mometasone 1 inhalation INHALATION HS each 09/09/19 09/25/21 History multivitamin 1 tablet PO DAILY 09/09/19 09/25/21 History diphenhydramine HCl [Benadryl] 25 mg PO PRN PRN 05/11/20 09/25/21 History Glucosamine Chondroitin PLUS 1 tab-cap PO DAILY #0 09/01/20 09/25/21 History apixaban 5 mg tablet 5 mg PO BID 12/27/20 09/25/21 History losartan 25 mg tablet 25 mg PO DAILY #30 tablet 04/13/21 09/25/21 Rx lorazepam 0.5 mg tablet 0.5 mg PO TID PRN #30 tablet 09/15/21 09/25/21 Rx beclometha
[2021-09-25 18:36] LABS: SARS-CoV-2 RNA PCR Negative
[2021-09-25] MEDS: HYDROcodone/acetaminophen (*CRX) 5-325 MG TABLET 1 TAB PO (18:46)
[2021-09-25] MEDS: traZODone HCL 25 MG TABLET 75 MG PO (20:41)
[2021-09-25 20:54] LABS: Iron 25 ug/dL (49-181)
[2021-09-25 21:29] LABS: Percent Iron Saturation 10 % (20-50)
[2021-09-25 22:19] LABS: Folic Acid 16.3 ng/mL (2.76->20)
[2021-09-26] VITALS (12 sets, daily range): BP systolic 95–137; BP diastolic 49–87; PULSE 65–107; RESP 16–28; TEMP 36.7–37.1; O2SAT 92–98
[2021-09-26 05:22] LABS: Lactate Dehydrogenase 439 U/L (313-618); Magnesium 1.7 mg/dL (1.6-2.3); Phosphorus 3.3 mg/dL (2.5-4.5)
[2021-09-26 05:24] LABS: Basophils Percent Auto 0.3 % (0.2-1.2); Eosinophils Absolute Auto 0.2 K/mm3 (0-0.3); Eosinophils Percent Auto 2.1 % (0-4.4); Hematocrit 29.4 % (42.0-52.0); Hemoglobin 8.7 g/dL (14.0-18.0); Immature Granulocyte Absolute 0.26 K/mm3 (0.00-0.031); Immature Granulocyte Percent A 2.7 % (0-0.5); Immature Platelet Fraction Pct 3.5 % (0.9-11.2); Lymphocytes Absolute Auto 1.21 K/mm3 (0.9-3.2); Lymphocytes Percent Auto 12.8 % (18.3-44.2); Mean Corpuscular HGB Conc 29.6 g/dl (32-36); Mean Corpuscular Hemoglobin 20.5 pg (26-34); Mean Corpuscular Volume 69.3 fl (80-100); Monocytes Absolute Auto 1.1 K/mm3 (0.1-0.6); Monocytes Percent Auto 11.5 % (2.6-8.5); Neutrophils Absolute Auto 6.7 K/mm3 (1.3-6.7); Neutrophils Percent Auto 70.6 % (45.5-73.1); Nucleated Red Blood Cells Absolute Auto 0.1 K/mm3 (0.0-0.012); Nucleated Red Blood Cells Perc 0.7 % (0.0-0.2); Platelet Count Result 308 k/mm3 (150-375); Red Blood Count 4.24 M/mm3 (4.6-6.20); Red Cell Distribution Width 21.7 % (11.5-14.5); White Blood Count 9.5 K/mm3 (4.5-10.0)
[2021-09-26 05:57] LABS: Anisocytosis 2+ (NORMAL); Microcytosis 1+ (NORMAL); Ovalocytes 1+ (NORMAL); Platelet Estimate Adequate (Adequate)
--- NOTE | 2021-09-26 07:34 | PM.IMPN ---
Progress Note: A&P Assessment and Plan (1) CAP (community acquired pneumonia): Code(s): J18.9 - Pneumonia, unspecified organism Status: Acute Assessment and Plan: The patient was recently here so he could possibly have healthcare associated pneumonia. The patient was appropriately started on vancomycin and Zosyn. He is also immunosuppressed with his cancer treatment. Blood and sputum cultures are pending. Continue to monitor lactic. Patient has leukocytosis. Urine culture growing g negative bacilli. We will adjust antibiotic therapy based on final identification. (2) Elevated troponin: Code(s): R77.8 - Other specified abnormalities of plasma proteins Status: Acute Assessment and Plan: Patient has rate controlled atrial fibrillation/atrial flutter. The patient on Eliquis will continue. Perhaps the troponin is elevated from the rapid response earlier. (3) Pleural effusion, malignant: Code(s): J91.0 - Malignant pleural effusion Status: Acute Assessment and Plan: Chronic. Status post therapeutic thoracentesis with to 75 cc of fluids out. (4) Herpes zoster: Qualifiers: Herpes zoster complications: unspecified herpes zoster complication Qualified Code(s): B02.8 - Zoster with other complications Code(s): B02.9 - Zoster without complications Status: Acute Assessment and Plan: The patient has been evaluated by Ophthalmology. He had been on prednisone and Valtrex. No residual zoster symptoms. (5) Depression with anxiety: Code(s): F41.8 - Other specified anxiety disorders Status: Chronic Assessment and Plan: Continue with lorazepam, trazodone and sertraline. (6) Urothelial cancer: Code(s): C68.9 - Malignant neoplasm of urinary organ, unspecified Status: Acute Assessment and Plan: The patient is seen by Dr. skinner. He has been consulted. (7) CKD (chronic kidney disease) stage 3, GFR 30-59 ml/min: Onset Date: Unknown Code(s): N18.3 - Chronic kidney disease, stage 3 (moderate) Status: Chronic Assessment and Plan: Patient's BUN and creatinine are within normal limits. (8) Anxiety: Code(s): F41.9 - Anxiety disorder, unspecified Status: Chronic Assessment and Plan: Continue with patient's home medications (9) Atrial fibrillation and flutter: Code(s): I48.91 - Unspecified atrial fibrillation; I48.92 - Unspecified atrial flutter Status: Acute Assessment and Plan: Patient is already been on Eliquis ; in addition he has a history of a DVT. The patient is also on diltiazem 360 mg p.o. daily. The patient recently had an echo on 02/13/2021 which shows an ejection fraction of 74% with impaired diastolic relaxation grade 1. (10) UTI (urinary tract infection): Code(s): N39.0 - Urinary tract infection, site not specified Status: Acute Assessment and Plan: Patient is on vanco and Zosyn. Urine cultures growing Gram-negative bacilli; blood cultures are pending. (11) Suspected COVID-19 virus infection: Code(s): Z20.822 - Contact with and (suspected) exposure to COVID-19 Status: Acute Assessment and Plan: The patient has been placed on contact and droplet isolation. Negative COVID test and precautions were discontinued. (12) Asthma: Code(s): J45.909 - Unspecified asthma, uncomplicated Status: Chronic Assessment and Plan: Continue with his inhalers at home medications. (13) Anemia: Code(s): D64.9 - Anemia, unspecified Status: Acute Assessment and Plan: Moderate and well tolerated with the hemoglobin of 9.7 on admission. Hemoglobin dropped to 8.7 today, which may be dilutional. Continue p.o. iron sulfate supplementation. Check iron profile B12 and folate.. (14) Essential (primary) hypertension: Code(s): I10 - Essential (primary) hypertension Status: Chronic
[2021-09-26] MEDS: FLUTICASONE PROP 44 MCG (*SP) 10.6 GM 2 PUFF INHALATION (08:14)
[2021-09-26] MEDS: PSYLLIUM POWDER PACKET 1 PACKET PO (09:10)
[2021-09-26] MEDS: CHOLECALCIFEROL 1,000 UNITS TABLET 2000 UNITS PO (09:10)
[2021-09-26] MEDS: MULTIVITAMINS THERAPEUTIC TAB (*BKC) 1 TABLET PO (09:10)
[2021-09-26] MEDS: HYDROcodone/acetaminophen (*CRX) 5-325 MG TABLET 1 TAB PO ×2 (09:11→13:34)
[2021-09-26] MEDS: FERROUS SULFATE 324 MG TABLET PO (09:12)
[2021-09-26] MEDS: dilTIAZem HCL CD 180 MG CAP.ER.24H 360 MG PO (09:12)
[2021-09-26] MEDS: LOSARTAN POTASSIUM 25 MG TABLET PO (09:12)
[2021-09-26] MEDS: SERTRALINE HCL 25 MG TABLET PO (09:12)
[2021-09-26] MEDS: LORazepam (*CRX) 0.5 MG TABLET PO ×3 (09:12→21:58)
[2021-09-26] MEDS: LORATADINE 10 MG TABLET PO (09:13)
[2021-09-26] MEDS: diphenhydrAMINE HCl CAP 25 MG CAPSULE PO (13:32)
--- NOTE | 2021-09-26 17:04 | PC.NURSE ---
This patient, Omer Winter, was transferred to [facility] on 09/26/21 at 1700. Personal belongings sent with patient. Report given to Tatiana PARSONS.. Appropriate documentation sent with patient.
[2021-09-26] MEDS: traZODone HCL 25 MG TABLET 75 MG PO (21:58)
[2021-09-27] VITALS (7 sets, daily range): BP systolic 113–129; BP diastolic 65–72; PULSE 89–112; RESP 16–20; TEMP 36.1–36.4; O2SAT 92–95
[2021-09-27] MEDS: PIPERACILLIN/TAZOBACTAM SOD 4.5 GM in SODIUM CHLORIDE 0.9% IV 100 ML IVPB ×3 (05:34→17:08)
[2021-09-27 06:28] LABS: Transferrin 163 mg/dL (206-381)
[2021-09-27 06:55] LABS: Iron 18 ug/dL (49-181)
[2021-09-27 07:06] LABS: Percent Iron Saturation 8 % (20-50)
[2021-09-27] MEDS: CHOLECALCIFEROL 1,000 UNITS TABLET 2000 UNITS PO (08:43)
[2021-09-27] MEDS: LORazepam (*CRX) 0.5 MG TABLET PO ×2 (08:43→20:47)
[2021-09-27] MEDS: FERROUS SULFATE 324 MG TABLET PO (08:44)
[2021-09-27] MEDS: dilTIAZem HCL CD 180 MG CAP.ER.24H 360 MG PO (08:44)
[2021-09-27] MEDS: PSYLLIUM POWDER PACKET 1 PACKET PO (08:45)
[2021-09-27] MEDS: SERTRALINE HCL 25 MG TABLET PO (08:45)
[2021-09-27] MEDS: LORATADINE 10 MG TABLET PO (08:45)
[2021-09-27] MEDS: MULTIVITAMINS THERAPEUTIC TAB (*BKC) 1 TABLET PO (08:45)
[2021-09-27] MEDS: LOSARTAN POTASSIUM 25 MG TABLET PO (08:45)
[2021-09-27] MEDS: FLUTICASONE PROP 44 MCG (*SP) 10.6 GM 2 PUFF INHALATION ×2 (09:42→21:46)
[2021-09-27 13:19] LABS: Vancomycin Trough 10.9 ug/mL (10.0-20.0)
--- NOTE | 2021-09-27 13:30 | PM.IMPN ---
Progress Note: A&P Assessment and Plan (1) CAP (community acquired pneumonia): Code(s): J18.9 - Pneumonia, unspecified organism Status: Acute Assessment and Plan: The patient was appropriately started on vancomycin and Zosyn. He is also immunosuppressed with his cancer treatment. Blood culture remained negative. Urine culture shows Klebsiella sensitive to fluoroquinolones and cephalosporin. Stop vancomycin and continue zosyn. (2) Elevated troponin: Code(s): R77.8 - Other specified abnormalities of plasma proteins Status: Acute Assessment and Plan: Patient has rate controlled atrial fibrillation/atrial flutter. We will continue Eliquis will continue. (3) Pleural effusion, malignant: Code(s): J91.0 - Malignant pleural effusion Status: Acute Assessment and Plan: Chronic. Status post therapeutic thoracentesis with to 275 cc of fluids out. For repeat chest x-ray in the morning. (4) Herpes zoster: Qualifiers: Herpes zoster complications: unspecified herpes zoster complication Qualified Code(s): B02.8 - Zoster with other complications Code(s): B02.9 - Zoster without complications Status: Acute Assessment and Plan: The patient has been evaluated by Ophthalmology. He has completed an outpatient course of prednisone and Valtrex. No residual zoster symptoms. (5) Depression with anxiety: Code(s): F41.8 - Other specified anxiety disorders Status: Chronic Assessment and Plan: Continue with lorazepam, trazodone and sertraline. (6) Urothelial cancer: Code(s): C68.9 - Malignant neoplasm of urinary organ, unspecified Status: Acute Assessment and Plan: The patient is seen by Dr. Witt. He has been consulted. Previously scheduled for infusion of keytruda. He will be rescheduled by Dr. Witt. (7) CKD (chronic kidney disease) stage 3, GFR 30-59 ml/min: Onset Date: Unknown Code(s): N18.3 - Chronic kidney disease, stage 3 (moderate) Status: Chronic Assessment and Plan: Patient's BUN and creatinine are within normal limits. Renal function remains stable. (8) Anxiety: Code(s): F41.9 - Anxiety disorder, unspecified Status: Chronic Assessment and Plan: Continue with patient's home medications (9) Atrial fibrillation and flutter: Code(s): I48.91 - Unspecified atrial fibrillation; I48.92 - Unspecified atrial flutter Status: Acute Assessment and Plan: Patient is already been on Eliquis ; in addition he has a history of a DVT. The patient is rate controlled on diltiazem 360 mg p.o. daily. The patient recently had an echo on 02/13/2021 which shows an ejection fraction of 74% with impaired diastolic relaxation grade 1. (10) UTI (urinary tract infection): Code(s): N39.0 - Urinary tract infection, site not specified Status: Acute Assessment and Plan: Patient is on vanco and Zosyn. Urine cultures growing Klebsiella, sensitive to Zosyn and fluoroquinolones; blood cultures are unrevealing. (11) Asthma: Code(s): J45.909 - Unspecified asthma, uncomplicated Status: Chronic Assessment and Plan: Continue with his inhalers at home medications. Currently not in exacerbation. (12) Anemia: Code(s): D64.9 - Anemia, unspecified Status: Acute Assessment and Plan: Moderate and well tolerated with the hemoglobin of 9.7 on admission. Hemoglobin dropped to 8.7 yesterday, which may be dilutional. Continue p.o. iron sulfate supplementation. I 1 star us remain on the low side without iron level of 18. Consider IV iron 1, after infection is treated. B12 and folate levels remain within normal range. (13) Essential (primary) hypertension: Code(s): I10 - Essential (primary) hypertension Status: Chronic Assessment and Plan: Continue with diltiazem and losartan. Blood pressure is controlled, at 113
[2021-09-27] MEDS: HYDROcodone/acetaminophen (*CRX) 5-325 MG TABLET 1 TAB PO (17:03)
[2021-09-27] MEDS: diphenhydrAMINE HCl CAP 25 MG CAPSULE PO (20:47)
[2021-09-27] MEDS: traZODone HCL 25 MG TABLET 75 MG PO (20:47)
[2021-09-28] VITALS: PULSE 89
[2021-09-28] MEDS: PIPERACILLIN/TAZOBACTAM SOD 4.5 GM in SODIUM CHLORIDE 0.9% IV 100 ML IVPB ×2 (00:27→05:18)
[2021-09-28 03:57] VITALS: BP 138/63; PULSE 106; RESP 18; TEMP 36.8; O2SAT 93
[2021-09-28 04:00] VITALS: PULSE 105
[2021-09-28] MEDS: HYDROcodone/acetaminophen (*CRX) 5-325 MG TABLET 1 TAB PO (04:03)
[2021-09-28 05:53] LABS: Basophils Percent Auto 0.5 % (0.2-1.2); Eosinophils Absolute Auto 0.2 K/mm3 (0-0.3); Eosinophils Percent Auto 2.5 % (0-4.4); Hematocrit 29.5 % (42.0-52.0); Hemoglobin 8.6 g/dL (14.0-18.0); Immature Granulocyte Absolute 0.24 K/mm3 (0.00-0.031); Immature Granulocyte Percent A 2.7 % (0-0.5); Immature Platelet Fraction Pct 3.7 % (0.9-11.2); Lymphocytes Absolute Auto 1.38 K/mm3 (0.9-3.2); Lymphocytes Percent Auto 15.8 % (18.3-44.2); Mean Corpuscular HGB Conc 29.2 g/dl (32-36); Mean Corpuscular Hemoglobin 20.7 pg (26-34); Mean Corpuscular Volume 71.1 fl (80-100); Mean Platelet Volume 10.9 fl (7.4-10.4); Monocytes Percent Auto 11.3 % (2.6-8.5); Neutrophils Absolute Auto 5.9 K/mm3 (1.3-6.7); Neutrophils Percent Auto 67.2 % (45.5-73.1); Nucleated Red Blood Cells Perc 0.3 % (0.0-0.2); Platelet Count Result 322 k/mm3 (150-375); Red Blood Count 4.15 M/mm3 (4.6-6.20); White Blood Count 8.8 K/mm3 (4.5-10.0)
[2021-09-28 06:04] LABS: Anion Gap 6 mmol/L (8-16); Blood Urea Nitrogen 11 mg/dL (9-20); Calcium 8.9 mg/dL (8.4-10.2); Carbon Dioxide 30 mmol/L (22-30); Chloride 97 mmol/L (98-107); Estimated CRCL calculation 52 ml/min; Estimated Glomerular Filt Rate > 60; Glucose 97 mg/dL (65-110); Potassium 3.1 mmol/L (3.4-5.0); Sodium 133 mmol/L (137-145)
[2021-09-28 06:25] LABS: Anisocytosis 2+ (NORMAL); Hypochromasia 1+ (NORMAL); Ovalocytes 2+ (NORMAL); Platelet Estimate Adequate (Adequate); Tear Drop Cells 1+ (NORMAL)
--- NOTE | 2021-09-28 07:54 | PC.NURSE ---
Patient wanting to be discharged right now, called Dr. Agee. Explained to patient he need to wait to talk to the doctor about his labs/blood cultures. Patient has taken off his heart monitor.
[2021-09-28] MEDS: POTASSIUM CHLORIDE 20 MEQ TABLET 40 MEQ PO (08:07)
[2021-09-28] MEDS: LIDOCAINE 5% PATCH 1 PATCH TRANSDERM (08:09)
--- NOTE | 2021-09-28 08:18 | PM.DS ---
DS: Admitting Diagnosis Discharge Date 09/28/21 Admitting Diagnosis Shortness of breath and back pain DS: Discharge Diagnosis Discharge Diagnosis (1) Bacteremia: Code(s): R78.81 - Bacteremia Status: Acute Assessment and Plan: Patient had 1 4 blood culture bottles positive for Klebsiella. It has the same resistance the culture shows also Klebsiella. As such it was felt the source was urinary. Bacteria was sensitive to Zosyn which was started on admission. Patient wishing to sign himself out against medical advice. Explained the risks of signing out against medical advice including but not limited to septicemia, septic shock and even . He voices understanding of this but still wishes to sign out against medical advice. We will send him home with oral antibiotics in hopes that this well cover this infection. He understands that this is not appropriate treatment but is agreeable with oral antibiotics at home. (2) Abnormal chest x-ray: Code(s): R93.89 - Abnormal findings on diagnostic imaging of other specified body structures Status: Acute Assessment and Plan: Chest x-ray on admission showed development of a moderate rights sided pneumonia. The patient was appropriately started on vancomycin and Zosyn. He is also immunosuppressed with his cancer treatment. A CTA of the chest was performed showing no pulmonary emboli but does show chronic small to moderate-sized right pleural effusion and adjacent atelectasis. It was not felt that he had pneumonia on admission. (3) UTI (urinary tract infection): Code(s): N39.0 - Urinary tract infection, site not specified Status: Acute Assessment and Plan: UA noted. Urine cultures growing Klebsiella, sensitive to Zosyn. Blood cultures positive as mentioned above. He has chronic UTIs. Treatment as above. (4) Atrial fibrillation and flutter: Code(s): I48.91 - Unspecified atrial fibrillation; I48.92 - Unspecified atrial flutter Status: Acute Assessment and Plan: Patient does not have a history of atrial fibrillation / flutter. EKG on admission shows atrial flutter vs sinus tachycardia. Sinus tachycardia could be related to the bacteremia. Patient is already been on Eliquis for history of DVT. Patient's heart rate improved. The patient is rate controlled on diltiazem 360 mg p.o. daily. The patient recently had an echo on 02/13/2021 which shows an ejection fraction of 74% with impaired diastolic relaxation grade 1. Plan to continue Eliquis and Cardizem at discharge. (5) Elevated troponin: Code(s): R77.8 - Other specified abnormalities of plasma proteins Status: Acute Assessment and Plan: Troponin mildly elevated but flat. Most likely related to the atrial flutter. Suspect nonischemic myocardial injury. (6) Pleural effusion, malignant: Code(s): J91.0 - Malignant pleural effusion Status: Acute Assessment and Plan: CTA showing small to moderate size right pleural effusion. He is status post therapeutic thoracentesis with to 275 cc of reddish fluid removed. No studies were sent. (7) Herpes zoster: Qualifiers: Herpes zoster complications: unspecified herpes zoster complication Qualified Code(s): B02.8 - Zoster with other complications Code(s): B02.9 - Zoster without complications Status: Acute Assessment and Plan: The patient has been evaluated by Ophthalmology. He has completed an outpatient course of prednisone and Valtrex. No residual zoster symptoms. (8) Depression with anxiety: Code(s): F41.8 - Other specified anxiety disorders Status: Chronic Assessment and Plan: Mood remains stable. We continued with lorazepam, trazodone and sertraline. (9) Urothelial cancer: Code(s): C68.9 - Malignant neoplasm of urinary organ, unspecified Status: Acute Assessment and P
[2021-09-28] MEDS: MULTIVITAMINS THERAPEUTIC TAB (*BKC) 1 TABLET PO (08:48)
[2021-09-28] MEDS: LORATADINE 10 MG TABLET PO (08:48)
[2021-09-28] MEDS: dilTIAZem HCL CD 180 MG CAP.ER.24H 360 MG PO (08:48)
[2021-09-28] MEDS: FERROUS SULFATE 324 MG TABLET PO (08:48)
[2021-09-28] MEDS: SERTRALINE HCL 25 MG TABLET PO (08:48)
[2021-09-28] MEDS: LOSARTAN POTASSIUM 25 MG TABLET PO (08:48)
[2021-09-28] MEDS: CHOLECALCIFEROL 1,000 UNITS TABLET 2000 UNITS PO (08:49)
[2021-09-28] MEDS: LORazepam (*CRX) 0.5 MG TABLET PO (08:54)
== END 2021-09-28 08:58 | disposition left against medical advice (07) | DRG 690 ==
LOC: ANHED 07:51 → ANHIMU 09:37 → ANH3MED 09-26 17:21
PROVIDERS: Emergency Medicine; Internal Medicine Hematology & Oncology; Nurse Practitioner; Admitting Provider Internal Medicine; Emergency Provider Emergency Medicine; PCP Family Medicine; Visit Provider Internal Medicine
DX: N39.0 Urinary tract infection, site not specified (principal); J91.0 Malignant pleural effusion; R78.81 Bacteremia; I48.92 Unspecified atrial flutter; I5A Non-ischemic myocardial injury (non-traumatic); C78.7 Secondary malignant neoplasm of liver and intrahepatic bile duct; Z20.822 Contact with and (suspected) exposure to COVID-19; B96.1 Klebsiella pneumoniae [K. pneumoniae] as the cause of diseases classified elsewhere; C67.9 Malignant neoplasm of bladder, unspecified; I12.9 Hypertensive chronic kidney disease with stage 1 through stage 4 chronic kidney disease, or unspecified chronic kidney disease; N18.30 Chronic kidney disease, stage 3 unspecified; I48.91 Unspecified atrial fibrillation; F41.8 Other specified anxiety disorders; M19.011 Primary osteoarthritis, right shoulder; M19.012 Primary osteoarthritis, left shoulder; J45.909 Unspecified asthma, uncomplicated; D63.8 Anemia in other chronic diseases classified elsewhere; R32 Unspecified urinary incontinence; B02.9 Zoster without complications; Z86.718 Personal history of other venous thrombosis and embolism; Z79.01 Long term (current) use of anticoagulants; Z85.46 Personal history of malignant neoplasm of prostate; Z87.891 Personal history of nicotine dependence
CPT/HCPCS: 32555; 36415; 71045; 71275; 80048; 80053; 80202; 81001; 82607; 82728; 82746; 83540; 83550; 83605; 83615; 83735; 83880; 84100; 84466; 84484; 85025; 85055; 85610; 85730; 87040; 87077; 87086; 87088; 87186; 93005; 94640; 96361; 96365; 96366; 96367; 99285; A9270; C9803; G0378; J2543; J3370; J7040; Q9967; U0003; U0005

== ENCOUNTER 2021-10-27 16:24 | Inpatient (IN) | payer MEDICARE, SELFPAY ==
[2021-10-27] VITALS (12 sets, daily range): BP systolic 97–134; BP diastolic 53–71; PULSE 88–93; RESP 16–37; TEMP 36.4–37.3; O2SAT 89–96
--- NOTE | ~2021-10-27 | NM_ITS ---
EXAMINATION: NM cristian stress w perfusion DATE: 10/30/2021 12:50 INDICATION: Non-ST elevation myocardial infarction. TECHNIQUE: Rest images were obtained following intravenous administration of 9.77 mCi Tc99m tetrofosm in (Myoview). The patient was infused intravenously with Lexiscan (regadenoson). Then, 31.2 mCi Tc99m tetrofosmin (Myoview) was administered intravenously, and stress images were obtained. Data was romie nstructed into short axis and horizontal and vertical long axis SPECT images. Gated SPECT images were also obtained. COMPARISON: Chest CT 09/25/2021 FINDINGS: There is a moderate-sized, moderate-severity, fixed perfusion defect involving left ventric ular apex, apical septal and apical inferior segments, and mid inferoseptal segment, consistent with infarct. There is a moderate-sized, severe, fixed perfusion defect involving apical lateral segment, mid inferolateral segment, and mid to basal anterolateral segments, consistent with infarct. No rever sible component to suggest ischemia.. The infarcted segments are not well evaluated for focal motion abnormality. Left ventricular ejection fraction measures 37%. IMPRESSION: 1. Moderate-sized area of moderate infarct involving left ventricular apex, apical septal and apical inferior segments, and mid inferolateral septal segment. 2. Moderate-sized area of severe infarct involving apical lateral segment, mid inferolateral segment, mid to basal anterolateral segments. 3. Decreased left ventricular ejection fraction measuring 37%. Reviewed, dictated and finalized at location A. ASSIGNER IMPRESSION: 1. Moderate-sized area of moderate infarct involving left ventricular apex, api good septal and apical inferior segments, and mid inferolateral septal segment. 2. Moderate-sized area of severe infarct involving apical lateral segment, mid inferolateral segment, mid to basal anterolateral segments. 3. Decreased left ventricular ejection fraction measuring 37%.
--- NOTE | ~2021-10-27 | XR_ITS ---
XR chest 2V DATE: 10/27/2021 22:55 INDICATION: Shortness of breath, dehydration. History of asthma, congestive heart failure, hypertensi on TECHNIQUE: AP and lateral chest COMPARISON: 09/25/2021 CTA chest 09/25/2021 portable AP chest FINDINGS: Right Port-A-Cath catheter tip overlies the superior vena cava near the superior cavoatrial junction. There is diminished volume of the right lung and right lower lung infiltrate and/or atelectasis. There is minimal atelectasis at the left lung base. Heart size appears normal. Is aortic calcification. IMPRESSION: Right Port-A-Cath Right lung volume loss and right lower lung infiltrate and/atelectasis No significant change since 09/25/2021 Reviewed, dictated and finalized at location A. HEEL BUILDER
--- NOTE | ~2021-10-27 | XR_ITS ---
XR chest 2V DATE: 10/29/2021 09:41 INDICATION: Volume overload TECHNIQUE: AP and lateral views on 10/29/2021 at 0938 hours COMPARISON: 10/27/2021 2 view chest 09/25/2021 CT pulmonary scan FINDINGS: Right Port-A-Cath catheter tip overlies right superior cavoatrial junction. Normal heart si ze. Aortic calcification and mild unfolding. There is chronic right lung volume loss. There is patchy infiltrate in the right mid and lower lung z ones. There is mild left basilar infiltrate and/atelectasis IMPRESSION: Increased right mid and lower lung infiltrate since 10/23/2021 Mild left basilar atelectasis or infiltrate Reviewed, dictated and finalized at location A. ER OPERATOR
--- NOTE | 2021-10-27 16:56 | PC.NURSE ---
placed on o2 at 2 lpm nc
--- NOTE | 2021-10-27 22:35 | ECG_ITS ---
Measurements Intervals [place] Rate: 87 P: 23 CO: 170 QRS: 73 QRSD: 126 T: 35 QT: 402 QTc: 485 Interpretive Statements SINUS RHYTHM RIGHT BUNDLE BRANCH BLOCK BASELINE ARTIFACT- II, III, AVF, V2-V6 ABNORMAL ECG Electronically Signed On 10-28-2021 7:55:34 RACK PULLER by Todd Melgoza D.O.
[2021-10-27 23:25] LABS: Basophils Percent Auto 0.2 % (0.2-1.2); Eosinophils Absolute Auto 0.1 K/mm3 (0-0.3); Eosinophils Percent Auto 0.9 % (0-4.4); Hematocrit 31.7 % (42.0-52.0); Hemoglobin 8.9 g/dL (14.0-18.0); Immature Granulocyte Absolute 0.55 K/mm3 (0.00-0.031); Immature Granulocyte Percent A 4.6 % (0-0.5); Immature Platelet Fraction Pct 5.5 % (0.9-11.2); Lymphocytes Absolute Auto 1.77 K/mm3 (0.9-3.2); Lymphocytes Percent Auto 14.7 % (18.3-44.2); Mean Corpuscular HGB Conc 28.1 g/dl (32-36); Mean Corpuscular Hemoglobin 19.8 pg (26-34); Mean Corpuscular Volume 70.4 fl (80-100); Monocytes Absolute Auto 1.2 K/mm3 (0.1-0.6); Monocytes Percent Auto 10.3 % (2.6-8.5); Neutrophils Absolute Auto 8.4 K/mm3 (1.3-6.7); Neutrophils Percent Auto 69.3 % (45.5-73.1); Nucleated Red Blood Cells Absolute Auto 0.3 K/mm3 (0.0-0.012); Nucleated Red Blood Cells Perc 2.2 % (0.0-0.2); Platelet Count Result 202 k/mm3 (150-375); Red Cell Distribution Width 26.9 % (11.5-14.5); White Blood Count 12.1 K/mm3 (4.5-10.0)
--- NOTE | 2021-10-27 23:25 | PC.NURSE ---
Patient report received from JAQUELINE Preciado. Assumed care of patient at this time.
[2021-10-27 23:34] LABS: Alanine Aminotransferase 44 U/L (4-50); Albumin Level 3.4 g/dL (3.5-5.1); Alkaline Phosphatase 269 U/L (38-126); Anion Gap 10 mmol/L (8-16); Aspartate Amino Transferase 70 U/L (17-59); Bilirubin,Total 0.8 mg/dL (0.2-1.3); Blood Urea Nitrogen 19 mg/dL (9-20); Calcium 9.8 mg/dL (8.4-10.2); Carbon Dioxide 23 mmol/L (22-30); Chloride 97 mmol/L (98-107); Estimated CRCL calculation 64 ml/min; Estimated Glomerular Filt Rate > 60; Glucose 109 mg/dL (65-110); Potassium 3.8 mmol/L (3.4-5.0); Sodium 130 mmol/L (137-145)
[2021-10-27 23:37] LABS: INR 1.5; Prothrombin Time 18.1 Seconds (11.1-14.7)
[2021-10-27 23:38] LABS: Partial Thromboplastin Time 49.2 SECONDS (22.3-36.8)
[2021-10-27 23:51] LABS: NT Pro B Type Natriuretic Pept 9870 pg/mL (5-100)
--- NOTE | 2021-10-27 23:51 | ED.SOB ---
HPI - SOB/Dyspnea General Chief Complaint: Shortness of Breath/Dyspnea Stated Complaint: shortness of breath Time Seen by Provider: 10/27/21 21:49 History of Present Illness HPI Narrative: Patient is an 81-year-old male who presents ER with shortness of breath. Progressive over weeks. No acute change. Had lower extremity edema and was started on Lasix by his PCP. He was also found to have atrial tachycardia and was seen by Dr. Hagan. He is on metoprolol succinate 100 mg. He has no chest pain or chest pressure. He has exertional dyspnea and dyspnea at rest. He has history of pleural effusion that required thoracentesis in the past. He has been compliant with his home medications. Last Eliquis was this morning. Related Data Home Medications Medication Instructions Recorded Confirmed diltiazem HCl 360 mg capsule,24 360 mg PO DAILY 09/09/19 10/28/21 hr,extended release loratadine 10 mg tablet 10 mg PO DAILY 09/09/19 10/28/21 mometasone 1 inhalation INHALATION BID each 09/09/19 10/28/21 multivitamin 1 tablet PO DAILY 09/09/19 10/28/21 diphenhydramine HCl [Benadryl] 25 mg PO PRN PRN 05/11/20 10/28/21 Glucosamine Chondroitin PLUS 1 tab-cap PO DAILY #0 09/01/20 10/28/21 apixaban 5 mg tablet 5 mg PO BID 12/27/20 10/28/21 cholecalciferol (vitamin D3) 50 mcg PO DAILY 09/25/21 10/28/21 [Vitamin D3] ferrous sulfate [iron] 325 mg PO TIDWM 09/25/21 10/28/21 trazodone 50 mg PO HS PRN 09/25/21 10/28/21 albuterol sulfate 2 inh INHALATION QID PRN 10/28/21 10/28/21 furosemide 40 mg PO QAM 10/28/21 10/28/21 metoprolol succinate 100 mg PO DAILY 10/28/21 10/28/21 Allergies Allergy/AdvReac Type Severity Reaction Status Date / Time hydromorphone [From Dilaudid] AdvReac Unknown Hallucinati Verified 10/27/21 21:49 ng Review of Systems Review of Systems: All systems reviewed & are unremarkable except as noted in HPI and below Constitutional: Constitutional: Denies chills, Reports fatigue, Denies fever(s) and Reports weakness ENT: Denies nasal congestion and Denies sore throat Cardiovascular: Cardiovascular: Denies chest pain, Denies rapid heart rate and Denies radiating jaw, neck or arm pain Respiratory: Respiratory: Denies cough, Reports dyspnea and Denies wheezing Gastrointestinal: Gastrointestinal: Denies abdominal pain, Denies nausea and Denies vomiting [facility] Past Medical History Medical History (Updated 10/28/21 @ 19:48 by Denilson Altman MD) Anticoagulant long-term use Asthma Bilateral renal cysts Bladder cancer (~03/2020) CKD (chronic kidney disease) stage 3, GFR 30-59 ml/min (Unknown) Congestive heart failure Depression with anxiety DVT (deep venous thrombosis) several Essential (primary) hypertension H/O prostate cancer (Unknown) History of deep vein thrombosis Insomnia Malignant neoplasm of bladder, unspecified Mild persistent asthma without complication Osteoarthritis of shoulders, bilateral Port-A-Cath in place right upper chest Prostate cancer Rotator cuff tear Urinary incontinence Urothelial cancer Surgical History Surgical History H/O prostatectomy History of bladder surgery History of bunionectomy History of urostomy S/P ileal conduit Family History Family History Mother Hypertension Father Family history of malignant neoplasm of brain Daughter COVID-19 at the age of 47 due to complications of COVID-19 Social History Social History Social History: 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 He lives with his arvind who is the durable power trust and estates attorney for healthcare. The patient had 2 biological children and 1 daughter recently due to covid 19 complications. Patient is a former smoker. He quit smoking in the 90s. No alcohol marijuana or illicit drugs. Code status
[2021-10-28] VITALS (22 sets, daily range): BP systolic 103–131; BP diastolic 55–77; PULSE 80–101; RESP 17–38; TEMP 36.1–36.7; O2SAT 96–99; BMI 24.1
--- NOTE | 2021-10-28 | ECHO_ITS ---
Patient Info Name: Omer Winter Age: 81 years : 1940 Gender: Male Ht: 69 in Wt: 159 lbs BSA: 1.88 m2 HR: 91 bpm BP: 117 / 66 mmHg Heart Rhythm: Sinus Rhythm Technical Quality: Poor Exam Date: 10/28/2021 1:08 PM Exam Location: [facility] Patient Status: Inpatient Admit Date: 10/28/2021 Staff Ordering Physician: Gatito Greene MD Die Stamper: Joselyn Hess RDCS Attending Provider: Gregg Garcia MD Referring Physician: Ramona DIETZ; Exam Type: CA echo dop color flow w con Study Info Complete two-dimensional, color flow and Doppler transthoracic echocardiogram is performed with contrast to opacify the left ventricle and to improve the deliniation of the left ventricle endocardial borders. Contrast/Agitated Saline Contrast/Ag. Saline: Definity Amount: 4.00 ml Reason for Poor Study: patient body habitus Summary 1. Left ventricular chamber dimension is normal. 2. Left ventricular systolic function is normal, estimated at 55-60%. 3. There is mildly increased left ventricular wall thickness. 4. The left ventricular diastolic function is grade I diastolic dysfunction. 5. The basal inferolateral wall, and mid inferolateral wall are hypokinetic. 6. Left atrial chamber dimension is mildly enlarged. 7. There is mild mitral valve regurgitation. 8. There is moderate aortic valve calcification. Left Ventricle Left ventricular chamber dimension is normal. Left ventricular systolic function is normal, estimated at 55-60%. There is mildly increased left ventricular wall thickness. The left ventricular diastolic function is grade I diastolic dysfunction. The basal inferolateral wall, and mid inferolateral wall are hypokinetic. All other garcia appear normal. Right Ventricle Right ventricular chamber dimension is normal. Right ventricular systolic function is normal. Left Atria Left atrial chamber dimension is mildly enlarged. Right Atria Right atrial chamber dimension is normal. Atrial Septum Intact interatrial septum visualized by color flow imaging. Aortic Valve The aortic valve is probable trileaflet. There is no aortic valve stenosis. There is trace aortic valve regurgitation. There is moderate aortic valve calcification. Pulmonic Valve The pulmonic valve is normal. There is no pulmonic valve stenosis. There is trace pulmonic regurgitation. Mitral Valve The mitral valve has thickened leaflets and calcified annulus. There is no mitral valve stenosis. There is mild mitral valve regurgitation. Tricuspid Valve The tricuspid valve leaflets are normal. There is no significant tricuspid valve stenosis. There is trace tricuspid valve regurgitation. Pericardium/Pleural The pericardium appears normal. There is no pericardial effusion. Inferior Vena Cava Normal inferior vena cava with >50% collapse upon inspiration consistent with normal right atrial pressure, 5 mmHg. Aorta The aortic root size at the sinus of Valsalva is mildly dilated. Left Ventricular Outflow Tract Name Value Normal LVOT 2D LVOT Diameter 2.11 cm LVOT Doppler
[2021-10-28 00:01] LABS: Platelet Estimate Adequate (Adequate)
[2021-10-28 00:02] LABS: Atypical Lymphocytes Present; Macrocytosis 1+ (NORMAL); Microcytosis 1+ (NORMAL); Ovalocytes 1+ (NORMAL)
--- NOTE | 2021-10-28 00:27 | PM.IMHP ---
H&P: HPI History of Present Illness Date/Time: 10/28/21 00:27 Chief Complaint: Shortness of breath. Narrative: This is an 81-year-old male with past medical history significant for bladder cancer patient is status post urostomy and ileal conduit, mild persistent asthma, hypertension, chronic kidney disease, congestive heart failure, deep vein thrombosis, hypertension. Patient is currently undergoing chemotherapy Port-A-Cath in place patient received his last chemotherapy treatment on Saturday of this week presented today to the emergency room for evaluation of worsening shortness of breath, worsening bilateral lower extremity edema, most of the history has been obtained upon reviewing medical records emergency room physician and who is at bedside patient is not a very good history. No fevers, no rigors, no chills, no nausea,no vomiting, no diarrhea, no constipation, no chest pain, no palpitations, no dizziness, near syncope, syncope, however patient has had worsening shortness of breath now at rest as well. Preliminary workup was significant for elevated troponins , elevated brain natriuretic peptide, an EKG did not show any acute ST segment or T-wave changes. Decision has been made to admit the patient for further evaluation management and treatment. Review of Systems Review of Systems: Shortness of breath bilateral lower extremity edema Constitutional: Constitutional: Denies chills, Denies fever(s), Denies night sweats, Denies poor appetite and Denies weight loss Eyes: Eyes: Denies change in vision ENT: Reports dysphagia, Denies vertigo, Denies dizziness, Denies nasal discharge and Denies nasal obstruction Cardiovascular: Cardiovascular: Reports pedal edema, Denies claudication, Reports leg edema, Denies lightheadedness, Denies radiating jaw, neck or arm pain, Denies palpitations, Reports dyspnea and Reports dyspnea on exertion Respiratory: Respiratory: Denies cough and Denies wheezing Gastrointestinal: Gastrointestinal: Denies abdominal pain, Denies dyspepsia, Denies heartburn, Denies diarrhea, Denies nausea and Denies vomiting Genitourinary: Genitourinary: Denies dysuria Musculoskeletal: Musculoskeletal: Denies back pain and Denies arthralgias Integumentary/Breasts: Skin/Breast: Denies rash Neurologic: Denies focal weakness and Denies Sensory deficit (Neuro) Psychiatric: Psychiatric: Reports no additional psychiatric complaints and Reports as per HPI Endocrine: Endocrine: Denies polyphagia, Denies polydipsia, Denies polyuria and Denies palpitations Hematologic/Lymphatic: Hematologic/Lymphatic: Reports no additional hematologic/lymphatic complaints and Reports as per HPI Allergic/Immunologic: Allergic/Immunologic: Reports no additional allergic/immunologic complaints and Reports as per HPI [facility] Past Medical History Medical History (Updated 10/28/21 @ 03:22 by Gregg Garcia MD) Anticoagulant long-term use Asthma Bilateral renal cysts Bladder cancer (~03/2020) CKD (chronic kidney disease) stage 3, GFR 30-59 ml/min (Unknown) Congestive heart failure Depression with anxiety DVT (deep venous thrombosis) several Essential (primary) hypertension H/O prostate cancer (Unknown) History of deep vein thrombosis Insomnia Malignant neoplasm of bladder, unspecified Mild persistent asthma without complication Osteoarthritis of shoulders, bilateral Port-A-Cath in place right upper chest Prostate cancer Rotator cuff tear Urinary incontinence Urothelial cancer Surgical History Surgical History H/O prostatectomy History of bladder surgery History of bunionectomy History of urostomy S/P ileal conduit Family History Family History Mother Hypertension Father Family history of malignant neoplasm of brain Daughter COVID-19 at the age of 47 due to complications of COVID-19 Social History S
[2021-10-28] MEDS: FUROSEMIDE INJ 40 MG/4 ML VIAL IV PUSH ×3 (01:45→18:25)
[2021-10-28] MEDS: APIXABAN 5 MG TABLET PO (04:52)
--- NOTE | 2021-10-28 06:13 | PC.NURSE ---
This patient, Omer Winter, was admitted to IMU Room 206-02. Patient/family oriented to hospital policies and general routines including ID bracelet, bed and alarms, visiting hours, pain management, procedures, bathroom and other care routines, personal items, smoking policy, room service/diet, and visiting hours. Information on how to activate the Rapid Response Team has been discussed. Patient/Family are encouraged to report perceived risks to care and to ask questions if they do not understand what they are told or what they should do.
[2021-10-28] MEDS: FERROUS SULFATE 324 MG TABLET PO ×3 (10:46→18:23)
[2021-10-28] MEDS: dilTIAZem HCL CD 180 MG CAP.ER.24H 360 MG PO (10:46)
[2021-10-28] MEDS: METOPROLOL SUCCINATE EXT REL 100 MG TABCR PO (10:47)
[2021-10-28] MEDS: SERTRALINE HCL 25 MG TABLET PO (10:47)
[2021-10-28] MEDS: LORATADINE 10 MG TABLET PO (10:48)
[2021-10-28] MEDS: CHOLECALCIFEROL 1,000 UNITS TABLET 2000 UNITS PO (10:48)
[2021-10-28] MEDS: MULTIVITAMINS THERAPEUTIC TAB (*BKC) 1 TABLET PO (10:49)
[2021-10-28] MEDS: POTASSIUM CHLORIDE 20 MEQ TABLET.ER PO (13:59)
--- NOTE | 2021-10-28 14:19 | ECG_ITS ---
Measurements Intervals [place] Rate: 80 P: 21 ID: 157 QRS: 89 QRSD: 129 T: 53 QT: 403 QTc: 467 Interpretive Statements SINUS RHYTHM POSSIBLE LEFT ATRIAL ENLARGEMENT INTRAVENTRICULAR CONDUCTION DELAY MINIMAL Q WAVES- DIFFUSE LEADS ST-T WAVE ABNORMALITY IN ANTEROSEPTAL LEADS- CONSIDER ISCHEMIA ABNORMAL ECG Electronically Signed On 10-28-2021 14:46:31 HOSPITAL UNIT CLERK by Todd Melgoza D.O.
--- NOTE | 2021-10-28 14:39 | PM.CNCAR ---
Assessment and Plan Assessment and plan (1) Non-ST elevation [place] (NSTEMI): Code(s): I21.4 - Non-ST elevation (NSTEMI) myocardial infarction Status: Acute Assessment and Plan: Patient does have significant troponin elevation which is down trending. This does appear to be a non ST-elevation myocardial infarction but he cannot recall a significant event/symptoms over the past couple of days that would reflect the inciting infarction event. Regardless, EKG does show some nonspecific ST abnormalities which appear a bit more prominent than previous although the sensitivity/specificity of this is reduced given his underlying right bundle-branch block. Regardless will order it EKG now. 2D echocardiogram Doppler is also ordered. Will hold apixaban in case invasive cardiac workup is needed. Will transition to enoxaparin 1 milligram/kilogram subQ q.12 hours for now as well as start him on low-dose aspirin 81 mg p.o. daily. He does have a complexity of medical issues which will complicate his cardiac treatment. Continue metoprolol. Will add atorvastatin 20 mg daily (2) Congestive heart failure: Code(s): I50.9 - Heart failure, unspecified Status: Acute Assessment and Plan: CHF versus malignant pleural effusion. Start diuresis of 40 mg of furosemide IV Q 12. Basic metabolic panel in a.m.. PA and lateral chest x-ray in a.m.. (3) Essential (primary) hypertension: Code(s): I10 - Essential (primary) hypertension Status: Chronic Assessment and Plan: At goal (4) Pulmonary emboli: Code(s): I26.99 - Other pulmonary embolism without acute cor pulmonale Status: Acute Assessment and Plan: Holding Eliquis but will start enoxaparin (5) Anticoagulant long-term use: Code(s): Z79.01 - [facility] (current) use of anticoagulants Status: Inactive Assessment and Plan: Hold Eliquis but will start enoxaparin for now History of Present Illness History of Present Illness Consult date/time: 10/28/21 14:39 Requesting physician: Denilson Altman MD Consult reason: congestive heart failure and Other (Non-STEMI) Reason For Visit: nstemi,chf Narrative: Date of service 10/28/2021 Reason consultation: Non-STEMI, CHF Requesting providers: Dr. Altman History patient is an 81-year-old male with a complicated past history including metastatic bladder cancer status post urostomy, ileal conduit. He also has asthma, hypertension, CKD, CHF, DVT and hypertension. He has been treated as an outpatient with some furosemide due to some lower extremity swelling. There has not been much improvement. Patient states that he has been dyspneic for about 2 years. Shortness breath will occur with activity and has progressively worsened since that time. Two years ago he started chemotherapy. He denies any chest pain. He also denies any paroxysmal nocturnal dyspnea. He simply states that he feels exhausted and has absolutely no energy. He states that he is short of breath with minimal activity. He feels exhausted even by doing simple things such as walking 10 steps. He has had progressively worsening swelling recently as well. Denies any palpitations, syncope, presyncope. He came to the hospital for further workup and evaluation. He was found to have elevated troponin. Troponin was down trending. He has been started on diuretics and is feeling a little bit less short of breath today. He does not recall having a significant event or change in symptoms over the past couple of days. He has started further cancer treatment through Dr. Witt's office within the past couple of days. Review of Systems Review of Systems: All systems reviewed & are unremarkable except as noted in HPI and below Constitutional: Constitutional: Reports fatigue, Reports lethargy and Reports weakness Eyes: Eyes: Denies blurry vision ENT: Reports Normal hearing present Cardiovascular: Cardiovascular: Denies
--- NOTE | 2021-10-28 14:57 | PM.IMPN ---
Progress Note: A&P Assessment and Plan (1) Non-ST elevation [place] (NSTEMI): Code(s): I21.4 - Non-ST elevation (NSTEMI) myocardial infarction Status: Acute Assessment and Plan: Admit to telemetry unit Supportive care Cardiology consult (2) Dyspnea: Qualifiers: Dyspnea type: unspecified Qualified Code(s): R06.00 - Dyspnea, unspecified Code(s): R06.00 - Dyspnea, unspecified Status: Acute Assessment and Plan: Likely to be multifactorial Patient with deconditioning and weight loss secondary to chemotherapy and metastatic urothelial CA Echocardiogram from September of 2021 shows normal ejection fraction Supportive care Patient with malignant pleural effusion status post thoracentesis a few days ago Chest x-ray shows atelectasis (3) Bladder cancer: Onset Date: ~03/2020 Code(s): C67.9 - Malignant neoplasm of bladder, unspecified Status: Acute Assessment and Plan: Patient currently undergoing chemotherapy Port-A-Cath in place (4) Urothelial cancer: Code(s): C68.9 - Malignant neoplasm of urinary organ, unspecified Status: Acute Assessment and Plan: Status post iliac conduit Follow-up in outpatient setting Undergoing chemotherapy (5) Essential (primary) hypertension: Code(s): I10 - Essential (primary) hypertension Status: Chronic Assessment and Plan: Resume home meds Continue to monitor (6) CKD (chronic kidney disease) stage 3, GFR 30-59 ml/min: Onset Date: Unknown Code(s): N18.3 - Chronic kidney disease, stage 3 (moderate) Status: Chronic Assessment and Plan: Continue to monitor Daily intake and output (7) Pulmonary emboli: Code(s): I26.99 - Other pulmonary embolism without acute cor pulmonale Status: Acute Assessment and Plan: Continue Eliquis (8) DVT (deep venous thrombosis): Code(s): I82.409 - Acute embolism and thrombosis of unspecified deep veins of unspecified lower extremity Status: Inactive Assessment and Plan: Patient on Eliquis Subjective Date/time seen: 10/28/21 14:57 Interval history: I agree with current A&P. Will continue to monitor. Objective Data Vital Signs Vital Signs: Vital Signs - 24 hr 10/27/21 16:47 10/27/21 16:56 10/27/21 21:32 Temperature 36.4 C L 37.3 C Pulse Rate 93 89 Respiratory Rate 18 31 H Blood Pressure 99/53 L 116/67 Pulse Oximetry 93 95 89 L 10/27/21 21:37 10/27/21 21:43 10/27/21 21:45 Temperature Pulse Rate 89 92 89 Respiratory Rate 29 H 23 H Blood Pressure 116/67 134/71 Pulse Oximetry 96 10/27/21 22:00 10/27/21 22:15 10/27/21 22:30 Temperature Pulse Rate 90 88 90 Respiratory Rate 34 H 31 H 31 H Blood Pressure 97/66 L 118/70 Pulse Oximetry 92 96 96 10/27/21 23:05 10/27/21 23:14 10/27/21 23:46 Temperature Pulse Rate 88 88 89 Respiratory Rate 16 37 H 27 H Blood Pressure 108/67 Pulse Oximetry 96 96 96 10/28/21 00:00 10/28/21 00:15 10/28/21 00:16 Temperature Pulse Rate 90 84 86 Respiratory Rate 26 H 22 H 25 H Blood Pressure 131/74 Pulse Oximetry 97 98 98 10/28/21 00:30 10/28/21 01:07 10/28/21 01:23 Temperature 36.7 C Pulse Rate 87 86 87 Respiratory Rate 25 H 17 Blood Pressure 125/74 Pulse Oximetry 96 97 10/28/21 01:30 10/28/21 01:32 10/28/21 02:00 Temperature 36.2 C L Pulse Rate 88 86 Respiratory Rate 38 H Blood Pressure 125/69 Pulse Oximetry 99 99 10/28/21 04:00 10/28/21 06:00 10/28/21 08:00 Temperature 36.5 C 36.2 C L Pulse Rate 90 94 93 Respiratory Rate 30 H 30 H Blood Pressure 108/57 L 117/66 Pulse Oximetry 98 97 10/28/21 10:00 10/28/21 10:47 10/28/21 12:00 Temperature 36.6 C Pulse Rate 95 101 H 92 Respiratory Rate 28 H Blood Pressure 118/77 Pulse Oximetry 97 10/28/21 14:00 Temperature Pulse Rate 89 Respiratory Rate Blood Pressure Pulse Oximetry Intake/Output Intake/Ou
[2021-10-28] MEDS: ASPIRIN 81 MG ENTERIC TABLET PO (18:24)
[2021-10-28] MEDS: LORazepam (*CRX) 0.5 MG TABLET PO (22:07)
[2021-10-29] VITALS (14 sets, daily range): BP systolic 99–129; BP diastolic 45–90; PULSE 68–88; RESP 12–20; TEMP 36–36.6; O2SAT 92–100
[2021-10-29 04:47] LABS: Hemoglobin 8.7 g/dL (14.0-18.0); Immature Platelet Fraction Pct 5.8 % (0.9-11.2); Mean Corpuscular HGB Conc 27.2 g/dl (32-36); Mean Corpuscular Volume 73.4 fl (80-100); Platelet Count Result 195 k/mm3 (150-375); Red Blood Count 4.36 M/mm3 (4.6-6.20); Red Cell Distribution Width 27.3 % (11.5-14.5); White Blood Count 10.2 K/mm3 (4.5-10.0)
[2021-10-29 04:57] LABS: Anion Gap 10 mmol/L (8-16); Blood Urea Nitrogen 22 mg/dL (9-20); Calcium 9.7 mg/dL (8.4-10.2); Carbon Dioxide 29 mmol/L (22-30); Chloride 99 mmol/L (98-107); Estimated CRCL calculation 73 ml/min; Estimated Glomerular Filt Rate > 60; Glucose 112 mg/dL (65-110); Potassium 2.9 mmol/L (3.4-5.0); Sodium 138 mmol/L (137-145)
--- NOTE | 2021-10-29 07:17 | PC.NURSE ---
patient was given a bath because he urinated on himself. he did not tolerate the bath very well. he was extremely sob with use of accessory muscles to breathe. patient tried to urinate and was on able to urinate 75 mls. a norwood catheter was placed and 400 was the immediate return. patient was pulled up in bed and is very slow to recover.
[2021-10-29] MEDS: ASPIRIN 81 MG ENTERIC TABLET PO (08:17)
[2021-10-29] MEDS: FERROUS SULFATE 324 MG TABLET PO ×3 (08:18→16:07)
[2021-10-29] MEDS: POTASSIUM CHLORIDE 20 MEQ TABLET.ER PO ×2 (08:19→16:07)
[2021-10-29] MEDS: ATORVASTATIN 20 MG TABLET PO (08:19)
[2021-10-29] MEDS: CHOLECALCIFEROL 1,000 UNITS TABLET 2000 UNITS PO (08:19)
[2021-10-29] MEDS: dilTIAZem HCL CD 180 MG CAP.ER.24H 360 MG PO (08:19)
[2021-10-29] MEDS: ENOXAPARIN 80 MG/0.8 ML SYRINGE 70 MG SUB-Q (08:20)
[2021-10-29] MEDS: LORATADINE 10 MG TABLET PO (08:20)
[2021-10-29] MEDS: FUROSEMIDE INJ 40 MG/4 ML VIAL IV PUSH ×2 (08:20→16:07)
[2021-10-29] MEDS: MULTIVITAMINS THERAPEUTIC TAB (*BKC) 1 TABLET PO (08:21)
[2021-10-29] MEDS: SERTRALINE HCL 25 MG TABLET PO (08:21)
[2021-10-29] MEDS: METOPROLOL SUCCINATE EXT REL 100 MG TABCR PO (08:21)
--- NOTE | 2021-10-29 10:08 | PM.IMPN ---
Progress Note: A&P Assessment and Plan (1) Non-ST elevation [place] (NSTEMI): Code(s): I21.4 - Non-ST elevation (NSTEMI) myocardial infarction Status: Acute Assessment and Plan: Admit to telemetry unit Supportive care Cardiology consult (2) Dyspnea: Qualifiers: Dyspnea type: unspecified Qualified Code(s): R06.00 - Dyspnea, unspecified Code(s): R06.00 - Dyspnea, unspecified Status: Acute Assessment and Plan: Likely to be multifactorial Patient with deconditioning and weight loss secondary to chemotherapy and metastatic urothelial CA Echocardiogram from September of 2021 shows normal ejection fraction Supportive care Patient with malignant pleural effusion status post thoracentesis a few days ago Chest x-ray shows atelectasis (3) Bladder cancer: Onset Date: ~03/2020 Code(s): C67.9 - Malignant neoplasm of bladder, unspecified Status: Acute Assessment and Plan: Patient currently undergoing chemotherapy Port-A-Cath in place (4) Urothelial cancer: Code(s): C68.9 - Malignant neoplasm of urinary organ, unspecified Status: Acute Assessment and Plan: Status post iliac conduit Follow-up in outpatient setting Undergoing chemotherapy (5) Essential (primary) hypertension: Code(s): I10 - Essential (primary) hypertension Status: Chronic Assessment and Plan: Resume home meds Continue to monitor (6) CKD (chronic kidney disease) stage 3, GFR 30-59 ml/min: Onset Date: Unknown Code(s): N18.3 - Chronic kidney disease, stage 3 (moderate) Status: Chronic Assessment and Plan: Continue to monitor Daily intake and output (7) Pulmonary emboli: Code(s): I26.99 - Other pulmonary embolism without acute cor pulmonale Status: Acute Assessment and Plan: Patient is on anticoagulation (8) DVT (deep venous thrombosis): Code(s): I82.409 - Acute embolism and thrombosis of unspecified deep veins of unspecified lower extremity Status: Inactive Assessment and Plan: Patient on anticoagulation. Additional Plan 10/29/2021 Plan is to replace potassium today. Repeat potassium in the morning. Continue with current plan of care and treatment. Repeat chest x-ray in the morning. If stays okay discharge home in the morning. Subjective Date/time seen: 10/29/21 10:08 Patient was seen during the morning rounds today. Patient is feeling slightly better. Decreased shortness of breath. No chest pain. No abdominal pain, no nausea, no vomiting. Mood stable. Review of Systems Constitutional: Constitutional: Denies chills, Denies fever(s), Denies night sweats, Denies poor appetite and Denies weight loss Eyes: Eyes: Denies change in vision ENT: Reports dysphagia, Denies vertigo, Denies dizziness, Denies nasal discharge and Denies nasal obstruction Cardiovascular: Cardiovascular: Reports pedal edema, Denies claudication, Reports leg edema, Denies lightheadedness, Denies radiating jaw, neck or arm pain, Denies palpitations, Reports dyspnea and Reports dyspnea on exertion Respiratory: Respiratory: Denies cough, Reports dyspnea, Reports dyspnea on exertion and Denies wheezing Gastrointestinal: Gastrointestinal: Denies abdominal pain, Reports dysphagia, Denies dyspepsia, Denies heartburn, Denies diarrhea, Denies nausea and Denies vomiting Genitourinary: Genitourinary: Denies dysuria Musculoskeletal: Musculoskeletal: Denies back pain and Denies arthralgias Integumentary/Breasts: Skin/Breast: Denies rash Neurologic: Denies vertigo, Denies dizziness, Denies focal weakness and Denies Sensory deficit (Neuro) Psychiatric: Psychiatric: Reports no additional psychiatric complaints and Reports as per HPI Endocrine: Endocrine: Denies polyphagia, Denies polydipsia, Denies polyuria and Denies palpitations Hematologic/Lymphatic: Hematologic/Lymphatic: Reports no additional hematologic/lymphatic complain
--- NOTE | 2021-10-29 10:38 | PM.PNCARD ---
Progress Note: A&P Assessment and Plan (1) Non-ST elevation [place] (NSTEMI): Code(s): I21.4 - Non-ST elevation (NSTEMI) myocardial infarction Status: Acute Assessment and Plan: Patient does have significant troponin elevation which is down trending. This does appear to be a non ST-elevation myocardial infarction but he cannot recall a significant event/symptoms over the past couple of days that would reflect the inciting infarction event. Regardless, EKG does show some nonspecific ST abnormalities which appear a bit more prominent than previous although the sensitivity/specificity of this is reduced given his underlying right bundle-branch block. Continue to hold apixaban in case invasive cardiac workup is needed. Continue enoxaparin and low-dose aspirin 81 mg p.o. daily. He does have a complexity of medical issues which will complicate his cardiac treatment. Continue metoprolol. Will keep NPO after midnight for Lexiscan perfusion study in the morning. (2) Congestive heart failure: Code(s): I50.9 - Heart failure, unspecified Status: Acute Assessment and Plan: CHF versus malignant pleural effusion. Continue 40 mg of furosemide IV Q 12. KCL 60 mEq p.o. x1 (3) Essential (primary) hypertension: Code(s): I10 - Essential (primary) hypertension Status: Chronic Assessment and Plan: At goal (4) Pulmonary emboli: Code(s): I26.99 - Other pulmonary embolism without acute cor pulmonale Status: Acute Assessment and Plan: Holding Eliquis (5) Anticoagulant long-term use: Code(s): Z79.01 - correction (current) use of anticoagulants Status: Inactive Assessment and Plan: Hold Eliquis but continue enoxaparin for now Subjective Date/time seen: 10/29/21 10:38 Interval history: 81-year-old admitted with shortness of breath, weakness Date of service 10/29/2021: Feels little better today. Less short of breath. No chest pain. Swelling is improved. Review of Systems Review of Systems: All systems reviewed & are unremarkable except as noted in HPI and below Constitutional: Constitutional: Denies fatigue, Denies headache(s), Reports lethargy and Reports weakness Eyes: Eyes: Denies blurry vision ENT: Reports Normal hearing present, Denies headache(s) and Denies neck pain Cardiovascular: Cardiovascular: Denies chest pain, Reports pedal edema, Reports leg edema and Reports dyspnea Respiratory: Respiratory: Reports dyspnea Gastrointestinal: Gastrointestinal: Denies abdominal pain Genitourinary: Genitourinary: Denies hematuria Musculoskeletal: Musculoskeletal: Denies neck pain Integumentary/Breasts: Skin/Breast: Denies dry skin Neurologic: Reports Normal hearing present, Denies confusion, Denies headache(s) and Reports weakness Psychiatric: Psychiatric: Denies anxiety and Denies confusion Endocrine: Endocrine: Denies fatigue Hematologic/Lymphatic: Hematologic/Lymphatic: Denies easy bleeding Allergic/Immunologic: Allergic/Immunologic: Denies GI upset with certain foods Exam Narrative: Patient awake alert oriented appears to be in no acute distress. Appears frail but his stated age Const: General: comfortable and no acute distress; No confusion Orientation/consciousness: No confusion HENMT: General nose exam: Normal nares present Eyes: Sclera: sclerae normal Neck: Neck: supple and no JVD Chest: Other: No reproducible chest wall pain. Port noted. Resp: Auscultation: diminished lung sounds Cardio: Rate: regular rate Rhythm: regular rhythm Other: No audible murmur GI: Auscultation: normal bowel sounds Urinary Catheter: Urinary Catheter: urine clear Skin: General skin exam: normal color Neuro: General: No confusion Cranial nerves: Yes Normal hearing present Cognition (Neuro): normal cognition Speech: normal speech Extrem: General: edema (1+ bilateral lower extremity edema right leg greater than left) Psych: M
[2021-10-29] MEDS: POTASSIUM CHLORIDE 20 MEQ TABLET 40 MEQ PO (11:13)
[2021-10-29] MEDS: ACETAMINOPHEN 325 MG TABLET 650 MG PO ×2 (11:13→22:05)
[2021-10-29] MEDS: LORazepam (*CRX) 0.5 MG TABLET PO (16:06)
[2021-10-29] MEDS: traZODone HCL 50 MG TABLET PO (20:36)
[2021-10-30] VITALS (14 sets, daily range): BP systolic 96–133; BP diastolic 54–65; PULSE 77–102; RESP 16–20; TEMP 36.5–36.9; O2SAT 95–100; BMI 23.3
[2021-10-30 05:28] LABS: Anion Gap 9 mmol/L (8-16); Blood Urea Nitrogen 20 mg/dL (9-20); Calcium 9.5 mg/dL (8.4-10.2); Carbon Dioxide 29 mmol/L (22-30); Chloride 100 mmol/L (98-107); Estimated CRCL calculation 64 ml/min; Estimated Glomerular Filt Rate > 60; Glucose 149 mg/dL (65-110); Potassium 3.4 mmol/L (3.4-5.0); Sodium 138 mmol/L (137-145)
[2021-10-30] MEDS: FLUTICASONE PROP 44 MCG (*SP) 10.6 GM 2 PUFF INHALATION ×2 (08:58→21:17)
[2021-10-30] MEDS: dilTIAZem HCL CD 180 MG CAP.ER.24H 360 MG PO (09:18)
[2021-10-30] MEDS: POTASSIUM CHLORIDE 20 MEQ TABLET.ER PO ×2 (09:18→16:49)
[2021-10-30] MEDS: FUROSEMIDE INJ 40 MG/4 ML VIAL IV PUSH (09:18)
[2021-10-30] MEDS: SERTRALINE HCL 25 MG TABLET PO (09:19)
[2021-10-30] MEDS: ASPIRIN 81 MG ENTERIC TABLET PO (09:20)
[2021-10-30] MEDS: MAGNESIUM OXIDE 400 MG TABLET PO (09:20)
[2021-10-30] MEDS: LORATADINE 10 MG TABLET PO (09:21)
[2021-10-30] MEDS: CHOLECALCIFEROL 1,000 UNITS TABLET 2000 UNITS PO (09:21)
[2021-10-30] MEDS: METOPROLOL SUCCINATE EXT REL 100 MG TABCR PO (09:21)
[2021-10-30] MEDS: FERROUS SULFATE 324 MG TABLET PO ×3 (09:21→16:48)
[2021-10-30] MEDS: MULTIVITAMINS THERAPEUTIC TAB (*BKC) 1 TABLET PO (09:22)
[2021-10-30] MEDS: ATORVASTATIN 20 MG TABLET PO (09:22)
[2021-10-30] MEDS: ENOXAPARIN 80 MG/0.8 ML SYRINGE 70 MG SUB-Q (09:23)
--- NOTE | 2021-10-30 09:37 | P.CDI_ITS ---
CDI Query Clarification Request -Pulmonary emboli status acute and DVT- acute embolism and thrombosis of deep veins of lower extremity, status inactive are on problem list. Please clarify acuity of PE and DVT: * Acute * Chronic * History of * Unable to determine <Joselyn Jones RN - Last Filed: 10/30/21 09:41> Clarified Diagnosis (1) Acute pulmonary embolism with acute cor pulmonale: Code(s): I26.09 - Other pulmonary embolism with acute cor pulmonale <Joselyn Jones RN - Last Filed: 10/30/21 09:41> Status: Acute <Joselyn Jones RN - Last Filed: 10/30/21 09:41>
--- NOTE | 2021-10-30 10:16 | PM.IMPN ---
Progress Note: A&P Assessment and Plan (1) Non-ST elevation [place] (NSTEMI): Code(s): I21.4 - Non-ST elevation (NSTEMI) myocardial infarction Status: Acute Assessment and Plan: Admit to telemetry unit Supportive care Cardiology consult Scheduled for Lexvishalan (2) Dyspnea: Qualifiers: Dyspnea type: unspecified Qualified Code(s): R06.00 - Dyspnea, unspecified Code(s): R06.00 - Dyspnea, unspecified Status: Acute Assessment and Plan: Likely to be multifactorial Patient with deconditioning and weight loss secondary to chemotherapy and metastatic urothelial CA Echocardiogram from September of 2021 shows normal ejection fraction Supportive care Patient with malignant pleural effusion status post thoracentesis a few days ago Chest x-ray shows atelectasis (3) Bladder cancer: Onset Date: ~03/2020 Code(s): C67.9 - Malignant neoplasm of bladder, unspecified Status: Acute Assessment and Plan: Patient currently undergoing chemotherapy Port-A-Cath in place (4) Urothelial cancer: Code(s): C68.9 - Malignant neoplasm of urinary organ, unspecified Status: Acute Assessment and Plan: Status post iliac conduit Follow-up in outpatient setting Undergoing chemotherapy (5) Essential (primary) hypertension: Code(s): I10 - Essential (primary) hypertension Status: Chronic Assessment and Plan: Resume home meds Continue to monitor (6) CKD (chronic kidney disease) stage 3, GFR 30-59 ml/min: Onset Date: Unknown Code(s): N18.3 - Chronic kidney disease, stage 3 (moderate) Status: Chronic Assessment and Plan: Continue to monitor Daily intake and output (7) Pulmonary emboli: Code(s): I26.99 - Other pulmonary embolism without acute cor pulmonale Status: Acute Assessment and Plan: Patient is on anticoagulation (8) DVT (deep venous thrombosis): Code(s): I82.409 - Acute embolism and thrombosis of unspecified deep veins of unspecified lower extremity Status: Inactive Assessment and Plan: Patient on anticoagulation. Additional Plan 10/29/2021 Plan is to replace potassium today. Repeat potassium in the morning. Continue with current plan of care and treatment. Repeat chest x-ray in the morning. If stays okay discharge home in the morning. 10/30/2021 Patient is feeling much better today. Decreased shortness of breath. Plan is to continue current treatment, patient is scheduled for Lexiscan today Subjective Date/time seen: 10/30/21 10:16 Patient was seen during the morning rounds in the morning. Patient is feeling slightly better. Decreased shortness of breath. No chest pain. No abdominal pain, no nausea, no vomiting. Mood stable. Interval history: 81-year-old admitted with shortness of breath, weakness Date of service 10/29/2021: Feels little better today. Less short of breath. No chest pain. Swelling is improved. Review of Systems Constitutional: Constitutional: Denies chills, Denies fever(s), Denies night sweats, Denies poor appetite and Denies weight loss Eyes: Eyes: Denies change in vision ENT: Reports dysphagia, Denies vertigo, Denies dizziness, Denies nasal discharge and Denies nasal obstruction Cardiovascular: Cardiovascular: Reports pedal edema, Denies claudication, Reports leg edema, Denies lightheadedness, Denies radiating jaw, neck or arm pain, Denies palpitations, Reports dyspnea and Reports dyspnea on exertion Respiratory: Respiratory: Denies cough, Reports dyspnea, Reports dyspnea on exertion and Denies wheezing Gastrointestinal: Gastrointestinal: Denies abdominal pain, Reports dysphagia, Denies dyspepsia, Denies heartburn, Denies diarrhea, Denies nausea and Denies vomiting Genitourinary: Genitourinary: Denies dysuria Musculoskeletal: Musculoskeletal: Denies back pain and Denies arthralgias Integumentary/Breasts: Skin/Breast: Denies rash Neurologic:
--- NOTE | 2021-10-30 10:43 | EST_ITS ---
Patient Info Name: Omer Winter Age: 81 years : 1940 Gender: Male Ht: 69 in Wt: 157 lbs BSA: 1.87 m2 Exam Date: 10/30/2021 11:19 AM Exam Location: [facility] Stress Patient Status: Inpatient Admit Date: 10/28/2021 Staff Ordering Physician: Gatito Greene MD Attending Provider: Gregg Garcia MD Exercise Technologist: Lurdes Arana RDCS Exercise Physician: Gatito Greene MD Exam Type: CA stress cristian w NM Study Info Indications I21.4 - Non-ST elevation (NSTEMI) myocardial infarction A regadenoson stress test was performed. Summary 1. Please correlate with nuclear medicine images, reported separately. 2. No abnormal ST-T wave changes with lexiscan. 3. ST response normal but LAFB and/or RBBB may cause false negative response. Protocol: Lexiscan Stress ECG Details Stage: REST Duration (min): 2 min : 29 sec HR (bpm): 94 SBP (mmHg): 127 DBP (mmHg): 84 Stage: REST Duration (min): 7 min : 18 sec HR (bpm): 93 SBP (mmHg): 127 DBP (mmHg): 84 Stage: STAGE 1 Duration (min): 1 min : 0 sec HR (bpm): 95 SBP (mmHg): 123 DBP (mmHg): 75 Stage: RECOVERY Duration (min): 1 min : 0 sec HR (bpm): 101 SBP (mmHg): 115 DBP (mmHg): 70 Stage: RECOVERY Duration (min): 2 min : 0 sec HR (bpm): 100 SBP (mmHg): 115 DBP (mmHg): 70 Stage: RECOVERY Duration (min): 3 min : 0 sec HR (bpm): 100 SBP (mmHg): 108 DBP (mmHg): 65 Stage: RECOVERY Duration (min): 3 min : 45 sec HR (bpm): 98 SBP (mmHg): 115 DBP (mmHg): 60 Rest HR: 93 bpm Peak HR: 101 bpm Rest Sys BP: 127 mmHg Peak Sys BP: 123 mmHg Max Pred HR: 140 bpm % Max Pred HR: 72 % Target HR: 119 bpm Max RPP: 12,423 bpm*mmHg Target HR Summary: Hemodynamic response to exercise was normal BP Response: Normal blood pressure response Termination Reason: Completed protocol Cardiac Symptoms: None Total Time: 1 min : 0 sec Rest Watts BP: 84 mmHg Peak Watts BP: 75 mmHg Total Dose: 0.4 mg Resting ECG Normal sinus rhythm. Right bundle branch block. Inferior Q waves. Stress ECG Non-diagnostic ECG due to right bundle branch block. Arrhythmias Occasional PVCs. Report Signatures
--- NOTE | 2021-10-30 11:51 | PM.PNCARD ---
Progress Note: A&P Assessment and Plan (1) Non-ST elevation SD (NSTEMI): Code(s): I21.4 - Non-ST elevation (NSTEMI) myocardial infarction Status: Acute Assessment and Plan: Patient does have significant troponin elevation which is down trending. This does appear to be a non ST-elevation myocardial infarction but he cannot recall a significant event/symptoms over the past couple of days that would reflect the inciting infarction event. Regardless, EKG does show some nonspecific ST abnormalities which appear a bit more prominent than previous although the sensitivity/specificity of this is reduced given his underlying right bundle-branch block. Continue to hold apixaban in case invasive cardiac workup is needed. Continue enoxaparin and low-dose aspirin 81 mg p.o. daily. He does have a complexity of medical issues which will complicate his cardiac treatment. Continue metoprolol. Await stress test results (2) Congestive heart failure: Code(s): I50.9 - Heart failure, unspecified Status: Acute Assessment and Plan: CHF versus malignant pleural effusion. Will reduce furosemide at 20 mg IV q.12 hours. KCl 40 mEq p.o. x1. 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 Less short of breath. No chest pain. Swelling is improved. Date of service 10/30/2021: Depressed, feels about the same. Swelling is resolved. No chest pain. Shortness of breath his unchanged per patient. Saw and examined patient in stress lab Review of Systems Review of Systems: All systems reviewed & are unremarkable except as noted in HPI and below Constitutional: Constitutional: Denies fatigue, Denies headache(s), Reports lethargy and Reports weakness Eyes: Eyes: Denies blurry vision ENT: Reports Normal hearing present, Denies headache(s) and Denies neck pain Cardiovascular: Cardiovascular: Denies chest pain, Reports pedal edema, Reports leg edema and Reports dyspnea Respiratory: Respiratory: Reports dyspnea Gastrointestinal: Gastrointestinal: Denies abdominal pain Genitourinary: Genitourinary: Denies hematuria Musculoskeletal: Musculoskeletal: Denies neck pain Integumentary/Breasts: Skin/Breast: Denies dry skin Neurologic: Reports Normal hearing present, Denies confusion, Denies headache(s) and Reports weakness Psychiatric: Psychiatric: Denies anxiety and Denies confusion Endocrine: Endocrine: Denies fatigue Hematologic/Lymphatic: Hematologic/Lymphatic: Denies easy bleeding Allergic/Immunologic: Allergic/Immunologic: Denies GI upset with certain foods Exam Narrative: Patient awake alert oriented appears to be in no acute distress. Appears frail but his stated age Const: General: comfortable and no acute distress; No confusion Orientation/consciousness: No confusion HENMT: General nose exam: Normal nares present Eyes: Sclera: sclerae normal Neck: Neck: supple and no JVD Chest: Other: No reproducible chest wall pain. Port noted. Resp: Auscultation: diminished lung sounds Cardio: Rate: regular rate Rhythm: regular rhythm Other: No audible murmur GI: Auscultation: normal bowel sounds Urinary Catheter: Urinary Catheter: urine clear Skin: General skin exam: normal color Neuro: General: No confusion Cranial nerves: Yes Normal hearing present Cognition
[2021-10-30] MEDS: FUROSEMIDE INJ 40 MG/4 ML VIAL 20 MG IV PUSH (16:48)
[2021-10-30] MEDS: ACETAMINOPHEN 325 MG TABLET 650 MG PO (20:54)
[2021-10-30] MEDS: traZODone HCL 50 MG TABLET PO (20:55)
[2021-10-31] VITALS (7 sets, daily range): BP systolic 96–115; BP diastolic 54–59; PULSE 78–106; RESP 20–22; TEMP 36.4; O2SAT 98–100
[2021-10-31] MEDS: ENOXAPARIN 80 MG/0.8 ML SYRINGE 70 MG SUB-Q (08:42)
[2021-10-31] MEDS: ASPIRIN 81 MG ENTERIC TABLET PO (08:42)
[2021-10-31] MEDS: LORATADINE 10 MG TABLET PO (08:42)
[2021-10-31] MEDS: MAGNESIUM OXIDE 400 MG TABLET PO (08:42)
[2021-10-31] MEDS: dilTIAZem HCL CD 180 MG CAP.ER.24H 360 MG PO (08:42)
[2021-10-31] MEDS: CHOLECALCIFEROL 1,000 UNITS TABLET 2000 UNITS PO (08:43)
[2021-10-31] MEDS: POTASSIUM CHLORIDE 20 MEQ TABLET PO (08:43)
[2021-10-31] MEDS: SERTRALINE HCL 25 MG TABLET PO (08:43)
[2021-10-31] MEDS: FUROSEMIDE INJ 40 MG/4 ML VIAL 20 MG IV PUSH (08:43)
[2021-10-31] MEDS: MULTIVITAMINS THERAPEUTIC TAB (*BKC) 1 TABLET PO (08:43)
[2021-10-31] MEDS: METOPROLOL SUCCINATE EXT REL 100 MG TABCR PO (08:43)
[2021-10-31] MEDS: FERROUS SULFATE 324 MG TABLET PO (08:43)
[2021-10-31] MEDS: ATORVASTATIN 20 MG TABLET PO (08:43)
[2021-10-31] MEDS: POTASSIUM CHLORIDE 20 MEQ TABLET.ER PO (08:43)
--- NOTE | 2021-10-31 09:52 | PM.PNCARD ---
Progress Note: A&P Assessment and Plan (1) Non-ST elevation [place] (NSTEMI): Code(s): I21.4 - Non-ST elevation (NSTEMI) myocardial infarction Status: Acute Assessment and Plan: Patient does have significant troponin elevation which is down trending. This does appear to be a non ST-elevation myocardial infarction but he cannot recall a significant event/symptoms over the past couple of days that would reflect the inciting infarction event. Regardless, EKG does show some nonspecific ST abnormalities which appear a bit more prominent than previous although the sensitivity/specificity of this is reduced given his underlying right bundle-branch block. Stress test showed fixed defects.. Will treat medically. Continue aspirin. Discontinue enoxaparin. Restart his Eliquis at 5 mg p.o. b.i.d.. DC IV furosemide and start him on furosemide 40 mg p.o. daily. I am also going to reduce his diltiazem down to 240 mg daily with the intention of hopefully lower in further as an outpatient to allow some blood pressure to add an ALYSIA-inhibitor or an Arb. Continue statin. Okay for discharge from my perspective. Will need follow-up in the office (2) Congestive heart failure: Code(s): I50.9 - Heart failure, unspecified Status: Acute Assessment and Plan: CHF versus malignant pleural effusion. Switching to p.o. Lasix today (3) Essential (primary) hypertension: Code(s): I10 - Essential (primary) hypertension Status: Chronic Assessment and Plan: At goal (4) Pulmonary emboli: Code(s): I26.99 - Other pulmonary embolism without acute cor pulmonale Status: Acute Assessment and Plan: Resuming Eliquis (5) Anticoagulant long-term use: Code(s): Z79.01 - group home (current) use of anticoagulants Status: Inactive Assessment and Plan: DC enoxaparin. re Start Eliquis Subjective Date/time seen: 10/31/21 09:52 Interval history: 81-year-old admitted with shortness of breath, weakness Date of service 10/29/2021: Feels little better today. Less short of breath. No chest pain. Swelling is improved. Date of service 10/30/2021: Depressed, feels about the same. Swelling is resolved. No chest pain. Shortness of breath his unchanged per patient. Saw and examined patient in stress lab Date of service 10/31/2021: Feels little better. Excited about going home. He has no chest pain. Shortness breath is a little better. Swelling gone Review of Systems Review of Systems: All systems reviewed & are unremarkable except as noted in HPI and below Constitutional: Constitutional: Denies fatigue, Denies headache(s), Reports lethargy and Reports weakness Eyes: Eyes: Denies blurry vision ENT: Reports Normal hearing present, Denies headache(s) and Denies neck pain Cardiovascular: Cardiovascular: Denies chest pain, Reports pedal edema, Reports leg edema and Reports dyspnea Respiratory: Respiratory: Reports dyspnea Gastrointestinal: Gastrointestinal: Denies abdominal pain Genitourinary: Genitourinary: Denies hematuria Musculoskeletal: Musculoskeletal: Denies neck pain Integumentary/Breasts: Skin/Breast: Denies dry skin Neurologic: Reports Normal hearing present, Denies confusion, Denies headache(s) and Reports weakness Psychiatric: Psychiatric: Denies anxiety and Denies confusion Endocrine: Endocrine: Denies fatigue Hematologic/Lymphatic: Hematologic/Lymphatic: Denies easy bleeding Allergic/Immunologic: Allergic/Immunologic: Denies GI upset with certain foods Exam Narrative: Patient awake alert oriented appears to be in no acute distress. Appears frail but his stated age Const: General: comfortable and no acute distress; No confusion Orientation/consciousness: No confusion HENMT: General nose exam: Normal nares present Eyes: Sclera: sclerae normal Neck: Neck: supple and no JVD Chest: Other: No reproducible chest wall pain. Port noted. Resp:
[2021-10-31] MEDS: ISOSORBIDE MONONITRATE 30 MG TAB.ER.24H PO (11:04)
--- NOTE | 2021-10-31 11:25 | PM.DS ---
DS: Admitting Diagnosis Discharge Date 10/31/[address]-elevation ND Acute pulmonary embolism History of hypertension History of bladder cancer DS: Discharge Diagnosis Discharge Diagnosis (1) Acute pulmonary embolism with acute cor pulmonale: Code(s): I26.09 - Other pulmonary embolism with acute cor pulmonale Status: Acute (2) Non-ST elevated myocardial infarction: Code(s): I21.4 - Non-ST elevation (NSTEMI) myocardial infarction Status: Acute DS: Summary Hospital Course Reason for hospitalization: Non ST-elevation ND Acute pulmonary embolism History of hypertension History of bladder cancer Hospital Course: 81 years old male was admitted with complaint of shortness of breath. Patient was found to have acute pulmonary embolism and non ST-elevation ND. Patient was given anticoagulation and medical management for ND. cardiology consult for noted, they recommend medical management. Today patient is feeling better so patient discharged home stable condition, follow the primary care and prescription benefit specialist scheduled for next week. Time spent discussing smoking cessation with patient: 3 to 10 minutes Status at Discharge Cognitive/behavioral status at discharge: Stable Functional status at discharge: independent ambulation Overall status at discharge: patient is back to baseline Time Spent with Patient Time attestation: Total time spent providing and/or coordinating discharge services: Time spent: Less than 30 minutes Exam Const: General: comfortable, no acute distress, well developed, alert, awake and ill appearing chronically Nutritional Appearance: thin Orientation/consciousness: patient oriented x3 HENMT: Head: normal to inspection, normocephalic and atraumatic Ears: hearing grossly normal bilaterally General nose exam: Normal external nose present Face and sinus: normal facial exam Eyes: General: appearance normal, both eyes and all related structures Alignment and Position: alignment normal Sclera: sclerae normal Pupils: Equal, round and reactive pupils present EOM: EOMs intact bilaterally Neck: Neck: normal visual inspection, full ROM, no lymphadenopathy, supple and no JVD Thyroid: thyroid normal Lymphatic: no lymphadenopathy noted Resp: Effort & Inspection: normal respiratory effort and able to speak in complete sentences Auscultation: crackles bilateral at the base and no wheezes Cardio: Jugular venous distension: no JVD Rate: regular rate Rhythm: regular rhythm Heart sounds: S1 normal heart sound present and S2 normal heart sound present GI: Inspection: normal to inspection : General: Yes deferred Skin: General skin exam: pallor Rashes: no rashes Wounds: no wounds Neuro: General: patient oriented x3 and CN's II-XI intact bilaterally Cranial nerves: Yes CN's II-XII intact bilaterally and Yes Equal, round and reactive pupils present Cognition (Neuro): normal cognition Speech: normal speech Gait exam (Neuro): Normal gait present Motor exam (neuro): 5/5 motor strength present throughout Sensory Exam: No Sensory deficit (Neuro) Extrem: General: edema bilateral DS: Data Data Completed and Pending Labs on day of discharge: Preliminary micro results at discharge 10/28/21 03:19 Blood Culture - Preliminary Blood 10/28/21 03:20 Blood Culture - Preliminary Blood Discharge Plan Discharge Attending physician on discharge: Renzo Spivey Consulting providers: Gatito Greene Discharging Clinician: Renzo Spivey Patient Disposition: Home, Self-Care Activity: as tolerated Diet: heart healthy Patient Instructions: Antibiotic Form, Apixaban (By mouth), Heart Failure (DC) Stand Alone Forms: General Discharge Information Follow-up/Referrals: Clemente Hagan MD [Physician] - (11/08/21 at 3:30) Discharge Medications: New magnesium oxide 400 mg (241.3 mg magnesium) Tablet 400 mg PO DAILY Qty: 30 RF: 0 furosemide 40 mg Tablet
--- NOTE | 2021-11-01 06:33 | WPDCDIQUERY2 ---
CDI Query Clarification Request -Pt presented with shortness of breath, exertional dyspnea and dyspnea at rest, 2+ edema RLE and 1+ edema LLE. -EDP documented CHF exacerbation and NSTEMI - Dyspnea, likely multifactorial , Malignant pleural effusion , CXR shows atelectasis documented in H&P. -Cardiology has documented CHF versus malignant pleural effusion -You have documented acute PE in discharge summary -Lasix 40mg IV BID was ordered then decreased to 20mg IV BID -Echo summary: EF 55-60%, grade 1 diastolic dysfunction -CTA chest was done on 09/09/20 that showed PE. CTA chest done on 09/25/21 showed no filling defects. No CTA chest done on this admission. Please clarify if CHF was ruled in or ruled out. Also, if ruled in, please clarify type and acuity.
== END 2021-10-31 12:08 | disposition home or self-care (01) | DRG 280 ==
LOC: ANHED 22:35 → ANHIMU 10-28 00:58
PROVIDERS: Internal Medicine Cardiovascular Disease; Nurse Practitioner Adult Health; Admitting Provider Internal Medicine; Emergency Provider Emergency Medicine; PCP Family Medicine; Visit Provider Internal Medicine
DX: I21.4 Non-ST elevation (NSTEMI) myocardial infarction (principal); I26.09 Other pulmonary embolism with acute cor pulmonale; J91.0 Malignant pleural effusion; I12.9 Hypertensive chronic kidney disease with stage 1 through stage 4 chronic kidney disease, or unspecified chronic kidney disease; C67.9 Malignant neoplasm of bladder, unspecified; N18.30 Chronic kidney disease, stage 3 unspecified; J45.30 Mild persistent asthma, uncomplicated; M19.012 Primary osteoarthritis, left shoulder; M19.011 Primary osteoarthritis, right shoulder; R32 Unspecified urinary incontinence; F41.8 Other specified anxiety disorders; Z79.01 Long term (current) use of anticoagulants; Z85.46 Personal history of malignant neoplasm of prostate; Z87.891 Personal history of nicotine dependence; Z86.718 Personal history of other venous thrombosis and embolism
CPT/HCPCS: 36415; 71046; 78452; 80048; 80053; 83880; 84484; 85025; 85027; 85055; 85610; 85730; 87040; 93005; 93017; 94640; 96374; 99285; A9270; A9502; C8929; G0378; J1650; J1940; J2785; J3480; J7040; Q9957